=== PATIENT | male | born 1950 | race Caucasian/White ===

== ENCOUNTER 2020-03-21 08:02 | Outpatient (REF) | payer MEDICARE, SELFPAY ==
--- NOTE | 2020-03-21 08:22 | US_ITS ---
EXAMINATION: NONINVASIVE ASSESSMENT OF THE ARTERIES OF BOTH LOWER EXTREMITIES WITH PVR EXAM AND BILATERAL LOWER EXTREMITY DUPLEX CLINICAL INFORMATION: Claudication TECHNIQUE: Ankle pulse volume recordings, ankle pressure measurements and ankle brachial indices were obtained of the lower extremity arterial system bilaterally in addition to duplex Doppler techniques with wave form analysis and measurement of velocities in the common femoral, profunda femoral, superficial femoral, popliteal and tibial arteries. The study was performed only at rest. COMPARISON: Previous exam June 2018 FINDINGS: a) AT REST: RIGHT LE. The right ankle-brachial index is: 0.7 2. Right ankle pressure: Decreased 3. Right ankle PVR waveform: Dampened 4. Right direct duplex Doppler findings: There is diffuse atherosclerotic disease with vessel wall calcification. There are multiple areas of narrowing in the right common femoral and superficial femoral arteries. There is a stent in the mid SFA that is patent but demonstrates diffuse luminal narrowing. The popliteal artery is severely stenosed or/nearly occluded. Common femoral artery: 186 cm/s, Diastolic flow reversal: No * Superficial femoral artery (proximal, mid, distal): 112, 81, 69 cm/s, Diastolic flow reversal: No * Popliteal artery: 177 cm/s, Diastolic flow reversal: No * Posterior tibial artery: 20 cm/s, Diastolic flow reversal: No SFA stent: Proximal mid and distal systolic velocities are 73, 43 and 39 cm/s with monophasic flow. LEFT LE. The left ankle-brachial index is: 1 2. Left ankle pressure: normal. 3. Left ankle PVR waveform: normal. 4. Left direct duplex Doppler findings: There is evidence of diffuse atherosclerotic disease. There is diffuse narrowing of the SFA and popliteal artery. There is a severe stenosis of the proximal SFA. There is a new mid to distal SFA stent that is patent but demonstrates mild diffuse luminal narrowing. * Common femoral artery: 271 cm/s, Diastolic flow reversal: No * Superficial femoral artery (proximal, mid, distal): 221, 139 and 51 cm/s, Diastolic flow reversal: No * Popliteal artery: 59 cm/s, Diastolic flow reversal: No * Posterior tibial artery: 56 cm/s, Diastolic flow reversal: No SFA stent: Proximal mid and distal peak systolic velocities are 117, 84 and 46 cm/s with monophasic phasic flow. MACARIO Reference: * >0.97-1.25 = normal - no significant arterial disease * 0.75-0.96 = mild peripheral arterial disease * 0.5-0.74 = moderate peripheral arterial disease * <0.50 = severe peripheral arterial disease IMPRESSION: Right: Severe atherosclerotic disease with multiple segmental stenoses of the right common and superficial femoral arteries. Patent mid SFA stent with diffuse luminal narrowing. Severe stenosis/near occlusion of the popliteal artery. The right MACARIO is 0.69. Left: Severe atherosclerotic disease. Severe stenosis/near occlusion of the proximal left superficial femoral artery. New patent left SFA stent with mild luminal narrowing. The left MACARIO is 1.
== END 2020-03-21 08:03 | disposition home or self-care (01) ==
LOC: HO.US 08:02
PROVIDERS: Visit Provider Surgery Vascular Surgery
DX: I73.9 Peripheral vascular disease, unspecified (principal)
CPT/HCPCS: 93923; 93925

== ENCOUNTER → 2020-03-28 10:00 | Outpatient (BNVA) | payer MEDICARE, OTHER, SELFPAY | PROVIDERS: Visit Provider Surgery Vascular Surgery | DX: I73.9 Peripheral vascular disease, unspecified (principal) | CPT/HCPCS: 99213 ==

== ENCOUNTER 2020-04-03 10:29 | Outpatient (REF) | payer MEDICARE, OTHER, SELFPAY ==
[2020-04-03 12:09] LABS: Blood Urea Nitrogen 7 mg/dL (9-16); Estimated Glomerular Filt Rate > 60
== END 2020-04-03 10:30 | disposition home or self-care (01) ==
LOC: HO.LAB 10:29
PROVIDERS: PCP Internal Medicine; Visit Provider Surgery Vascular Surgery
DX: I73.9 Peripheral vascular disease, unspecified (principal)
CPT/HCPCS: 82565; 84520

== ENCOUNTER 2020-04-08 09:03 | Outpatient (REF) | payer MEDICARE, SELFPAY ==
--- NOTE | 2020-04-08 09:06 | CT_ITS ---
EXAMINATION: CT ANGIOGRAPHY LEGS WITH RUNOFF CLINICAL INFORMATION: Peripheral vascular disease. COMPARISON: Bilateral lower extremity arterial ultrasound 01/20/2020. TECHNIQUE: Axial images through the abdomen, pelvis and bilateral lower extremities following 100 mL Omnipaque 350 intravenous contrast. Sagittal and coronal reconstructions on the technologist workstation were performed. This CT examination was performed using dose optimization techniques as appropriate, variously including the following: *Automated exposure control *Adjustment of mA and/or kV according to patient size (this includes techniques or standardized protocols for targeted exams where dose is matched to indication/reason for exam; i.e. extremities or head) *Use of iterative reconstruction technique DLP: 682 mGy-cm. FINDINGS: VASCULAR: The abdominal aorta is normal in caliber. There is evidence of mild atherosclerotic disease with calcified and noncalcified plaque. No aneurysm or stenosis is seen. There is a mild stenosis at the origin of the celiac axis. There is a eexlffle-fr-bcikvu stenosis at the origin of the SMA with mild luminal narrowing secondary to noncalcified plaque. The GEE is patent. There are 2 right renal arteries. There is an accessory right renal artery supplying the upper pole that is patent. There is an earlier or pre-hilar branching pattern of the more inferior main renal artery. This demonstrates ojgqcjwn-cb-iokzcx stenosis at the origin. There are 2 left renal arteries. The main left renal artery supplies the upper and midpole and demonstrates no stenosis. There is a small accessory left renal artery supplying the lower pole and demonstrates no stenosis. The bilateral iliac arteries are heavily calcified. There is a fnuk-ie-szjufpfm stenosis at the origin of the right common iliac artery. There is a severe stenosis at the origin of the right external iliac artery. Remainder of the right external iliac artery is severely diffusely narrowed. There is a severe stenosis/occlusion of the origin of the right internal iliac artery. There is a epftlutl-mm-dcrpxt stenosis at the origin of the left common iliac artery. There is mild diffuse luminal narrowing of the left common iliac artery. The left internal iliac artery is patent. There is a vifq-sr-tpsjjbgn stenosis at the origin of the left external iliac artery. The left external iliac artery is also diffusely small in caliber with segmental stenoses. Right: There is qmjdncbe-zo-nqlpix stenosis of the right common femoral artery. The right profunda is patent. There is a moderate stenosis at the origin of the right superficial femoral artery. There are mild segmental stenoses of the right proximal and mid superficial femoral artery. There is a jfcn-te-gzlcypwc stenosis of the mid superficial femoral artery at the proximal margin of the stent. There is a stent in the mid and distal right superficial femoral artery that is patent. There is occlusion of the distal SFA/above-knee popliteal artery at the inferior margin of the stent. The distal SFA and above-knee popliteal artery are diffusely narrowed with extensive calcified plaque and gdsxpqnc-hh-htwvsd segmental stenoses. There is a short segment of the below-knee popliteal artery that is free of calcified plaque and mildly narrowed without a significant focal stenosis. Evaluation of the lower leg vessels is suboptimal due to extensive venous contamination. The right posterior tibial artery is patent and crosses the ankle joint into the foot. Left: The left common femoral artery is patent. The left profunda is patent. There are mild segmental stenoses of the left proximal and mid superficial femoral artery. There is a moderate stenosis of the mid left superficial femoral artery at the superior margin of the stent. There is a stent in the mid and distal left superficial femoral artery. There is an oblique filling defect in the distal end of the stent, for example coronal reconstructed image 93 series 9, questionable for focal web-like stenosis. There is obuu-mh-rtbukjpn stenosis of the above-knee popliteal artery at the distal margin of the stent. The remainder of the left above and below-knee popliteal arteries are patent and essentially free of calcified atherosclerotic plaque. Again, evaluation of lower leg vessels is limited due to venous contamination. There appears to be three-vessel runoff to the left lower leg. NON-VASCULAR: There is a 5 mm calcified right lower lobe nodule probably representing a calcified granuloma, axial image 19 series 5. There is a 2 mm left lower lobe nodule, axial image 4 series 5. There is minimal subsegmental atelectasis at the lung bases. There is a left pleural calcification and areas of noncalcified pleural thickening. The liver may be low in attenuation. There is hypertrophy of the left lobe and caudate lobe, questionable for mild cirrhotic change. No focal liver lesion is seen. The gallbladder is unremarkable. There is no biliary duct dilatation. Spleen is unremarkable. The pancreas is unremarkable. The adrenal glands are unremarkable. The kidneys are unremarkable. The bladder is unremarkable. 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 Small and large bowel is unremarkable. The stomach is unremarkable. No ascites or adenopathy is seen. No hernia is seen. Review of bone windows demonstrates degenerative changes of the spine. IMPRESSION: Normal caliber aorta. Severe bilateral common and external iliac disease. Severe stenosis/occlusion of the right internal iliac artery. Patent left internal iliac artery. RIGHT: Severe atherosclerotic disease right common femoral artery. Mxyp-om-fckbxkvz stenoses of the right proximal and mid SFA. Patent right mid and distal SFA stent. Stenosis at the distal margin of the stent. Diseased above-knee popliteal artery. Patent but diffusely small caliber below-knee popliteal artery. Limited evaluation of trifurcation vessels due to venous contamination. Posterior tibial artery appears patent and crosses the ankle joint into the foot. LEFT: Patent left [employer]. Mild stenoses of the left proximal and mid superficial femoral artery proximal to the stent. Patent left mid and distal superficial femoral artery stent. Question weblike stenosis at the distal end of the stent. Iyfy-vl-rilrgamy stenosis of the proximal above-knee popliteal artery at the distal margin of the stent. The remainder of the above and below-knee popliteal artery is normal in caliber and relatively free of atherosclerotic plaque. Limited evaluation of trifurcation vessels due to venous contamination. There appears to be three-vessel runoff to the left lower leg. The posterior tibial artery crosses the ankle joint. Srfaapze-fh-menfpb stenosis at the SMA origin and more distal moderate stenosis of the SMA due to noncalcified plaque.
[2020-04-08] MEDS: iohexoL 350 MG/ML 100 ML INFUS..BTL IV (10:33)
== END 2020-04-08 09:04 | disposition home or self-care (01) ==
LOC: HO.CT 09:03
PROVIDERS: Visit Provider Surgery Vascular Surgery
DX: I73.9 Peripheral vascular disease, unspecified (principal)
CPT/HCPCS: 75635

== ENCOUNTER → 2020-04-25 11:15 | Outpatient (BNVA) | payer MEDICARE, OTHER, SELFPAY | PROVIDERS: PCP Internal Medicine; Visit Provider Surgery Vascular Surgery | DX: I73.9 Peripheral vascular disease, unspecified (principal) | CPT/HCPCS: 99212 ==

== ENCOUNTER 2020-05-15 10:22 | Outpatient (REF) | payer MEDICARE, OTHER, SELFPAY ==
[2020-05-15 11:04] LABS: Hematocrit 38.9 % (42-52); Hemoglobin 13.7 g/dl (14.0-18.0); Mean Corpuscular HGB Conc 35.2 g/dl (31.0-36.0); Mean Corpuscular Hemoglobin 36.9 pg (27.0-33.0); Mean Corpuscular Volume 104.9 fL (80-98); Mean Platelet Volume 8.8 fL (9.4-12.4); Platelet Count 225 X10*3/uL (160-400); Red Blood Count 3.71 X10*6/uL (4.60-5.80); Red Cell Distribution Width 12.5 % (11.0-16.0); White Blood Count 4.5 X10*3/uL (4.8-10.8)
[2020-05-15 11:11] LABS: Prothrombin Time 12.2 SEC (10.8-13.0)
[2020-05-15 11:26] LABS: Anion Gap 11 (12-20); Blood Urea Nitrogen 7 mg/dL (9-16); Calcium 9.1 mg/dL (8.4-10.2); Carbon Dioxide 30 mmol/L (22-29); Chloride 96 mmol/L (96-108); Estimated Glomerular Filt Rate > 60; Glucose Random 94 mg/dL (60-115); Potassium 4.6 mmol/l (3.3-5.1); Sodium 132 mmol/L (135-145)
== END 2020-05-15 10:23 | disposition home or self-care (01) ==
LOC: HO.LAB 10:22
PROVIDERS: PCP Internal Medicine; Visit Provider Surgery Vascular Surgery
DX: Z13.89 Encounter for screening for other disorder (principal)
CPT/HCPCS: 36415; 80048; 85027; 85610; 85730

== ENCOUNTER 2020-05-20 12:26 | Inpatient (IN) | payer MEDICARE, OTHER, SELFPAY ==
[2020-05-14 12:21] VITALS: BMI 24.7
--- NOTE | 2020-05-15 11:52 | HO.ANESPROP2 ---
Documented by User: Nila Masters 05/15/20 12:07 HPI - Anesthesia Eval Consult details Narrative: 70yo M for R Femoral Endarterectomy Cardiac cleared S/P L femoral endarterectomy 11/2019 with GA-LMA 5 Chronic low Na, ?r/t ETOH PMFSH Past Medical History Medical History (Updated 05/15/20 @ 11:57 by Nila Masters) Arthritis COPD (chronic obstructive pulmonary disease) Elevated cholesterol History of prostate cancer Hx of low back pain Prostate cancer PVD (peripheral vascular disease) Smoker Spinal disease Surgical History Surgical History (Updated 05/14/20 @ 11:53 by Hue Bell) History of endarterectomy (11/20/19) History of femoral angiogram History of spinal surgery Hx of colonoscopy Social History Social History (Updated 05/14/20 @ 12:29 by Hue Bell) Alcohol intake: current Alcohol intake frequency: 3 or more drinks per day Alcohol type: beer Smoking Status: Current every day smoker Cigarettes Per Day: 10 Years Smoked: 60 Narrative Narrative: +smoker, +ETOH Meds Allergies Allergy/AdvReac Type Severity Reaction Status Date / Time No Known Allergies Allergy Verified 05/14/20 12:16 [No Known Allergies*] Home Medications Medication Instructions Recorded Confirmed Type aspirin 81 mg tablet,delayed 81 mg PO DAILY 03/28/20 05/14/20 History release clopidogrel 75 mg tablet 75 mg PO DAILY 03/28/20 05/14/20 History ipratropium 20 mcg-albuterol 100 2 puff INHALATION BEDTIME 03/28/20 05/14/20 History mcg/actuation mist for inhalation metoprolol succinate 50 mg 50 mg PO DAILY 03/28/20 05/14/20 History tablet,extended release 24 hr umeclidinium 62.5 mcg-vilanterol 1 inh INHALATION DIRECTED PRN 03/28/20 05/14/20 History 25 mcg/actuation powdr for inhalation tamsulosin 1 cap PO BEDTIME 05/14/20 05/14/20 History Exam Exam Date and Time: May 15, 2020 1152 Height,Weight and Vital Signs: Height 5 ft 10 in Weight 78.018 kg Pertinent Lab Results Pertinent Lab Results: Laboratory Tests 05/15/20 05/15/20 10:45 10:45 WBC 4.5 L Hgb 13.7 L Hct 38.9 L Plt Count 225 Sodium 132 L Potassium 4.6 Chloride 96 Carbon Dioxide 30 H BUN 7 L Creatinine 0.75 Laboratory Tests 05/15/20 10:45 PT 12.2 INR 1.0 APTT 34.0 Narrative Narrative: EKG 09/2019: NSR with nonspec ST abn ECHO 09/2019: Technically limited, LVEF 55-60%, impaired relax, valves wihtin nml limit Nuc stress 09/2019: No definitive ischemia, basal to mid septum with fixed defect, ? artifact vs old nontransurmal infared, gated EF 70%, no transient ischemic dilation Carotid US 07/2019: R ICA 0-49%, L ICA 50-79% Assessment and Plan Assessment Anesthesia Assessment: Chart Reviewed Documented by User: Anup Zarco 05/20/20 08:36 [facility] Past Medical History Medical History (Updated 05/15/20 @ 11:57 by Nila Masters) Arthritis COPD (chronic obstructive pulmonary disease) Elevated cholesterol History of prostate cancer Hx of low back pain Prostate cancer PVD (peripheral vascular disease) Smoker Spinal disease Surgical History Surgical History (Updated 05/14/20 @ 11:53 by Hue Bell) History of endarterectomy (11/20/19) History of femoral angiogram History of spinal surgery Hx of colonoscopy Social History Social History (Updated 05/14/20 @ 12:29 by Hue Bell) Alcohol intake: current Alcohol intake frequency: 3 or more drinks per day Alcohol type: beer Smoking Status: Current every day smoker Cigarettes Per Day: 10 Years Smoked: 60 Meds Allergies Allergy/AdvReac Type Severity Reaction Status Date / Time No Known Allergies Allergy Verified 05/14/20 12:16 [No Known Allergies*] Home Medications Medication Instructions Recorded Confirmed Type aspirin 81 mg tablet,delayed 81 mg PO DAILY 03/28/20 05/14/20 History release clopidogrel 75 mg tablet 75 mg PO DAILY 03/28/20 05/14/20 History ipratropium 20 mcg-albuterol 100 2 puff INHALATION BEDTIME 03/28/20 05/14/20 History mcg/actuation mist for inhalation metoprolol succinate 50 mg 50 mg PO DAILY 03/28/20 05/14/20 History tablet,extended release 24 hr umeclidinium 62.5 mcg-vilanterol 1 inh INHALATION DIRECTED PRN 03/28/20 05/14/20 History 25 mcg/actuation powdr for inhalation tamsulosin 1 cap PO BEDTIME 05/14/20 05/14/20 History Exam Airway Mallampati Class: II TM Dist: >3cm Neck ROM: Full Denture: Upper Loose/Missing/Broken Teeth: Yes (lower poor dentiiton AND missing teeth) Heart: [id number] Lungs: CTA b/l Assessment and Plan Assessment Anesthesia Assessment: Anesthesia Plan Discussed, Smoking Cess. Discussed, PAT Visit and Chart Reviewed Final Anesthetic Review NPO: Yes ASA Class: III Final Preanesthetic Review: No Changes in Pt Med Stat, Meds/Allgs Chart Reviewed, Consent Obtained/Reviewed and Anes Risks/Benef Reviewed Patient Risk: Intermediate Procedure Risk: Intermediate Assessment/Block/Sedation in SS: Assess/Block/Sedation-SS Anesthetic Plan Anesthetic Plan: GA Disposition: Standard PACU
[2020-05-20] VITALS (24 sets, daily range): BP systolic 112–159; BP diastolic 45–78; PULSE 64–97; RESP 11–18; TEMP 36.1–37.2; O2SAT 91–100; BMI 25.9
[2020-05-20 06:52] LABS: COVID-19 Test Negative (Negative)
[2020-05-20] MEDS: ceFAZolin Sodium/Dextrose,Iso 2 GM/50 ML PIGGYBACK IV ×2 (07:13→15:07)
[2020-05-20 07:49] LABS: Hematocrit 36.7 % (42-52); Hemoglobin 12.8 g/dl (14.0-18.0); Mean Corpuscular HGB Conc 34.9 g/dl (31.0-36.0); Mean Corpuscular Hemoglobin 36.9 pg (27.0-33.0); Mean Corpuscular Volume 105.8 fL (80-98); Mean Platelet Volume 8.8 fL (9.4-12.4); Platelet Count 215 X10*3/uL (160-400); Red Blood Count 3.47 X10*6/uL (4.60-5.80); Red Cell Distribution Width 12.7 % (11.0-16.0); White Blood Count 4.7 X10*3/uL (4.8-10.8)
[2020-05-20 07:57] LABS: INTERNATIONAL NORM RATIO 1.1 (0.9-1.1); Prothrombin Time 12.5 SEC (10.8-13.0)
[2020-05-20 08:12] LABS: Anion Gap 12 (12-20); Blood Urea Nitrogen 8 mg/dL (9-16); Calcium 8.5 mg/dL (8.4-10.2); Carbon Dioxide 27 mmol/L (22-29); Chloride 99 mmol/L (96-108); Creatinine Clr Calc Pharmacy 101.3; Estimated Glomerular Filt Rate > 60; Glucose Random 89 mg/dL (60-115); Potassium 4.3 mmol/l (3.3-5.1); Sodium 134 mmol/L (135-145)
[2020-05-20] MEDS: ondansetron HCL 4 MG/2 ML VIAL IVPUSH (12:33)
[2020-05-20] MEDS: oxyCODONE HCl Immed Release 5 MG TABLET PO (12:35)
[2020-05-20] MEDS: fentaNYL citrate/PF 100 MCG/2 ML VIAL 50 MCG IVPUSH (12:36)
--- NOTE | 2020-05-20 14:28 | PM.CCHP ---
History of Present Illness Date of Service: 05/20/20 Mr. Hou is admitted to the ICU this afternoon for postoperative monitoring following right femoral endarterectomy by Dr. Manzo in the operating room this morning. The patient is a 69-year-old man with very exercise limiting claudication. His past medical history is otherwise remarkable for a long history of smoking. He previously underwent left femoral endarterectomy and stenting of the SFA and balloon intervention of the left popliteal artery. In addition, he has bilateral carotid artery stenosis. Preoperative medications include Toprol 50 mg, aspirin 81 mg daily, Atorvastatin 40 mg daily, Sulindac, and Plavix. Preoperative BUN and creatinine were 8/0.7, Hb 12.8. Preoperative echo showed normal LV size and thickness and systolic function with impaired relaxation filling pattern. Valvular Dopplers were normal. RV systolic pressure was normal. IVC was normal in size and insp collapse. Intraop surgical course with Rt. FEA and Rt. iliac stent was unremarkable with the exception of difficult Matthew catheter placement requiring Urology assistance. Unremarkable GA and recovery. In the ICU, the patient is fully awake and and appropriate and breathing easy, with sat mid to high 90s on room air. See vital signs below. Heart rate is 80, sinus rhythm. Blood pressure is 159/72. Respiratory rate is 17. No JVD at 30?. Abdomen is benign. Right femoral wound is covered by a bandage and otherwise looks great, no swelling, ooze, or visible hematoma. His right lower leg and foot are very warm, much warmer than the left. Capill refill is normal, and faster than the left foot. No palp pulses, but all 4 are present by Doppler. IMPRESSION: 1. Severe PVD. 2. Severe claudication. 3. Long time smoker. 4. S/P successful RLE revascularization via Rt. FEA and Rt. iliac stent. 5. Difficult Matthew catheter ? keep in at least until tomorrow, per Dr. Manzo. Doing very well. F/u course per Dr. Manzo. As of 7pm the patient is doing very well. D/W Dr. Manzo, will need to triage to [facility]. Time: [id number]. [facility] Past Medical History Medical History (Updated 05/15/20 @ 11:57 by Nila Masters) Arthritis COPD (chronic obstructive pulmonary disease) Elevated cholesterol History of prostate cancer Hx of low back pain Prostate cancer PVD (peripheral vascular disease) Smoker Spinal disease Surgical History Surgical History (Updated 05/14/20 @ 11:53 by Hue Bell) History of endarterectomy (11/20/19) History of femoral angiogram History of spinal surgery Hx of colonoscopy Social History Social History (Updated 05/14/20 @ 12:29 by Hue Bell) Household Members: Spouse Housing: House Are you a primary healthcare advisory services manager to a significant other at home: No Do you presently have visiting nurse or other home services: No Alcohol intake: current Alcohol intake frequency: 3 or more drinks per day Alcohol type: beer Smoking Status: Current every day smoker Tobacco Type: Cigarette Packs Per Day: 0.5 Cigarettes Per Day: 10.0 Years Smoked: 60 Smoked in Last 30 Days: Yes Patient Interested in Nicotine Replacement: Yes Patient Given Instructions on How to Stop Smoking: Yes Date Education Initiated: 05/20/20 Use of substances other than those prescribed or required for medical reasons: No Currently Displaying Signs/Symptoms of Drug Intoxication Withdrawal: No Have you been hit, kicked, punched, or otherwise hurt by someone within the past year? If so, by whom?: No Do you feel safe in your current relationship?: Yes Is there a partner from a previous relationship who is making you feel unsafe now?: No Are you made to feel afraid or neglected: No Spiritual Healthcare Practices: none Taoist Healthcare Practices: none Cultural Healthcare Practices: none Advance Directives: No Advance Directives Information Provided: No Do you have thoughts of harming others: None Do you have a plan to hurt others: No Plan Recently lost weight without trying: No Meds Allergies Allergy/AdvReac Type Severity Reaction Status Date / Time No Known Allergies Allergy Verified 05/14/20 12:16 [No Known Allergies*] Home Medications Medication Instructions Recorded Confirmed Type aspirin 81 mg tablet,delayed 81 mg PO DAILY 03/28/20 05/14/20 History release clopidogrel 75 mg tablet 75 mg PO DAILY 03/28/20 05/14/20 History ipratropium 20 mcg-albuterol 100 2 puff INHALATION BEDTIME 03/28/20 05/14/20 History mcg/actuation mist for inhalation metoprolol succinate 50 mg 50 mg PO DAILY 03/28/20 05/14/20 History tablet,extended release 24 hr umeclidinium 62.5 mcg-vilanterol 1 inh INHALATION DIRECTED PRN 03/28/20 05/14/20 History 25 mcg/actuation powdr for inhalation tamsulosin 1 cap PO BEDTIME 05/14/20 05/14/20 History Physical Exam Vital Signs: Vital Signs: Last Vital Signs Temp 98.3 F 05/20/20 13:05 Pulse 71 05/20/20 14:00 Resp 17 05/20/20 14:00 BP 159/72 H 05/20/20 14:00 Pulse Ox 94 05/20/20 14:00 Body Mass Index 24.7 Results Labs CBC and Chem 7: 05/20/20 07:26 05/20/20 07:26 Labs: Laboratory Results - last 24 hr 05/20/20 05/20/20 05/20/20 06:24 07:26 07:26 MCV 105.8 H MCH 36.9 H MCHC 34.9 RDW 12.7 Plt Count 215 MPV 8.8 L Absolute Nucleated RBC 0.000 Nucleated RBC % (auto) 0.0 PT 12.5 INR 1.1 APTT 33.0 Anion Gap Estim Creat Clear Calc Estimated GFR Random Glucose Calcium COVID-19 (ANGE) Negative COVID-19 Clin Com See Note SARS-CoV-2 IgG Ab Blood Type Antibody Screen Antibody Identification Crossmatch Blood Bank Comment 05/20/20 05/20/20 05/20/20 07:26 07:26 07:41 MCV MCH MCHC RDW Plt Count MPV Absolute Nucleated RBC Nucleated RBC % (auto) PT INR APTT Anion Gap 12 Estim Creat Clear Calc 101.3 Estimated GFR > 60 Random Glucose 89 Calcium 8.5 D COVID-19 (ANGE) COVID-19 Clin Com SARS-CoV-2 IgG Ab Cancelled Blood Type O Positive Antibody Screen NEGATIVE Antibody Identification Inconclusive Crossmatch See Detail Blood Bank Comment Technical
[2020-05-20] MEDS: 0.9 % Sodium Chloride 1,000 ML 80 ML IVCONT ×2 (15:08→23:38)
[2020-05-20] MEDS: 0.9 % Sodium Chloride Flush 3 ML SYRINGE IVFLUSH ×4 (15:09→23:38)
--- NOTE | 2020-05-20 15:38 | PC.NURSE ---
[place] [id number]. Neuros intact yet pt slightly drowsy. Bilateral pedal and posterior tibial pulses present via Doppler assessment. Dressing to right fem area has a small amount of staining which was circled on arrival and has not gotten any larger. Continuing to assess neuros, dressing, and pulses.
--- NOTE | 2020-05-20 15:42 | OP_ITS ---
SURGEON: Cabrera Manzo MD INDICATIONS: Adonay is a 70-year-old gentleman with activity limiting claudication. He has had prior left-sided femoral endarterectomy. He has had significant problems with his right lower extremity. He now presents for operative intervention. Risks, benefits, and complications were discussed in detail with the patient. The patient understood and consented. PREOPERATIVE DIAGNOSIS: Atherosclerosis with activity limiting claudication, right lower extremity. POSTOPERATIVE DIAGNOSIS: PROCEDURE PERFORMED: ESTIMATED BLOOD LOSS: 200 mL. COMPLICATIONS: ANESTHESIA: General. ASSISTANTS: Dr. Barroso. SPECIMENS: One. POSTPROCEDURE DIAGNOSIS: Atherosclerosis with activity limiting claudication, right lower extremity. PROCEDURES PERFORMED: 1. Right femoral artery cutdown. 2. Direct access of right common femoral artery. 3. Aortogram. 4. Stenting of right common iliac and external iliac. 5. Endarterectomy of common femoral, superficial femoral, and remote endarterectomy of profunda femoris. DESCRIPTION OF PROCEDURE: The patient was brought to the angiography suite, prior to which timeout was called for patient identification and site verification. Abdomen and groins were prepped and draped in standard surgical fashion. A longitudinal incision was made over the right common femoral. We dissected all the way down to the right common femoral artery overlying inguinal ligament. We were able to isolate out the common femoral, profunda, and SFA. Once we were able to do that, this was all done with silastic loops. We were able to appreciate a soft area in the common femoral up high close to the external iliac. We did a direct puncture with a micropuncture needle and micro wire. Subsequently, a 4-Urdu sheath was then advanced. This was all done under fluoroscopic guidance. At this point, we brought a wire and catheter up into the aorta. Through the catheter, aortogram and iliacs were subsequently imaged. Multiple orthogonal views were then undertaken. We identified 3 separate lesions in the junction of the common iliac to external iliac and external iliac. These were identified and marked. Prior to all of this, 5000 units of systemic heparin was administered after 5 minutes of circulation time, then the imaging was undertaken. Once this was done, at the bifurcation, we first deployed a balloon expandable Visi-Pro stent, which was 8 x 17. Prior to all of this, we had plastied this entire area with a 6 x 30 balloon. We then deployed the 8 x 17 balloon expandable stent. At the junction of the common iliac and external iliac, we placed a 7 x 17 balloon expandable stent and then finally at the mid to distal portion of the external iliac, we placed a 6 x 17 balloon expandable stent as well. Once this was accomplished, excellent flow was achieved through the sheath. We then obtained control of the common femoral, profunda, and SFA. Sheath was then removed and this was all clamped down. We then made our arteriotomy on the common femoral and SFA. At this point, endarterectomy was performed from the SFA up on to the common femoral. Once entire area was endarterectomized, we did a remote endarterectomy of the profunda femoris. This was all then irrigated clear. We then patched on a XenoSure patch with a 6-0 Prolene in a circumferential manner. Once this was accomplished, prior to closure, it was flushed clear. We then had to place several reinforcement sutures for bleeding spots. There was about 3 total that we had to place, which were interrupted 6-0 Prolene sutures as well and then once this was done, SNoW was then placed. Adequate hemostasis was achieved. Prior to closure, Tisseel was placed in this entire area. Once this was all accomplished, we then reapproximated the deep layer using 2-0 Surgipro, superficial layer with 3-0 Surgipro, and finally skin was closed with skin clips. Sterile dressing was applied. At the end of the case, sponge, needle, and instrument counts were correct. The patient tolerated the procedure well, awoke, foot was neurologically intact and had a good triphasic DP and PT signal. INTERPRETATION OF FILMS: Initial aortogram demonstrated normal-caliber aorta, good flow down through the left iliacs. Right side had a high-grade stenosis at the origin of the common iliac to external iliac transition had a high-grade stenosis and there was a high-grade stenosis at the external iliac. After the 3 balloon expandable stents were deployed, excellent result was achieved, good flow through the entire common iliac and external iliac system of the right side. CONCLUSION: Successful iliac stenting, successful endarterectomy. Once the patient is stable and bleeding, hemostasis is achieved. The patient will require 6 months of aspirin and Plavix. DRAINS: None. MD NANCY Mendez/KORI / [phone]
--- NOTE | 2020-05-20 17:42 | PC.NURSE ---
Addendum entered by Kaitlin Peraza RN 05/20/20 18:48: 1800-Neurological exam WNL, denies headache, pedal and posterior tibial pulses present via dopplar bilaterally. The bloody drainage on dressing has not enlarged since previous exam. aware of the small increase in drainage and in room for assessment of site. Both femoral areas are soft. Right fem is tender to touch but equal in size when compared to the left. Original Note: 1500- No changes in neuro status (WNL but pt slightly drowsy), denies headache, pedal and posterior tibial pulses present via dopplar bilaterally, no change in size to the blood stain on dressing. 1600- Neurological exam WNL, denies headache, pedal and posterior tibial pulses present via dopplar bilaterally, no change in size to the blood stain on dressing . 1700- Neurological exam WNL, denies headache, pedal and posterior tibial pulses present via dopplar bilaterally. A very small increase in the size of the drainage to the surgical dressing (original spot size of dime with spot now the size of a quarter). Will continue to monitor.
[2020-05-20] MEDS: Tamsulosin HCL 0.4 MG CAPSULE PO (21:44)
[2020-05-21] VITALS (27 sets, daily range): BP systolic 102–148; BP diastolic 37–65; PULSE 66–90; RESP 12–26; TEMP 36.7–37.6; O2SAT 85–98; BMI 24.9
[2020-05-21] MEDS: Morphine Sulfate 2 MG/ML CARTRIDGE IVPUSH (01:57)
--- NOTE | 2020-05-21 07:43 | HO.POSTANES ---
Post Anesthesia Evaluation Post Anesthesia Evaluation Vital Signs: Vital Signs Temp Pulse Resp BP Pulse Ox 05/21/20 06:56 70 15 122/54 L 95 05/21/20 06:00 83 22 H 123/37 L 92 05/21/20 05:00 72 12 127/56 L 95 05/21/20 04:00 71 14 119/53 L 91 L 05/21/20 03:00 71 15 121/55 L 93 05/21/20 02:00 72 19 123/48 L 93 05/21/20 01:57 15 05/21/20 01:00 71 16 135/63 94 05/21/20 00:00 70 15 136/64 95 05/20/20 23:40 98.6 F 75 16 95 05/20/20 23:00 69 17 132/61 91 L 05/20/20 22:00 69 15 112/45 L 91 L 05/20/20 21:00 70 12 140/61 H 94 05/20/20 20:00 71 14 135/64 92 Anesthesia: General Endotracheal-GETA Mental Status: Awake Pain Control: Satisfactory Nausea/Vomiting: None Hydration: Adequate Anesthesia-Related Issues: No Anes. Related Issues
[2020-05-21] MEDS: Acetaminophen 325 MG TABLET 650 MG PO (08:02)
[2020-05-21] MEDS: 0.9 % Sodium Chloride Flush 3 ML SYRINGE IVFLUSH ×4 (08:03→15:47)
--- NOTE | 2020-05-21 08:28 | PC.NURSE ---
Shift eval 7p-7a: Patient c/o lower back pain and tenderness at surgical site (right fem). No increase in staining noted through night on right fem dressing. CMS checked frequently to bilat feet with doppler. vitals stable, afebrile. Medicated w/ morphine w/ good effect. Repos q2h, educated to keep patient as flat as possible - tolerated through night.
--- NOTE | 2020-05-21 08:30 | PC.NURSE ---
Dr. Manzo at bedside for eval, per MD potential plan for pt to transfer to [facility], move pt OOB to chair, per md stop IV fluids, keep samuels cath in as it was place by Dr. Spencer, pt sittin up in bed eating breakfast, reported headache 01/28, requested tylenol, pt desats to 80's when sleeping, on 2l NC while sleeping, will cont to monitor and awaiting [facility] transfer
--- NOTE | 2020-05-21 09:26 | HO.VASCPN ---
Subjective Subjective Date of Service: 05/21/20 Patient reports: no new complaints and feels better Interval history: Patient is postop day 1 status post right femoral endarterectomy with iliac stenting. No events overnight. Pain well controlled. Was in bed eating breakfast this morning. Feel significantly better. Physical Exam Vital Signs: Vital Signs: Last Vital Signs Temp 98.1 F 05/21/20 08:00 Pulse 79 05/21/20 09:00 Resp 13 05/21/20 09:00 BP 112/40 L 05/21/20 09:00 Pulse Ox 88 L 05/21/20 09:00 Body Mass Index 24.9 Const: General: cooperative, healthy appearing and no acute distress Orientation/consciousness: oriented to person, oriented to place and oriented to time HENMT: Head: Yes normal to inspection Neck: Carotids: no bruits Chest: Chest palpation & inspection: normal inspection of the chest Resp: Effort & Inspection: normal respiratory effort and able to speak in complete sentences Auscultation: clear to auscultation bilaterally Cardio: Other: Right side dorsalis pedis and posterior tibial signals triphasic. Rate: regular rate Heart sounds: S1 normal heart sound present and S2 normal heart sound present GI: Inspection: Yes normal to inspection Skin: Other: Incision site minimal hematoma General skin exam: no rashes or lesions noted Neuro: General: oriented to person, oriented to place, oriented to time and CN's II-XI intact bilaterally Extrem: General: Yes normal to inspection, Yes full ROM and Yes no clubbing, cyanosis or edema Psych: Appearance: grossly normal and well kempt Speech and movement: Normal speech and movement present Affect: normal affect Progress Note: A&P Assessment and plan (1) PAD (peripheral artery disease): Status: Acute Assessment and Plan: Patient doing excellent postop day 1. Out of bed to chair. Will start back on aspirin and Plavix. Stable to transfer to the floor. Discussed with Urology who placed a Matthew intraop would be stable to remove Matthew tomorrow as it was a complex Matthew placement and had bloody output. Thank you for the firearms assembly supervisor in the assistance of this patient's care. Fall Risk Details Current Medications: Current Medications Generic Name Dose Route Start Last Admin Trade Name Freq PRN Reason Stop Dose Admin Acetaminophen 650 mg 05/20/20 11:41 05/21/20 08:02 Acetaminophen 325 Mg Tablet PO 650 mg Q6H PRN Administration Pain, Mild (Pain Scale 1-3) Sodium Chloride 1,000 mls @ 80 mls/hr 05/20/20 11:45 05/20/20 23:38 Ns IVCONT 80 mls/hr .[id number] STEWART Administration Morphine Sulfate 2 mg 05/20/20 11:41 05/21/20 01:57 Morphine Sulfate 2 Mg/Ml Cartridge IVPUSH 2 mg Q4H PRN Administration Pain, Severe (Pain Scale 7-10) Oxycodone HCl 5 mg 05/20/20 11:41 05/20/20 12:35 Oxycodone Hcl Immed Release 5 Mg Tablet PO 5 mg Q4H PRN Administration Pain, Moderate (Pain Scale 4-6 Sodium Chloride 3 ml 05/20/20 16:00 05/21/20 08:03 0.9 % Sodium Chloride Flush 3 Ml Syringe IVFLUSH 3 ml QSHIFT STEWART Administration Sodium Chloride 3 ml 05/20/20 16:00 05/21/20 08:03 0.9 % Sodium Chloride Flush 3 Ml Syringe IVFLUSH 3 ml QSHIFT STEWART Administration Tamsulosin HCl 0.4 mg 05/20/20 21:00 05/20/20 21:44 Tamsulosin Hcl 0.4 Mg Capsule PO 0.4 mg BEDTIME STEWART Administration Time Spent With Patient Time: Total time spent is greater than 50% in coordination of care (as documented) at patient's floor/unit and/or counseling patient: Time with patient: 15 - 24 minutes
[2020-05-21 09:41] LABS: MANUAL DIFF FLAG NO
[2020-05-21 09:42] LABS: Basophils Absolute Auto 0.1 X10*3/uL (0.0-0.2); Basophils Percent Auto 0.9 % (0-2); Eosinophils Absolute Auto 0.2 X10*3/uL (0.0-0.4); Eosinophils Percent Auto 2.8 % (0-4); Hematocrit 32.6 % (42-52); Hemoglobin 11.4 g/dl (14.0-18.0); Imm Gran Abs Auto 0.03 X10*3/uL (0.00-0.03); Imm Gran Pct Auto 0.6 % (0.0-0.4); Lymphocytes Absolute Auto 0.9 X10*3/uL (1.2-4.9); Mean Corpuscular Hemoglobin 37.6 pg (27.0-33.0); Mean Corpuscular Volume 107.6 fL (80-98); Mean Platelet Volume 9.1 fL (9.4-12.4); Monocytes Absolute Auto 0.1 X10*3/uL (0.1-1.2); Monocytes Percent Auto 1.5 % (2-11); Neutrophils Absolute Auto 4.2 X10*3/uL (2.0-8.3); Neutrophils Percent Auto 78.2 % (45-73); Platelet Count 137 X10*3/uL (160-400); Red Blood Count 3.03 X10*6/uL (4.60-5.80); Red Cell Distribution Width 12.8 % (11.0-16.0); White Blood Count 5.4 X10*3/uL (4.8-10.8)
[2020-05-21 10:01] LABS: INTERNATIONAL NORM RATIO 1.2 (0.9-1.1); Prothrombin Time 13.8 SEC (10.8-13.0)
[2020-05-21 10:02] LABS: Anion Gap 11 (12-20); Carbon Dioxide 26 mmol/L (22-29); Chloride 98 mmol/L (96-108); Potassium 3.9 mmol/l (3.3-5.1); Sodium 131 mmol/L (135-145)
[2020-05-21] MEDS: Clopidogrel Bisulfate 75 MG TABLET PO (10:52)
[2020-05-21] MEDS: Aspirin Enteric Coated 81 MG TABLET.DR PO (10:52)
--- NOTE | 2020-05-21 11:21 | MHC.CM.PN ---
Met with patient in regards to d/c planning. Patient lives with his and son, ambulates independently and had no services prior to coming into the hospital. Patient had similar surgery in the past and went home with [facility]. Patient is requesting referral to [facility]. Referral made via allscripts. PCP verified. Patient denies having HCP. Information provided. Patient not interested in completing one at this time. IMM explained and signed. Patient's or son will transport him home when medically stable. Continue to monitor for d/c needs.
--- NOTE | 2020-05-21 14:33 | PC.NURSE ---
Pt remains in recliner, [place] [facility] [place] resting comfortably, on 2L NC at this time, will cont to monitor
[2020-05-21] MEDS: Tamsulosin HCL 0.4 MG CAPSULE PO (19:47)
[2020-05-21] MEDS: oxyCODONE HCl Immed Release 5 MG TABLET PO (19:47)
[2020-05-22] VITALS: BP 137/64; PULSE 74; PULSE 76; RESP 18; O2SAT 93
[2020-05-22 01:00] VITALS: BP 146/63; PULSE 78; RESP 18; O2SAT 91
--- NOTE | 2020-05-22 02:02 | PC.NURSE ---
Pt a&o x3. in bed with hob up. No resp difficulty. Presently asleep. Asumed care of pt at 1900. PT C/O pain in back and neck and was given warm compress and oxycodone 5mg with complete relief of discomfort. Surgical dsg is intact right groin with small amt of staining. Cms to right leg is good. Pulses are audible with a doppler. No numbness or tingling. Pt able to move right lower extremity well. Discussed with pt about plan to remove samuels cath in am. Pt states he will probably go home today, 05/22. Vital signs are stable. Afebrile. Coughing and deep breathing exercises done.
[2020-05-22 04:00] VITALS: PULSE 70
[2020-05-22 04:07] VITALS: BP 94/63; PULSE 81; RESP 18; TEMP 37; O2SAT 91
[2020-05-22] MEDS: oxyCODONE HCl Immed Release 5 MG TABLET PO ×3 (05:37→12:15)
[2020-05-22] MEDS: 0.9 % Sodium Chloride Flush 3 ML SYRINGE IVFLUSH (05:37)
[2020-05-22 05:58] VITALS: PULSE 72
[2020-05-22 08:01] VITALS: BP 155/71; PULSE 79; RESP 18; TEMP 36.8; O2SAT 94
--- NOTE | 2020-05-22 08:33 | MHC.CM.PN ---
Male 70 s/p fem endarterectomy. DP home new [facility] family will provide transportation. Patient anticipates DC today. DC plan confirmed by Pt.
[2020-05-22] MEDS: Aspirin Enteric Coated 81 MG TABLET.DR PO (09:23)
[2020-05-22] MEDS: Clopidogrel Bisulfate 75 MG TABLET PO (09:23)
--- NOTE | 2020-05-22 10:05 | P.F2F_ITS ---
Service Date Service Date: 05/22/20 Reasons for Services Homebound: Leaving the home is medically contraindicated at this time without the asist of a device and/or another person due th the listed conditions above and below. Certification: Based on the above findings, I certify that this patient is confined to the home and needs intermittent correction care, physical therapy and/or speech therapy, or continues to need occupational therapy. The patient is under my care, and I have initiated the establishment of the plan of care. The patient will be followed by a physician who will periodically review the plan of care.
--- NOTE | 2020-05-23 14:25 | DS_ITS ---
ADMITTING DIAGNOSIS: Atherosclerosis with activity limiting claudication, right lower extremity. DISCHARGE DIAGNOSIS: Atherosclerosis with activity limiting claudication, right lower extremity. HOSPITAL COURSE: The patient was admitted electively on 05/20/2020, underwent elective right femoral endarterectomy with right iliac stenting as a hybrid procedure. He had done extremely well with the procedure and postoperatively was observed in our ICU for a day. Overnight, he had no issues. Postop day 1, he was transferred up to intermediate care unit. The Matthew was removed. He was up and ambulating by postop day 2. Incision site appeared to be doing well. Minimal hematoma. He was subsequently discharged. CONDITION UPON DISCHARGE: Stable. DISCHARGE DIET: Regular. DISCHARGE MEDICATIONS: Included resuming all home medications. He did have a prior prescription of aspirin and Plavix, which he is to resume. In addition, he was given a prescription for oxycodone as needed for pain and he was only given 10 pills of that. DISCHARGE INSTRUCTIONS: Included resume ambulation as tolerated. He will have visiting nurses to do an incision check and he will follow up with me in approximately 2 weeks' time for removal of oneal and postoperative check. In addition, we have engaged visiting nurse services. Thank you for the supervisor belt and link assembly's help and his care. MD NANCY Mendez/KORI / [phone]
--- NOTE | 2020-07-19 08:04 | PM.DS ---
DS: Providers Provider Date of Service: 07/19/20 Date of admission: 05/20/20 12:26 Primary care physician: Susan Borden MD Consults: 05/21/20 08:32 Consult to Vascular Surgery Routine Consulting Provider: Cabrera Manzo Reason for consultation: s/p right femoral endarectomy DS: Diagnosis Discharge Diagnosis (1) PAD (peripheral artery disease): Status: Acute Problem details: 05/20/2020- right femoral endarterectomy with iliac stent 11/20/2019 - left femoral endarterectomy DS: Medications Discharge Medications Home Medications: Home Medications Medication Instructions Recorded Confirmed aspirin 81 mg tablet,delayed 81 mg PO DAILY 03/28/20 05/14/20 release clopidogrel 75 mg tablet 75 mg PO DAILY 03/28/20 05/14/20 ipratropium 20 mcg-albuterol 100 2 puff INHALATION BEDTIME 03/28/20 05/14/20 mcg/actuation mist for inhalation metoprolol succinate 50 mg 50 mg PO DAILY 03/28/20 05/14/20 tablet,extended release 24 hr umeclidinium 62.5 mcg-vilanterol 1 inh INHALATION DIRECTED PRN 03/28/20 05/14/20 25 mcg/actuation powdr for inhalation tamsulosin 1 cap PO BEDTIME 05/14/20 05/14/20 losartan 25 mg tablet 25 mg PO DAILY 07/18/20 Previous Rx's Medication Instructions Recorded oxycodone 5 mg PO Q6H PRN #10 tab 05/22/20 cephalexin 500 mg capsule 500 mg PO Q12H #20 cap 05/30/20 ciprofloxacin HCl 500 mg tablet 500 mg PO BID #20 tab 06/27/20 oxycodone-acetaminophen 5 mg-325 1 tab PO Q8H PRN #14 tab 06/27/20 mg tablet DS: Summary Hospital Course Hospital Course: please see d/c summary that was dictated on telephone system NANCY/KORI / [id number] Time Spent with Patient Time attestation: Total time spent providing and/or coordinating discharge services: Discharge coordination time: Less than 30 minutes Physical Exam Vital Signs: Vital Signs: Last Vital Signs Temp 98.2 F 05/22/20 08:01 Pulse 79 05/22/20 08:01 Resp 18 05/22/20 08:01 BP 155/71 H 05/22/20 08:01 Pulse Ox 94 05/22/20 08:01 Body Mass Index 24.9 DS: Data Data Completed and Pending Completed studies during hospitalization [Text1]: Pending at discharge 05/20/20 09:50 Surgical [PTH] Routine Procedures Extirpation of Matter from Right Femoral Artery, Open Approach (05/20/20) Supplement Right Femoral Artery with Synthetic Substitute, Open Approach (05/20/20) Labs on day of discharge: Laboratory Tests 05/20/20 05/20/20 05/20/20 06:24 07:26 07:26 WBC 4.7 L RBC 3.47 L Hgb 12.8 L Hct 36.7 L MCV 105.8 H MCH 36.9 H MCHC 34.9 RDW 12.7 Plt Count 215 MPV 8.8 L Immature Gran % (Auto) Neut % (Auto) Lymph % (Auto) [place] % (Auto) Eos % (Auto) Baso % (Auto) Lymph # (Auto) [place] # (Auto) Eos # (Auto) Baso # (Auto) Abs Immat Gran (auto) Absolute Neuts (auto) Absolute Nucleated RBC 0.000 Nucleated RBC % (auto) 0.0 PT 12.5 INR 1.1 APTT 33.0 Sodium Potassium Chloride Carbon Dioxide Anion Gap BUN Creatinine Estim Creat Clear Calc Estimated GFR Random Glucose Calcium COVID-19 (ANGE) Negative COVID-19 Clin Com See Note SARS-CoV-2 IgG Ab Blood Type Antibody Screen Antibody Identification Crossmatch Blood Bank Comment 05/20/20 05/20/20 05/20/20 07:26 07:26 07:41 WBC RBC Hgb Hct MCV MCH MCHC RDW Plt Count MPV Immature Gran % (Auto) Neut % (Auto) Lymph % (Auto) [place] % (Auto) Eos % (Auto) Baso % (Auto) Lymph # (Auto) [place] # (Auto) Eos # (Auto) Baso # (Auto) Abs Immat Gran (auto) Absolute Neuts (auto) Absolute Nucleated RBC Nucleated RBC % (auto) PT INR APTT Sodium 134 L Potassium 4.3 Chloride 99 Carbon Dioxide 27 Anion Gap 12 BUN 8 L Creatinine 0.71 Estim Creat Clear Calc 101.3 Estimated GFR > 60 Random Glucose 89 Calcium 8.5 D COVID-19 (ANGE) COVID-19 Clin Com SARS-CoV-2 IgG Ab Cancelled Blood Type O Positive Antibody Screen NEGATIVE Antibody Identification Inconclusive Crossmatch See Detail Blood Bank Comment Technical 05/21/20 05/21/20 05/21/20 09:29 09:29 09:29 WBC 5.4 RBC 3.03 L Hgb 11.4 L Hct 32.6 L MCV 107.6 H MCH 37.6 H MCHC 35.0 RDW 12.8 Plt Count 137 L D MPV 9.1 L Immature Gran % (Auto) 0.6 H Neut % (Auto) 78.2 H Lymph % (Auto) 16.0 L [place] % (Auto) 1.5 L Eos % (Auto) 2.8 Baso % (Auto) 0.9 Lymph # (Auto) 0.9 L [place] # (Auto) 0.1 Eos # (Auto) 0.2 Baso # (Auto) 0.1 Abs Immat Gran (auto) 0.03 Absolute Neuts (auto) 4.2 Absolute Nucleated RBC 0.000 Nucleated RBC % (auto) 0.0 PT 13.8 H INR 1.2 H APTT Sodium 131 L Potassium 3.9 Chloride 98 Carbon Dioxide 26 Anion Gap 11 L BUN Creatinine Estim Creat Clear Calc Estimated GFR Random Glucose Calcium COVID-19 (ANGE) COVID-19 Clin Com SARS-CoV-2 IgG Ab Blood Type Antibody Screen Antibody Identification Crossmatch Blood Bank Comment Discharge Plan Discharge Anticipated Discharge Date/Time: 05/22/20 09:58 Patient Disposition: Home Health Service Referrals: [facility] [Outside] Susan Borden MD [Primary Care Provider] - Discharge Medications: New oxycodone 5 mg tablet 5 mg PO Q6H PRN (Reason: pain) Qty: 10 RF: 0 Continued tamsulosin 0.4 mg capsule 1 cap PO BEDTIME RF: 0 No Action ciprofloxacin HCl [Cipro] 500 mg tablet 500 mg PO BID Qty: 20 RF: 0 oxycodone-acetaminophen [Percocet] 5-325 mg tablet 1 tab PO Q8H PRN (Reason: pain) Qty: 14 RF: 0 cephalexin [Keflex] 500 mg capsule 500 mg PO Q12H Qty: 20 RF: 0 Discharge Orders: Discharge Order (Routine); Ordered 05/22/20 Ordered By: Cabrera Manzo Diet: advance to usual diet Activity on Discharge: As tolerated Visit Report Forms: Patient Portal Discharge page Care Plan Goals: ambulate better Health Concerns: pad, claudication Plan of Treatment: post-op, ambulate more Discharge Date/Time: 05/22/20 12:19
== END 2020-05-22 12:19 | disposition home health service (06) | DRG 254 ==
LOC: HO.ICU 05-21 07:49 → HO.IMC 05-22 02:59
PROVIDERS: Surgery Vascular Surgery; Admitting Provider Anesthesiology; PCP Internal Medicine; Visit Provider Anesthesiology
PROC: 04CK0ZZ Extirpation of Matter from Right Femoral Artery, Open Approach (ICD-10-PCS; principal; 2020-05-20 07:30)
DX: I70.211 Atherosclerosis of native arteries of extremities with intermittent claudication, right leg (principal); F17.210 Nicotine dependence, cigarettes, uncomplicated; Z71.6 Tobacco abuse counseling; Z20.828 Contact with and (suspected) exposure to other viral communicable diseases; Z79.82 Long term (current) use of aspirin; Z79.891 Long term (current) use of opiate analgesic; Z79.899 Other long term (current) drug therapy
CPT/HCPCS: 36415; 80048; 80051; 85025; 85027; 85610; 85730; 86769; 86850; 86870; 86885; 86900; 86901; 86920; 86921; 87635; 88304; C1725; C1768; C1769; C1876; C1887; C1894; J0690; J1100; J2250; J2270; J2370; J2405; J3010; Q9967

== ENCOUNTER → 2020-05-30 13:07 | Outpatient (BNVA) | payer MEDICARE, OTHER, SELFPAY | PROVIDERS: PCP Internal Medicine; Referring Provider Internal Medicine; Visit Provider Surgery Vascular Surgery | DX: I73.9 Peripheral vascular disease, unspecified (principal) | CPT/HCPCS: 99212 ==

== ENCOUNTER → 2020-06-13 10:14 | Outpatient (BNVA) | payer MEDICARE, OTHER, SELFPAY | PROVIDERS: PCP Internal Medicine; Visit Provider Surgery Vascular Surgery | DX: Z13.89 Encounter for screening for other disorder (principal) | CPT/HCPCS: 99212 ==

== ENCOUNTER → 2020-06-27 08:56 | Outpatient (BNVA) | payer MEDICARE, OTHER, SELFPAY | PROVIDERS: PCP Internal Medicine; Visit Provider Surgery Vascular Surgery | DX: I73.9 Peripheral vascular disease, unspecified (principal); T81.89XA Other complications of procedures, not elsewhere classified, initial encounter | CPT/HCPCS: 99212 ==

== ENCOUNTER → 2020-07-02 14:13 | Outpatient (BNVA) | payer MEDICARE, OTHER, SELFPAY | PROVIDERS: PCP Internal Medicine; Visit Provider Surgery Vascular Surgery | DX: I73.9 Peripheral vascular disease, unspecified (principal) | CPT/HCPCS: 99212 ==

== ENCOUNTER → 2020-07-18 09:43 | Outpatient (BNVA) | payer MEDICARE, OTHER, SELFPAY | PROVIDERS: PCP Internal Medicine; Visit Provider Surgery Vascular Surgery | DX: I73.9 Peripheral vascular disease, unspecified (principal) | CPT/HCPCS: 99212 ==

== ENCOUNTER 2020-08-21 09:25 | Outpatient (REF) | payer MEDICARE, OTHER, SELFPAY ==
--- NOTE | ~2020-08-21 | US_ITS ---
EXAMINATION: AORTA ULTRASOUND CLINICAL INFORMATION: Peripheral vascular disease COMPARISON: None TECHNIQUE: Grayscale color and Doppler evaluation of the abdominal aorta FINDINGS: There is evidence of atherosclerotic disease. The abdominal aorta is normal in caliber. The proximal abdominal aorta measures 2.4 x 2.8, mid 1.8 x 1.9 and distal 2 x 2.2 cm in AP and transverse dimension. Aortic peak systolic velocity is 99 cm/s. The right common iliac artery measures 1.2 cm in AP dimension. The left common iliac artery measures 1.2 cm in AP dimension. US/US abdominal aortic aneurysm IMPRESSION: Atherosclerotic disease. No aneurysm seen.
--- NOTE | ~2020-08-21 | US_ITS ---
EXAMINATION: NONINVASIVE ASSESSMENT OF THE ARTERIES OF BOTH LOWER EXTREMITIES WITH PVR EXAM AND BILATERAL LOWER EXTREMITY DUPLEX CLINICAL INFORMATION: Peripheral vascular disease TECHNIQUE: Ankle pulse volume recordings, ankle pressure measurements and ankle brachial indices were obtained of the lower extremity arterial system bilaterally in addition to duplex Doppler techniques with wave form analysis and measurement of velocities in the common femoral, profunda femoral, superficial femoral, popliteal and tibial arteries. The study was performed only at rest. COMPARISON: Previous exam March 2020 FINDINGS: a) AT REST: RIGHT LE. The right ankle-brachial index is: 0.48 2. Right ankle pressure: Decreased 3. Right ankle PVR waveform: Dampened 4. Right direct duplex Doppler findings: There is evidence of atherosclerotic disease. There is a stent in the right external iliac artery. There is a hypoechoic soft tissue in the wall adjacent to the distal end of the stent questionable for post surgical change. The iliac vessels are difficult to visualize by ultrasound but appear patent. There is a right SFA stent that is patent. * Common femoral artery: 90 cm/s, Diastolic flow reversal: Yes * Superficial femoral artery (proximal, mid, distal): 149, 72, 64 cm/s, Diastolic flow reversal: No. Biphasic. * Popliteal artery: 80 cm/s, Diastolic flow reversal: No. Biphasic. * Posterior tibial artery: 55 cm/s, Diastolic flow reversal: No. Biphasic. LEFT LE. The left ankle-brachial index is: 0.79 2. Left ankle pressure: Slightly decreased 3. Left ankle PVR waveform: Slightly dampened. 4. Left direct duplex Doppler findings: There is evidence of atherosclerotic disease. There is a left iliac stent. There is a left SFA stent that is patent. * Common femoral artery: 280 cm/s, Diastolic flow reversal: Biphasic * Superficial femoral artery (proximal, mid, distal): 69, 97 and 111 cm/s, Diastolic flow reversal: Yes proximally in the midportion and no distally with biphasic waveform. * Popliteal artery: 77 cm/s, Diastolic flow reversal: No. Biphasic. * Posterior tibial artery: 63 cm/s, Diastolic flow reversal: Yes There is increased peak systolic velocity in the profunda measuring 250 cm/s. MACARIO Reference: * >0.97-1.25 = normal - no significant arterial disease * 0.75-0.96 = mild peripheral arterial disease * 0.5-0.74 = moderate peripheral arterial disease * <0.50 = severe peripheral arterial disease There is an arrhythmia. US/US arterial duplex LE BI IMPRESSION: Right: The right MACARIO is 0.48 suggestive of moderate obstructive atherosclerotic disease. Iliac vessels difficult to visualize by ultrasound but appear patent. Biphasic waveform seen in the SFA, popliteal and posterior tibial arteries. Left: The left MACARIO is 0.79 suggestive of mild obstructive atherosclerotic disease. Iliac vessels difficult to visualize by ultrasound but appear patent. Increased peak systolic velocity in the left common femoral artery. Increased peak systolic velocity in the left profunda. Biphasic waveforms in the left common femoral, distal SFA and popliteal arteries.
== END 2020-08-21 09:26 | disposition home or self-care (01) ==
LOC: HO.US 09:25
PROVIDERS: Visit Provider Surgery Vascular Surgery
DX: I65.29 Occlusion and stenosis of unspecified carotid artery (principal); I73.9 Peripheral vascular disease, unspecified
CPT/HCPCS: 76706; 93923; 93925

== ENCOUNTER → 2020-08-29 10:01 | Outpatient (BNVA) | payer MEDICARE, OTHER, SELFPAY | PROVIDERS: PCP Internal Medicine; Visit Provider Surgery Vascular Surgery | DX: I73.9 Peripheral vascular disease, unspecified (principal) | CPT/HCPCS: 99212 ==

== ENCOUNTER → 2020-09-05 10:59 | Outpatient (BNVA) | payer MEDICARE, OTHER, SELFPAY | PROVIDERS: PCP Internal Medicine; Visit Provider Surgery Vascular Surgery | DX: I73.9 Peripheral vascular disease, unspecified (principal) | CPT/HCPCS: 99212 ==

== ENCOUNTER → 2020-09-20 10:01 | Outpatient (BNVA) | payer MEDICARE, OTHER, SELFPAY | PROVIDERS: PCP Internal Medicine; Visit Provider Internal Medicine Cardiovascular Disease | DX: R06.02 Shortness of breath (principal); I77.9 Disorder of arteries and arterioles, unspecified; I10 Essential (primary) hypertension; R60.0 Localized edema | CPT/HCPCS: 93005; 99212 ==

== ENCOUNTER → 2020-10-03 13:15 | Outpatient (REF) | payer MEDICARE, OTHER, SELFPAY ==
--- NOTE | 2020-10-03 13:18 | CA_ITS ---
Transthoracic Echocardiogram Patient (Last, First, Middle): Adonay Hou, Gender: Male Date of : 1950 Age: 70 Procedure Date: 10/03/2020 Procedure Type: Transthoracic Echocardiogram Location: OP Height: 175.26 cm Weight: 77.11 kg BSA: 1.93 m2 Heart Rate: bpm BP: 120 / 82 mmHg Senior It Specialist: GENOVEVA Referring MD: Jairo Santacruz MD Symptoms: R06.02 - Shortness of breath Study Quality: Fair ECG Rhythm: Sinus Conclusions: - The left ventricular systolic function is normal. The visually estimated ejection fraction is between 65-70%. - No obvious valvular pathology seen on this study. Findings Procedure Information The patient declines contrast. Left Ventricle Normal left ventricular cavity size. There is normal left ventricular wall thickness. The left ventricular systolic function is normal. The visually estimated ejection fraction is between 65-70%. There is no evidence of regional wall motion abnormalities. Diastolic function is normal for age. Right Ventricle Normal right ventricular cavity size and systolic function. Atria The left atrium is normal in size. The right atrium is normal in size. Aortic Valve There is a normal trileaflet aortic valve. There is mild calcification of the aortic valve. There is no aortic valve stenosis. Mitral Valve The mitral valve appears normal. There is no mitral valve regurgitation. There is no mitral valve stenosis. Pulmonic Valve The pulmonic valve was not well visualized. Tricuspid Valve There is trace tricuspid valve regurgitation. The pulmonary artery systolic pressure is normal. Great Vessels The aortic annulus, sinuses of valsalva, asc aorta, and aortic arch are normal in size. Venous The inferior vena cava is normal in size and collapses greater than 50% with inspiration. Pericardium/Pleural There is no evidence of pericardial effusion. Prior Study Comparison No significant change compared to prior study dated: 10/18/2019. Recommendations, Care & Conclusions No obvious valvular pathology seen on this study. Measurements 2D Linear Measurements IVSd: 0.98 0.6-0.9/0.6-1.0 cm LVIDd: 4.00 3.9-5.3/4.2-5.9 cm LVIDd Index: 2.07 2.4-3.2/2.2-3.1 cm/m2 LVIDs: 2.48 2.0-3.6 cm LVPWd: 0.99 0.7-1.1 cm Ao Root: 2.90 2.1-3.5 cm LA Diam: 3.30 2.7-3.8/3.0-4.0 cm LAIDs Index: 1.71 1.5-2.3 cm/m2 LV Mass: 154.84 67-162/88-224 g LV Mass Index: 80.23 43-95/49-115 g/m2 LVOT Diam: 2.00 3.0+(-)1.3 cm Mitral Valve MV Pk E: 0.68 MV PK A: 0.93 MV Decel Time: 246.00 E/A: 0.70 E'Lateral: 9.09 E'Medial: 5.61 E/E' Med: 12.10 E/E' Lat: 7.50 PHT: 72.00 MVA PHT: 3.06 Decel [place]: 2.76 Aortic Valve AoV Pk Carlo: 1.81 AoV Mn Carlo: 1.24 AoV VTI: 0.39 AoV Pk Grad: 13.00 Aov Mn Grad: 7.00 SHARONDA Cont.VTI: 2.06 LVOT LVOT Pk Carlo: 1.18 LVOT Mn Carlo: 0.77 LVOT VTI: 0.26 LVOT Pk Grad: 6.00 LVOT Mn Grad: 3.00 LVOT Diam: 2.00 LVOT Area: 3.14 Diastolic Function MV Pk E: 0.68 MV Pk A: 0.93 E/A: 0.70 E'Medial: 5.61 E/E' Med: 12.10 E' Laterial: 9.09 E/E' Lat: 7.50 Tricuspid Valve TR Pk Carlo: 1.81 TR Pk Grad: 13.00 RA Press: 3.00 RVSP: 16.00 Great Vessels Aorta Ao Root-2D: 2.90 2.0-3.7 cm Ao Asc: 3.10 2.1-3.4 cm Ao Arch: 3.00 Updated in Other Vendor System with Status of Final Josse Calixto MD electronically signed on 10/04/2020 4:38:57 PM with status of Final
== END ==
LOC: HO.CARD 13:15
PROVIDERS: Visit Provider Internal Medicine Cardiovascular Disease
DX: R06.02 Shortness of breath (principal)
CPT/HCPCS: 93306

== ENCOUNTER 2020-10-07 10:22 | Outpatient (REF) | payer MEDICARE, OTHER, SELFPAY ==
[2020-10-07 11:19] LABS: Anion Gap 13 (12-20); Blood Urea Nitrogen 11 mg/dL (9-16); Calcium 9.3 mg/dL (8.4-10.2); Carbon Dioxide 27 mmol/L (22-29); Chloride 100 mmol/L (96-108); Estimated Glomerular Filt Rate > 60; Glucose Random 97 mg/dL (60-115); Potassium 4.8 mmol/L (3.3-5.1); Sodium 135 mmol/L (135-145)
[2020-10-07 11:29] LABS: B Type Natriuretic Peptide 169 pg/mL (<100)
== END 2020-10-07 10:23 | disposition home or self-care (01) ==
LOC: HO.LAB 10:22
PROVIDERS: PCP Pediatrics; Visit Provider Internal Medicine Cardiovascular Disease
DX: R06.02 Shortness of breath (principal)
CPT/HCPCS: 36415; 80048; 83880

== ENCOUNTER 2020-10-09 08:48 | Outpatient (REF) | payer MEDICARE, OTHER, SELFPAY ==
--- NOTE | ~2020-10-09 | CT_ITS ---
STUDY PERFORMED: CTA ABDOMEN, PELVIS AND LOWER EXTREMITY RUNOFF WITH CONTRAST HISTORY: Pain in popliteal fossa and calf DESCRIPTION: Routine abdominal aorta and lower extremity runoff CTA protocol with contrast was performed. 100 mL of Omnipaque 350 was administered. 3D POSTPROCESSING: Multiple 3-D angiographic images were processed from the initial data set by the cytopathology technologist at the modality workstation under concurrent physician supervision. DOSE LOWERING TECHNIQUES: This CT examination was performed using dose optimization techniques as appropriate, variously including the following: - Automated exposure control - Adjustment of mA and/or kV according to patient size (this includes techniques or standardized protocols for targeted exams where dose is matched to indication/reason for exam; i.e. extremities or head) - Use of iterative reconstruction technique DLP: 661 mGycm. COMPARISON: 04/08/2020 FINDINGS: VASCULAR: ABDOMINAL AORTA: Normal caliber. Heavy infrarenal atherosclerotic disease without hemodynamically significant stenosis. RIGHT LOWER EXTREMITY: - Common Iliac Artery: Severe underlying atherosclerotic disease. The proximal artery is stented. The stent is patent. - Internal Iliac Artery: Occluded proximally with distal reconstitution. - External Iliac Artery: Severe underlying disease. The proximal and mid segments of the artery have been stented. The stents are patent. - Common Femoral Artery: Aneurysmal measuring 1.8 x 1.6 cm with irregular border; question whether there has been a patch angioplasty. - Profunda Femoral Artery: Progressive severe stenosis at the origin.. - Superficial Femoral Artery: Diffuse atherosclerotic disease. The distal segment is stented. There is some intimal hyperplasia within the stent which does not appear to be hemodynamically significant. - Popliteal Artery and Runoff: Stable severe above knee popliteal disease. Progressive severe below knee popliteal disease now with total occlusion. There is reconstitution at the anterior tibial takeoff. Three-vessel runoff. LEFT LOWER EXTREMITY: - Common Iliac Artery: Heavily calcified with mild stenosis. - Internal Iliac Artery: Patent with mild to moderate disease. - External Iliac Artery: Heavily calcified with mild proximal disease. - Common Femoral Artery: Mildly aneurysmal measuring 0.9 x 0.8 cm with irregular border; question whether there has been a patch angioplasty. - Profunda Femoral Artery: Patent with mild disease. - Superficial Femoral Artery: Moderate proximal stenosis. Diffuse disease. Stented distal segment. The stent is patent. - Popliteal Artery and Runoff: Moderate focal stenosis in the above-knee popliteal artery. Moderate disease in the below-knee segment. Mild disease in the tibioperoneal trunk. Three-vessel runoff. CELIOMESENTERIC ARTERIES: Mildly stenosed atherosclerotic celiac. Moderate stenosed atherosclerotic superior mesenteric artery disease. The inferior mesenteric artery is patent. RENAL ARTERIES: The right renal artery is patent. There is a moderate stenosis at the inferior right renal artery origin. The superior left upper renal artery has mild disease. The inferior left renal artery is patent. NONVASCULAR: Lung Bases: Rounded atelectasis at the right lung base. Liver, Gallbladder and Biliary Tree: The left lobe and caudate are hypertrophied relative to the right lobe. There is a subtle nodular contour. Question cirrhosis. No focal mass. No ductal dilatation. Gallbladder unremarkable. Pancreas: Unremarkable. Spleen: Unremarkable. Adrenal Glands: Unremarkable. Kidneys and Ureters: The kidneys are normal in size, shape, and attenuation. No hydronephrosis, hydroureter, or calculi seen. No perinephric stranding. Bladder: Unremarkable. Gastrointestinal Tract: Unremarkable. Abdominal Wall: No significant hernia is appreciated. Lymph Nodes: Normal. Pelvic Viscera: Brachy therapy seeds. Osseous Structures: Degenerative changes in the spine. CT/CT angio abd aorta runoff IMPRESSION: Right lower extremity: The stented segments of the common and external iliac arteries are patent. Likely surgical changes of the common femoral artery. Severe profunda stenosis. Disease but patent SFA and SFA stents. Severe popliteal disease with now occlusion in the below-knee segment. Three-vessel runoff. Left lower extremity: Calcified but patent common and external iliac arteries. Likely surgical changes of the common femoral artery. Patent profunda. Moderate stenosis proximal SFA. Distal stents are patent. Moderate popliteal disease in the above-knee and below-knee segments. Three-vessel runoff.
[2020-10-09] MEDS: iohexoL 350 MG/ML 100 ML INFUS..BTL IV (09:56)
== END 2020-10-09 08:49 | disposition home or self-care (01) ==
LOC: HO.CT 08:48
PROVIDERS: Visit Provider Surgery Vascular Surgery
DX: I70.213 Atherosclerosis of native arteries of extremities with intermittent claudication, bilateral legs (principal)
CPT/HCPCS: 75635; Q9967

== ENCOUNTER → 2020-10-15 10:24 | Outpatient (BNVA) | payer MEDICARE, OTHER, SELFPAY | PROVIDERS: PCP Pediatrics; Visit Provider Surgery Vascular Surgery | DX: I73.9 Peripheral vascular disease, unspecified (principal) | CPT/HCPCS: 99212 ==

== ENCOUNTER 2020-10-16 06:06 | Day surgery (SDC) | payer MEDICARE, OTHER, SELFPAY ==
[2020-10-16] VITALS (9 sets, daily range): BP systolic 103–178; BP diastolic 32–72; PULSE 62–80; RESP 16–18; TEMP 36.4–36.9; O2SAT 98–100; BMI 23.4
[2020-10-16 06:30] LABS: MANUAL DIFF FLAG NO
[2020-10-16 06:45] LABS: Basophils Absolute Auto 0.1 X10*3/uL (0.0-0.2); Basophils Percent Auto 1.7 % (0-2); Eosinophils Absolute Auto 0.3 X10*3/uL (0.0-0.4); Eosinophils Percent Auto 6.1 % (0-4); Hematocrit 41.3 % (42-52); Hemoglobin 13.9 g/dl (14.0-18.0); Imm Gran Abs Auto 0.02 X10*3/uL (0.00-0.03); Imm Gran Pct Auto 0.4 % (0.0-0.4); Lymphocytes Absolute Auto 1.3 X10*3/uL (1.2-4.9); Lymphocytes Percent Auto 27.7 % (20-40); Mean Corpuscular HGB Conc 33.7 g/dl (31.0-36.0); Mean Corpuscular Hemoglobin 34.7 pg (27.0-33.0); Mean Platelet Volume 8.8 fL (9.4-12.4); Monocytes Absolute Auto 0.3 X10*3/uL (0.1-1.2); Monocytes Percent Auto 7.4 % (2-11); Neutrophils Absolute Auto 2.6 X10*3/uL (2.0-8.3); Neutrophils Percent Auto 56.7 % (45-73); Platelet Count 301 X10*3/uL (160-400); Red Blood Count 4.01 X10*6/uL (4.60-5.80); Red Cell Distribution Width 12.4 % (11.0-16.0); White Blood Count 4.6 X10*3/uL (4.8-10.8)
[2020-10-16 06:49] LABS: Partial Thromboplastin Time 34.3 SEC (24.1-38.0)
[2020-10-16 06:54] LABS: Anion Gap 13 (12-20); Blood Urea Nitrogen 7 mg/dL (9-16); Calcium 9.4 mg/dL (8.4-10.2); Carbon Dioxide 27 mmol/L (22-29); Chloride 96 mmol/L (96-108); Creatinine Clr Calc Pharmacy 104.5; Estimated Glomerular Filt Rate > 60; Glucose Random 92 mg/dL (60-115); Potassium 3.8 mmol/L (3.3-5.1); Sodium 132 mmol/L (135-145)
[2020-10-16] MEDS: 0.9 % Sodium Chloride 1,000 ML 100 ML IVCONT (06:56)
--- NOTE | 2020-10-16 09:49 | W.PM.OPN ---
Operative Note Operative Note Date of Service: 10/16/20 Narrative: Angiogram report from [facility] Preoperative diagnosis: Atherosclerosis of right lower extremity with activity limiting claudication Postoperative diagnosis: Same Procedure: 1. Ultrasound-guided left common femoral access 2. Aortogram with right lower extremity runoff 3. Plasty of right peroneal artery 4. Plasty and stent of right SFA and popliteal artery Surgeon:Cabrera Manzo M.D. Economics Lecturer:None Anesthesia: Local with moderate conscious sedation for a total of 87 minutes, performed by nc Specimens:none Drains:none Estimated blood loss: Less than 10 ml Indications: 70-year-old gentleman with history prior operative in endovascular intervention presents with severe activity limiting claudication of the right lower extremity. He has had CT a confirming iliac as well as popliteal disease on the right side. He now presents for endovascular intervention The patient has signed the informed consent after reviewing risks, complications, benefits, and alternatives previously discussed with the patient in my office. The patient was given the opportunity to ask any additional questions or voice any concerns. All questions were answered to the patient's satisfaction. Procedure in detail: Patient was brought to the angiography suite prior to which a time-out was called for patient identification and site verification. Bilateral groins were prepped and draped in the standard surgical fashion. Under ultrasound guidance left common femoral was punctured with micro puncture needle and wire. Subsequently a precision 4 Bangladeshi sheath was then placed. Bentson wire was advanced to the level of the aorta. 4 Bangladeshi Flush catheter was brought up and parked at the level of the renal arteries. Aortogram was then undertaken. Catheter was brought down to the level of the iliac bifurcation. Iliacs were subsequently imaged. Catheter was then brought in up and over to the right side SFA. Runoff study was then undertaken. At this point there was disease noted in the SFA and total occlusion of the popliteal. There was no significant disease noted in the iliacs. At this time 4000 units of systemic heparin was administered. After 5 minutes of circulation time and up and over 5 Bangladeshi sheath was then placed. Using a now be cross we were able to bring wire down into the popliteal area. After multiple wire exchanges we were able to use a stiff angled glide to traverse this total occlusion in the popliteal and enter in to the peroneal artery. Once this was accomplished in we were in true lumen. We then plasty this entire region with a 3 x 80 balloon. This was plasty of the pro Paulie artery and popliteal artery on the right side. We subsequently plasty the area with a 4 x 100 regular balloon. The behind knee popliteal was then treated with a 4 x 80 drug coated balloon. We then noted the area of the distal SFA proximal popliteal be on the prior stent had significant stenosis. A 6 x 80 stent was then brought into position and deployed in the distal SFA. This was then subsequently plasty into position to obtain good wall apposition. Then turned our attention to the above stent SFA which was the more proximal 3rd of the SFA. We then deployed a 6 x 100 stent in this area. We subsequently plasty this area with a 6 x 100 stent. Once this was accomplished catheter wire sheath were then removed and direct pressure was held for 10 minutes in duration. Patient tolerated the procedure well. Returned to recovery with stable vitals. Interpretation of films: 1. Ultrasound demonstrates appropriate femoral puncture. Image of which was saved. 2. Aortogram demonstrates appropriate caliber aorta. Minimal disease. Appropriate take-off of the renals. 3. Iliac images demonstrate some mild tortuosity. Right side demonstrated no flow-limiting stenosis. Stents were in appropriate position with no significant stenotic disease. 4. Right lower extremity study demonstrated aneurysmal prior common femoral patch. Good flow through the profundus femorals. SFA was patent but did have moderate to severe disease above the prior stent stent in the SFA was patent below stent had some moderate disease in the SFA there was a total occlusion at the popliteal reconstituted in the prone you will and anterior tibial. Postprocedure angiogram demonstrated excellent flow through the SFA and open popliteal into peroneal and anterior tibial. Conclusion: 1. Successful angiogram 2. Successful plasty of right peroneal artery 3. Successful plasty and stent of right SFA and popliteal artery 4. Due to the use of a drug coated balloon there will be a minimum of 6 months of aspirin and Plavix required. This note is constructed using voice recognition software. While every effort has been made to ensure accuracy, inlayer errors may have been included. Thank you for allowing me to participate in the care of your patient. Yours sincerely, Cabrera Manzo MD, FACS, R.P.V.I.
[2020-10-16] MEDS: Acetaminophen 325 MG TABLET 650 MG PO (10:03)
[2020-10-16] MEDS: oxyCODONE HCl Immed Release 5 MG TABLET PO (10:03)
== END 2020-10-16 13:45 | disposition home or self-care (01) ==
PROVIDERS: PCP Pediatrics; Visit Provider Surgery Vascular Surgery
DX: I70.211 Atherosclerosis of native arteries of extremities with intermittent claudication, right leg (principal); I25.10 Atherosclerotic heart disease of native coronary artery without angina pectoris; I10 Essential (primary) hypertension; J44.9 Chronic obstructive pulmonary disease, unspecified; F17.210 Nicotine dependence, cigarettes, uncomplicated
CPT/HCPCS: 36415; 37226; 37228; 76937; 80048; 85025; 85610; 85730; 99152; 99153; C1725; C1769; C1876; C1887; C1894; C2623; J2250; J3010; Q9967

== ENCOUNTER → 2020-10-29 13:24 | Outpatient (BNVA) | payer MEDICARE, OTHER, SELFPAY | PROVIDERS: PCP Pediatrics; Visit Provider Surgery Vascular Surgery | DX: I73.9 Peripheral vascular disease, unspecified (principal) | CPT/HCPCS: 99212 ==

== ENCOUNTER → 2020-11-01 10:31 | Outpatient (BNVA) | payer MEDICARE, OTHER, SELFPAY | PROVIDERS: PCP Pediatrics; Visit Provider Internal Medicine Cardiovascular Disease | DX: I73.9 Peripheral vascular disease, unspecified (principal); I10 Essential (primary) hypertension; R79.89 Other specified abnormal findings of blood chemistry | CPT/HCPCS: 99212 ==

== ENCOUNTER → 2020-11-05 11:47 | Outpatient (BNVA) | payer MEDICARE, OTHER, SELFPAY | PROVIDERS: PCP Pediatrics; Visit Provider Surgery Vascular Surgery | DX: I73.9 Peripheral vascular disease, unspecified (principal) | CPT/HCPCS: 99212 ==

== ENCOUNTER 2020-11-12 03:03 | Inpatient (IN) | payer MEDICARE, OTHER, SELFPAY ==
[2020-11-12] VITALS (17 sets, daily range): BP systolic 97–150; BP diastolic 43–70; PULSE 76–98; RESP 12–20; TEMP 36.3–36.9; O2SAT 93–100; BMI 23.6
--- NOTE | 2020-11-12 | ECG_ITS ---
Test Reason : vasculopathy Blood Pressure : / mmHG Vent. Rate : 100 BPM Atrial Rate : 100 BPM P-R Int : 126 ms QRS Dur : 068 ms QT Int : 348 ms P-R-T Axes : 057 060 027 degrees QTc Int : 448 ms Normal sinus rhythm Normal ECG No previous ECGs available Referred By: Mateo Wong Electronically Signed By:ELISE WILLSON
--- NOTE | ~2020-11-12 | XR_ITS ---
EXAMINATION: XR FOOT, RIGHT CLINICAL INFORMATION: Right foot pain, fall twisted ankle COMPARISON: None TECHNIQUE: AP, lateral, and oblique views of the right foot. FINDINGS: No visible acute fracture, dislocation or subluxation. The intertarsal tarsometatarsal and PIP and DIP joint spaces are maintained normal. No bony erosive changes or soft tissue abnormality seen. There is mild osteopenia. The ankle mortise and subtalar joints are normal. There is a small retrocalcaneal enthesophyte. The soft tissues are normal XR/XR foot RT min 3V IMPRESSION: There is small retrocalcaneal enthesophyte. No visible acute fracture, dislocation or subluxation seen
--- NOTE | ~2020-11-12 | XR_ITS ---
EXAMINATION: XR CHEST CLINICAL INFORMATION: Altered mental status COMPARISON: None TECHNIQUE: Frontal view of the chest was obtained. FINDINGS: Cardiac silhouette is normal in size. Low lung volumes. No lobar consolidation. No pleural effusion or pneumothorax. Degenerative changes of the thoracic spine. XR/XR chest 1V IMPRESSION: No acute pulmonary pathology.
[2020-11-12 04:13] LABS: MANUAL DIFF FLAG NO
[2020-11-12 04:16] LABS: Basophils Percent Auto 0.6 % (0-2); Eosinophils Absolute Auto 0.3 X10*3/uL (0.0-0.4); Eosinophils Percent Auto 5.5 % (0-4); Hematocrit 35.9 % (42-52); Hemoglobin 12.4 g/dl (14.0-18.0); Imm Gran Abs Auto 0.04 X10*3/uL (0.00-0.03); Imm Gran Pct Auto 0.8 % (0.0-0.4); Lymphocytes Percent Auto 20.4 % (20-40); Mean Corpuscular HGB Conc 34.5 g/dl (31.0-36.0); Mean Corpuscular Hemoglobin 34.7 pg (27.0-33.0); Mean Corpuscular Volume 100.6 fL (80-98); Mean Platelet Volume 8.5 fL (9.4-12.4); Monocytes Absolute Auto 0.3 X10*3/uL (0.1-1.2); Monocytes Percent Auto 7.1 % (2-11); Neutrophils Absolute Auto 3.1 X10*3/uL (2.0-8.3); Neutrophils Percent Auto 65.6 % (45-73); Platelet Count 242 X10*3/uL (160-400); Red Blood Count 3.57 X10*6/uL (4.60-5.80); Red Cell Distribution Width 12.6 % (11.0-16.0); White Blood Count 4.8 X10*3/uL (4.8-10.8)
[2020-11-12 04:21] LABS: INTERNATIONAL NORM RATIO 1.2 (0.9-1.1); Prothrombin Time 14.1 SEC (10.8-13.0)
[2020-11-12 04:36] LABS: Anion Gap 15 (12-20); Blood Urea Nitrogen 12 mg/dL (9-16); Calcium 8.8 mg/dL (8.4-10.2); Carbon Dioxide 23 mmol/L (22-29); Chloride 97 mmol/L (96-108); Creatinine Clr Calc Pharmacy 107.4; Estimated Glomerular Filt Rate > 60; Glucose Random 107 mg/dL (60-115); Sodium 131 mmol/L (135-145)
--- NOTE | 2020-11-12 08:31 | HE.PHANOTE ---
Pharmacy Consult ? Medication Reconciliation Pharmacy has completed the medication reconciliation and there were no significant medication issues requiring provider attention. Mary Jo Vicente, PharmD [phone]
[2020-11-12] MEDS: 0.9 % Sodium Chloride Flush 3 ML SYRINGE IVFLUSH ×3 (08:38→17:29)
[2020-11-12] MEDS: Morphine Sulfate 4 MG/ML CARTRIDGE IVPUSH ×2 (08:43→20:58)
[2020-11-12 09:09] LABS: IDNOW Serial# 9DD0AD1C
[2020-11-12 09:11] LABS: COVID-19 Test Negative (Negative)
--- NOTE | 2020-11-12 09:15 | HO.VASCH&P ---
History of Present Illness History of Present Illness Date of Service: 11/12/20 Chief complaint: PVD, infection Narrative: Adonay Hou is a 70 year old male well known to me. He has a history of peripheral vascular disease and has had multiple interventions. Of note in 05/20/2020 he underwent right femoral endarterectomy with iliac stenting. More recently he underwent angioplasty and stent of lower extremity on the right side. Unfortunately he had a difficult day yesterday. Right groin became swollen. He subsequently went to [facility] and was transferred to [facility]. Upon workup at [facility] at 02:00 he was transferred to our institution. He was seen and examined. There was some blood staining and concern of patch status. Review of Systems Review of Systems: Yes all other systems are reviewed and are negative Constitutional: Constitutional: Reports no additional constitutional complaints ENT: Reports Normal hearing present Cardiovascular: Cardiovascular: Denies chest pain, Denies chest pain at rest, Denies chest pain with activity and Denies pedal edema Respiratory: Respiratory: Denies cough Gastrointestinal: Gastrointestinal: Denies abdominal pain Musculoskeletal: Musculoskeletal: Denies abnormal gait, Denies muscle cramps and Denies radiating pain into limb Integumentary/Breasts: Skin/Breast: Denies skin ulcer and Denies wounds Neurologic: Reports Normal hearing present and Denies abnormal gait Psychiatric: Psychiatric: Reports no additional psychiatric complaints PMFSH Past Medical History Medical History Arthritis Bilateral carotid artery disease COPD (chronic obstructive pulmonary disease) Elevated cholesterol History of prostate cancer HTN (hypertension) Hx of low back pain Prostate cancer PVD (peripheral vascular disease) Smoker Spinal disease Surgical History Surgical History History of endarterectomy (11/20/19) History of femoral angiogram History of spinal surgery Hx of colonoscopy Social History Social History Household Members: Spouse and Children Housing: House Do you presently have visiting nurse or other home services: No Alcohol intake: current Alcohol intake frequency: 3 or more drinks per day Alcohol type: beer Smoking Status: Current every day smoker Tobacco Type: Cigarette Packs Per Day: 0.5 Cigarettes Per Day: 10.0 Years Smoked: 50 Smoked in Last 30 Days: Yes Patient Interested in Nicotine Replacement: Yes Use of substances other than those prescribed or required for medical reasons: No Have you been hit, kicked, punched, or otherwise hurt by someone within the past year? If so, by whom?: No Do you feel safe in your current relationship?: Yes Is there a partner from a previous relationship who is making you feel unsafe now?: No Are you made to feel afraid or neglected: No Spiritual Healthcare Practices: no issues Anabaptism Healthcare Practices: no issues Cultural Healthcare Practices: no issues Advance Directives: No Advance Directives Information Provided: No Do you have thoughts of harming others: None Do you have a plan to hurt others: No Plan Recently lost weight without trying: No Nutrition Risks: No Nutritional Risk Poor oral hygiene: No service: No Current occupational status: retired [email or web address] Allergies Allergy/AdvReac Type Severity Reaction Status Date / Time No Known Allergies Allergy Verified 11/05/20 11:42 [No Known Allergies*] Active Medications: Current Medications Generic Name Dose Route Start Last Admin Trade Name Oliver PRN Reason Stop Dose Admin Acetaminophen 650 mg 11/12/20 04:07 Acetaminophen 325 Mg Tablet PO Q6H PRN Fever Morphine Sulfate 4 mg 11/12/20 04:08 11/12/20 08:43 Morphine Sulfate 4 Mg/Ml Cartridge IVPUSH 4 mg Q4H PRN Administration Pain, Severe (Pain Scale 7-10) Oxycodone HCl 5 mg 11/12/20 03:40 Oxycodone Hcl Immed Release 5 Mg Tablet PO Q4H PRN Pain, Moderate (Pain Scale 4-6 Sodium Chloride 3 ml 11/12/20 08:00 11/12/20 08:38 0.9 % Sodium Chloride Flush 3 Ml Syringe IVFLUSH 3 ml QSKSFT [facility] Administration Home Medications Medication Instructions Recorded Confirmed Last Taken Type aspirin 81 mg tablet,delayed 81 mg PO DAILY 03/28/20 11/12/20 10/15/20 21:30 History release clopidogrel 75 mg tablet 75 mg PO DAILY 03/28/20 11/12/20 10/15/20 07:00 History umeclidinium 62.5 mcg-vilanterol 1 inh INHALATION DAILY 03/28/20 11/12/20 Unknown History 25 mcg/actuation powdr for inhalation tamsulosin 1 cap PO BEDTIME 05/14/20 11/12/20 Unknown History cyanocobalamin (vitamin B-12) 3,000 mcg PO DAILY 11/12/20 11/12/20 Unknown History [B-12 DOTS] diclofenac sodium 1 g TOPICAL QID 11/12/20 11/12/20 Unknown History gabapentin 1 cap PO BID 11/12/20 11/12/20 Unknown History ipratropium-albuterol [Combivent 1 puff INHALATION QID PRN 11/12/20 11/12/20 Unknown History Respimat] Physical Exam Vital Signs: Vital Signs: Last Vital Signs Temp 98.5 F 11/12/20 07:26 Pulse 76 11/12/20 07:26 Resp 20 11/12/20 07:26 BP 121/58 L 11/12/20 07:26 Pulse Ox 96 11/12/20 07:26 Body Mass Index 23.6 Const: General: cooperative, healthy appearing and comfortable Orientation/consciousness: oriented to person, oriented to place and oriented to time HENMT: Head: Yes normal to inspection Neck: Neck: Yes normal visual inspection Carotids: no bruits Chest: Chest palpation & inspection: normal inspection of the chest Resp: Effort & Inspection: normal respiratory effort and able to speak in complete sentences Auscultation: clear to auscultation bilaterally, no crackles, no rales, no rhonchi and no wheezes Cardio: Rate: regular rate Rhythm: regular rhythm Heart sounds: S1 normal heart sound present and S2 normal heart sound present Bruits: no carotid bruits Peripheral pulses: dorsalis pedis present (Bilateral DP signals) GI: Inspection: Yes normal to inspection Skin: Wounds: wounds noted (Right groin, extremely tender with punctate opening draining blood) Hair: normal Neuro: General: oriented to person, oriented to place and oriented to time Cranial nerves: Yes CN's II-XII intact bilaterally and Yes Normal hearing present Cognition (Neuro): normal cognition Motor exam (neuro): 5/5 motor strength present throughout Extrem: Other: venous exam: No significant superficial varicosities or spider telangiectasias, minimal edema General: No clubbing, No cyanosis and No edema Psych: Appearance: grossly normal Mental Status: mental status grossly normal Speech and movement: Normal speech and movement present Results Results Labs: Short CBC 11/12/20 Range/Units 04:00 WBC 4.8 (4.8-10.8) X10*3/uL Hgb 12.4 L (14.0-18.0) g/dl Hct 35.9 L (42-52) % Plt Count 242 (160-400) X10*3/uL BMP 11/12/20 04:00 Sodium 131 L Potassium 4.0 Chloride 97 Carbon Dioxide 23 BUN 12 D Creatinine 0.67 Calcium 8.8 D Assessment and Plan (1) PAD (peripheral artery disease): Status: Acute In short patient has concerns of right groin infection and potential problem with the patch. He was immediately made NPO. We will expedite his operation. We will plan for right groin exploration and possible redo femoral endarterectomy. Risks benefits complications including bleeding infection limb loss and were discussed in detail with the patient. He demonstrated a clear understanding and consented. OR was informed along with ICU. Procedures Date of Service Date of Service: 11/12/20
[2020-11-12] MEDS: vancomycin HCL 1,000 MG in 0.9 % Sodium Chloride 250 ML 270 MG IV (09:43)
--- NOTE | 2020-11-12 10:27 | P.CONAN_ITS ---
[facility] Active Problems Active Problems: All Active Problems (Updated 11/01/20 @ 10:58 by Jairo Santacruz MD) Elevated brain natriuretic peptide (BNP) level (Acute) Bilateral leg edema (Acute) SOB (shortness of breath) on exertion (Acute) HTN (hypertension) (Acute) Bilateral carotid artery disease (Acute) PAD (peripheral artery disease) (Acute) Past Medical History Medical History Arthritis Bilateral carotid artery disease COPD (chronic obstructive pulmonary disease) Elevated cholesterol History of prostate cancer HTN (hypertension) Hx of low back pain Prostate cancer PVD (peripheral vascular disease) Smoker Spinal disease Surgical History Surgical History History of endarterectomy (11/20/19) History of femoral angiogram History of spinal surgery Hx of colonoscopy Social History Social History Household Members: Spouse and Children Housing: House Do you presently have visiting nurse or other home services: No Alcohol intake: current Alcohol intake frequency: 3 or more drinks per day Alcohol type: beer Smoking Status: Current every day smoker Tobacco Type: Cigarette Packs Per Day: 0.5 Cigarettes Per Day: 10.0 Years Smoked: 50 Smoked in Last 30 Days: Yes Patient Interested in Nicotine Replacement: Yes Second Hand Smoke Exposure: No Use of substances other than those prescribed or required for medical reasons: No Have you been hit, kicked, punched, or otherwise hurt by someone within the past year? If so, by whom?: No Do you feel safe in your current relationship?: Yes Is there a partner from a previous relationship who is making you feel unsafe now?: No Are you made to feel afraid or neglected: No Spiritual Healthcare Practices: no issues [facility] Practices: no issues Cultural Healthcare Practices: no issues Are you DNR?: No Advance Directives: No Advance Directives Information Provided: No Advance Directives on File: No Do you have thoughts of harming others: None Do you have a plan to hurt others: No Plan Recently lost weight without trying: No Nutrition Risks: No Nutritional Risk Poor oral hygiene: No service: No Current occupational status: retired Meds Allergies Allergy/AdvReac Type Severity Reaction Status Date / Time No Known Allergies Allergy Verified 11/05/20 11:42 [No Known Allergies*] Active Medications: Current Medications Generic Name Dose Route Start Last Admin Trade Name Freq PRN Reason Stop Dose Admin Acetaminophen 650 mg 11/12/20 04:07 Acetaminophen 325 Mg Tablet PO Q6H PRN Fever Morphine Sulfate 4 mg 11/12/20 04:08 11/12/20 08:43 Morphine Sulfate 4 Mg/Ml Cartridge IVPUSH 4 mg Q4H PRN Administration Pain, Severe (Pain Scale 7-10) Oxycodone HCl 5 mg 11/12/20 03:40 Oxycodone Hcl Immed Release 5 Mg Tablet PO Q4H PRN Pain, Moderate (Pain Scale 4-6 Sodium Chloride 3 ml 11/12/20 08:00 11/12/20 08:38 0.9 % Sodium Chloride Flush 3 Ml Syringe IVFLUSH 3 ml QSHIFT STEWART Administration Home Medications Medication Instructions Recorded Confirmed Last Taken Type aspirin 81 mg tablet,delayed 81 mg PO DAILY 03/28/20 11/12/20 10/15/20 21:30 History release clopidogrel 75 mg tablet 75 mg PO DAILY 03/28/20 11/12/20 10/15/20 07:00 History umeclidinium 62.5 mcg-vilanterol 1 inh INHALATION DAILY 03/28/20 11/12/20 Unknown History 25 mcg/actuation powdr for inhalation tamsulosin 1 cap PO BEDTIME 05/14/20 11/12/20 Unknown History cyanocobalamin (vitamin B-12) 3,000 mcg PO DAILY 11/12/20 11/12/20 Unknown History [B-12 DOTS] diclofenac sodium 1 g TOPICAL QID 11/12/20 11/12/20 Unknown History gabapentin 1 cap PO BID 11/12/20 11/12/20 Unknown History ipratropium-albuterol [Combivent 1 puff INHALATION QID PRN 11/12/20 11/12/20 Unknown History Respimat] Exam Exam Date and Time: November 12, 2020 1027 Height,Weight and Vital Signs: Height 5 ft 10 in Weight 74.8 kg Last Vital Signs Temp 98.0 F 11/12/20 09:45 Pulse 78 11/12/20 09:45 Resp 18 11/12/20 09:45 BP 97/53 L 11/12/20 09:45 Pulse Ox 96 11/12/20 09:45 Pertinent Lab Results Pertinent Lab Results: Laboratory Tests 11/12/20 11/12/20 11/12/20 04:00 04:00 04:00 WBC 4.8 RBC 3.57 L Hgb 12.4 L Hct 35.9 L MCV 100.6 H MCH 34.7 H MCHC 34.5 RDW 12.6 Plt Count 242 MPV 8.5 L Immature Gran % (Auto) 0.8 H Neut % (Auto) 65.6 Lymph % (Auto) 20.4 [place] % (Auto) 7.1 Eos % (Auto) 5.5 H Baso % (Auto) 0.6 Lymph # (Auto) 1.0 L [place] # (Auto) 0.3 Eos # (Auto) 0.3 Baso # (Auto) 0.0 Abs Immat Gran (auto) 0.04 H Absolute Neuts (auto) 3.1 Absolute Nucleated RBC 0.000 Nucleated RBC % (auto) 0.0 PT 14.1 H INR 1.2 H Sodium 131 L Potassium 4.0 Chloride 97 Carbon Dioxide 23 Anion Gap 15 BUN 12 D Creatinine 0.67 Estim Creat Clear Calc 107.4 Estimated GFR > 60 Random Glucose 107 Calcium 8.8 D COVID-19 (ANGE) COVID-TabbedOut Com 11/12/20 08:52 WBC RBC Hgb Hct MCV MCH MCHC RDW Plt Count MPV Immature Gran % (Auto) Neut % (Auto) Lymph % (Auto) [place] % (Auto) Eos % (Auto) Baso % (Auto) Lymph # (Auto) [place] # (Auto) Eos # (Auto) Baso # (Auto) Abs Immat Gran (auto) Absolute Neuts (auto) Absolute Nucleated RBC Nucleated RBC % (auto) PT INR Sodium Potassium Chloride Carbon Dioxide Anion Gap BUN Creatinine Estim Creat Clear Calc Estimated GFR Random Glucose Calcium COVID-19 (ANGE) Negative COVID-19 [facility] Com See Note Airway Mallampati Class: II TM Dist: >3cm Neck ROM: Full Partial: Upper
--- NOTE | 2020-11-12 11:23 | PM.IMCN ---
History of Present Illness Data of Consult Service Date: 11/12/20 Requesting physician: Cabrera Manzo Primary Care Provider: Karlene Randle MD HPI Reason for consult: Medical Management 70 year old man admitted by vascular surgery. He has a history of peripheral vascular disease and multiple procedures. Had iliac patch in 04/2020. Over the last week he noticed some pain to his right groin. He went to [facility] and was transferred to [facility]. His vascular surgeon was notified and the patient was subsequently transferred to [facility]. He was noted to have bleeding to his right groin. Labs stable, vital signs stable. Medical consultation was placed. Review of Systems Review of Systems: Denies any recent fever chills or decrease in appetite respiratory denies any shortness of breath coverage production cardiovascular denied chest pain gastrointestinal denies any dysphagia abdominal pain nausea vomiting or diarrhea genitourinary denies any dysuria frequency or hematuria musculoskeletal denies any joint pain or swelling neuropsych denies any weakness or seizures all other systems reviewed are negative [facility] Medical History (Updated 11/12/20 @ 16:29 by Libia Aguirre NP) Arthritis Bilateral carotid artery disease COPD (chronic obstructive pulmonary disease) Elevated cholesterol History of prostate cancer HTN (hypertension) Hx of low back pain PVD (peripheral vascular disease) Spinal disease Surgical History History of endarterectomy (11/20/19) History of femoral angiogram History of spinal surgery Hx of colonoscopy Social History Household Members: Spouse and Children Housing: House Are you a primary intensive care medicine specialist to a significant other at home: No Do you presently have visiting nurse or other home services: No Alcohol intake: current Alcohol intake frequency: 3 or more drinks per day Alcohol type: beer Smoking Status: Current every day smoker Tobacco Type: Cigarette Packs Per Day: 0.5 Cigarettes Per Day: 10.0 Years Smoked: 50 Smoked in Last 30 Days: Yes Patient Interested in Nicotine Replacement: Yes Second Hand Smoke Exposure: No Use of substances other than those prescribed or required for medical reasons: No Have you been hit, kicked, punched, or otherwise hurt by someone within the past year? If so, by whom?: No Do you feel safe in your current relationship?: Yes Is there a partner from a previous relationship who is making you feel unsafe now?: No Are you made to feel afraid or neglected: No Spiritual Healthcare Practices: no issues [facility] Practices: no issues Cultural Healthcare Practices: no issues Are you DNR?: No Advance Directives: No Advance Directives Information Provided: No Advance Directives on File: No Do you have thoughts of harming others: None Do you have a plan to hurt others: No Plan Recently lost weight without trying: No Nutrition Risks: No Nutritional Risk Poor oral hygiene: No service: No Current occupational status: retired [employer] Allergies Allergy/AdvReac Type Severity Reaction Status Date / Time No Known Allergies Allergy Verified 11/05/20 11:42 [No Known Allergies*] Active Medications: Current Medications Generic Name Dose Route Start Last Admin Trade Name Freq PRN Reason Stop Dose Admin Acetaminophen 650 mg 11/12/20 04:07 Acetaminophen 325 Mg Tablet PO Q6H PRN Fever Fentanyl 50 mcg 11/12/20 10:28 Fentanyl Citrate/Pf 100 Mcg/2 Ml Vial IVPUSH Q5M PRN Pain, Severe (Pain Scale 7-10) Morphine Sulfate 4 mg 11/12/20 04:08 11/12/20 08:43 Morphine Sulfate 4 Mg/Ml Cartridge IVPUSH 4 mg Q4H PRN Administration Pain, Severe (Pain Scale 7-10) Ondansetron HCl 4 mg 11/12/20 10:28 Ondansetron Hcl 4 Mg/2 Ml Vial IVPUSH ONCE PRN Nausea and Vomiting Oxycodone HCl 5 mg 11/12/20 03:40 Oxycodone Hcl Immed Release 5 Mg Tablet PO Q4H PRN Pain, Moderate (Pain Scale 4-6 Oxycodone HCl 5 mg 11/12/20 10:28 Oxycodone Hcl Immed Release 5 Mg Tablet PO ONCE PRN Pain, Severe (Pain Scale 7-10) Sodium Chloride 3 ml 11/12/20 08:00 11/12/20 08:38 0.9 % Sodium Chloride Flush 3 Ml Syringe IVFLUSH 3 ml QSHIFT STEWART Administration Home Medications Medication Instructions Recorded Confirmed Last Taken Type aspirin 81 mg tablet,delayed 81 mg PO DAILY 03/28/20 11/12/20 10/15/20 21:30 History release clopidogrel 75 mg tablet 75 mg PO DAILY 03/28/20 11/12/20 10/15/20 07:00 History umeclidinium 62.5 mcg-vilanterol 1 inh INHALATION DAILY 03/28/20 11/12/20 Unknown History 25 mcg/actuation powdr for inhalation tamsulosin 1 cap PO BEDTIME 05/14/20 11/12/20 Unknown History cyanocobalamin (vitamin B-12) 3,000 mcg PO DAILY 11/12/20 11/12/20 Unknown History [B-12 DOTS] diclofenac sodium 1 g TOPICAL QID 11/12/20 11/12/20 Unknown History gabapentin 1 cap PO BID 11/12/20 11/12/20 Unknown History ipratropium-albuterol [Combivent 1 puff INHALATION QID PRN 11/12/20 11/12/20 Unknown History Respimat] Physical Exam Vital Signs and Narrative: Vital Signs: Last Vital Signs Temp 98.0 F 11/12/20 09:45 Pulse 78 11/12/20 09:45 Resp 18 11/12/20 09:45 BP 97/53 L 11/12/20 09:45 Pulse Ox 96 11/12/20 09:45 Body Mass Index 23.6 Appearing in no acute distress head is normocephalic atraumatic eyes pupils are PERRLA sclera is anicteric mouth throat mucous membranes are intact and moist neck is supple no lymphadenopathy, no JVD noted lung sounds are clear to auscultation heart regular rate rhythm, clear S1, S2 positive bowel sounds, abdomen is soft, nontender neuro patient is alert x3, no focal deficits Compression patch to right groin Results Labs CBC and Chem 7: 11/12/20 04:00 11/12/20 04:00 Labs: Laboratory Results - last 24 hr 11/12/20 11/12/20 11/12/20 04:00 04:00 04:00 MCV 100.6 H MCH 34.7 H MCHC 34.5 RDW 12.6 Plt Count 242 MPV 8.5 L Immature Gran % (Auto) 0.8 H Neut % (Auto) 65.6 Lymph % (Auto) 20.4 [place] % (Auto) 7.1 Eos % (Auto) 5.5 H Baso % (Auto) 0.6 Lymph # (Auto) 1.0 L [place] # (Auto) 0.3 Eos # (Auto) 0.3 Baso # (Auto) 0.0 Abs Immat Gran (auto) 0.04 H Absolute Neuts (auto) 3.1 Absolute Nucleated RBC 0.000 Nucleated RBC % (auto) 0.0 PT 14.1 H INR 1.2 H Anion Gap 15 Estim Creat Clear Calc 107.4 Estimated GFR > 60 Random Glucose 107 Calcium 8.8 D COVID-19 (ANGE) COVID-19 Clin Com Enhanced Crossmatch 11/12/20 11/12/20 08:52 09:00 MCV MCH MCHC RDW Plt Count MPV Immature Gran % (Auto) Neut % (Auto) Lymph % (Auto) [place] % (Auto) Eos % (Auto) Baso % (Auto) Lymph # (Auto) [place] # (Auto) Eos # (Auto) Baso # (Auto) Abs Immat Gran (auto) Absolute Neuts (auto) Absolute Nucleated RBC Nucleated RBC % (auto) PT INR Anion Gap Estim Creat Clear Calc Estimated GFR Random Glucose Calcium COVID-19 (ANGE) Negative COVID-19 Clin Com See Note Enhanced Crossmatch See Detail Assessment and Plan (1) PAD (peripheral artery disease): Status: Acute 70-year-old man admitted by vascular surgery for right groin hematoma. Status post iliac patch in April 2020. noted some discomfort and swelling to the right groin area over the last week or so. Peripheral vascular disease. Right groin swelling Noted hematoma - management as per vascular surgery team - pain management - monitor for bleeding - hold medications for now preoperatively Hypertension. Stable blood pressure. -hold medication preoperatively Smoker. -discussed importance of smoking cessation -NRT DVT prophylaxis as per vascular surgery team Attending-Dr. Sawant Full code
[2020-11-12 15:20] LABS: Base Excess Bedside Calculated -2 mmol/L (-3-3); Glucose, i-STAT 153 mg/dL (60-115); HCO3 Bedside Calculated 24 mmol/L (22-26); Hematocrit Bedside 30 %PCV (42-52); Hemoglobin Bedside 10.2 g/dL (14.0-18.0); SO2 Bedside Calculated 96 %; Sodium Bedside 131 mmol/L (135-145); TCO2 Bedside 26 mmol/L (24-29); pCO2 Bedside 52 mmhg (35-48); pH Bedside 7.28 (7.35-7.45); pO2 Bedside 91 mmhg (83-108)
[2020-11-12 15:21] LABS: Base Excess Bedside Calculated -5 mmol/L (-3-3); Glucose, i-STAT 146 mg/dL (60-115); HCO3 Bedside Calculated 23 mmol/L (22-26); Hematocrit Bedside 37 %PCV (42-52); Hemoglobin Bedside 12.6 g/dL (14.0-18.0); Potassium Bedside 4.1 mmol/L (3.3-5.1); SO2 Bedside Calculated 93 %; Sodium Bedside 135 mmol/L (135-145); TCO2 Bedside 24 mmol/L (24-29); pCO2 Bedside 56 mmhg (35-48); pH Bedside 7.22 (7.35-7.45); pO2 Bedside 82 mmhg (83-108)
--- NOTE | 2020-11-12 15:27 | P.OP_ITS ---
Operative Note Operative Note Date of Service: 11/12/20 Narrative: Operative note by [facility] Preoperative diagnosis:1. PVD 2. Right femoral bleed Postoperative diagnosis: Same Procedure:1. Right femoral cutdown 2. Proximal control of external iliac distal control of SFA and profundus 3. Thrombectomy of iliac 4. Thrombectomy of profundus 5. Thrombectomy of SFA 6. Great saphenous vein harvest 7. Excision of bovine pericardium patch . 8. Femoral anastomosis of common femoral and SFA Surgeon:Cabrera Manzo M.D. City Secretary: Dr. Barroso Anesthesia: General Specimens: 1 Drains: None Estimated blood loss: 2000 mL Indications: 70-year-old gentleman who had originally had a femoral endarterectomy with it iliac patch which was done in April of 2020. Over the past week or 2 he had noticed some pain and discomfort. It had progressively gotten worse over the past weekend. He then went to [facility] [place] yesterday was subsequently transferred to [facility] and then transferred to our institu tion. Upon arrival was noticed that he was bleeding from the groin. He was subsequently worked up and then immediately taken to the operating room for operative intervention. The patient has signed the informed consent after reviewing risks, complications, benefits, and alternatives previously discussed with the patient. The patient was given the opportunity to ask any additional questions or voice any concerns. All questions were answered to the patient's satisfaction. Procedure in detail: Patient was urgently brought to the operating room prior to which timeout was called for patient identification and site verification. Abdomen and right leg was prepped and draped in standard surgical fashion. The prior to incision time-out was called. In addition systemic antibiotics of vancomycin was given as well. Once the patient was ready we then carried out a longitudinal incision over the prior incision line. Immediately upon entry copious amount of bleeding was encountered. Immediately this area was dissected out. Proximal and distal control was then attempted to be achieved. This was quite difficult due to the bleeding field. We were able to get a clamp proximally. Once this was accomplished we started our distal dissection and then was able to identify the SFA. Overnight our of time was spent doing dissection. We were able to isolate the SFA with a silastic loop we then turned our attention proximally we were able to get a temporary clamp on to the external iliac. This allowed time for anesthesia to catch up. We then continued with our dissection we were able to place a silastic loop around the external iliac as well. Once this was accomplished we then continued with our dissection which was nearly an additional 45 minutes of dissection. We were able to identify the common femoral and the blown out patch. Patch had to be resected in its entirety. The arterial vessel wall had multiple rents in it. At this point the patient had stabilized. 5000 units of systemic heparin was administered. We then proceeded to repair vessel wall with interrupted 5 0 Prolene sutures. Once this was accomplished we then did Albert thrombectomy of the profunda femora switch a 3. Albert we had in a similar fashion put it down the SFA. And the iliac which had poor flow was then addressed with a 5 Albert. Once this was accomplished we status good flow these areas were clamped. On we then resected the prior patch in its entirety. We then turned our attention to the great saphenous vein which was then harvested approximately an 8-9 cm segment was then removed. Once this was accomplished we opened up the patch and lysed all the valves. Once we finished this we then turned our attention to the arteriotomy. We sewed on the patch in a circumferential manner using a 5 0 Prolene suture from the common femoral down to the SFA. Once this was accomplished we then closed of prior to closure it was flushed clean. Once this was accomplished we then did a Doppler evaluation of the per fundi and SFA. Arm we were unable to achieve a great popliteal signal. At this point we E then made a no other transverse arteriotomy on the patch. Ran the Albert down the SFA and profundus femoral S once again we were express some thrombus. We were able to clear this simply. We then oversewed the arteriotomy with a 6 0 Prolene on the patch. Once this was accomplished adequate hemostasis was achieved. Were able to achieve an excellent popliteal signal and we did note signal distal to the patch on the SFA and profundus fem wrist. These were good triphasic signals. Once this was accomplished we then irrigated the wound. We were able to close the incision deep layer with a 2 0 Polysorb superficial layer with 3-0 poly Sorb finally skin with an interrupted 2 0 nylon in a mattress fashion and skin clips. Sterile dressing was applied. At the end of the case sponge us may counts were correct. Patient tolerated the procedure well. Returned to recovery extubated with stable vitals. This concludes the dictation on Adonay Hou. This note is constructed using voice recognition software. While every effort has been made to ensure accuracy, bolt threader errors may have been included. Thank you for allowing me to participate in the care of your patient. Yours sincerely, Cabrera Manzo MD, FACS, R.P.V.I.
--- NOTE | 2020-11-12 16:16 | W.PM.CCCN ---
History of Present Illness Data of Consult Service Date: 11/12/20 Requesting physician: Cabrera Manzo Primary Care Provider: Karlene Randle MD [facility] Reason for consult: Acute arterial hemorrhage 70-year-old hypertensive and continued smoker with COPD and peripheral vasculopathy who is 6 months status post femoral endarterectomy with bovine graft and apparently developed a acute groin pain with possible surrounding cellulitis with rupture of a possible pseudoaneurysm and severe hemorrhage with brief hypotension requiring 3 unit red cell transfusion but a total blood loss of nearly 2 L No other signs of coagulopathy such as tissue oozing and right lower extremity distally minimally call but good motor function good sensation patient is extubated with oxygen saturation 100% but somewhat confused Arterial line in the left radial with blood pressure very variable due to positioning ranging between 101 40 systolic in sinus rhythm at a rate of 100 No other blood products were administered and the 3 units that he received were O positive and not cross matched Review of Systems Review of Systems: Yes Unobtainable due to mental status [facility] Past Medical History Medical History (Updated 11/12/20 @ 16:24 by Mateo Wong MD) Arthritis Bilateral carotid artery disease COPD (chronic obstructive pulmonary disease) COPD (chronic obstructive pulmonary disease) Elevated cholesterol History of prostate cancer HTN (hypertension) Hx of low back pain PVD (peripheral vascular disease) Spinal disease Surgical History Surgical History History of endarterectomy (11/20/19) History of femoral angiogram History of spinal surgery Hx of colonoscopy Social History Social History Household Members: Spouse and Children Housing: House Are you a primary resident care coordinator to a significant other at home: No Do you presently have visiting nurse or other home services: No Alcohol intake: current Alcohol intake frequency: 3 or more drinks per day Alcohol type: beer Smoking Status: Current every day smoker Tobacco Type: Cigarette Packs Per Day: 0.5 Cigarettes Per Day: 10.0 Years Smoked: 50 Smoked in Last 30 Days: Yes Patient Interested in Nicotine Replacement: Yes Second Hand Smoke Exposure: No Use of substances other than those prescribed or required for medical reasons: No Have you been hit, kicked, punched, or otherwise hurt by someone within the past year? If so, by whom?: No Do you feel safe in your current relationship?: Yes Is there a partner from a previous relationship who is making you feel unsafe now?: No Are you made to feel afraid or neglected: No Spiritual Healthcare Practices: no issues Yazidism Healthcare Practices: no issues Cultural Healthcare Practices: no issues Are you DNR?: No Advance Directives: No Advance Directives Information Provided: No Advance Directives on File: No Do you have thoughts of harming others: None Do you have a plan to hurt others: No Plan Recently lost weight without trying: No Nutrition Risks: No Nutritional Risk Poor oral hygiene: No service: No Current occupational status: retired [employer] Allergies Allergy/AdvReac Type Severity Reaction Status Date / Time No Known Allergies Allergy Verified 11/05/20 11:42 [No Known Allergies*] Active Medications: Current Medications Generic Name Dose Route Start Last Admin Trade Name Freq PRN Reason Stop Dose Admin Acetaminophen 650 mg 11/12/20 04:07 Acetaminophen 325 Mg Tablet PO Q6H PRN Fever Fentanyl 50 mcg 11/12/20 10:28 Fentanyl Citrate/Pf 100 Mcg/2 Ml Vial IVPUSH Q5M PRN Pain, Severe (Pain Scale 7-10) Sodium Chloride 1,000 mls @ 80 mls/hr 11/12/20 15:30 Ns IVCONT .[id number] STEWART Morphine Sulfate 4 mg 11/12/20 04:08 11/12/20 08:43 Morphine Sulfate 4 Mg/Ml Cartridge IVPUSH 4 mg Q4H PRN Administration Pain, Severe (Pain Scale 7-10) Ondansetron HCl 4 mg 11/12/20 10:28 Ondansetron Hcl 4 Mg/2 Ml Vial IVPUSH ONCE PRN Nausea and Vomiting Oxycodone HCl 5 mg 11/12/20 03:40 Oxycodone Hcl Immed Release 5 Mg Tablet PO Q4H PRN Pain, Moderate (Pain Scale 4-6 Oxycodone HCl 5 mg 11/12/20 10:28 Oxycodone Hcl Immed Release 5 Mg Tablet PO ONCE PRN Pain, Severe (Pain Scale 7-10) Sodium Chloride 3 ml 11/12/20 08:00 11/12/20 08:38 0.9 % Sodium Chloride Flush 3 Ml Syringe IVFLUSH 3 ml QSHIFT STEWART Administration Sodium Chloride 3 ml 11/12/20 16:00 0.9 % Sodium Chloride Flush 3 Ml Syringe IVFSH QSHIFT [facility] Home Medications Medication Instructions Recorded Confirmed Last Taken Type aspirin 81 mg tablet,delayed 81 mg PO DAILY 03/28/20 11/12/20 10/15/20 21:30 History release clopidogrel 75 mg tablet 75 mg PO DAILY 03/28/20 11/12/20 10/15/20 07:00 History umeclidinium 62.5 mcg-vilanterol 1 inh INHALATION DAILY 03/28/20 11/12/20 Unknown History 25 mcg/actuation powdr for inhalation tamsulosin 1 cap PO BEDTIME 05/14/20 11/12/20 Unknown History cyanocobalamin (vitamin B-12) 3,000 mcg PO DAILY 11/12/20 11/12/20 Unknown History [B-12 DOTS] diclofenac sodium 1 g TOPICAL QID 11/12/20 11/12/20 Unknown History gabapentin 1 cap PO BID 11/12/20 11/12/20 Unknown History ipratropium-albuterol [Combivent 1 puff INHALATION QID PRN 11/12/20 11/12/20 Unknown History Respimat] Physical Exam Vital Signs: Vital Signs: Last Vital Signs Temp 98.3 F 11/12/20 16:00 Pulse 96 11/12/20 16:00 Resp 13 11/12/20 16:00 BP 144/52 H 11/12/20 16:00 Pulse Ox 100 11/12/20 16:00 Body Mass Index 23.6 He is awake but altered and agitated Moving all 4 extremities including the ischemic limb on the right lower extremity which is now status post saphenous vein grafting Chest with diminished breath sounds bilaterally but no adventitious sounds and no asymmetry Bedside echo shows borderline concentric left ventricular hypertrophy with globally preserved systolic wall motion and aortic valvular calcification but well opening with no stenosis Abdomen is soft with good bowel sounds no organomegaly Results Labs CBC & Chem 7: 11/12/20 04:00 11/12/20 04:00 Labs: Short CBC 11/12/20 Range/Units 04:00 WBC 4.8 (4.8-10.8) X10*3/uL Hgb 12.4 L (14.0-18.0) g/dl Hct 35.9 L (42-52) % Plt Count 242 (160-400) X10*3/uL BMP 11/12/20 04:00 Sodium 131 L Potassium 4.0 Chloride 97 Carbon Dioxide 23 BUN 12 D Creatinine 0.67 Calcium 8.8 D Assessment and Plan (1) Elevated brain natriuretic peptide (BNP) level: Status: Acute (2) Bilateral leg edema: Status: Acute (3) SOB (shortness of breath) on exertion: Status: Acute (4) HTN (hypertension): Status: Acute (5) Bilateral carotid artery disease: Status: Acute (6) PAD (peripheral artery disease): Status: Acute (7) Acute blood loss as cause of postoperative anemia: Status: Acute (8) Altered mental status, unspecified: Status: Acute (9) COPD (chronic obstructive pulmonary disease): Status: Acute Will obtain blood gas and all repeat bloods due to encephalopathy but also to rule out co associated coagulopathy start him on maintenance IV fluids because between imaging of his IVC and of his internal jugular veins he appears to be hypovolemic and will completely culture and empirically start antibiotics to cover what but might have been an infected graft
[2020-11-12 16:30] LABS: VBG Base Excess -2.1 mmol/L; VBG HCO3 23 mmol/L (22-26); VBG pCO2 44 mmHg; VBG pH 7.33 (7.32-7.43); VBG pO2 34 mmHg
[2020-11-12 16:44] LABS: Venous Blood Gas Refer to POC result
[2020-11-12 16:47] LABS: Basophils Percent Auto 0.3 % (0-2); Eosinophils Percent Auto 0.3 % (0-4); Hematocrit 28.5 % (42-52); Hemoglobin 9.7 g/dl (14.0-18.0); Imm Gran Abs Auto 0.05 X10*3/uL (0.00-0.03); Imm Gran Pct Auto 0.7 % (0.0-0.4); Lymphocytes Absolute Auto 0.3 X10*3/uL (1.2-4.9); Lymphocytes Percent Auto 3.7 % (20-40); MANUAL DIFF FLAG SCAN; Mean Corpuscular Hemoglobin 33.8 pg (27.0-33.0); Mean Corpuscular Volume 99.3 fL (80-98); Mean Platelet Volume 9.1 fL (9.4-12.4); Monocytes Absolute Auto 0.2 X10*3/uL (0.1-1.2); Monocytes Percent Auto 2.8 % (2-11); Neutrophils Percent Auto 92.2 % (45-73); Platelet Count 176 X10*3/uL (160-400); Red Blood Count 2.87 X10*6/uL (4.60-5.80); Red Cell Distribution Width 13.6 % (11.0-16.0); SCAN SMEAR FLAG 1; White Blood Count 7.5 X10*3/uL (4.8-10.8)
[2020-11-12 16:52] LABS: Fibrinogen 472 MG/DL (259-690); INTERNATIONAL NORM RATIO 1.2 (0.9-1.1); Prothrombin Time 14.8 SEC (10.8-13.0)
[2020-11-12] MEDS: fentaNYL citrate/PF 100 MCG/2 ML VIAL 50 MCG IVPUSH ×3 (16:52→19:10)
[2020-11-12 16:54] LABS: Partial Thromboplastin Time 30.9 SEC (24.1-38.0)
[2020-11-12] MEDS: Piperacillin Sodium/Tazobactam 3.375 GM in 0.9 % Sodium Chloride 50 ML IV (17:07)
[2020-11-12 17:14] LABS: Anion Gap 12 (12-20); Blood Urea Nitrogen 9 mg/dL (9-16); Carbon Dioxide 22 mmol/L (22-29); Chloride 100 mmol/L (96-108); Creatinine Clr Calc Pharmacy 119.9; Estimated Glomerular Filt Rate > 60; Glucose Fasting 150 mg/dL (60-99); Magnesium 1.7 mg/dL (1.6-2.6); Potassium 4.5 mmol/L (3.3-5.1); Sodium 129 mmol/L (135-145)
[2020-11-12] MEDS: KCl 20 mEq in 0.45% Sod 20 MEQ/1,000 ML IV.SOLN 125 MEQ IVCONT (17:17)
[2020-11-12 17:25] LABS: Calcium 7.5 mg/dL (8.4-10.2)
[2020-11-12 17:51] LABS: SLIDE REVIEW VERIFIED
[2020-11-12 19:20] LABS: Glucose Urine UA NEG (NEG); Leukocyte Esterase Urine NEG (NEG); Nitrite Urine NEG (NEG); Specific Gravity - Urine 1.025 (1.005-1.025); Urine Blood 2+ (NEG); Urine Ketones NEG (NEG); Urine Protein NEG (NEG-TRACE)
[2020-11-12 19:21] LABS: Appearance Urine CLEAR; Color Urine DARK YELLOW
[2020-11-12 19:32] LABS: Bacteria Urine TRACE /LPF; Mucus Urine 1+ /LPF; Squamous Epithelial Cell Urine TRACE /LPF; WBC Urine 0-2 /HPF (0-4)
[2020-11-12 20:13] LABS: Basophils Percent Auto 0.1 % (0-2); Eosinophils Percent Auto 0.1 % (0-4); Hematocrit 29.1 % (42-52); Hemoglobin 10.1 g/dl (14.0-18.0); Imm Gran Abs Auto 0.06 X10*3/uL (0.00-0.03); Imm Gran Pct Auto 0.7 % (0.0-0.4); Lymphocytes Absolute Auto 0.4 X10*3/uL (1.2-4.9); Lymphocytes Percent Auto 4.5 % (20-40); MANUAL DIFF FLAG SCAN; Mean Corpuscular HGB Conc 34.7 g/dl (31.0-36.0); Mean Corpuscular Hemoglobin 33.4 pg (27.0-33.0); Mean Corpuscular Volume 96.4 fL (80-98); Mean Platelet Volume 8.8 fL (9.4-12.4); Monocytes Absolute Auto 0.3 X10*3/uL (0.1-1.2); Monocytes Percent Auto 3.6 % (2-11); Neutrophils Absolute Auto 8.3 X10*3/uL (2.0-8.3); Platelet Count 201 X10*3/uL (160-400); Red Blood Count 3.02 X10*6/uL (4.60-5.80); Red Cell Distribution Width 13.5 % (11.0-16.0); SCAN SMEAR FLAG 1; White Blood Count 9.1 X10*3/uL (4.8-10.8)
[2020-11-12] MEDS: oxyCODONE HCl Immed Release 5 MG TABLET PO (20:40)
[2020-11-12] MEDS: vancomycin HCL 750 MG in 0.9 % Sodium Chloride 250 ML 265 MG IV (20:41)
[2020-11-12] MEDS: Albuterol/Iprat 2.5/0.5MG 3 ML AMPUL.NEB INHALE (20:58)
[2020-11-12] MEDS: Heparin Sodium,Porcine/1/2NS 25,000 UNIT/250 ML IV.SOLN 5 UNIT IVCONT (22:13)
[2020-11-12] MEDS: LORazepam 0.5 MG TABLET PO (22:14)
[2020-11-13] VITALS (34 sets, daily range): BP systolic 106–135; BP diastolic 49–108; PULSE 79–125; RESP 10–18; TEMP 36.7–37.4; O2SAT 91–99
--- NOTE | 2020-11-13 | ECG_ITS ---
Test Reason : ? RHYTHM CHANGES Blood Pressure : / mmHG Vent. Rate : 101 BPM Atrial Rate : 101 BPM P-R Int : 360 ms QRS Dur : 068 ms QT Int : 362 ms P-R-T Axes : 032 064 113 degrees QTc Int : 469 ms Sinus tachycardia with 1st degree A-V block Low voltage QRS ST & T wave abnormality, consider inferior ischemia ST & T wave abnormality, consider anterolateral ischemia Abnormal ECG When compared with ECG of 12-NOV-2020 17:01, ST now depressed in Anterior leads T wave inversion now evident in Inferior leads T wave inversion now evident in Anterolateral leads Referred By: Cabrera Manzo Electronically Signed By:ELISE WILLSON
[2020-11-13 00:16] LABS: Basophils Percent Auto 0.1 % (0-2); Hematocrit 25.1 % (42-52); Hemoglobin 8.9 g/dl (14.0-18.0); Imm Gran Abs Auto 0.03 X10*3/uL (0.00-0.03); Imm Gran Pct Auto 0.4 % (0.0-0.4); Lymphocytes Absolute Auto 0.5 X10*3/uL (1.2-4.9); Lymphocytes Percent Auto 7.2 % (20-40); MANUAL DIFF FLAG SCAN; Mean Corpuscular HGB Conc 35.5 g/dl (31.0-36.0); Mean Corpuscular Hemoglobin 34.6 pg (27.0-33.0); Mean Corpuscular Volume 97.7 fL (80-98); Mean Platelet Volume 8.8 fL (9.4-12.4); Monocytes Absolute Auto 0.3 X10*3/uL (0.1-1.2); Monocytes Percent Auto 4.7 % (2-11); Neutrophils Absolute Auto 6.3 X10*3/uL (2.0-8.3); Neutrophils Percent Auto 87.6 % (45-73); Platelet Count 166 X10*3/uL (160-400); Red Blood Count 2.57 X10*6/uL (4.60-5.80); Red Cell Distribution Width 13.7 % (11.0-16.0); SCAN SMEAR FLAG 1; White Blood Count 7.2 X10*3/uL (4.8-10.8)
[2020-11-13] MEDS: Piperacillin Sodium/Tazobactam 3.375 GM in 0.9 % Sodium Chloride 50 ML IV ×5 (00:16→23:59)
[2020-11-13] MEDS: 0.9 % Sodium Chloride Flush 3 ML SYRINGE IVFLUSH ×4 (00:19→23:58)
[2020-11-13] MEDS: oxyCODONE HCl Immed Release 5 MG TABLET PO ×2 (00:21→04:48)
--- NOTE | 2020-11-13 01:33 | PC.NURSE ---
CBC Q4H. AT 2000 HGB/HCT 10.1/29.9; AT 0000, 8.9/25.1 NEW STAINING ON RIGHT GROIN DSG, SMALL TO MOD AMOUNT AND MARKED OFF. MAURI JARRETT AWARE AND AT BEDSIDE TO WITNESS SURGICAL DSG WITH NEW STAINING. BP STABLE VIA A-LINE. U/O GOOD, WAS ORANGE IN COLOR AND NOW IS YELLOW. RIGHT FOOT STILL WITH NO PULSE BUT WARMER TO TOUCH THAN PREVIOUSLY. PT ABLE TO WIGGLE TOES. OXYCODONE AND MORPHINE GIVEN FOR PAIN WITH GOOD EFFECT. GOOD EFFECT FROM ATIVAN ON ANXIETY. PT IS CALMER AND NOT DIAPHERETIC AND ABLE TO FOLLOW COMMANDS.
[2020-11-13] MEDS: Morphine Sulfate 4 MG/ML CARTRIDGE IVPUSH ×4 (03:09→21:54)
[2020-11-13] MEDS: LORazepam 2 MG/ML VIAL 0.5 MG IVPUSH ×3 (04:08→22:08)
[2020-11-13 04:16] LABS: Basophils Percent Auto 0.1 % (0-2); Eosinophils Percent Auto 0.1 % (0-4); Hematocrit 24.3 % (42-52); Hemoglobin 8.4 g/dl (14.0-18.0); Imm Gran Abs Auto 0.03 X10*3/uL (0.00-0.03); Imm Gran Pct Auto 0.4 % (0.0-0.4); Lymphocytes Absolute Auto 0.6 X10*3/uL (1.2-4.9); Lymphocytes Percent Auto 9.3 % (20-40); MANUAL DIFF FLAG SCAN; Mean Corpuscular HGB Conc 34.6 g/dl (31.0-36.0); Mean Corpuscular Hemoglobin 33.7 pg (27.0-33.0); Mean Corpuscular Volume 97.6 fL (80-98); Mean Platelet Volume 9.3 fL (9.4-12.4); Monocytes Absolute Auto 0.4 X10*3/uL (0.1-1.2); Monocytes Percent Auto 6.5 % (2-11); Neutrophils Absolute Auto 5.6 X10*3/uL (2.0-8.3); Neutrophils Percent Auto 83.6 % (45-73); Platelet Count 175 X10*3/uL (160-400); Red Blood Count 2.49 X10*6/uL (4.60-5.80); Red Cell Distribution Width 13.5 % (11.0-16.0); SCAN SMEAR FLAG 1; White Blood Count 6.7 X10*3/uL (4.8-10.8)
[2020-11-13 04:29] LABS: SLIDE REVIEW VERIFIED
[2020-11-13] MEDS: 0.9 % Sodium Chloride 1,000 ML 80 ML IVCONT (04:51)
[2020-11-13 05:29] LABS: VBG Base Excess 1.1 mmol/L; VBG HCO3 24 mmol/L (22-26); VBG pCO2 32 mmHg; VBG pH 7.48 (7.32-7.43); VBG pO2 71 mmHg
[2020-11-13 06:03] LABS: INTERNATIONAL NORM RATIO 1.2 (0.9-1.1); Prothrombin Time 13.7 SEC (10.8-13.0)
[2020-11-13 06:06] LABS: Partial Thromboplastin Time 30.8 SEC (24.1-38.0)
[2020-11-13 06:08] LABS: Anion Gap 11 (12-20); Blood Urea Nitrogen 10 mg/dL (9-16); Calcium 7.4 mg/dL (8.4-10.2); Carbon Dioxide 21 mmol/L (22-29); Chloride 103 mmol/L (96-108); Creatinine Clr Calc Pharmacy 124.1; Estimated Glomerular Filt Rate > 60; Glucose Random 114 mg/dL (60-115); Magnesium 1.8 mg/dL (1.6-2.6); Phosphorus 3.5 mg/dL (2.7-4.5); Potassium 4.6 mmol/L (3.3-5.1); Sodium 130 mmol/L (135-145)
[2020-11-13] MEDS: LORazepam 0.5 MG TABLET PO (06:36)
--- NOTE | 2020-11-13 07:20 | PC.NURSE ---
pt has experienced worsening agitation and restlessness as the night has progressed. he has been fidgety and frequently repositioning extremities. on several occasions he has grabbed at iv lines. he has been started on ciwa scoring and his ciwa score has risen to 18. nehemias feldman notified of increased ciwa score. ativan 0.5mg po q 8 hr po implemented. pt has had c/o of right leg pain. he has difficulty with comprehension of pain scoring. he has been medicated with morphine 4mg ivp/oxycodone 5 mg po with pt reporting pain to have lessened. complexion ashen. right groin dsg with old shawdow staining. both post tibial pulses located with dopplar. pedal pulses absent bilat. left radial ginger to displays. wave form crisp with flush. supplemental o2 2lpm. although pt removes o2 frequently. breath sounds cta/diminished lower lobes. ecg displays sr. abdomen benign. fix heparin 500 units/hr. samuels cathter patent and draining clear camila urine.
[2020-11-13] MEDS: Albuterol/Iprat 2.5/0.5MG 3 ML AMPUL.NEB INHALE ×4 (07:27→20:23)
--- NOTE | 2020-11-13 07:44 | HO.POSTANES ---
Post Anesthesia Evaluation Post Anesthesia Evaluation Vital Signs: Vital Signs Temp Pulse Resp BP Pulse Ox 11/13/20 07:29 94 11/13/20 06:55 98 15 122/74 93 11/13/20 05:49 97 13 114/69 96 11/13/20 04:53 95 14 108/86 97 11/13/20 03:57 98.1 F 88 12 106/83 98 11/13/20 03:00 84 12 121/64 95 11/13/20 02:43 79 10 L 126/49 L 98 11/13/20 01:49 82 10 L 131/52 L 97 11/13/20 00:49 85 16 113/63 93 11/12/20 23:42 97.3 F 80 13 116/68 96 11/12/20 22:52 82 12 113/45 L 100 11/12/20 21:53 84 18 131/52 L 99 11/12/20 21:01 88 11/12/20 20:55 88 17 136/54 L 100 11/12/20 19:53 98.4 F 91 16 114/48 L 95 Anesthesia: General Endotracheal-GETA Mental Status: Awake Pain Control: Satisfactory Nausea/Vomiting: None Hydration: Adequate Anesthesia-Related Issues: No Anes. Related Issues Comments: Awake and alert. Hand H stable. Looks great!
--- NOTE | 2020-11-13 08:17 | PC.NURSE ---
Received patient in walking rounds. Post op for repair of right illiac graft. Complications during surgery resulted in a 2 liter blood loss and rapid blood infusion. History of ETOH abuse and has been scoring on CIWA scale. Matthew to gravity with pale yellow urine returned. PIV times three to both AC's and left hand. All patent. Heparin gtt with out protocol, rate to remain at 500 units per hr. Dopplered lower D/P's with faint pulses heard, left greater than right. Sites marked. Vascular at bedside for exam. Post pt reports 8/10 pain to left lower extremity. Medicated with 4 mg IV morhine with effect. A-line to left radial with positive blood return. Assessment ongoing.
[2020-11-13 08:45] LABS: Venous Blood Gas Refer to POC result
[2020-11-13 09:04] LABS: MANUAL DIFF FLAG NO
[2020-11-13 09:09] LABS: Basophils Percent Auto 0.2 % (0-2); Eosinophils Percent Auto 0.5 % (0-4); Hematocrit 23.1 % (42-52); Hemoglobin 7.8 g/dl (14.0-18.0); Imm Gran Abs Auto 0.02 X10*3/uL (0.00-0.03); Imm Gran Pct Auto 0.3 % (0.0-0.4); Lymphocytes Absolute Auto 0.8 X10*3/uL (1.2-4.9); Lymphocytes Percent Auto 13.6 % (20-40); Mean Corpuscular HGB Conc 33.8 g/dl (31.0-36.0); Mean Corpuscular Hemoglobin 33.3 pg (27.0-33.0); Mean Corpuscular Volume 98.7 fL (80-98); Monocytes Absolute Auto 0.4 X10*3/uL (0.1-1.2); Monocytes Percent Auto 7.2 % (2-11); Neutrophils Absolute Auto 4.8 X10*3/uL (2.0-8.3); Neutrophils Percent Auto 78.2 % (45-73); Platelet Count 155 X10*3/uL (160-400); Red Blood Count 2.34 X10*6/uL (4.60-5.80); Red Cell Distribution Width 13.5 % (11.0-16.0); White Blood Count 6.1 X10*3/uL (4.8-10.8)
[2020-11-13] MEDS: vancomycin HCL 750 MG in 0.9 % Sodium Chloride 250 ML 250 MG IV (09:33)
--- NOTE | 2020-11-13 10:55 | P.PNVS_ITS ---
Subjective Subjective Date of Service: 11/13/20 Patient reports: no new complaints and still having pain Interval history: Patient is postop day 1 status post femoral revision. Appears to be doing relatively well postop. He still does note some pain on that right lower extremity but the pain from the groin has significantly improved. He has had no issues overnight. He has been started on a heparin drip of 500 units an hour off protocol. Appears to be tolerating that as well. Physical Exam Vital Signs: Vital Signs: Last Vital Signs Temp 99.0 F 11/13/20 09:48 Pulse 100 11/13/20 09:48 Resp 14 11/13/20 09:48 BP 114/56 L 11/13/20 09:48 Pulse Ox 95 11/13/20 09:48 Oxygen Flow Rate 2 11/13/20 09:48 Body Mass Index 23.6 Const: General: cooperative, healthy appearing and no acute distress Orientation/consciousness: oriented to person, oriented to place and oriented to time HENMT: Head: Yes normal to inspection Neck: Carotids: no bruits Chest: Chest palpation & inspection: normal inspection of the chest Resp: Effort & Inspection: normal respiratory effort and able to speak in complete sentences Auscultation: clear to auscultation bilaterally Cardio: Rate: regular rate Heart sounds: S1 normal heart sound present and S2 normal heart sound present Peripheral pulses: popliteal pulses present (Right popliteal), posterior tibial pulses present (Faint right posterior tibial signal) and dorsalis pedis present GI: Inspection: Yes normal to inspection Skin: General skin exam: no rashes or lesions noted Wounds: no wounds Neuro: General: oriented to person, oriented to place, oriented to time and CN's II-XI intact bilaterally Extrem: Other: Right side motor and sensation intact General: Yes normal to inspection, Yes full ROM and Yes no clubbing, cyanosis or edema Psych: Appearance: grossly normal and well kempt Speech and movement: Normal speech and movement present Affect: normal affect Progress Note: A&P Assessment and plan (1) PAD (peripheral artery disease): Status: Acute Assessment and Plan: Patient is postop day 1 status post redo femoral endarterectomy with vein patch. He appears to be stable considering amount of blood loss yesterday. Pain is reasonably controlled. He does have motor and sensation of that right foot in addition he does have reasonable capillary refill. He does have a good strong biphasic to triphasic popliteal signal. He is being maintained on a heparin drip. He has been started on Vanco and Zosyn. We are waiting operative cultures. Continue conservative management in ICU. Bed rest for now. Will consider getting him out of bed to chair tomorrow. Thank you to the special service officer team for their assistance in his care. Fall Risk Details Current Medications: Current Medications Generic Name Dose Route Start Last Admin Trade Name Luis Fernandoq PRN Reason Stop Dose Admin Acetaminophen 650 mg 11/12/20 04:07 Acetaminophen 325 Mg Tablet PO Q6H PRN Fever Albuterol/Ipratropium 3 ml 11/12/20 20:00 11/13/20 07:27 Albuterol/Iprat 2.5/0.5mg 3 Ml Ampul.Neb INHALE 3 ml RQ4H WHILE AWAKE STEWART Administration Piperacillin Sod/Tazobactam 50 mls @ 100 mls/hr 11/12/20 17:00 11/13/20 05:49 Sod 3.375 gm/ Sodium Chloride IV Infused Q6H STEWART Infusion Vancomycin HCl 750 mg/ Sodium 265 mls @ 265 mls/hr 11/12/20 21:00 11/13/20 09:33 Chloride IV 250 mls/hr Q12H STEWART Administration Potassium Chloride/Sodium Chloride 20 meq in 1,000 mls @ 125 mls/hr 11/12/20 17:45 11/13/20 04:09 IVCONT 125 mls/hr .Q8H STEWART Administration Heparin Sodium/Sodium Chloride 25,000 unit in 250 mls @ 5 mls/hr 11/12/20 21:15 11/12/20 22:13 IVCONT 500 units/hr .Q24H STEWART 5 mls/hr Administration 500 UNITS/HR Lorazepam 0.5 mg 11/13/20 07:54 11/13/20 10:52 Lorazepam 2 Mg/Ml Vial IVPUSH 0.5 mg Q6H PRN Administration Alcohol Withdrawal Morphine Sulfate 4 mg 11/12/20 04:08 11/13/20 07:52 Morphine Sulfate 4 Mg/Ml Cartridge IVPUSH 4 mg Q4H PRN Administration Pain, Severe (Pain Scale 7-10) Ondansetron HCl 4 mg 11/12/20 10:28 Ondansetron Hcl 4 Mg/2 Ml Vial IVPUSH ONCE PRN Nausea and Vomiting Pharmacy Consult 1 each 11/12/20 16:28 Consult Rx Vancomycin Dosing MISCELLANE DAILY PRN Consult order Sodium Chloride 3 ml 11/12/20 08:00 11/13/20 00:19 0.9 % Sodium Chloride Flush 3 Ml Syringe IVFLUSH 3 ml QSHIFT STEWART Administration Time Spent With Patient Time: Total time spent is greater than 50% in coordination of care (as documented) at patient's floor/unit and/or counseling patient: Time with patient: 25 - 35 minutes Procedures Date of Service Date of Service: 11/13/20
[2020-11-13 11:40] LABS: MANUAL DIFF FLAG NO
[2020-11-13 11:46] LABS: Basophils Percent Auto 0.4 % (0-2); Eosinophils Absolute Auto 0.1 X10*3/uL (0.0-0.4); Eosinophils Percent Auto 1.4 % (0-4); Hemoglobin 7.5 g/dl (14.0-18.0); Imm Gran Abs Auto 0.02 X10*3/uL (0.00-0.03); Imm Gran Pct Auto 0.4 % (0.0-0.4); Lymphocytes Absolute Auto 0.9 X10*3/uL (1.2-4.9); Lymphocytes Percent Auto 17.1 % (20-40); Mean Corpuscular HGB Conc 34.1 g/dl (31.0-36.0); Mean Corpuscular Hemoglobin 33.8 pg (27.0-33.0); Mean Corpuscular Volume 99.1 fL (80-98); Mean Platelet Volume 8.7 fL (9.4-12.4); Monocytes Absolute Auto 0.3 X10*3/uL (0.1-1.2); Monocytes Percent Auto 6.2 % (2-11); Neutrophils Absolute Auto 3.9 X10*3/uL (2.0-8.3); Neutrophils Percent Auto 74.5 % (45-73); Platelet Count 149 X10*3/uL (160-400); Red Blood Count 2.22 X10*6/uL (4.60-5.80); Red Cell Distribution Width 13.5 % (11.0-16.0); White Blood Count 5.2 X10*3/uL (4.8-10.8)
[2020-11-13 11:50] LABS: Fibrinogen 518 MG/DL (259-690); INTERNATIONAL NORM RATIO 1.1 (0.9-1.1); Prothrombin Time 13.6 SEC (10.8-13.0)
--- NOTE | 2020-11-13 13:25 | PC.NURSE ---
PRBC up for decreasing trending H and H. during pulse check post marked is now absent. Dr Rogers at bedside to confirm. Surgery called. at bedside.
--- NOTE | 2020-11-13 13:31 | MHC.CM.PN ---
Attempted to meet with pt to review d/c planning; pt in ICU following OR repair of failed venous graft: required MTP. Pt lethargic, not answering questions appropriately: Per discussion with RN, pt is now on [facility] protocol for s/sx of ETOH withdrawal. Pt's spouse in to visit: states pt was independent prior to admission: discussed pt's d/c needs: spouse is optimistic that pt could return to home. Refered to NA for wound and extremity assessment. Spouse to transport home: HCP to be completed once pt has returned to baseline level of mentation.
[2020-11-13] MEDS: Lactated Ringers 1,000 ML 100 ML IVCONT ×2 (13:48→22:53)
--- NOTE | 2020-11-13 16:54 | PM.CCPN ---
Subjective Subjective Date of Service: 11/13/20 Critical Care Time (minutes): 40 Comment: No clinical signs of alcohol withdrawal he is oriented x3 stable vital signs but he did develop some nonspecific ST-T changes on EKG and therefore given his known peripheral vasculopathy this might represent waxing waning ischemia because it deferred from his earlier EKG but asymptomatic He 1st had a drop in hemoglobin without any apparent change in the appearance of the operative site and we stop the the heparin which was low-dose at 500 units/hour but 1 hour later he developed a colder foot with no Doppler pulse noted clearly consistent with ischemia and we were advised by vascular surgery to restart the heparin as are only possible alternative today and we will continue to monitor his CBC Physical Exam Vital Signs: Vital Signs: Last Vital Signs Temp 99.1 F 11/13/20 16:00 Pulse 108 H 11/13/20 16:00 Resp 13 11/13/20 16:00 BP 123/65 11/13/20 16:00 Pulse Ox 97 11/13/20 16:00 Oxygen Flow Rate 2 11/13/20 09:48 Body Mass Index 23.6 Const: Other: No evidence of significant the a the oozing or swelling of the right groin wound but clearly the right foot is cold and becoming painful with clear-cut demarcation at the level of the ankle with slow capillary refill in the foot Waxing waning mild diffuse ST-T changes but no chest discomfort or shortness of breath Abdomen soft good bowel sounds no organomegaly Good bilateral carotid upstrokes and no bruits and no neck vein distension Chest clear bilaterally Objective Data Labs CBC & Chem 7: 11/14/20 07:30 11/14/20 05:14 Labs: Laboratory Results - last 24 hr 11/12/20 11/12/20 11/12/20 09:00 16:10 16:10 WBC 7.5 RBC 2.87 L Hgb 9.7 L D Hct 28.5 L D MCV 99.3 H MCH 33.8 H MCHC 34.0 RDW 13.6 Plt Count 176 D MPV 9.1 L Immature Gran % (Auto) 0.7 H Neut % (Auto) 92.2 H Lymph % (Auto) 3.7 L [place] % (Auto) 2.8 Eos % (Auto) 0.3 Baso % (Auto) 0.3 Lymph # (Auto) 0.3 L [place] # (Auto) 0.2 Eos # (Auto) 0.0 Baso # (Auto) 0.0 Abs Immat Gran (auto) 0.05 H Absolute Neuts (auto) 7.0 Absolute Nucleated RBC 0.000 Nucleated RBC % (auto) 0.0 Smear Tech's Comments VERIFIED PT 14.8 H INR 1.2 H APTT 30.9 Fibrinogen 472 VBG pH VBG pCO2 VBG pO2 VBG HCO3 VBG O2 Saturation VBG Base Excess Sodium Potassium Chloride Carbon Dioxide Anion Gap BUN Creatinine Estim Creat Clear Calc Estimated GFR Random Glucose Fasting Glucose Calcium Phosphorus Magnesium Urine Color Urine Appearance Urine pH Ur Specific [place] Urine Protein Urine Glucose (UA) Urine Ketones Urine Blood Urine Nitrite Ur Leukocyte Esterase Urine RBC Urine WBC Ur Squamous Epith Cells Urine Bacteria Urine Mucus Blood Type O Positive Antibody Screen NEGATIVE Enhanced Crossmatch See Detail 11/12/20 11/12/20 11/12/20 16:10 18:58 20:03 WBC 9.1 RBC 3.02 L Hgb 10.1 L Hct 29.1 L MCV 96.4 MCH 33.4 H MCHC 34.7 RDW 13.5 Plt Count 201 MPV 8.8 L Immature Gran % (Auto) 0.7 H Neut % (Auto) 91.0 H Lymph % (Auto) 4.5 L [place] % (Auto) 3.6 Eos % (Auto) 0.1 Baso % (Auto) 0.1 Lymph # (Auto) 0.4 L [place] # (Auto) 0.3 Eos # (Auto) 0.0 Baso # (Auto) 0.0 Abs Immat Gran (auto) 0.06 H Absolute Neuts (auto) 8.3 Absolute Nucleated RBC 0.000 Nucleated RBC % (auto) 0.0 Smear Tech's Comments PT INR APTT Fibrinogen VBG pH VBG pCO2 VBG pO2 VBG HCO3 VBG O2 Saturation VBG Base Excess Sodium 129 L Potassium 4.5 Chloride 100 Carbon Dioxide 22 Anion Gap 12 BUN 9 Creatinine 0.60 Estim Creat Clear Calc 119.9 Estimated GFR > 60 Random Glucose Fasting Glucose 150 H Calcium 7.5 L D Phosphorus Magnesium 1.7 Urine Color DARK YELLOW Urine Appearance CLEAR Urine pH 6.0 Ur Specific [place] 1.025 Urine Protein NEG Urine Glucose (UA) NEG Urine Ketones NEG Urine Blood 2+ H Urine Nitrite NEG Ur Leukocyte Esterase NEG Urine RBC 10-14 H Urine WBC 0-2 Ur Squamous Epith Cells TRACE Urine Bacteria TRACE Urine Mucus 1+ Blood Type Antibody Screen Enhanced Crossmatch 11/13/20 11/13/20 11/13/20 00:10 04:05 05:20 WBC 7.2 6.7 RBC 2.57 L 2.49 L Hgb 8.9 L 8.4 L Hct 25.1 L 24.3 L MCV 97.7 97.6 MCH 34.6 H 33.7 H MCHC 35.5 34.6 RDW 13.7 13.5 Plt Count 166 175 MPV 8.8 L 9.3 L Immature Gran % (Auto) 0.4 0.4 Neut % (Auto) 87.6 H 83.6 H Lymph % (Auto) 7.2 L 9.3 L [place] % (Auto) 4.7 6.5 Eos % (Auto) 0.0 0.1 Baso % (Auto) 0.1 0.1 Lymph # (Auto) 0.5 L 0.6 L [place] # (Auto) 0.3 0.4 Eos # (Auto) 0.0 0.0 Baso # (Auto) 0.0 0.0 Abs Immat Gran (auto) 0.03 0.03 Absolute Neuts (auto) 6.3 5.6 Absolute Nucleated RBC 0.000 0.000 Nucleated RBC % (auto) 0.0 0.0 Smear Tech's Comments VERIFIED PT 13.7 H INR 1.2 H APTT 30.8 Fibrinogen VBG pH VBG pCO2 VBG pO2 VBG HCO3 VBG O2 Saturation VBG Base Excess Sodium Potassium Chloride Carbon Dioxide Anion Gap BUN Creatinine Estim Creat Clear Calc Estimated GFR Random Glucose Fasting Glucose Calcium Phosphorus Magnesium Urine Color Urine Appearance Urine pH Ur Specific [place] Urine Protein Urine Glucose (UA) Urine Ketones Urine Blood Urine Nitrite Ur Leukocyte Esterase Urine RBC Urine WBC Ur Squamous Epith Cells Urine Bacteria Urine Mucus Blood Type Antibody Screen Enhanced Crossmatch 11/13/20 11/13/20 11/13/20 05:20 05:21 08:59 WBC 6.1 RBC 2.34 L Hgb 7.8 L Hct 23.1 L MCV 98.7 H MCH 33.3 H MCHC 33.8 RDW 13.5 Plt Count 155 L MPV 9.0 L Immature Gran % (Auto) 0.3 Neut % (Auto) 78.2 H Lymph % (Auto) 13.6 L [place] % (Auto) 7.2 Eos % (Auto) 0.5 Baso % (Auto) 0.2 Lymph # (Auto) 0.8 L [place] # (Auto) 0.4 Eos # (Auto) 0.0 Baso # (Auto) 0.0 Abs Immat Gran (auto) 0.02 Absolute Neuts (auto) 4.8 Absolute Nucleated RBC 0.000 Nucleated RBC % (auto) 0.0 Smear Tech's Comments PT INR APTT Fibrinogen VBG pH 7.48 H VBG pCO2 32 VBG pO2 71 VBG HCO3 24 VBG O2 Saturation 93.0 VBG Base Excess 1.1 Sodium 130 L Potassium 4.6 Chloride 103 Carbon Dioxide 21 L Anion Gap 11 L BUN 10 Creatinine 0.58 Estim Creat Clear Calc 124.1 Estimated GFR > 60 Random Glucose 114 Fasting Glucose Calcium 7.4 L Phosphorus 3.5 Magnesium 1.8 Urine Color Urine Appearance Urine pH Ur Specific [place] Urine Protein Urine Glucose (UA) Urine Ketones Urine Blood Urine Nitrite Ur Leukocyte Esterase Urine RBC Urine WBC Ur Squamous Epith Cells Urine Bacteria Urine Mucus Blood Type Antibody Screen Enhanced Crossmatch 11/13/20 11/13/20 11:32 11:32 WBC 5.2 RBC 2.22 L Hgb 7.5 L Hct 22.0 L MCV 99.1 H MCH 33.8 H MCHC 34.1 RDW 13.5 Plt Count 149 L MPV 8.7 L Immature Gran % (Auto) 0.4 Neut % (Auto) 74.5 H Lymph % (Auto) 17.1 L [place] % (Auto) 6.2 Eos % (Auto) 1.4 Baso % (Auto) 0.4 Lymph # (Auto) 0.9 L [place] # (Auto) 0.3 Eos # (Auto) 0.1 Baso # (Auto) 0.0 Abs Immat Gran (auto) 0.02 Absolute Neuts (auto) 3.9 Absolute Nucleated RBC 0.000 Nucleated RBC % (auto) 0.0 Smear Tech's Comments PT 13.6 H INR 1.1 APTT 29.0 Fibrinogen 518 VBG pH VBG pCO2 VBG pO2 VBG HCO3 VBG O2 Saturation VBG Base Excess Sodium Potassium Chloride Carbon Dioxide Anion Gap BUN Creatinine Estim Creat Clear Calc Estimated GFR Random Glucose Fasting Glucose Calcium Phosphorus Magnesium Urine Color Urine Appearance Urine pH Ur Specific [place] Urine Protein Urine Glucose (UA) Urine Ketones Urine Blood Urine Nitrite Ur Leukocyte Esterase Urine RBC Urine WBC Ur Squamous Epith Cells Urine Bacteria Urine Mucus Blood Type Antibody Screen Enhanced Crossmatch Microbiology Microbiology Results: Microbiology 11/12/20 00:00 Groin, Right Gram Stain - Final 11/12/20 00:00 Groin, Right Routine Culture - Preliminary No growth to date. Progress Note: A&P Assessment and plan (1) COPD (chronic obstructive pulmonary disease): Status: Acute (2) Altered mental status, unspecified: Status: Acute (3) Acute blood loss as cause of postoperative anemia: Status: Acute (4) Elevated brain natriuretic peptide (BNP) level: Status: Acute (5) Bilateral leg edema: Status: Acute (6) SOB (shortness of breath) on exertion: Status: Acute (7) HTN (hypertension): Status: Acute (8) Bilateral carotid artery disease: Status: Acute (9) PAD (peripheral artery disease): Status: Acute (10) Critical lower limb ischemia: Status: Acute Assessment and Plan: We restarted the heparin per vascular surgery recommendation but he was concerned about any mechanical intervention because of the fresh graft We will continue to observe for any recurring signs of cardiac ischemia and of course continue to watch him for any disease signs of did delirium which could imply alcohol withdrawal as well as following hemoglobin level
[2020-11-13 20:09] LABS: MANUAL DIFF FLAG NO
[2020-11-13 20:14] LABS: Basophils Percent Auto 0.6 % (0-2); Eosinophils Absolute Auto 0.1 X10*3/uL (0.0-0.4); Hematocrit 27.2 % (42-52); Hemoglobin 9.2 g/dl (14.0-18.0); Imm Gran Abs Auto 0.02 X10*3/uL (0.00-0.03); Imm Gran Pct Auto 0.3 % (0.0-0.4); Lymphocytes Absolute Auto 0.9 X10*3/uL (1.2-4.9); Lymphocytes Percent Auto 14.5 % (20-40); Mean Corpuscular HGB Conc 33.8 g/dl (31.0-36.0); Mean Corpuscular Hemoglobin 33.3 pg (27.0-33.0); Mean Corpuscular Volume 98.6 fL (80-98); Mean Platelet Volume 8.6 fL (9.4-12.4); Monocytes Absolute Auto 0.4 X10*3/uL (0.1-1.2); Monocytes Percent Auto 5.8 % (2-11); Neutrophils Absolute Auto 4.9 X10*3/uL (2.0-8.3); Neutrophils Percent Auto 76.8 % (45-73); Platelet Count 165 X10*3/uL (160-400); Red Blood Count 2.76 X10*6/uL (4.60-5.80); Red Cell Distribution Width 13.5 % (11.0-16.0); White Blood Count 6.4 X10*3/uL (4.8-10.8)
[2020-11-13 20:41] LABS: Vancomycin Trough 7.2 mcg/mL (10.0-20.0)
[2020-11-13] MEDS: Heparin Sodium,Porcine/1/2NS 25,000 UNIT/250 ML IV.SOLN 5 UNIT IVCONT (21:02)
[2020-11-13] MEDS: vancomycin HCL 1,000 MG in 0.9 % Sodium Chloride 250 ML 270 MG IV (21:15)
[2020-11-13 23:20] LABS: Basophils Percent Auto 0.4 % (0-2); Eosinophils Absolute Auto 0.1 X10*3/uL (0.0-0.4); Eosinophils Percent Auto 2.3 % (0-4); Hematocrit 24.9 % (42-52); Hemoglobin 8.6 g/dl (14.0-18.0); Imm Gran Abs Auto 0.02 X10*3/uL (0.00-0.03); Imm Gran Pct Auto 0.4 % (0.0-0.4); Lymphocytes Absolute Auto 0.6 X10*3/uL (1.2-4.9); Lymphocytes Percent Auto 11.3 % (20-40); MANUAL DIFF FLAG SCAN; Mean Corpuscular HGB Conc 34.5 g/dl (31.0-36.0); Mean Corpuscular Hemoglobin 33.6 pg (27.0-33.0); Mean Corpuscular Volume 97.3 fL (80-98); Mean Platelet Volume 8.5 fL (9.4-12.4); Monocytes Absolute Auto 0.3 X10*3/uL (0.1-1.2); Monocytes Percent Auto 5.8 % (2-11); Neutrophils Absolute Auto 4.5 X10*3/uL (2.0-8.3); Neutrophils Percent Auto 79.8 % (45-73); Platelet Count 148 X10*3/uL (160-400); Red Cell Distribution Width 13.2 % (11.0-16.0); SCAN SMEAR FLAG 1; White Blood Count 5.7 X10*3/uL (4.8-10.8)
[2020-11-13 23:31] LABS: SLIDE REVIEW VERIFIED
[2020-11-14] VITALS (27 sets, daily range): BP systolic 86–166; BP diastolic 45–76; PULSE 95–118; RESP 12–23; TEMP 36.6–37.5; O2SAT 93–100
[2020-11-14] MEDS: HYDROmorphone HCl 0.5 MG/0.5 ML SYRINGE IVPUSH (01:36)
[2020-11-14 03:19] LABS: MANUAL DIFF FLAG NO
--- NOTE | 2020-11-14 03:22 | PC.NURSE ---
Addendum entered by Michael Boone RN 11/14/20 04:09: left radial a-line non-functional at shift change--no blood return/unable to flush--icu pa present--arterial line d/c'd with intact angiocath..pressure dressing to site w/o bleeding--good cms to left hand Original Note: CARE ASSUMED 23:15...AWAKE...VAGUE RESPONSES TO QUESTIONS...DAVE..RESPIRATIONS EASY...HEPARIN 500 UNITS/HR & LR 100 CC/HR...KING YELLOW URINE..DENIED PAIN AT HS... PER SHIFT REPORT RIGHT LOWER LEG/FOOT COOL...SHIFT REPORT RELATED NO AUDIBLE RIGHT PEDAL PULSES SINCE NOON-TIME...REMAIN UNABLE TO AUSCULTATE RIGHT DORSALIS PULSES BUT (+) RIGHT POSTERIOR TIBIAL PULSE VIA DOPPLER OVERNIGHT...APPROX 01:30 C/O SEVERE RIGHT FOOT/LEG PAIN...MORPHINE NOT DUE ..ICU PA PRESENT...DILAUDID 0.5MG IV X1 ORDERED/GIVEN...DOZING AFTERWARDS...DENIES PAIN 3AM WHEN AWAKENED FOR PULSE CHECK/ASSESSMENT..NSR HR 90'S-100'S...RIGHT FEMORAL DRESSING REMAINS WITH OLD MARKED STAINING UNCHANGED OVERNIGHT
[2020-11-14 03:26] LABS: Basophils Percent Auto 0.5 % (0-2); Eosinophils Absolute Auto 0.1 X10*3/uL (0.0-0.4); Eosinophils Percent Auto 2.5 % (0-4); Hematocrit 25.3 % (42-52); Hemoglobin 8.7 g/dl (14.0-18.0); Imm Gran Abs Auto 0.02 X10*3/uL (0.00-0.03); Imm Gran Pct Auto 0.4 % (0.0-0.4); Lymphocytes Absolute Auto 0.9 X10*3/uL (1.2-4.9); Lymphocytes Percent Auto 15.2 % (20-40); Mean Corpuscular HGB Conc 34.4 g/dl (31.0-36.0); Mean Corpuscular Hemoglobin 33.5 pg (27.0-33.0); Mean Corpuscular Volume 97.3 fL (80-98); Mean Platelet Volume 8.7 fL (9.4-12.4); Monocytes Absolute Auto 0.3 X10*3/uL (0.1-1.2); Monocytes Percent Auto 5.8 % (2-11); Neutrophils Absolute Auto 4.3 X10*3/uL (2.0-8.3); Neutrophils Percent Auto 75.6 % (45-73); Platelet Count 165 X10*3/uL (160-400); Red Cell Distribution Width 13.3 % (11.0-16.0); White Blood Count 5.7 X10*3/uL (4.8-10.8)
[2020-11-14] MEDS: Piperacillin Sodium/Tazobactam 3.375 GM in 0.9 % Sodium Chloride 50 ML IV ×4 (04:13→22:52)
[2020-11-14 05:20] LABS: VBG Base Excess 4.1 mmol/L; VBG HCO3 27 mmol/L (22-26); VBG pCO2 37 mmHg; VBG pH 7.47 (7.32-7.43); VBG pO2 34 mmHg
[2020-11-14 06:05] LABS: INTERNATIONAL NORM RATIO 1.1 (0.9-1.1)
[2020-11-14 06:28] LABS: Anion Gap 10 (12-20); Blood Urea Nitrogen 9 mg/dL (9-16); Calcium 7.8 mg/dL (8.4-10.2); Carbon Dioxide 26 mmol/L (22-29); Chloride 99 mmol/L (96-108); Creatinine Clr Calc Pharmacy 116.1; Estimated Glomerular Filt Rate > 60; Glucose Random 85 mg/dL (60-115); Potassium 4.3 mmol/L (3.3-5.1); Sodium 131 mmol/L (135-145)
[2020-11-14] MEDS: Morphine Sulfate 4 MG/ML CARTRIDGE IVPUSH ×4 (06:43→22:49)
[2020-11-14 07:37] LABS: MANUAL DIFF FLAG NO
[2020-11-14 07:42] LABS: Basophils Percent Auto 0.6 % (0-2); Eosinophils Absolute Auto 0.2 X10*3/uL (0.0-0.4); Eosinophils Percent Auto 3.1 % (0-4); Hematocrit 27.5 % (42-52); Hemoglobin 9.3 g/dl (14.0-18.0); Imm Gran Abs Auto 0.03 X10*3/uL (0.00-0.03); Imm Gran Pct Auto 0.5 % (0.0-0.4); Lymphocytes Absolute Auto 0.8 X10*3/uL (1.2-4.9); Lymphocytes Percent Auto 11.8 % (20-40); Mean Corpuscular HGB Conc 33.8 g/dl (31.0-36.0); Mean Corpuscular Hemoglobin 32.9 pg (27.0-33.0); Mean Corpuscular Volume 97.2 fL (80-98); Mean Platelet Volume 8.9 fL (9.4-12.4); Monocytes Absolute Auto 0.4 X10*3/uL (0.1-1.2); Monocytes Percent Auto 6.1 % (2-11); Neutrophils Absolute Auto 4.9 X10*3/uL (2.0-8.3); Neutrophils Percent Auto 77.9 % (45-73); Platelet Count 178 X10*3/uL (160-400); Red Blood Count 2.83 X10*6/uL (4.60-5.80); Red Cell Distribution Width 13.2 % (11.0-16.0); White Blood Count 6.4 X10*3/uL (4.8-10.8)
--- NOTE | 2020-11-14 07:46 | ECG_ITS ---
Test Reason : PER CARDIO - EKG 11/14/20 AT 1503 Blood Pressure : / mmHG Vent. Rate : 099 BPM Atrial Rate : 099 BPM P-R Int : 110 ms QRS Dur : 066 ms QT Int : 356 ms P-R-T Axes : 050 080 077 degrees QTc Int : 456 ms Sinus rhythm with short DE with Premature atrial complexes Cannot exclude septal infarct, but could be from body habitus and lead placement. Borderline ECG When compared with ECG of 13-NOV-2020 11:22, T wave inversion no longer evident in Inferior leads T wave inversion no longer evident in Anterolateral leads Referred By: Mateo Wong Electronically Signed By:ELISE WILLSON
[2020-11-14 08:04] LABS: Venous Blood Gas Refer to POC result
[2020-11-14] MEDS: LORazepam 2 MG/ML VIAL 0.5 MG IVPUSH (08:24)
[2020-11-14] MEDS: vancomycin HCL 1,000 MG in 0.9 % Sodium Chloride 250 ML 270 MG IV ×2 (08:25→19:39)
[2020-11-14] MEDS: 0.9 % Sodium Chloride Flush 3 ML SYRINGE IVFLUSH ×2 (08:26→14:38)
[2020-11-14] MEDS: Lactated Ringers 1,000 ML 100 ML IVCONT ×2 (09:39→19:36)
--- NOTE | 2020-11-14 10:33 | HO.VASCPN ---
Subjective Subjective Date of Service: 11/14/20 Patient reports: no new complaints and pain is less Interval history: Patient seen and examined. Postop day 2 status post redo femoral endarterectomy with thrombectomy. There was some concern about his lower extremity yesterday. He was restarted on a heparin drip. His leg is doing significantly better this morning. Still has a fair amount of confusion. He now is for follow-up in the ICU. Physical Exam Vital Signs: Vital Signs: Last Vital Signs Temp 99.1 F 11/14/20 07:07 Pulse 109 H 11/14/20 09:00 Resp 14 11/14/20 09:00 BP 111/60 11/14/20 09:00 Pulse Ox 93 11/14/20 09:00 Oxygen Flow Rate 2 11/13/20 09:48 Body Mass Index 23.6 Const: General: cooperative, healthy appearing and no acute distress Orientation/consciousness: oriented to person, oriented to place and oriented to time HENMT: Head: Yes normal to inspection Neck: Carotids: no bruits Chest: Chest palpation & inspection: normal inspection of the chest Resp: Effort & Inspection: normal respiratory effort and able to speak in complete sentences Auscultation: clear to auscultation bilaterally Cardio: Rate: regular rate Heart sounds: S1 normal heart sound present and S2 normal heart sound present Peripheral pulses: posterior tibial pulses present (Right posterior tibial present) GI: Inspection: Yes normal to inspection Skin: Other: Incision clean dry intact. Some serous drainage. General skin exam: no rashes or lesions noted Wounds: no wounds Neuro: General: oriented to person, oriented to place, oriented to time and CN's II-XI intact bilaterally Extrem: General: Yes normal to inspection, Yes full ROM and Yes no clubbing, cyanosis or edema Psych: Appearance: grossly normal and well kempt Speech and movement: Normal speech and movement present Affect: normal affect Progress Note: A&P Assessment and plan (1) PAD (peripheral artery disease): Status: Acute Assessment and Plan: Patient is redo femoral endarterectomy with vein patch. He he did have critical limb ischemia. The question is how much down time and neuro damage has the patient incurred. At the current time his groin appears to be stable. There is some serous drainage. The concern is regarding underlying infection. Although the patch was removed in its entirety and a saphenous vein patch was used he is currently on antibiotics. Will involve Infectious Disease. He is currently being managed by the ICU team for his confusion. Hemoglobin appears to be stable. Leg is warm and perfused and there is a strong posterior tibial signal. Will advance him to therapeutic anticoagulation. Patient continues to require ICU level of care. Fall Risk Details Current Medications: Current Medications Generic Name Dose Route Start Last Admin Trade Name Freq PRN Reason Stop Dose Admin Acetaminophen 650 mg 11/12/20 04:07 Acetaminophen 325 Mg Tablet PO Q6H PRN Fever Albuterol/Ipratropium 3 ml 11/12/20 20:00 11/14/20 07:50 Albuterol/Iprat 2.5/0.5mg 3 Ml Ampul.Neb INHALE Not Given RQ4H WHILE AWAKE STEWART Heparin Sodium (Porcine) 3,000 unit 11/14/20 10:27 Heparin Sodium,Porcine 5,000 Unit/Ml Vial 40 unit/kg (3000 unit) IVPUSH BOLUS PRN 40 unit/kg - Heparin Protocol Heparin Sodium (Porcine) 6,000 unit 11/14/20 10:27 Heparin Sodium,Porcine 5,000 Unit/Ml Vial 80 unit/kg (6000 unit) IVPUSH BOLUS PRN 80 unit/kg - Heparin Protocol Piperacillin Sod/Tazobactam 50 mls @ 100 mls/hr 11/12/20 17:00 11/14/20 05:10 Sod 3.375 gm/ Sodium Chloride IV Infused Q6H STEWART Infusion Heparin Sodium/Sodium Chloride 25,000 unit in 250 mls @ 5 mls/hr 11/12/20 21:15 11/13/20 21:02 IVCONT 500 units/hr .Q24H STEWART 5 mls/hr Administration 500 UNITS/HR Lactated Ringer's 1,000 mls @ 100 mls/hr 11/13/20 12:00 11/14/20 09:39 Lr IVCONT 100 mls/hr .Q10H STEWART Administration Vancomycin HCl 1,000 mg/ 270 mls @ 270 mls/hr 11/13/20 21:00 11/14/20 10:06 Sodium Chloride IV Infused Q12H STEWART Infusion Heparin Sodium/Sodium Chloride 25,000 unit in 250 mls @ 0 mls/hr 11/14/20 10:30 IVCONT .Q0M ST[facility]ART Protocol Per Protocol Lorazepam 0.5 mg 11/13/20 07:54 11/14/20 08:24 Lorazepam 2 Mg/Ml Vial IVPUSH 0.5 mg Q6H PRN Administration Alcohol Withdrawal Morphine Sulfate 4 mg 11/12/20 04:08 11/14/20 06:43 Morphine Sulfate 4 Mg/Ml Cartridge IVPUSH 4 mg Q4H PRN Administration Pain, Severe (Pain Scale 7-10) Ondansetron HCl 4 mg 11/12/20 10:28 Ondansetron Hcl 4 Mg/2 Ml Vial IVPUSH ONCE PRN Nausea and Vomiting Pharmacy Consult 1 each 11/12/20 16:28 Consult Rx Vancomycin Dosing MISCELLANE DAILY PRN Consult order Sodium Chloride 3 ml 11/12/20 08:00 11/14/20 08:26 0.9 % Sodium Chloride Flush 3 Ml Syringe IVFLUSH 3 ml QSHIFT STEWART Administration Time Spent With Patient Time: Total time spent is greater than 50% in coordination of care (as documented) at patient's floor/unit and/or counseling patient: Time with patient: 25 - 35 minutes Procedures Date of Service Date of Service: 11/14/20
[2020-11-14 10:44] LABS: MANUAL DIFF FLAG NO
[2020-11-14 10:48] LABS: Basophils Percent Auto 0.7 % (0-2); Eosinophils Absolute Auto 0.2 X10*3/uL (0.0-0.4); Eosinophils Percent Auto 2.6 % (0-4); Hematocrit 27.4 % (42-52); Hemoglobin 9.4 g/dl (14.0-18.0); Imm Gran Abs Auto 0.03 X10*3/uL (0.00-0.03); Imm Gran Pct Auto 0.5 % (0.0-0.4); Lymphocytes Percent Auto 16.4 % (20-40); Mean Corpuscular HGB Conc 34.3 g/dl (31.0-36.0); Mean Corpuscular Hemoglobin 33.2 pg (27.0-33.0); Mean Corpuscular Volume 96.8 fL (80-98); Mean Platelet Volume 8.8 fL (9.4-12.4); Monocytes Absolute Auto 0.4 X10*3/uL (0.1-1.2); Monocytes Percent Auto 6.3 % (2-11); Neutrophils Absolute Auto 4.5 X10*3/uL (2.0-8.3); Neutrophils Percent Auto 73.5 % (45-73); Platelet Count 186 X10*3/uL (160-400); Red Blood Count 2.83 X10*6/uL (4.60-5.80); Red Cell Distribution Width 12.8 % (11.0-16.0); White Blood Count 6.1 X10*3/uL (4.8-10.8)
[2020-11-14 10:50] LABS: INTERNATIONAL NORM RATIO 1.1 (0.9-1.1); Prothrombin Time 13.3 SEC (10.8-13.0)
[2020-11-14 10:52] LABS: PTT Heparin Drip 33.2 SEC (53-77.9)
[2020-11-14] MEDS: Albuterol/Iprat 2.5/0.5MG 3 ML AMPUL.NEB INHALE ×2 (11:03→21:04)
[2020-11-14] MEDS: Heparin Sodium,Porcine/1/2NS 25,000 UNIT/250 ML IV.SOLN 8.98 UNIT IVCONT (11:10)
[2020-11-14] MEDS: PHENobarbitaL sodium 130 MG/ML VIAL 234 MG IM (11:30)
--- NOTE | 2020-11-14 13:10 | PM.CCPN ---
Subjective Subjective Date of Service: 11/14/20 Critical Care Time (minutes): 40 Comment: 70-year-old male hypertensive an ongoing smoker with COPD severe peripheral vascular disease 6 months status post right femoral endarterectomy with bovine patch graft and on this admission came in because of painful swelling right groin with her parent pseudoaneurysm which then ruptured with 2 L exsanguination rapidly treated with 3 units of unmatched O-positive blood and 1 matched unit with hemoglobin being stable and hemodynamics stable in sinus rhythm with very minimal waxing waning ST-T vector on his EKG but no complaint and negative troponin but also known to be an alcoholic apparently today developing some degree of confusion and with some sinus tachycardia and were concerned for alcohol withdrawal delirium tremens so he was started on a CIWA protocol add along with phenobarbital and yesterday right foot became cold and painful with absent posterior tibial pulse which today seems to have returned but the leg is still cold and we are asked to increase him to a full dose of IV heparin Physical Exam Vital Signs: Vital Signs: Last Vital Signs Temp 98.7 F 11/14/20 11:00 Pulse 109 H 11/14/20 11:00 Resp 20 11/14/20 11:00 BP 139/74 11/14/20 11:00 Pulse Ox 94 11/14/20 11:00 Oxygen Flow Rate 0 11/14/20 10:00 Body Mass Index 23.6 Const: Other: He is awake but today some what confused and alert and somewhat agitated tachycardic to 112 in sinus but preserved oxygen saturation preserved vitals Nonfocal neurologic Cardiac exam with good bilateral carotid upstrokes no neck vein distension or gallops Chest with diminished breath sounds but no adventitious sounds Abdomen soft and benign no organomegaly Objective Data Labs CBC & Chem 7: 11/14/20 10:35 11/14/20 05:14 Labs: Laboratory Results - last 24 hr 11/12/20 11/13/20 11/13/20 09:00 20:03 20:03 WBC 6.4 RBC 2.76 L D Hgb 9.2 L D Hct 27.2 L D MCV 98.6 H MCH 33.3 H MCHC 33.8 RDW 13.5 Plt Count 165 MPV 8.6 L Immature Gran % (Auto) 0.3 Neut % (Auto) 76.8 H Lymph % (Auto) 14.5 L [place] % (Auto) 5.8 Eos % (Auto) 2.0 Baso % (Auto) 0.6 Lymph # (Auto) 0.9 L [place] # (Auto) 0.4 Eos # (Auto) 0.1 Baso # (Auto) 0.0 Abs Immat Gran (auto) 0.02 Absolute Neuts (auto) 4.9 Absolute Nucleated RBC 0.000 Nucleated RBC % (auto) 0.0 Smear Tech's Comments PT INR APTT PTT (Heparin Protocol) VBG pH VBG pCO2 VBG pO2 VBG HCO3 VBG O2 Saturation VBG Base Excess Sodium Potassium Chloride Carbon Dioxide Anion Gap BUN Creatinine Estim Creat Clear Calc Estimated GFR Random Glucose Calcium Phosphorus Magnesium Vancomycin Trough 7.2 L Enhanced Crossmatch See Detail 11/13/20 11/14/20 11/14/20 23:12 03:14 05:14 WBC 5.7 5.7 RBC 2.50 L 2.60 L Hgb 8.6 L 8.7 L Hct 24.9 L 25.3 L MCV 97.3 97.3 MCH 33.6 H 33.5 H MCHC 34.5 34.4 RDW 13.2 13.3 Plt Count 148 L 165 MPV 8.5 L 8.7 L Immature Gran % (Auto) 0.4 0.4 Neut % (Auto) 79.8 H 75.6 H Lymph % (Auto) 11.3 L 15.2 L [place] % (Auto) 5.8 5.8 Eos % (Auto) 2.3 2.5 Baso % (Auto) 0.4 0.5 Lymph # (Auto) 0.6 L 0.9 L [place] # (Auto) 0.3 0.3 Eos # (Auto) 0.1 0.1 Baso # (Auto) 0.0 0.0 Abs Immat Gran (auto) 0.02 0.02 Absolute Neuts (auto) 4.5 4.3 Absolute Nucleated RBC 0.000 0.000 Nucleated RBC % (auto) 0.0 0.0 Smear Tech's Comments VERIFIED PT 13.0 INR 1.1 APTT 28.0 PTT (Heparin Protocol) VBG pH VBG pCO2 VBG pO2 VBG HCO3 VBG O2 Saturation VBG Base Excess Sodium Potassium Chloride Carbon Dioxide Anion Gap BUN Creatinine Estim Creat Clear Calc Estimated GFR Random Glucose Calcium Phosphorus Magnesium Vancomycin Trough Enhanced Crossmatch 11/14/20 11/14/20 11/14/20 05:14 05:14 07:30 WBC 6.4 RBC 2.83 L Hgb 9.3 L Hct 27.5 L MCV 97.2 MCH 32.9 MCHC 33.8 RDW 13.2 Plt Count 178 MPV 8.9 L Immature Gran % (Auto) 0.5 H Neut % (Auto) 77.9 H Lymph % (Auto) 11.8 L [place] % (Auto) 6.1 Eos % (Auto) 3.1 Baso % (Auto) 0.6 Lymph # (Auto) 0.8 L [place] # (Auto) 0.4 Eos # (Auto) 0.2 Baso # (Auto) 0.0 Abs Immat Gran (auto) 0.03 Absolute Neuts (auto) 4.9 Absolute Nucleated RBC 0.000 Nucleated RBC % (auto) 0.0 Smear Tech's Comments PT INR APTT PTT (Heparin Protocol) VBG pH 7.47 H VBG pCO2 37 VBG pO2 34 VBG HCO3 27 H VBG O2 Saturation 58.0 VBG Base Excess 4.1 Sodium 131 L Potassium 4.3 Chloride 99 Carbon Dioxide 26 Anion Gap 10 L BUN 9 Creatinine 0.62 Estim Creat Clear Calc 116.1 Estimated GFR > 60 Random Glucose 85 Calcium 7.8 L Phosphorus 3.0 Magnesium 2.0 Vancomycin Trough Enhanced Crossmatch 11/14/20 11/14/20 11/14/20 10:35 10:35 10:35 WBC Cancelled 6.1 RBC Cancelled 2.83 L Hgb Cancelled 9.4 L Hct Cancelled 27.4 L MCV Cancelled 96.8 MCH Cancelled 33.2 H MCHC Cancelled 34.3 RDW Cancelled 12.8 Plt Count Cancelled 186 MPV Cancelled 8.8 L Immature Gran % (Auto) Cancelled 0.5 H Neut % (Auto) Cancelled 73.5 H Lymph % (Auto) Cancelled 16.4 L [place] % (Auto) Cancelled 6.3 Eos % (Auto) Cancelled 2.6 Baso % (Auto) Cancelled 0.7 Lymph # (Auto) Cancelled 1.0 L [place] # (Auto) Cancelled 0.4 Eos # (Auto) Cancelled 0.2 Baso # (Auto) Cancelled 0.0 Abs Immat Gran (auto) Cancelled 0.03 Absolute Neuts (auto) Cancelled 4.5 Absolute Nucleated RBC Cancelled 0.000 Nucleated RBC % (auto) Cancelled 0.0 Smear Tech's Comments PT 13.3 H INR 1.1 APTT PTT (Heparin Protocol) 33.2 L VBG pH VBG pCO2 VBG pO2 VBG HCO3 VBG O2 Saturation VBG Base Excess Sodium Potassium Chloride Carbon Dioxide Anion Gap BUN Creatinine Estim Creat Clear Calc Estimated GFR Random Glucose Calcium Phosphorus Magnesium Vancomycin Trough Enhanced Crossmatch Microbiology Microbiology Results: Microbiology 11/12/20 16:19 Blood - Venous Blood Culture - Preliminary 11/12/20 00:00 Groin, Right Gram Stain - Final 11/12/20 00:00 Groin, Right Routine Culture - Final No growth after 2 days 11/12/20 16:19 Blood - Venous Blood Culture - Preliminary No growth after 24 hours. Progress Note: A&P Assessment and plan (1) Critical lower limb ischemia: Status: Acute (2) COPD (chronic obstructive pulmonary disease): Status: Acute (3) Altered mental status, unspecified: Status: Acute (4) Acute blood loss as cause of postoperative anemia: Status: Acute (5) Elevated brain natriuretic peptide (BNP) level: Status: Acute (6) Bilateral leg edema: Status: Acute (7) SOB (shortness of breath) on exertion: Status: Acute (8) HTN (hypertension): Status: Acute (9) Bilateral carotid artery disease: Status: Acute (10) PAD (peripheral artery disease): Status: Acute (11) Alcohol withdrawal delirium: Status: Acute Assessment and Plan: Will continue prophylactic antibiotics for presumptive infectious etiology for ruptured pseudoaneurysm and IV hydration but will follow CIWA protocol and titrate his phenobarbital and continue therapeutic IV heparin
--- NOTE | 2020-11-14 13:35 | MHC.CM.PN ---
Pt remains in ICU following a failed graft requiring repair. Call placed to pt's spouse to review d/c plan: Spouse is receptive to [facility] : pt only has one small landing step to enter single floor home. CM to follow for changes in d/c plan
[2020-11-14] MEDS: PHENobarbitaL sodium 130 MG/ML VIAL 175 MG IM ×3 (14:37→21:33)
[2020-11-14 15:18] LABS: MANUAL DIFF FLAG NO
[2020-11-14 15:20] LABS: Basophils Percent Auto 0.5 % (0-2); Eosinophils Absolute Auto 0.1 X10*3/uL (0.0-0.4); Eosinophils Percent Auto 2.5 % (0-4); Hematocrit 27.3 % (42-52); Hemoglobin 9.5 g/dl (14.0-18.0); Imm Gran Abs Auto 0.02 X10*3/uL (0.00-0.03); Imm Gran Pct Auto 0.4 % (0.0-0.4); Lymphocytes Absolute Auto 0.8 X10*3/uL (1.2-4.9); Lymphocytes Percent Auto 14.4 % (20-40); Mean Corpuscular HGB Conc 34.8 g/dl (31.0-36.0); Mean Corpuscular Hemoglobin 33.6 pg (27.0-33.0); Mean Corpuscular Volume 96.5 fL (80-98); Mean Platelet Volume 8.9 fL (9.4-12.4); Monocytes Absolute Auto 0.4 X10*3/uL (0.1-1.2); Monocytes Percent Auto 6.2 % (2-11); Neutrophils Absolute Auto 4.3 X10*3/uL (2.0-8.3); Platelet Count 177 X10*3/uL (160-400); Red Blood Count 2.83 X10*6/uL (4.60-5.80); Red Cell Distribution Width 12.7 % (11.0-16.0); White Blood Count 5.7 X10*3/uL (4.8-10.8)
--- NOTE | 2020-11-14 16:53 | PC.NURSE ---
Addendum entered by Peter Krishnamurthy RN 11/14/20 18:42: stated okay to change drip to 12u when transitioning to protocol. PTT was 36, 6000 units bolus given, increased drip to 16u next due PTT 0030/ Original Note: Pt is in DT today. 0.5mg IVP ativan with no effect, started on phenobarb IM protocol. Seem by MD Anais. Heparin drip changed from fixed rate to protocol for therapeutic PTT. Ptt due at 1700. Dorsalis pedis pulse absent by doppler, posterior tibial present by doppler. foot cool, warmer than yesterday per .
[2020-11-14] MEDS: Heparin Sodium,Porcine 5,000 UNIT/ML VIAL 6000 UNIT IVPUSH (18:16)
[2020-11-14 20:37] LABS: MANUAL DIFF FLAG NO; Venous Blood Gas Refer to POC result
[2020-11-14 20:38] LABS: VBG Base Excess 0.7 mmol/L; VBG HCO3 24 mmol/L (22-26); VBG pCO2 33 mmHg; VBG pH 7.45 (7.32-7.43); VBG pO2 85 mmHg
[2020-11-14 20:41] LABS: Basophils Percent Auto 0.4 % (0-2); Eosinophils Absolute Auto 0.2 X10*3/uL (0.0-0.4); Eosinophils Percent Auto 3.1 % (0-4); Hematocrit 28.4 % (42-52); Hemoglobin 9.8 g/dl (14.0-18.0); Imm Gran Abs Auto 0.03 X10*3/uL (0.00-0.03); Imm Gran Pct Auto 0.4 % (0.0-0.4); Lymphocytes Percent Auto 15.4 % (20-40); Mean Corpuscular HGB Conc 34.5 g/dl (31.0-36.0); Mean Corpuscular Hemoglobin 33.3 pg (27.0-33.0); Mean Corpuscular Volume 96.6 fL (80-98); Monocytes Absolute Auto 0.4 X10*3/uL (0.1-1.2); Monocytes Percent Auto 6.5 % (2-11); Neutrophils Percent Auto 74.2 % (45-73); Platelet Count 209 X10*3/uL (160-400); Red Blood Count 2.94 X10*6/uL (4.60-5.80); Red Cell Distribution Width 12.7 % (11.0-16.0); White Blood Count 6.8 X10*3/uL (4.8-10.8)
[2020-11-14 21:28] LABS: Alanine Aminotransferase 32 U/L (0-40); Albumin Level 2.7 g/dL (3.5-5.0); Alkaline Phosphatase 78 U/L (39-117); Anion Gap 15 (12-20); Aspartate Amino Transferase 91 U/L (5-37); Bilirubin Total 1.4 mg/dL (0.0-1.0); Blood Urea Nitrogen 8 mg/dL (9-16); Calcium 7.6 mg/dL (8.4-10.2); Carbon Dioxide 20 mmol/L (22-29); Chloride 96 mmol/L (96-108); Estimated Glomerular Filt Rate > 60; Glucose Random 93 mg/dL (60-115); Potassium 3.9 mmol/L (3.3-5.1); Sodium 127 mmol/L (135-145)
[2020-11-15] VITALS (24 sets, daily range): BP systolic 116–161; BP diastolic 48–81; PULSE 85–113; RESP 12–29; TEMP 36.1–36.9; O2SAT 92–99
[2020-11-15] MEDS: Lactated Ringers 1,000 ML 100 ML IVCONT (00:01)
[2020-11-15 00:39] LABS: MANUAL DIFF FLAG NO
[2020-11-15 00:42] LABS: Basophils Percent Auto 0.6 % (0-2); Eosinophils Absolute Auto 0.1 X10*3/uL (0.0-0.4); Eosinophils Percent Auto 1.8 % (0-4); Hematocrit 27.4 % (42-52); Hemoglobin 9.7 g/dl (14.0-18.0); Imm Gran Abs Auto 0.03 X10*3/uL (0.00-0.03); Imm Gran Pct Auto 0.4 % (0.0-0.4); Lymphocytes Absolute Auto 0.8 X10*3/uL (1.2-4.9); Lymphocytes Percent Auto 10.4 % (20-40); Mean Corpuscular HGB Conc 35.4 g/dl (31.0-36.0); Mean Corpuscular Hemoglobin 33.8 pg (27.0-33.0); Mean Corpuscular Volume 95.5 fL (80-98); Monocytes Absolute Auto 0.4 X10*3/uL (0.1-1.2); Monocytes Percent Auto 5.7 % (2-11); Neutrophils Absolute Auto 5.8 X10*3/uL (2.0-8.3); Neutrophils Percent Auto 81.1 % (45-73); Platelet Count 210 X10*3/uL (160-400); Red Blood Count 2.87 X10*6/uL (4.60-5.80); Red Cell Distribution Width 12.6 % (11.0-16.0); White Blood Count 7.2 X10*3/uL (4.8-10.8)
[2020-11-15 00:50] LABS: PTT Heparin Drip 56.1 SEC (53-77.9)
[2020-11-15] MEDS: PHENobarbitaL sodium 65 MG/ML VIAL IM (03:12)
[2020-11-15] MEDS: Heparin Sodium,Porcine/1/2NS 25,000 UNIT/250 ML IV.SOLN 11.97 UNIT IVCONT (05:26)
[2020-11-15] MEDS: Piperacillin Sodium/Tazobactam 3.375 GM in 0.9 % Sodium Chloride 50 ML IV ×3 (05:31→17:23)
[2020-11-15 06:00] LABS: VBG HCO3 24 mmol/L (22-26); VBG pCO2 33 mmHg; VBG pH 7.46 (7.32-7.43); VBG pO2 33 mmHg
[2020-11-15 06:15] LABS: Hematocrit 26.5 % (42-52); Hemoglobin 9.4 g/dl (14.0-18.0); Mean Corpuscular HGB Conc 35.5 g/dl (31.0-36.0); Mean Corpuscular Hemoglobin 33.6 pg (27.0-33.0); Mean Corpuscular Volume 94.6 fL (80-98); Platelet Count 212 X10*3/uL (160-400); Red Cell Distribution Width 12.5 % (11.0-16.0)
[2020-11-15] MEDS: 0.9 % Sodium Chloride 1,000 ML 80 ML IVCONT ×2 (06:22→17:23)
[2020-11-15 06:26] LABS: INTERNATIONAL NORM RATIO 1.2 (0.9-1.1); Prothrombin Time 14.8 SEC (10.8-13.0)
[2020-11-15 06:33] LABS: Partial Thromboplastin Time 43.8 SEC (24.1-38.0)
[2020-11-15 06:42] LABS: Venous Blood Gas Refer to POC result
--- NOTE | 2020-11-15 06:43 | PC.NURSE ---
CARE ASSUMED 23;15...AWAKE...DISORIENTED TO PLACE/TIME /EVENTS...RESTLESS OVERNIGHT...ATTEMPTS TO PULL ON KING/LINES/GROIN DRESSING DESPITE FREQUENT RE-ORIENTATION...PA PRESENT...PHENOBARBITOL 65MG IM X1 GIVEN PER PA...1:1 SITTER AT BEDSIDE FOR PATIENT/LINE SAFETY...RIGHT GROIN DRESSING WITH SMALL OLD STAINING...(+) RIGHT POSTERIOR PEDAL PULSE..REMAINS W/O RIGHT DORSALIS PULSE...RIGHT FOOT COOL
[2020-11-15 06:52] LABS: Anion Gap 15 (12-20); Blood Urea Nitrogen 8 mg/dL (9-16); Calcium 7.6 mg/dL (8.4-10.2); Carbon Dioxide 21 mmol/L (22-29); Chloride 94 mmol/L (96-108); Creatinine Clr Calc Pharmacy 126.2; Estimated Glomerular Filt Rate > 60; Glucose Random 92 mg/dL (60-115); Magnesium 1.9 mg/dL (1.6-2.6); Phosphorus 3.2 mg/dL (2.7-4.5); Sodium 126 mmol/L (135-145)
[2020-11-15 07:35] LABS: PTT Heparin Drip 46.4 SEC (53-77.9)
[2020-11-15] MEDS: Heparin Sodium,Porcine 5,000 UNIT/ML VIAL 3000 UNIT IVPUSH ×2 (08:00→21:54)
[2020-11-15] MEDS: PHENobarbitaL 15 MG TABLET 45 MG PO ×2 (08:01→20:27)
[2020-11-15 08:14] LABS: TSH reflex Free T4 0.78 uIU/mL (0.32-4.0)
--- NOTE | 2020-11-15 09:03 | HO.VASCPN ---
Subjective Subjective Date of Service: 11/15/20 Patient reports: no new complaints Interval history: Patient is postop day 3 status post redo right femoral endarterectomy. Has had no interval issues overnight. In general resting fairly comfortably in bed. There is a fair amount of confusion, but has been overall fairly compliant. Of note he is being maintained on a heparin drip. Physical Exam Vital Signs: Vital Signs: Last Vital Signs Temp 97.5 F 11/15/20 08:00 Pulse 96 11/15/20 08:00 Resp 18 11/15/20 08:00 BP 160/73 H 11/15/20 08:00 Pulse Ox 92 11/15/20 08:00 Oxygen Flow Rate 0 11/14/20 10:00 Body Mass Index 23.6 Const: General: cooperative, healthy appearing and no acute distress Orientation/consciousness: oriented to person, oriented to place and oriented to time HENMT: Head: Yes normal to inspection Neck: Carotids: no bruits Chest: Chest palpation & inspection: normal inspection of the chest Resp: Effort & Inspection: normal respiratory effort and able to speak in complete sentences Auscultation: clear to auscultation bilaterally Cardio: Rate: regular rate Heart sounds: S1 normal heart sound present and S2 normal heart sound present GI: Inspection: Yes normal to inspection Skin: Other: Right femoral incision no hematoma some mild serous drainage. Appears to be stable. General skin exam: no rashes or lesions noted Neuro: General: oriented to person, oriented to place, oriented to time and CN's II-XI intact bilaterally Extrem: General: Yes normal to inspection, Yes full ROM and Yes no clubbing, cyanosis or edema Psych: Appearance: grossly normal and well kempt Speech and movement: Normal speech and movement present Affect: normal affect Progress Note: A&P Assessment and plan (1) Critical lower limb ischemia: Status: Acute Assessment and Plan: Patient is status post redo femoral endarterectomy. Appears to be doing relatively well. Still some confusion and withdrawal being maintained with phenobarbital. Left leg motor sensation with DP and PT signals right leg he has gross motor only I am having a difficult time eliciting fine motor including toe movement. Foot is warm well perfused with a biphasic posterior tibial signal. Continue formal anticoagulation. Although cultures have come back negative to date there is still concern of an indolent infection. We will await input from ID. Continue with antibiotics. Continue ICU level care. Fall Risk Details Current Medications: Current Medications Generic Name Dose Route Start Last Admin Trade Name Freq PRN Reason Stop Dose Admin Acetaminophen 650 mg 11/12/20 04:07 Acetaminophen 325 Mg Tablet PO Q6H PRN Fever Albuterol/Ipratropium 3 ml 11/12/20 20:00 11/15/20 08:28 Albuterol/Iprat 2.5/0.5mg 3 Ml Ampul.Neb INHALE Not Given RQ4H WHILE AWAKE [facility] Heparin Sodium (Porcine) 3,000 unit 11/14/20 10:27 11/15/20 08:00 Heparin Sodium,Porcine 5,000 Unit/Ml Vial 40 unit/kg (3000 unit) 3,000 unit IVPUSH Administration BOLUS PRN 40 unit/kg - Heparin Protocol Heparin Sodium (Porcine) 6,000 unit 11/14/20 10:27 11/14/20 18:16 Heparin Sodium,Porcine 5,000 Unit/Ml Vial 80 unit/kg (6000 unit) 6,000 unit IVPUSH Administration BOLUS PRN 80 unit/kg - Heparin Protocol Piperacillin Sod/Tazobactam 50 mls @ 100 mls/hr 11/12/20 17:00 11/15/20 06:22 Sod 3.375 gm/ Sodium Chloride IV Infused Q6H [facility] Infusion Vancomycin HCl 1,000 mg/ 270 mls @ 270 mls/hr 11/13/20 21:00 11/14/20 21:34 Sodium Chloride IV Infused Q12H [facility] In[facility] Heparin Sodium/Sodium Chloride 25,000 unit in 250 mls @ 0 mls/hr 11/14/20 10:30 11/15/20 08:02 IVCONT 18 units/kg/hr .Q0M [facility] 13.46 mls/hr Titration Protocol Per Protocol Sodium Chloride 1,000 mls @ 80 mls/hr 11/15/20 06:15 11/15/20 06:22 Ns IVCONT 80 mls/hr .[id number] [facility] Administration Medication 1 each 11/14/20 12:00 No Benzodiazepines MISCELLANE DAILY [facility] Morphine Sulfate 4 mg 11/12/20 04:08 11/14/20 22:49 Morphine Sulfate 4 Mg/Ml Cartridge IVPUSH 4 mg Q4H PRN Administration Pain, Severe (Pain Scale 7-10) Ondansetron HCl 4 mg 11/12/20 10:28 Ondansetron Hcl 4 Mg/2 Ml Vial IVPUSH ONCE PRN Nausea and Vomiting Pharmacy Consult 1 each 11/12/20 16:28 Consult Rx Vancomycin Dosing MISCELLANE DAILY PRN Consult order Pharmacy Consult 1 each 11/14/20 11:07 Consult Rx Etoh Phenob Dosing MISCELLANE ONCE PRN Consult order Protocol Phenobarbital 45 mg 11/15/20 09:00 11/15/20 08:01 Phenobarbital 15 Mg Tablet PO 11/16/20 21:01 45 mg BID [facility] Administration Protocol Phenobarbital 30 mg 11/17/20 09:00 Phenobarbital 30 Mg Tablet PO 11/18/20 21:01 BID [facility] Protocol Phenobarbital 30 mg 11/19/20 09:00 Phenobarbital 30 Mg Tablet PO 11/20/20 09:01 DAILY [facility] Protocol Sodium Chloride 3 ml 11/12/20 08:00 11/15/20 08:40 0.9 % Sodium Chloride Flush 3 Ml Syringe IVFLUSH Not Given QSHIFT [facility] Sodium Chloride 3 ml 11/15/20 08:00 11/15/20 08:40 0.9 % Sodium Chloride Flush 3 Ml Syringe IVFLUSH Not Given QSHIFT [facility] Time Spent With Patient Time: Total time spent is greater than 50% in coordination of care (as documented) at patient's floor/unit and/or counseling patient: Time with patient: 25 - 35 minutes Procedures Date of Service Date of Service: 11/15/20
[2020-11-15] MEDS: vancomycin HCL 1,250 MG in 0.9 % Sodium Chloride 250 ML 166.67 MG IV ×2 (09:49→21:20)
--- NOTE | 2020-11-15 09:51 | PC.NURSE ---
Sabrinae removed [id number], dtv [id number]
[2020-11-15 10:44] LABS: Osmolality Urine 406 mosm/kg (373-1093)
[2020-11-15 14:15] LABS: PTT Heparin Drip 98.5 SEC (53-77.9)
[2020-11-15 15:13] LABS: PTT Heparin Drip 65.5 SEC (53-77.9)
--- NOTE | 2020-11-15 15:46 | P.PNCC_ITS ---
Subjective Subjective Date of Service: 11/15/20 Interval History: 70-year-old with severe vasculopathy based on smoking and hypertensive history S6 months status post right femoral endarterectomy with a but bovine patch and apparently developed of probable pseudoaneurysm and probably an infection into proven otherwise with right groin pain and on the table of ruptured and it very large volume 2000 cc blood loss replaced with 4 units of blood 3 of which were non cross matched and he definitely has signs of agitation confusion consistent with encephalopathy probably alcohol withdrawal and is on a CIWA and phenobarbital He had at initially from the OR developed a cold right foot with some mottling and the foot is now warm better perfusion better sensation Critical Care Time (minutes): 25 Physical Exam Vital Signs: Vital Signs: Last Vital Signs Temp 98.4 F 11/15/20 12:00 Pulse 101 H 11/15/20 14:00 Resp 18 11/15/20 14:00 BP 134/59 L 11/15/20 14:00 Pulse Ox 98 11/15/20 13:00 Oxygen Flow Rate 0 11/14/20 10:00 Body Mass Index 23.6 Objective Data Labs CBC & Chem 7: 11/15/20 05:47 11/15/20 05:48 Labs: Laboratory Results - last 24 hr 11/14/20 11/14/20 11/14/20 17:06 20:26 20:26 WBC 6.8 RBC 2.94 L Hgb 9.8 L Hct 28.4 L MCV 96.6 MCH 33.3 H MCHC 34.5 RDW 12.7 Plt Count 209 MPV 9.0 L Immature Gran % (Auto) 0.4 Neut % (Auto) 74.2 H Lymph % (Auto) 15.4 L Kendall % (Auto) 6.5 Eos % (Auto) 3.1 Baso % (Auto) 0.4 Lymph # (Auto) 1.0 L Kendall # (Auto) 0.4 Eos # (Auto) 0.2 Baso # (Auto) 0.0 Abs Immat Gran (auto) 0.03 Absolute Neuts (auto) 5.0 Absolute Nucleated RBC 0.000 Nucleated RBC % (auto) 0.0 PT INR APTT PTT (Heparin Protocol) 36.0 L VBG pH VBG pCO2 VBG pO2 VBG HCO3 VBG O2 Saturation VBG Base Excess Sodium 127 L Potassium 3.9 Chloride 96 Carbon Dioxide 20 L Anion Gap 15 BUN 8 L Creatinine 0.59 Estim Creat Clear Calc 122.0 Estimated GFR > 60 Random Glucose 93 Calcium 7.6 L Phosphorus Magnesium Total Bilirubin 1.4 H AST 91 H ALT 32 Alkaline Phosphatase 78 Total Protein 5.0 L Albumin 2.7 L TSH Urine Osmolality Ur Random Sodium Vancomycin Trough Blood Type Antibody Screen Enhanced Crossmatch 11/14/20 11/15/20 11/15/20 20:31 00:26 00:26 WBC 7.2 RBC 2.87 L Hgb 9.7 L Hct 27.4 L MCV 95.5 MCH 33.8 H MCHC 35.4 RDW 12.6 Plt Count 210 MPV 9.0 L Immature Gran % (Auto) 0.4 Neut % (Auto) 81.1 H Lymph % (Auto) 10.4 L Kendall % (Auto) 5.7 Eos % (Auto) 1.8 Baso % (Auto) 0.6 Lymph # (Auto) 0.8 L Kendall # (Auto) 0.4 Eos # (Auto) 0.1 Baso # (Auto) 0.0 Abs Immat Gran (auto) 0.03 Absolute Neuts (auto) 5.8 Absolute Nucleated RBC 0.000 Nucleated RBC % (auto) 0.0 PT INR APTT PTT (Heparin Protocol) 56.1 D VBG pH 7.45 H VBG pCO2 33 VBG pO2 85 VBG HCO3 24 VBG O2 Saturation 96.0 VBG Base Excess 0.7 Sodium Potassium Chloride Carbon Dioxide Anion Gap BUN Creatinine Estim Creat Clear Calc Estimated GFR Random Glucose Calcium Phosphorus Magnesium Total Bilirubin AST ALT Alkaline Phosphatase Total Protein Albumin TSH Urine Osmolality Ur Random Sodium Vancomycin Trough Blood Type Antibody Screen Enhanced Crossmatch 11/15/20 11/15/20 11/15/20 05:47 05:48 05:48 WBC 7.0 RBC 2.80 L Hgb 9.4 L Hct 26.5 L MCV 94.6 MCH 33.6 H MCHC 35.5 RDW 12.5 Plt Count 212 MPV 9.0 L Immature Gran % (Auto) Neut % (Auto) Lymph % (Auto) Kendall % (Auto) Eos % (Auto) Baso % (Auto) Lymph # (Auto) Kendall # (Auto) Eos # (Auto) Baso # (Auto) Abs Immat Gran (auto) Absolute Neuts (auto) Absolute Nucleated RBC 0.000 Nucleated RBC % (auto) 0.0 PT 14.8 H INR 1.2 H APTT 43.8 H D PTT (Heparin Protocol) VBG pH VBG pCO2 VBG pO2 VBG HCO3 VBG O2 Saturation VBG Base Excess Sodium 126 L Potassium 4.0 Chloride 94 L Carbon Dioxide 21 L Anion Gap 15 BUN 8 L Creatinine 0.57 Estim Creat Clear Calc 126.2 Estimated GFR > 60 Random Glucose 92 Calcium 7.6 L Phosphorus 3.2 Magnesium 1.9 Total Bilirubin AST ALT Alkaline Phosphatase Total Protein Albumin TSH Urine Osmolality Ur Random Sodium Vancomycin Trough Blood Type Antibody Screen Enhanced Crossmatch 11/15/20 11/15/20 11/15/20 05:53 07:12 07:12 WBC RBC Hgb Hct MCV MCH MCHC RDW Plt Count MPV Immature Gran % (Auto) Neut % (Auto) Lymph % (Auto) Kendall % (Auto) Eos % (Auto) Baso % (Auto) Lymph # (Auto) Kendall # (Auto) Eos # (Auto) Baso # (Auto) Abs Immat Gran (auto) Absolute Neuts (auto) Absolute Nucleated RBC Nucleated RBC % (auto) PT INR APTT PTT (Heparin Protocol) 46.4 L VBG pH 7.46 H VBG pCO2 33 VBG pO2 33 VBG HCO3 24 VBG O2 Saturation 50.0 VBG Base Excess 1.0 Sodium Potassium Chloride Carbon Dioxide Anion Gap BUN Creatinine Estim Creat Clear Calc Estimated GFR Random Glucose Calcium Phosphorus Magnesium Total Bilirubin AST ALT Alkaline Phosphatase Total Protein Albumin TSH 0.78 Urine Osmolality Ur Random Sodium Vancomycin Trough Blood Type Antibody Screen Enhanced Crossmatch 11/15/20 11/15/20 11/15/20 07:58 09:40 09:40 WBC RBC Hgb Hct MCV MCH MCHC RDW Plt Count MPV Immature Gran % (Auto) Neut % (Auto) Lymph % (Auto) Kendall % (Auto) Eos % (Auto) Baso % (Auto) Lymph # (Auto) Kendall # (Auto) Eos # (Auto) Baso # (Auto) Abs Immat Gran (auto) Absolute Neuts (auto) Absolute Nucleated RBC Nucleated RBC % (auto) PT INR APTT PTT (Heparin Protocol) VBG pH VBG pCO2 VBG pO2 VBG HCO3 VBG O2 Saturation VBG Base Excess Sodium Potassium Chloride Carbon Dioxide Anion Gap BUN Creatinine Estim Creat Clear Calc Estimated GFR Random Glucose Calcium Phosphorus Magnesium Total Bilirubin AST ALT Alkaline Phosphatase Total Protein Albumin TSH Urine Osmolality 406 Ur Random Sodium 161.0 Vancomycin Trough 10.0 Blood Type Antibody Screen Enhanced Crossmatch 11/15/20 11/15/20 11/15/20 11:21 13:56 14:44 WBC RBC Hgb Hct MCV MCH MCHC RDW Plt Count MPV Immature Gran % (Auto) Neut % (Auto) Lymph % (Auto) Kendall % (Auto) Eos % (Auto) Baso % (Auto) Lymph # (Auto) Kendall # (Auto) Eos # (Auto) Baso # (Auto) Abs Immat Gran (auto) Absolute Neuts (auto) Absolute Nucleated RBC Nucleated RBC % (auto) PT INR APTT PTT (Heparin Protocol) 98.5 H D 65.5 D VBG pH VBG pCO2 VBG pO2 VBG HCO3 VBG O2 Saturation VBG Base Excess Sodium Potassium Chloride Carbon Dioxide Anion Gap BUN Creatinine Estim Creat Clear Calc Estimated GFR Random Glucose Calcium Phosphorus Magnesium Total Bilirubin AST ALT Alkaline Phosphatase Total Protein Albumin TSH Urine Osmolality Ur Random Sodium Vancomycin Trough Blood Type O Positive Antibody Screen NEGATIVE Enhanced Crossmatch See Detail Microbiology Microbiology Results: Microbiology 11/12/20 16:19 Blood - Venous Blood Culture - Final Bacteroides fragilis 11/12/20 16:19 Blood - Venous Blood Culture - Preliminary No growth after 48 hours. 11/12/20 00:00 Groin, Right Gram Stain - Final 11/12/20 00:00 Groin, Right Routine Culture - Final No growth after 2 days
--- NOTE | 2020-11-15 18:48 | PC.NURSE ---
VSS, afebrile. Pt became alert to self and place by end of shift. able to make needs known. Slept on and off . Pt incontinent x2 this shift. SR/ST on tele, Anais in to see pt, doppler pulses good. Pt had some sips of water, repo q2hr, bath given. Incision to groin, dsg changed.
[2020-11-15 21:23] LABS: PTT Heparin Drip 48.8 SEC (53-77.9)
[2020-11-15] MEDS: Morphine Sulfate 4 MG/ML CARTRIDGE IVPUSH (22:08)
--- NOTE | 2020-11-15 22:21 | P.CNID_ITS ---
History of Present Illness Data of Consult Service Date: 11/15/20 Requesting physician: Cabrera Manzo Primary Care Provider: Karlene Randle MD [facility] Reason for consult: bacteremia He presents for evalation swelling in right groin and was seen by Vascular He had prior right femoral endarterectomy with stenting He had pseudoanuerysm concern He has bacteroides fragilis in blood He has no GI concern Review of Systems Review of Systems: Yes all other systems are reviewed and are negative PMFSH Past Medical History Medical History Arthritis Bacteremia Bilateral carotid artery disease COPD (chronic obstructive pulmonary disease) Elevated cholesterol History of prostate cancer HTN (hypertension) Hx of low back pain PVD (peripheral vascular disease) Spinal disease Family History Family history: reviewed and not pertinent Surgical History Surgical History History of endarterectomy (11/20/19) History of femoral angiogram History of spinal surgery Hx of colonoscopy Social History Social History Household Members: Spouse and Children Housing: House Are you a primary rn coronary care unit to a significant other at home: No Do you presently have visiting nurse or other home services: No Alcohol intake: current Alcohol intake frequency: 3 or more drinks per day Alcohol type: beer Cigarette Packs Per Day: 0.5 Cigarettes Per Day: 10.0 Years Smoked: 50 Second Hand Smoke Exposure: No service: No Current occupational status: retired Meds Allergies Allergy/AdvReac Type Severity Reaction Status Date / Time No Known Allergies Allergy Verified 11/05/20 11:42 [No Known Allergies*] Active Medications: Current Medications Generic Name Dose Route Start Last Admin Trade Name Freq PRN Reason Stop Dose Admin Acetaminophen 650 mg 11/12/20 04:07 Acetaminophen 325 Mg Tablet PO Q6H PRN Fever Albuterol/Ipratropium 3 ml 11/12/20 20:00 11/15/20 19:36 Albuterol/Iprat 2.5/0.5mg 3 Ml Ampul.Neb INHALE Not Given RQ4H WHILE AWAKE [facility] Heparin Sodium (Porcine) 3,000 unit 11/14/20 10:27 11/15/20 21:54 Heparin Sodium,Porcine 5,000 Unit/Ml Vial 40 unit/kg (3000 unit) 3,000 unit IVPUSH Administration BOLUS PRN 40 unit/kg - Heparin Protocol Heparin Sodium (Porcine) 6,000 unit 11/14/20 10:27 11/14/20 18:16 Heparin Sodium,Porcine 5,000 Unit/Ml Vial 80 unit/kg (6000 unit) 6,000 unit IVPUSH Administration BOLUS PRN 80 unit/kg - Heparin Protocol Piperacillin Sod/Tazobactam 50 mls @ 100 mls/hr 11/12/20 17:00 11/15/20 18:37 Sod 3.375 gm/ Sodium Chloride IV Infused Q6H [facility] Infusion Heparin Sodium/Sodium Chloride 25,000 unit in 250 mls @ 0 mls/hr 11/14/20 10:30 11/15/20 21:50 IVCONT 20 units/kg/hr .Q0M [facility] 14.96 mls/hr Titration Protocol Per Protocol Sodium Chloride 1,000 mls @ 80 mls/hr 11/15/20 06:15 11/15/20 17:23 Ns IVCONT 80 mls/hr .[id number] [facility] Administration Vancomycin HCl 1,250 mg/ 250 mls @ 166.667 mls/hr 11/15/20 10:00 11/15/20 21:20 Sodium Chloride IV 166.67 mls/hr Q12H [facility] Administration Medication 1 each 11/14/20 12:00 No Benzodiazepines MISCELLANE DAILY [facility] Morphine Sulfate 4 mg 11/12/20 04:08 11/15/20 22:08 Morphine Sulfate 4 Mg/Ml Cartridge IVPUSH 4 mg Q4H PRN Administration Pain, Severe (Pain Scale 7-10) Ondansetron HCl 4 mg 11/12/20 10:28 Ondansetron Hcl 4 Mg/2 Ml Vial IVPUSH ONCE PRN Nausea and Vomiting Pharmacy Consult 1 each 11/12/20 16:28 Consult Rx Vancomycin Dosing MISCELLANE DAILY PRN Consult order Pharmacy Consult 1 each 11/14/20 11:07 Consult Rx Etoh Phenob Dosing MISCELLANE ONCE PRN Consult order Protocol Phenobarbital 45 mg 11/15/20 09:00 11/15/20 20:27 Phenobarbital 15 Mg Tablet PO 11/16/20 21:01 45 mg BID [facility] Administration Protocol Phenobarbital 30 mg 11/17/20 09:00 Phenobarbital 30 Mg Tablet PO 11/18/20 21:01 BID [facility] Protocol Phenobarbital 30 mg 11/19/20 09:00 Phenobarbital 30 Mg Tablet PO 11/20/20 09:01 DAILY [facility] Protocol Sodium Chloride 3 ml 11/12/20 08:00 11/15/20 17:19 0.9 % Sodium Chloride Flush 3 Ml Syringe IVFLUSH Not Given QSMTFT [facility] Sodium Chloride 3 ml 11/15/20 08:00 11/15/20 17:19 0.9 % Sodium Chloride Flush 3 Ml [facility] Medication Instructions Recorded Confirmed Last Taken Type umeclidinium 62.5 mcg-vilanterol 1 inh INHALATION DAILY 03/28/20 11/12/20 Unknown History 25 mcg/actuation powdr for inhalation tamsulosin 1 cap PO BEDTIME 05/14/20 11/12/20 Unknown History Combivent Respimat 1 puff INHALATION QID PRN 11/12/20 11/12/20 Unknown History cyanocobalamin (vitamin B-12) 3,000 mcg PO DAILY 11/12/20 11/12/20 Unknown History [B-12 DOTS] diclofenac sodium 1 g TOPICAL QID 11/12/20 11/12/20 Unknown History gabapentin 1 cap PO BID 11/12/20 11/12/20 Unknown History Physical Exam Vital Signs: Vital Signs: Last Vital Signs Temp 98.0 F 11/15/20 22:00 Pulse 100 11/15/20 22:00 Resp 20 11/15/20 22:08 BP 116/53 L 11/15/20 22:00 Pulse Ox 97 11/15/20 22:00 Oxygen Flow Rate 0 11/14/20 10:00 Body Mass Index 23.6 Const: General: cooperative Orientation/consciousness: patient oriented x3 HENMT: Head: Yes normal to inspection Eyes: General: appearance normal, both eyes and all related structures Resp: Effort & Inspection: normal respiratory effort Cardio: Rate: regular rate Rhythm: regular rhythm GI: Palpation (GI): Soft to palpation, Tenderness to palpation present (GI) and no guarding Skin: General skin exam: no rashes or lesions noted Neuro: General: patient oriented x3 Extrem: Other: wrapped groin Results Labs CBC & Chem 7: 11/19/20 08:33 11/19/20 08:33 Labs: Short CBC 11/15/20 11/15/20 Range/Units 00:26 05:47 WBC 7.2 7.0 (4.8-10.8) X10*3/uL Hgb 9.7 L 9.4 L (14.0-18.0) g/dl Hct 27.4 L 26.5 L (42-52) % Plt Count 210 212 (160-400) X10*3/uL BMP 11/15/20 05:48 Sodium 126 L Potassium 4.0 Chloride 94 L Carbon Dioxide 21 L BUN 8 L Creatinine 0.57 Calcium 7.6 L Microbiology Microbiology Results: Microbiology 11/12/20 16:19 Blood - Venous Blood Culture - Final Bacteroides fragilis 11/12/20 16:19 Blood - Venous Blood Culture - Preliminary No growth after 48 hours. 11/12/20 00:00 Groin, Right Gram Stain - Final 11/12/20 00:00 Groin, Right Routine Culture - Final No growth after 2 days Assessment and Plan (1) Critical lower limb ischemia: Status: Acute (2) PAD (peripheral artery disease): Status: Acute (3) Bacteremia: Status: Acute B Fragilis,anerobe,possible vascular Would continu Zosyn for now and add Flagyl for anerobic bacteria for now
[2020-11-16] VITALS (12 sets, daily range): BP systolic 110–160; BP diastolic 50–71; PULSE 68–103; RESP 18–20; TEMP 36.2–36.9; O2SAT 96–98
[2020-11-16] MEDS: Heparin Sodium,Porcine/1/2NS 25,000 UNIT/250 ML IV.SOLN 14.96 UNIT IVCONT (00:03)
[2020-11-16] MEDS: Piperacillin Sodium/Tazobactam 3.375 GM in 0.9 % Sodium Chloride 50 ML IV ×5 (00:05→23:31)
[2020-11-16] MEDS: 0.9 % Sodium Chloride Flush 3 ML SYRINGE IVFLUSH ×2 (00:06→20:18)
[2020-11-16] MEDS: metroNIDAZOLE/NS 500 MG/100 ML PIGGYBACK 100 MG IV ×4 (00:43→22:23)
[2020-11-16] MEDS: Morphine Sulfate 4 MG/ML CARTRIDGE IVPUSH ×4 (02:43→20:11)
[2020-11-16 04:11] LABS: PTT Heparin Drip 66.8 SEC (53-77.9)
[2020-11-16] MEDS: 0.9 % Sodium Chloride 1,000 ML 80 ML IVCONT ×2 (06:01→16:45)
[2020-11-16 06:46] LABS: Venous Blood Gas Refer to POC result
[2020-11-16 06:47] LABS: MANUAL DIFF FLAG NO
[2020-11-16 06:47] LABS: VBG Base Excess -3.2 mmol/L; VBG HCO3 20 mmol/L (22-26); VBG pCO2 33 mmHg; VBG pO2 37 mmHg
[2020-11-16 07:07] LABS: Basophils Percent Auto 0.5 % (0-2); Eosinophils Absolute Auto 0.2 X10*3/uL (0.0-0.4); Eosinophils Percent Auto 2.6 % (0-4); Hematocrit 26.5 % (42-52); Hemoglobin 9.2 g/dl (14.0-18.0); INTERNATIONAL NORM RATIO 1.3 (0.9-1.1); Imm Gran Abs Auto 0.04 X10*3/uL (0.00-0.03); Imm Gran Pct Auto 0.6 % (0.0-0.4); Lymphocytes Absolute Auto 0.8 X10*3/uL (1.2-4.9); Lymphocytes Percent Auto 11.7 % (20-40); Mean Corpuscular HGB Conc 34.7 g/dl (31.0-36.0); Mean Corpuscular Hemoglobin 33.1 pg (27.0-33.0); Mean Corpuscular Volume 95.3 fL (80-98); Mean Platelet Volume 9.3 fL (9.4-12.4); Monocytes Absolute Auto 0.4 X10*3/uL (0.1-1.2); Monocytes Percent Auto 6.3 % (2-11); Neutrophils Absolute Auto 5.1 X10*3/uL (2.0-8.3); Neutrophils Percent Auto 78.3 % (45-73); Platelet Count 263 X10*3/uL (160-400); Prothrombin Time 15.3 SEC (10.8-13.0); Red Blood Count 2.78 X10*6/uL (4.60-5.80); Red Cell Distribution Width 12.6 % (11.0-16.0); White Blood Count 6.6 X10*3/uL (4.8-10.8)
[2020-11-16 07:10] LABS: Partial Thromboplastin Time 57.5 SEC (24.1-38.0)
[2020-11-16 07:28] LABS: Anion Gap 14 (12-20); Blood Urea Nitrogen 9 mg/dL (9-16); Calcium 7.5 mg/dL (8.4-10.2); Carbon Dioxide 19 mmol/L (22-29); Chloride 98 mmol/L (96-108); Creatinine Clr Calc Pharmacy 138.4; Estimated Glomerular Filt Rate > 60; Glucose Random 85 mg/dL (60-115); Phosphorus 2.5 mg/dL (2.7-4.5); Potassium 3.8 mmol/L (3.3-5.1); Sodium 127 mmol/L (135-145)
[2020-11-16] MEDS: Albuterol/Iprat 2.5/0.5MG 3 ML AMPUL.NEB INHALE ×4 (07:53→19:28)
[2020-11-16] MEDS: PHENobarbitaL 15 MG TABLET 45 MG PO ×2 (08:01→20:13)
[2020-11-16 10:13] LABS: PTT Heparin Drip 40.8 SEC (53-77.9)
[2020-11-16] MEDS: Heparin Sodium,Porcine 5,000 UNIT/ML VIAL 3000 UNIT IVPUSH (11:25)
--- NOTE | 2020-11-16 11:47 | PC.NURSE ---
Pt son, Sidney Hou, contact number is [phone] .
--- NOTE | 2020-11-16 12:12 | HO.PM.IMPN ---
Subjective Subjective Date of Service: 11/16/20 <Libia Aguirre NP - Last Filed: 11/16/20 12:31> 11/16/20 <Tomas Mckeon MD - Last Filed: 11/16/20 17:43> Interval History: Follow up endarterectomy right leg pain consistent good appetite <Libia Aguirre NP - Last Filed: 11/16/20 12:31> Physical Exam Vital Signs: Vital Signs: Last Vital Signs Temp 97.1 F 11/16/20 11:58 Pulse 90 11/16/20 11:58 Resp 18 11/16/20 11:58 BP 110/50 L 11/16/20 11:58 Pulse Ox 96 11/16/20 11:58 Oxygen Flow Rate 0 11/14/20 10:00 Body Mass Index 23.6 <Libia Aguirre NP - Last Filed: 11/16/20 12:31> Appearing in no acute distress lung sounds are clear to auscultation heart regular rate rhythm, clear S1, S2 positive bowel sounds, abdomen is soft, nontender neuro patient is alert , no focal deficits <Libia Aguirre NP - Last Filed: 11/16/20 12:31> Objective Data Current Medications Generic Name Dose Route Start Last Admin Trade Name Freq PRN Reason Stop Dose Admin Acetaminophen 650 mg 11/12/20 04:07 Acetaminophen 325 Mg Tablet PO Q6H PRN Fever Albuterol/Ipratropium 3 ml 11/12/20 20:00 11/16/20 11:43 Albuterol/Iprat 2.5/0.5mg 3 Ml Ampul.Neb INHALE 3 ml RQ4H WHILE AWAKE [facility] Administration Heparin Sodium (Porcine) 3,000 unit 11/16/20 10:55 11/16/20 11:25 Heparin Sodium,Porcine 5,000 Unit/Ml Vial 40 unit/kg (3000 unit) 3,000 unit IVPUSH Administration BOLUS PRN 40 unit/kg - Heparin Protocol Heparin Sodium (Porcine) 6,000 unit 11/16/20 10:56 Heparin Sodium,Porcine 5,000 Unit/Ml Vial 80 unit/kg (6000 unit) IVPUSH BOLUS PRN 80 unit/kg - Heparin Protocol Piperacillin Sod/Tazobactam 50 mls @ 100 mls/hr 11/12/20 17:00 11/16/20 11:34 Sod 3.375 gm/ Sodium Chloride IV 100 mls/hr Q6H [facility] Administration Heparin Sodium/Sodium Chloride 25,000 unit in 250 mls @ 0 mls/hr 11/14/20 10:30 11/16/20 11:26 IVCONT 22 units/kg/hr .Q0M [facility] 16.46 mls/hr Titration Protocol Per Protocol Sodium Chloride 1,000 mls @ 80 mls/hr 11/15/20 06:15 11/16/20 06:01 Ns IVCONT 80 mls/hr .[id number] [facility] Administration Metronidazole 500 mg in 100 mls @ 100 mls/hr 11/15/20 22:30 11/16/20 11:34 Flagyl IV Infused Q8H [facility] Infusion Medication 1 each 11/14/20 12:00 No Benzodiazepines MISCELLANE DAILY [facility] Morphine Sulfate 4 mg 11/12/20 04:08 11/16/20 08:15 Morphine Sulfate 4 Mg/Ml Cartridge IVPUSH 4 mg Q4H PRN Administration Pain, Severe (Pain Scale 7-10) Pharmacy Consult 1 each 11/12/20 16:28 Consult Rx Vancomycin Dosing MISCELLANE DAILY PRN Consult order Pharmacy Consult 1 each 11/14/20 11:07 Consult Rx Etoh Phenob Dosing MISCELLANE ONCE PRN Consult order Protocol Phenobarbital 45 mg 11/15/20 09:00 11/16/20 08:01 Phenobarbital 15 Mg Tablet PO 11/16/20 21:01 45 mg BID [facility] Administration Protocol Phenobarbital 30 mg 11/17/20 09:00 Phenobarbital 30 Mg Tablet PO 11/18/20 21:01 BID [facility] Protocol Phenobarbital 30 mg 11/19/20 09:00 Phenobarbital 30 Mg Tablet PO 11/20/20 09:01 DAILY [facility] Protocol Sodium Chloride 3 ml 11/12/20 08:00 11/16/20 08:02 0.9 % Sodium Chloride Flush 3 Ml Syringe IVFLUSH Not Given QSHIFT [facility] <Libia Aguirre NP - Last Filed: 11/16/20 12:31> Labs CBC & Chem 7: : 11/16/20 06:33 11/16/20 06:33 <Libia Aguirre NP - Last Filed: 11/16/20 12:31> Microbiology Microbiology Results: Microbiology 11/12/20 16:19 Blood - Venous Blood Culture - Final Bacteroides fragilis 11/12/20 16:19 Blood - Venous Blood Culture - Preliminary No growth after 48 hours. 11/12/20 00:00 Groin, Right Gram Stain - Final 11/12/20 00:00 Groin, Right Routine Culture - Final No growth after 2 days <Libia Aguirre NP - Last Filed: 11/16/20 12:31> Assessment and Plan (1) Critical lower limb ischemia: Status: Acute <Libia Aguirre NP - Last Filed: 11/16/20 12:31> (2) PAD (peripheral artery disease): Status: Acute <Libia Aguirre NP - Last Filed: 11/16/20 12:31> (3) Bacteremia: Status: Acute <Libia Aguirre NP - Last Filed: 11/16/20 12:31> Assessment and Plan: 70 year old man admitted by vascular surgery. He has a history of peripheral vascular disease and multiple procedures. 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 Over the last week he noticed some pain to his right groin. He went to [facility] and was transferred to [facility]. His vascular surgeon was notified and the patient was subsequently transferred to [facility]. He was noted to have bleeding to his right groin. He also had cold and mottled right foot with better perfusion after femoral endarterectomy. Femoral endarterectomy. POD #4 Ruptured groin hematoma with loss of 2000 mL during procedure, repleted Right pedal pulse with doppler -continue heparin -morphine for pain management -wound care -PT consult -OOB to chair Encephalopathy. Likely secondary to alcohol abuse/withdrawal. - phenobarbital protocol - continue to monitor mental status Bacteremia. B Fragilis, anerobe 1/2 -Seen and examined by ID -steve and yl Hypertension. Soft blood pressure -continue to hold medication Smoker. -discussed importance of smoking cessation -NRT DVT prophylaxis with IV heparin Attending: Dr. Mckeon Full code <Libia Aguirre NP - Last Filed: 11/16/20 12:31>
[2020-11-16] MEDS: Heparin Sodium,Porcine/1/2NS 25,000 UNIT/250 ML IV.SOLN 16.46 UNIT IVCONT (16:37)
[2020-11-16 17:17] LABS: PTT Heparin Drip 34.8 SEC (53-77.9)
[2020-11-16] MEDS: Heparin Sodium,Porcine 5,000 UNIT/ML VIAL 6000 UNIT IVPUSH (17:50)
[2020-11-16] MEDS: Acetaminophen 325 MG TABLET 650 MG PO (21:17)
[2020-11-17] VITALS (11 sets, daily range): BP systolic 108–133; BP diastolic 52–68; PULSE 82–96; RESP 16–19; TEMP 36.6–37; O2SAT 93–100
[2020-11-17 00:48] LABS: PTT Heparin Drip 172.1 SEC (53-77.9)
--- NOTE | 2020-11-17 00:54 | PC.NURSE ---
Addendum entered by Rosalee Roberson RN 11/17/20 04:19: 0151 PTT HD came back at 70.5. Heparin drip decreased by 4, restarted at 21.98 u/kg/hr, 16.44 ml/hr. Next PTT HD due 0815. Original Note: PTT HD came back with a critical of 172.1. Heparin drip stopped, next PTT HD draw put in for 0151 11/17/20. Dr. Jackson aware, no new orders. Will continue to monitor.
[2020-11-17 02:08] LABS: PTT Heparin Drip 70.5 SEC (53-77.9)
[2020-11-17] MEDS: 0.9 % Sodium Chloride 1,000 ML 80 ML IVCONT ×2 (04:15→17:16)
[2020-11-17] MEDS: Piperacillin Sodium/Tazobactam 3.375 GM in 0.9 % Sodium Chloride 50 ML IV ×4 (04:44→22:45)
[2020-11-17] MEDS: Acetaminophen 325 MG TABLET 650 MG PO ×2 (04:52→21:35)
--- NOTE | 2020-11-17 05:01 | PC.NURSE ---
Right groin incision still draining small amount. Changed ABD pad twice. [place] intact. Dressing now dry and intact.
[2020-11-17] MEDS: metroNIDAZOLE/NS 500 MG/100 ML PIGGYBACK 100 MG IV ×3 (06:03→21:31)
[2020-11-17] MEDS: PHENobarbitaL 30 MG TABLET PO ×2 (08:22→20:17)
[2020-11-17] MEDS: Morphine Sulfate 4 MG/ML CARTRIDGE IVPUSH ×3 (08:22→20:21)
[2020-11-17] MEDS: Heparin Sodium,Porcine/1/2NS 25,000 UNIT/250 ML IV.SOLN 16.44 UNIT IVCONT (08:24)
[2020-11-17] MEDS: 0.9 % Sodium Chloride Flush 3 ML SYRINGE IVFLUSH ×2 (08:28→20:22)
[2020-11-17 08:33] LABS: Basophils Percent Auto 0.5 % (0-2); Eosinophils Absolute Auto 0.2 X10*3/uL (0.0-0.4); Hematocrit 22.5 % (42-52); Imm Gran Abs Auto 0.04 X10*3/uL (0.00-0.03); Imm Gran Pct Auto 0.7 % (0.0-0.4); Lymphocytes Absolute Auto 0.6 X10*3/uL (1.2-4.9); Lymphocytes Percent Auto 10.6 % (20-40); MANUAL DIFF FLAG SCAN; Mean Corpuscular HGB Conc 34.7 g/dl (31.0-36.0); Mean Corpuscular Hemoglobin 33.2 pg (27.0-33.0); Mean Corpuscular Volume 95.7 fL (80-98); Mean Platelet Volume 9.2 fL (9.4-12.4); Monocytes Absolute Auto 0.4 X10*3/uL (0.1-1.2); Monocytes Percent Auto 6.3 % (2-11); Neutrophils Absolute Auto 4.4 X10*3/uL (2.0-8.3); Neutrophils Percent Auto 78.9 % (45-73); Platelet Count 230 X10*3/uL (160-400); Red Blood Count 2.35 X10*6/uL (4.60-5.80); Red Cell Distribution Width 13.1 % (11.0-16.0); SCAN SMEAR FLAG 1; White Blood Count 5.6 X10*3/uL (4.8-10.8)
[2020-11-17 08:38] LABS: Hemoglobin 7.8 g/dl (14.0-18.0)
[2020-11-17 08:45] LABS: PTT Heparin Drip 76.4 SEC (53-77.9)
[2020-11-17 08:53] LABS: SLIDE REVIEW VERIFIED
[2020-11-17] MEDS: Albuterol/Iprat 2.5/0.5MG 3 ML AMPUL.NEB INHALE ×4 (09:03→19:53)
[2020-11-17 09:26] LABS: Anion Gap 11 (12-20); Blood Urea Nitrogen 8 mg/dL (9-16); Calcium 7.3 mg/dL (8.4-10.2); Carbon Dioxide 21 mmol/L (22-29); Chloride 103 mmol/L (96-108); Creatinine Clr Calc Pharmacy 128.5; Estimated Glomerular Filt Rate > 60; Glucose Random 95 mg/dL (60-115); Potassium 3.3 mmol/L (3.3-5.1); Sodium 132 mmol/L (135-145)
--- NOTE | 2020-11-17 09:31 | HO.PM.IMPN ---
Subjective Subjective Date of Service: 11/17/20 <Libia Aguirre NP - Last Filed: 11/17/20 10:05> 11/18/20 <Peter Wright MD - Last Filed: 11/18/20 13:39> Interval History: Follow up endarterectomy right leg pain improved good appetite feels mentally clearer <Libia Aguirre NP - Last Filed: 11/17/20 10:05> Physical Exam Vital Signs: Vital Signs: Last Vital Signs Temp 97.8 F 11/17/20 07:33 Pulse 82 11/17/20 09:03 Resp 16 11/17/20 07:33 BP 122/58 L 11/17/20 07:33 Pulse Ox 95 11/17/20 07:33 Oxygen Flow Rate 0 11/14/20 10:00 Body Mass Index 23.6 <Libia Aguirre NP - Last Filed: 11/17/20 10:05> Appearing in no acute distress, seems mentally more clear lung sounds are clear to auscultation heart regular rate rhythm, clear S1, S2 positive bowel sounds, abdomen is soft, nontender neuro patient is alert x3, no focal deficits Right groin surgical incision with oneal,serosang drainage <Libia Aguirre NP - Last Filed: 11/17/20 10:05> Objective Data Current Medications Generic Name Dose Route Start Last Admin Trade Name Freq PRN Reason Stop Dose Admin Acetaminophen 650 mg 11/12/20 04:07 11/17/20 04:52 Acetaminophen 325 Mg Tablet PO 650 mg Q6H PRN Administration Fever Albuterol/Ipratropium 3 ml 11/12/20 20:00 11/17/20 09:03 Albuterol/Iprat 2.5/0.5mg 3 Ml Ampul.Neb INHALE 3 ml RQ4H WHILE AWAKE ST[facility]ART Administration Heparin Sodium (Porcine) 3,000 unit 11/16/20 10:55 11/16/20 11:25 Heparin Sodium,Porcine 5,000 Unit/Ml Vial 40 unit/kg (3000 unit) 3,000 unit IVPUSH Administration BOLUS PRN 40 unit/kg - Heparin Protocol Heparin Sodium (Porcine) 6,000 unit 11/16/20 10:56 11/16/20 17:50 Heparin Sodium,Porcine 5,000 Unit/Ml Vial 80 unit/kg (6000 unit) 6,000 unit IVPUSH Administration BOLUS PRN 80 unit/kg - Heparin Protocol Piperacillin Sod/Tazobactam 50 mls @ 100 mls/hr 11/12/20 17:00 11/17/20 05:20 Sod 3.375 gm/ Sodium Chloride IV Infused Q6H [facility] Infusion Heparin Sodium/Sodium Chloride 25,000 unit in 250 mls @ 0 mls/hr 11/14/20 10:30 11/17/20 08:24 IVCONT 21.98 units/kg/hr .Q0M [facility] 16.44 mls/hr Administration Protocol Per Protocol Sodium Chloride 1,000 mls @ 80 mls/hr 11/15/20 06:15 11/17/20 04:15 Ns IVCONT 80 mls/hr .[id number] [facility] Administration Metronidazole 500 mg in 100 mls @ 100 mls/hr 11/15/20 22:30 11/17/20 08:44 Flagyl IV Infused Q8H [facility] Infusion Medication 1 each 11/14/20 12:00 No Benzodiazepines MISCELLANE DAILY [facility] Morphine Sulfate 4 mg 11/17/20 08:07 11/17/20 08:22 Morphine Sulfate 4 Mg/Ml Cartridge IVPUSH 4 mg Q4H PRN Administration pain Pharmacy Consult 1 each 11/14/20 11:07 Consult Rx Etoh Phenob Dosing MISCELLANE ONCE PRN Consult order Protocol Phenobarbital 30 mg 11/17/20 09:00 11/17/20 08:22 Phenobarbital 30 Mg Tablet PO 11/18/20 21:01 30 mg BID [facility] Administration Protocol Phenobarbital 30 mg 11/19/20 09:00 Phenobarbital 30 Mg Tablet PO 11/20/20 09:01 DAILY [facility] Protocol Sodium Chloride 3 ml 11/12/20 08:00 11/17/20 08:28 0.9 % Sodium Chloride Flush 3 Ml Syringe IVFLUSH 3 ml QSHIFT [facility] Administration <Libia Aguirre NP - Last Filed: 11/17/20 10:05> Labs CBC & Chem 7: : 11/18/20 05:38 11/17/20 08:15 <Libia Aguirre NP - Last Filed: 11/17/20 10:05> Microbiology Microbiology Results: Microbiology 11/12/20 16:19 Blood - Venous Blood Culture - Final Bacteroides fragilis 11/12/20 16:19 Blood - Venous Blood Culture - Preliminary No growth after 48 hours. 11/12/20 00:00 Groin, Right Gram Stain - Final 11/12/20 00:00 Groin, Right Routine Culture - Final No growth after 2 days <Libia Aguirre NP - Last Filed: 11/17/20 10:05> Assessment and Plan (1) Critical lower limb ischemia: Status: Acute <Libia Aguirre NP - Last Filed: 11/17/20 10:05> (2) PAD (peripheral artery disease): Status: Acute <Libia Aguirre NP - Last Filed: 11/17/20 10:05> (3) Bacteremia: Status: Acute <Libia Aguirre NP - Last Filed: 11/17/20 10:05> Assessment and Plan: 70 year old man admitted by vascular surgery. He has a history of peripheral vascular disease and multiple procedures. 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 Over the last week he noticed some pain to his right groin. He went to [facility] and was transferred to [facility]. His vascular surgeon was notified and the patient was subsequently transferred to [facility]. He was noted to have bleeding to his right groin. He also had cold and mottled right foot with better perfusion after femoral endarterectomy. Anemia. HH dropped. 7.8/22.5, previous hematoma No other signs of bleeding Discussed with Dr. Manzo -Heparin stopped -repeat HH this afternoon Femoral endarterectomy. POD #5 Ruptured groin hematoma with loss of 2000 mL during procedure Right pedal pulse with doppler -continue heparin -morphine for pain management -wound care -PT consult -OOB to chair Encephalopathy. Improving. Likely secondary to alcohol abuse/withdrawal. - phenobarbital protocol - continue to monitor mental status Bacteremia. B Fragilis, anerobe 1/2 -Seen and examined by JANETTE -steve and amrik Hypertension. Soft blood pressure -continue to hold medication Smoker. -discussed importance of smoking cessation -NRT DVT prophylaxis with IV heparin Attending: Dr. Wright Full code <Libia Aguirre NP - Last Filed: 11/17/20 10:05> (4) Acute blood loss as cause of postoperative anemia: Status: Acute <Libia Aguirre NP - Last Filed: 11/17/20 10:05> Assessment and Plan: Addendum to documentation by midlevel I saw and examined the patient and participated in the hernandez portion of the E/M service. I agree with finding, asssessment and plan as mentioned above. Patient has some pain in the foot that has been an ongoing thing, there is no ischmeia in the foot, has good pulse and no signs of cynosis, there is no active bleeding at the surgical groin other that seen on packing above, acute blood loss seems to have worseneng however, Dr. Manzo has ceased heparin and will recheck H/H late . Otherwise I agree with assessment and plan as above <Peter Wright MD - Last Filed: 11/18/20 13:39>
[2020-11-17 16:08] LABS: Hematocrit 23.5 % (42-52); Hemoglobin 8.2 g/dl (14.0-18.0); Mean Corpuscular HGB Conc 34.9 g/dl (31.0-36.0); Mean Corpuscular Hemoglobin 33.5 pg (27.0-33.0); Mean Corpuscular Volume 95.9 fL (80-98); Platelet Count 230 X10*3/uL (160-400); Red Blood Count 2.45 X10*6/uL (4.60-5.80); Red Cell Distribution Width 13.1 % (11.0-16.0); White Blood Count 4.6 X10*3/uL (4.8-10.8)
[2020-11-18] VITALS (14 sets, daily range): BP systolic 78–154; BP diastolic 52–67; PULSE 84–97; RESP 16–22; TEMP 36.9–37.1; O2SAT 92–99
[2020-11-18] MEDS: Piperacillin Sodium/Tazobactam 3.375 GM in 0.9 % Sodium Chloride 50 ML IV ×4 (05:03→23:40)
[2020-11-18] MEDS: Morphine Sulfate 4 MG/ML CARTRIDGE IVPUSH ×3 (05:12→20:21)
[2020-11-18 06:00] LABS: Basophils Absolute Auto 0.1 X10*3/uL (0.0-0.2); Basophils Percent Auto 0.8 % (0-2); Eosinophils Absolute Auto 0.2 X10*3/uL (0.0-0.4); Eosinophils Percent Auto 3.6 % (0-4); Hemoglobin 8.3 g/dl (14.0-18.0); Imm Gran Abs Auto 0.06 X10*3/uL (0.00-0.03); Imm Gran Pct Auto 0.9 % (0.0-0.4); Lymphocytes Absolute Auto 0.6 X10*3/uL (1.2-4.9); MANUAL DIFF FLAG SCAN; Mean Corpuscular HGB Conc 33.2 g/dl (31.0-36.0); Mean Corpuscular Hemoglobin 32.7 pg (27.0-33.0); Mean Corpuscular Volume 98.4 fL (80-98); Mean Platelet Volume 9.2 fL (9.4-12.4); Monocytes Absolute Auto 0.4 X10*3/uL (0.1-1.2); Monocytes Percent Auto 6.1 % (2-11); Neutrophils Absolute Auto 5.1 X10*3/uL (2.0-8.3); Neutrophils Percent Auto 79.6 % (45-73); Platelet Count 285 X10*3/uL (160-400); Red Blood Count 2.54 X10*6/uL (4.60-5.80); Red Cell Distribution Width 13.5 % (11.0-16.0); SCAN SMEAR FLAG 1; White Blood Count 6.4 X10*3/uL (4.8-10.8)
[2020-11-18] MEDS: metroNIDAZOLE/NS 500 MG/100 ML PIGGYBACK 100 MG IV ×3 (06:00→23:41)
[2020-11-18] MEDS: 0.9 % Sodium Chloride 1,000 ML 80 ML IVCONT (06:00)
[2020-11-18 06:06] LABS: SLIDE REVIEW VERIFIED
[2020-11-18] MEDS: PHENobarbitaL 30 MG TABLET PO ×2 (07:11→20:05)
--- NOTE | 2020-11-18 07:56 | HO.VASCPN ---
Subjective Subjective Date of Service: 11/18/20 Patient reports: no new complaints and feels better Interval history: pt. seen and examined. No events over last 2 days. Heparin drip was stopped. H/H essie. Much more awake this am. No pain issues. Physical Exam Vital Signs: Vital Signs: Last Vital Signs Temp 98.6 F 11/18/20 04:00 Pulse 89 11/18/20 04:00 Resp 18 11/18/20 05:12 BP 134/66 11/18/20 04:00 Pulse Ox 97 11/18/20 04:00 Oxygen Flow Rate 0 11/14/20 10:00 Body Mass Index 23.6 Const: General: cooperative, healthy appearing and no acute distress Orientation/consciousness: oriented to person, oriented to place and oriented to time HENMT: Head: Yes normal to inspection Neck: Carotids: no bruits Chest: Chest palpation & inspection: normal inspection of the chest Resp: Effort & Inspection: normal respiratory effort and able to speak in complete sentences Auscultation: clear to auscultation bilaterally Cardio: Rate: regular rate Heart sounds: S1 normal heart sound present and S2 normal heart sound present Peripheral pulses: posterior tibial pulses present (biphasic) on the right GI: Inspection: Yes normal to inspection Skin: Other: groin incision stable. No hematma expansion General skin exam: no rashes or lesions noted Wounds: no wounds Neuro: General: oriented to person, oriented to place, oriented to time and CN's II-XI intact bilaterally Extrem: General: Yes normal to inspection, Yes full ROM and Yes no clubbing, cyanosis or edema Psych: Appearance: grossly normal and well kempt Speech and movement: Normal speech and movement present Affect: normal affect Progress Note: A&P Assessment and plan (1) PAD (peripheral artery disease): Status: Acute Assessment and Plan: Pt. doing significantly better. Will start to mobiize. h/h stable. Start Eliquis. If OK will anticipate d/c within a day or 2. Fall Risk Details Current Medications: Current Medications Generic Name Dose Route Start Last Admin Trade Name Freq PRN Reason Stop Dose Admin Acetaminophen 650 mg 11/12/20 04:07 11/17/20 21:35 Acetaminophen 325 Mg Tablet PO 650 mg Q6H PRN Administration Fever Albuterol/Ipratropium 3 ml 11/12/20 20:00 11/17/20 19:53 Albuterol/Iprat 2.5/0.5mg 3 Ml Ampul.Neb INHALE 3 ml RQ4H WHILE AWAKE [facility]ART Administration Heparin Sodium (Porcine) 3,000 unit 11/16/20 10:55 11/16/20 11:25 Heparin Sodium,Porcine 5,000 Unit/Ml Vial 40 unit/kg (3000 unit) 3,000 unit IVPUSH Administration BOLUS PRN 40 unit/kg - Heparin Protocol Heparin Sodium (Porcine) 6,000 unit 11/16/20 10:56 11/16/20 17:50 Heparin Sodium,Porcine 5,000 Unit/Ml Vial 80 unit/kg (6000 unit) 6,000 unit IVPUSH Administration BOLUS PRN 80 unit/kg - Heparin Protocol Piperacillin Sod/Tazobactam 50 mls @ 100 mls/hr 11/12/20 17:00 11/18/20 05:40 Sod 3.375 gm/ Sodium Chloride IV Infused Q6H [facility] Infusion Metronidazole 500 mg in 100 mls @ 100 mls/hr 11/15/20 22:30 11/18/20 07:17 Flagyl IV Infused Q8H [facility] Infusion Medication 1 each 11/14/20 12:00 No Benzodiazepines MISCELLANE DAILY [facility] Morphine Sulfate 4 mg 11/17/20 08:07 11/18/20 05:12 Morphine Sulfate 4 Mg/Ml Cartridge IVPUSH 4 mg Q4H PRN Administration pain Pharmacy Consult 1 each 11/14/20 11:07 Consult Rx Etoh Phenob Dosing MISCELLANE ONCE PRN Consult order Protocol Phenobarbital 30 mg 11/17/20 09:00 11/18/20 07:11 Phenobarbital 30 Mg Tablet PO 11/18/20 21:01 30 mg BID [facility] Administration Protocol Phenobarbital 30 mg 11/19/20 09:00 Phenobarbital 30 Mg Tablet PO 11/20/20 09:01 DAILY [facility] Protocol Sodium Chloride 3 ml 11/12/20 08:00 11/18/20 07:11 0.9 % Sodium Chloride Flush 3 Ml Syringe IVFLUSH Not Given QSHIFT [facility] Time Spent With Patient Time: Total time spent is greater than 50% in coordination of care (as documented) at patient's floor/unit and/or counseling patient: Time with patient: 25 - 35 minutes Procedures Date of Service Date of Service: 11/18/20
[2020-11-18] MEDS: Albuterol/Iprat 2.5/0.5MG 3 ML AMPUL.NEB INHALE ×4 (08:16→19:43)
[2020-11-18] MEDS: Apixaban 2.5 MG TABLET PO ×2 (09:59→20:06)
[2020-11-18] MEDS: Aspirin Enteric Coated 81 MG TABLET.DR PO (09:59)
--- NOTE | 2020-11-18 11:47 | P.PNIM_ITS ---
Subjective Subjective Date of Service: 11/18/20 <Libai Aguirre NP - Last Filed: 11/18/20 11:52> 11/18/20 <Peter Wright MD - Last Filed: 11/18/20 13:39> Interval History: Follow up endarterectomy right leg pain improved good appetite feels mentally clearer <Libia Aguirre NP - Last Filed: 11/18/20 11:52> Physical Exam Vital Signs: Vital Signs: Last Vital Signs Temp 98.8 F 11/18/20 08:00 Pulse 92 11/18/20 08:20 Resp 22 H 11/18/20 08:00 BP 145/65 H 11/18/20 08:00 Pulse Ox 99 11/18/20 08:00 Oxygen Flow Rate 0 11/14/20 10:00 Body Mass Index 23.6 <Libia Aguirre NP - Last Filed: 11/18/20 11:52> Appearing in no acute distress lung sounds are clear to auscultation heart regular rate rhythm, clear S1, S2 positive bowel sounds, abdomen is soft, nontender neuro patient is alert x3, no focal deficits Right groin, oneal intact no drainage <Libia Aguirre NP - Last Filed: 11/18/20 11:52> Objective Data Current Medications Generic Name Dose Route Start Last Admin Trade Name Oliver PRN Reason Stop Dose Admin Acetaminophen 650 mg 11/12/20 04:07 11/17/20 21:35 Acetaminophen 325 Mg Tablet PO 650 mg Q6H PRN Administration Fever Albuterol/Ipratropium 3 ml 11/12/20 20:00 11/18/20 08:16 Albuterol/Iprat 2.5/0.5mg 3 Ml Ampul.Neb INHALE 3 ml RQ4H WHILE AWAKE [facility] Administration Apixaban 2.5 mg 11/18/20 09:00 11/18/20 09:59 Apixaban 2.5 Mg Tablet PO 2.5 mg BID [facility] Administration Aspirin 81 mg 11/18/20 09:00 11/18/20 09:59 Aspirin Enteric Coated 81 Mg Tablet. PO 81 mg DAILY [facility] Administration Heparin Sodium (Porcine) 3,000 unit 11/16/20 10:55 11/16/20 11:25 Heparin Sodium,Porcine 5,000 Unit/Ml Vial 40 unit/kg (3000 unit) 3,000 unit IVPUSH Administration BOLUS PRN 40 unit/kg - Heparin Protocol Heparin Sodium (Porcine) 6,000 unit 11/16/20 10:56 11/16/20 17:50 Heparin Sodium,Porcine 5,000 Unit/Ml Vial 80 unit/kg (6000 unit) 6,000 unit IVPUSH Administration BOLUS PRN 80 unit/kg - Heparin Protocol Piperacillin Sod/Tazobactam 50 mls @ 100 mls/hr 11/12/20 17:00 11/18/20 10:39 Sod 3.375 gm/ Sodium Chloride IV Infused Q6H [facility] Infusion Metronidazole 500 mg in 100 mls @ 100 mls/hr 11/15/20 22:30 11/18/20 07:17 Flagyl IV Infused Q8H [facility] Infusion Medication 1 each 11/14/20 12:00 No Benzodiazepines MISCELLANE DAILY [facility] Morphine Sulfate 4 mg 11/17/20 08:07 11/18/20 09:59 Morphine Sulfate 4 Mg/Ml Cartridge IVPUSH 4 mg Q4H PRN Administration pain Pharmacy Consult 1 each 11/14/20 11:07 Consult Rx Etoh Phenob Dosing MISCELLANE ONCE PRN Consult order Protocol Phenobarbital 30 mg 11/17/20 09:00 11/18/20 07:11 Phenobarbital 30 Mg Tablet PO 11/18/20 21:01 30 mg BID [facility] Administration Protocol Phenobarbital 30 mg 11/19/20 09:00 Phenobarbital 30 Mg Tablet PO 11/20/20 09:01 DAILY [facility] Protocol Sodium Chloride 3 ml 11/12/20 08:00 11/18/20 07:11 0.9 % Sodium Chloride Flush 3 Ml Syringe IVFLUSH Not Given QSHIFT [facility] <Libia Aguirre NP - Last Filed: 11/18/20 11:52> Labs CBC & Chem 7: : 11/18/20 05:38 11/17/20 08:15 <Libia Aguirre NP - Last Filed: 11/18/20 11:52> Microbiology Microbiology Results: Microbiology 11/12/20 16:19 Blood - Venous Blood Culture - Final No growth after 5 days. 11/12/20 16:19 Blood - Venous Blood Culture - Final Bacteroides fragilis 11/12/20 00:00 Groin, Right Gram Stain - Final 11/12/20 00:00 Groin, Right Routine Culture - Final No growth after 2 days <Libia Aguirre NP - Last Filed: 11/18/20 11:52> Assessment and Plan (1) PAD (peripheral artery disease): Status: Acute <Libia Aguirre NP - Last Filed: 11/18/20 11:52> Assessment and Plan: 70 year old man admitted by vascular surgery. He has a history of peripheral vascular disease and multiple procedures. 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 Over the last week he noticed some pain to his right groin. He went to [facility] and was transferred to [facility]. His vascular surgeon was notified and the patient was subsequently transferred to [facility]. He was noted to have bleeding to his right groin. He also had cold and mottled right foot with better perfusion after femoral endarterectomy. Femoral endarterectomy. POD #6 Ruptured groin hematoma with loss of 2000 mL during procedure Right pedal pulse with doppler -Started on Eliquis as per vascualr surgery -morphine for pain management -wound care -PT consult -OOB to chair Bacteremia. B Fragilis, anerobe 1/2 -Seen and examined by ID Discuss with ID regarding outpatient abx tx -continue zosyn and flagyl for now Hypertension. Soft blood pressure -continue to hold medication Anemia. Better today No signs of bleeding or hematoma Discussed with Dr. Manzo -Heparin stopped Encephalopathy. Much better mentation. Likely secondary to alcohol abuse/withdrawal. - phenobarbital protocol - continue to monitor mental status Smoker. -discussed importance of smoking cessation -NRT DISPO: Likely dc 1-2 days as per vascular team DVT prophylaxis with IV heparin Attending: Dr. Wright Full code <Libia Aguirre NP - Last Filed: 11/18/20 11:52>
[2020-11-18] MEDS: 0.9 % Sodium Chloride 1,000 ML 999 ML IV (15:41)
--- NOTE | 2020-11-18 16:55 | MHC.PIE ---
P - Pt manual BP 78/52 , asymptomatic I - This RN notified Libia Aguirre. 1L NS bolus ordered and administered E - Pt manual BP 114/52 post bolus
[2020-11-18] MEDS: 0.9 % Sodium Chloride Flush 3 ML SYRINGE IVFLUSH (20:06)
[2020-11-19] VITALS (12 sets, daily range): BP systolic 115–173; BP diastolic 56–81; PULSE 63–97; RESP 14–20; TEMP 36.2–37; O2SAT 93–97
[2020-11-19] MEDS: Morphine Sulfate 4 MG/ML CARTRIDGE IVPUSH ×4 (02:12→22:46)
[2020-11-19] MEDS: metroNIDAZOLE/NS 500 MG/100 ML PIGGYBACK 100 MG IV ×3 (05:37→21:06)
[2020-11-19] MEDS: Piperacillin Sodium/Tazobactam 3.375 GM in 0.9 % Sodium Chloride 50 ML IV ×2 (05:38→11:50)
[2020-11-19] MEDS: Albuterol/Iprat 2.5/0.5MG 3 ML AMPUL.NEB INHALE ×2 (07:42→11:09)
[2020-11-19 08:58] LABS: Hematocrit 26.4 % (42-52); Mean Corpuscular HGB Conc 34.1 g/dl (31.0-36.0); Mean Corpuscular Hemoglobin 33.7 pg (27.0-33.0); Mean Corpuscular Volume 98.9 fL (80-98); Mean Platelet Volume 9.1 fL (9.4-12.4); Platelet Count 338 X10*3/uL (160-400); Red Blood Count 2.67 X10*6/uL (4.60-5.80); Red Cell Distribution Width 13.7 % (11.0-16.0); White Blood Count 7.1 X10*3/uL (4.8-10.8)
[2020-11-19] MEDS: PHENobarbitaL 30 MG TABLET PO (09:02)
[2020-11-19] MEDS: Apixaban 2.5 MG TABLET PO ×2 (09:03→21:06)
[2020-11-19] MEDS: 0.9 % Sodium Chloride Flush 3 ML SYRINGE IVFLUSH ×3 (09:03→23:55)
[2020-11-19] MEDS: Aspirin Enteric Coated 81 MG TABLET.DR PO (09:03)
[2020-11-19 09:33] LABS: Carbon Dioxide 23 mmol/L (22-29); Chloride 103 mmol/L (96-108); Potassium 3.9 mmol/L (3.3-5.1); Sodium 132 mmol/L (135-145)
[2020-11-19 09:34] LABS: Anion Gap 10 (12-20); Blood Urea Nitrogen 7 mg/dL (9-16); Calcium 7.9 mg/dL (8.4-10.2); Creatinine Clr Calc Pharmacy 133.3; Estimated Glomerular Filt Rate > 60; Glucose Random 100 mg/dL (60-115)
[2020-11-19 11:43] LABS: Glucose, Whole Blood 96 mg/dL (60-115)
--- NOTE | 2020-11-19 11:59 | HO.PM.IMPN ---
Subjective Subjective Date of Service: 11/19/20 <Libia Aguirre NP - Last Filed: 11/19/20 12:20> 11/19/20 <Peter Wright MD - Last Filed: 11/19/20 17:10> Interval History: Follow up endarterectomy right leg pain improved good appetite feels mentally clearer <Libia Aguirre NP - Last Filed: 11/19/20 12:20> Physical Exam Vital Signs: Vital Signs: Last Vital Signs Temp 97.6 F 11/19/20 07:54 Pulse 94 11/19/20 11:16 Resp 18 11/19/20 07:54 BP 137/56 L 11/19/20 07:54 Pulse Ox 96 11/19/20 07:54 Oxygen Flow Rate 0 11/14/20 10:00 Body Mass Index 23.6 <Libia Aguirre NP - Last Filed: 11/19/20 12:20> Appearing in no acute distress lung sounds are clear to auscultation heart regular rate rhythm, clear S1, S2 positive bowel sounds, abdomen is soft, nontender neuro patient is alert x3, no focal deficits Groin oneal intact <Libia Aguirre NP - Last Filed: 11/19/20 12:20> Objective Data Current Medications Generic Name Dose Route Start Last Admin Trade Name Oliver PRN Reason Stop Dose Admin Acetaminophen 650 mg 11/12/20 04:07 11/17/20 21:35 Acetaminophen 325 Mg Tablet PO 650 mg Q6H PRN Administration Fever Albuterol/Ipratropium 3 ml 11/12/20 20:00 11/19/20 11:09 Albuterol/Iprat 2.5/0.5mg 3 Ml Ampul.Neb INHALE 3 ml RQ4H WHILE AWAKE STEWART Administration Apixaban 2.5 mg 11/18/20 09:00 11/19/20 09:03 Apixaban 2.5 Mg Tablet PO 2.5 mg BID STEWART Administration Aspirin 81 mg 11/18/20 09:00 11/19/20 09:03 Aspirin Enteric Coated 81 Mg Tablet.Dr PO 81 mg DAILY STEWART Administration Heparin Sodium (Porcine) 3,000 unit 11/16/20 10:55 11/16/20 11:25 Heparin Sodium,Porcine 5,000 Unit/Ml Vial 40 unit/kg (3000 unit) 3,000 unit IVPUSH Administration BOLUS PRN 40 unit/kg - Heparin Protocol Heparin Sodium (Porcine) 6,000 unit 11/16/20 10:56 11/16/20 17:50 Heparin Sodium,Porcine 5,000 Unit/Ml Vial 80 unit/kg (6000 unit) 6,000 unit IVPUSH Administration BOLUS PRN 80 unit/kg - Heparin Protocol Piperacillin Sod/Tazobactam 50 mls @ 100 mls/hr 11/12/20 17:00 11/19/20 11:50 Sod 3.375 gm/ Sodium Chloride IV 100 mls/hr Q6H STEWART Administration Metronidazole 500 mg in 100 mls @ 100 mls/hr 11/15/20 22:30 11/19/20 06:40 Flagyl IV Infused Q8H STEWART Infusion Medication 1 each 11/14/20 12:00 No Benzodiazepines MISCELLANE DAILY STEWART Morphine Sulfate 4 mg 11/17/20 08:07 11/19/20 05:44 Morphine Sulfate 4 Mg/Ml Cartridge IVPUSH 4 mg Q4H PRN Administration pain Pharmacy Consult 1 each 11/14/20 11:07 Consult Rx Etoh Phenob Dosing MISCELLANE ONCE PRN Consult order Protocol Phenobarbital 30 mg 11/19/20 09:00 11/19/20 09:02 Phenobarbital 30 Mg Tablet PO 11/20/20 09:01 30 mg DAILY STEWART Administration Protocol Sodium Chloride 3 ml 11/12/20 08:00 11/19/20 09:03 0.9 % Sodium Chloride Flush 3 Ml Syringe IVFLUSH 3 ml QSHIFT STEWART Administration <Libia Aguirre NP - Last Filed: 11/19/20 12:20> Labs CBC & Chem 7: : 11/19/20 08:33 11/19/20 08:33 <Libia Aguirre NP - Last Filed: 11/19/20 12:20> Microbiology Microbiology Results: Microbiology 11/12/20 16:19 Blood - Venous Blood Culture - Final No growth after 5 days. 11/12/20 16:19 Blood - Venous Blood Culture - Final Bacteroides fragilis 11/12/20 00:00 Groin, Right Gram Stain - Final 11/12/20 00:00 Groin, Right Routine Culture - Final No growth after 2 days <Libia Aguirre NP - Last Filed: 11/19/20 12:20> Assessment and Plan (1) Critical lower limb ischemia: Status: Acute <Libia Aguirre NP - Last Filed: 11/19/20 12:20> Assessment and Plan: 70 year old man admitted by vascular surgery. He has a history of peripheral vascular disease and multiple procedures. 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 Over the last week he noticed some pain to his right groin. [facility] went to [facility] and was transferred to [facility]. His vascular surgeon was notified and the patient was subsequently transferred to [facility]. He was noted to have bleeding to his right groin. He also had cold and mottled right foot with better perfusion after femoral endarterectomy. Femoral endarterectomy. POD #6 Ruptured groin hematoma with loss of 2000 mL during procedure Right pedal pulse with doppler -Started on Eliquis as per vascular surgery -morphine for pain management -wound care -PT consult -OOB to chair Bacteremia. B Fragilis, anerobe 1/2 -Seen and examined by ID Discuss with ID regarding outpatient abx tx -continue zosyn and flagyl for now Hypertension. Soft blood pressure -continue to hold medication Anemia. Better today No signs of bleeding or hematoma Discussed with Dr. Manzo -Heparin stopped Encephalopathy. Much better mentation. Likely secondary to alcohol abuse/withdrawal. - phenobarbital protocol - continue to monitor mental status Smoker. -discussed importance of smoking cessation -NRT DISPO: Likely dc 1-2 days as per vascular team DVT prophylaxis with Eliquis Attending: Dr. Wright Full code <Libia Aguirre NP - Last Filed: 11/19/20 12:20> (2) Acute blood loss as cause of postoperative anemia: Status: Acute <Libia Aguirre NP - Last Filed: 11/19/20 12:20> Assessment and Plan: I have seen and evaluated this patient. I have discussed the case and its management with the GEAR TOOTH GRINDING MACHINE OPERATOR and I agree with the findings and plan as documented in the GEAR TOOTH GRINDING MACHINE OPERATOR?s note. <Peter Wright MD - Last Filed: 11/19/20 17:10>
--- NOTE | 2020-11-19 12:00 | PC.NURSE ---
Pt reported pain in the right posterior calf that radiates anteriorly. Pt has faint R dorsal pedal and R anterior tib pulses only heard with the doppler. R post tib, ant tib, and dorsal pedal pulses were marked with a skin marker. Dr. Wright and Libia Vernon notified via [facility] [employer].
--- NOTE | 2020-11-19 12:40 | MHC.CM.PN ---
Per Surgeon, likely ready for STR in 1-2 days if s/s confusion improve. CM met with Patient this morning to discuss PT's recommendation for STR and per Patient''s request, VICKI has left a message for Patient's / Keli at [phone], for her input on SNF choices/preferences. VICKI awaits a return call from Keli.
--- NOTE | 2020-11-19 13:28 | PM.EVENT ---
Event Note Date of Service: 11/19/20 Event Note: Po Flagyl 500 mg bid for 14 days
--- NOTE | 2020-11-19 13:40 | HO.VASCPN ---
Subjective Subjective Date of Service: 11/19/20 Patient reports: no new complaints and feels better Interval history: Patient seen and examined. Has done relatively well since yesterday. Has been up ambulating. He does note some right lower extremity pain. He continues to have a fair amount of serous drainage from the right groin as well. He does appear slightly more confused than yesterday. Yesterday he was completely coherent. Today he is not oriented to time. Of note he is tolerating a diet and he did have [employer] for lunch. Physical Exam Vital Signs: Vital Signs: Last Vital Signs Temp 98.4 F 11/19/20 12:00 Pulse 97 11/19/20 12:00 Resp 16 11/19/20 12:00 BP 152/67 H 11/19/20 12:00 Pulse Ox 97 11/19/20 12:00 Oxygen Flow Rate 0 11/14/20 10:00 Body Mass Index 23.6 Const: General: cooperative, healthy appearing and no acute distress Orientation/consciousness: oriented to person, oriented to place and oriented to time HENMT: Head: Yes normal to inspection Neck: Carotids: no bruits Chest: Chest palpation & inspection: normal inspection of the chest Resp: Effort & Inspection: normal respiratory effort and able to speak in complete sentences Auscultation: clear to auscultation bilaterally Cardio: Rate: regular rate Heart sounds: S1 normal heart sound present and S2 normal heart sound present Peripheral pulses: posterior tibial pulses present (Right posterior tibial signal biphasic) GI: Inspection: Yes normal to inspection Skin: Other: Right groin healing well General skin exam: no rashes or lesions noted Wounds: no wounds Neuro: General: oriented to person, oriented to place, oriented to time and CN's II-XI intact bilaterally Extrem: General: Yes normal to inspection, Yes full ROM and Yes no clubbing, cyanosis or edema Psych: Appearance: grossly normal and well kempt Speech and movement: Normal speech and movement present Affect: normal affect Progress Note: A&P Assessment and plan (1) PAD (peripheral artery disease): Status: Acute Assessment and Plan: In short patient is redo femoral endarterectomy. He appears to be progressing well. Would anticipate discharge within the next day or so. He will require rehab placement. In addition he will be on p.o. antibiotics for 14 days of Flagyl. Will continue on peripheral vascular dose of Eliquis of 2.5 b.i.d.. Await input regarding rehab placement. Fall Risk Details Current Medications: Current Medications Generic Name Dose Route Start Last Admin Trade Name Oliver PRN Reason Stop Dose Admin Acetaminophen 650 mg 11/12/20 04:07 11/17/20 21:35 Acetaminophen 325 Mg Tablet PO 650 mg Q6H PRN Administration Fever Albuterol/Ipratropium 3 ml 11/12/20 20:00 11/19/20 11:09 Albuterol/Iprat 2.5/0.5mg 3 Ml Ampul.Neb INHALE 3 ml RQ4H WHILE AWAKE STEWART Administration Apixaban 2.5 mg 11/18/20 09:00 11/19/20 09:03 Apixaban 2.5 Mg Tablet PO 2.5 mg BID STEWART Administration Aspirin 81 mg 11/18/20 09:00 11/19/20 09:03 Aspirin Enteric Coated 81 Mg Tablet. PO 81 mg DAILY STEWART Administration Heparin Sodium (Porcine) 3,000 unit 11/16/20 10:55 11/16/20 11:25 Heparin Sodium,Porcine 5,000 Unit/Ml Vial 40 unit/kg (3000 unit) 3,000 unit IVPUSH Administration BOLUS PRN 40 unit/kg - Heparin Protocol Heparin Sodium (Porcine) 6,000 unit 11/16/20 10:56 11/16/20 17:50 Heparin Sodium,Porcine 5,000 Unit/Ml Vial 80 unit/kg (6000 unit) 6,000 unit IVPUSH Administration BOLUS PRN 80 unit/kg - Heparin Protocol Piperacillin Sod/Tazobactam 50 mls @ 100 mls/hr 11/12/20 17:00 11/19/20 11:50 Sod 3.375 gm/ Sodium Chloride IV 100 mls/hr Q6H STEWART Administration Metronidazole 500 mg in 100 mls @ 100 mls/hr 11/15/20 22:30 11/19/20 06:40 Flagyl IV Infused Q8H STEWART Infusion Medication 1 each 11/14/20 12:00 No Benzodiazepines MISCELLANE DAILY STEWART Morphine Sulfate 4 mg 11/17/20 08:07 11/19/20 05:44 Morphine Sulfate 4 Mg/Ml Cartridge IVPUSH 4 mg Q4H PRN Administration pain Pharmacy Consult 1 each 11/14/20 11:07 Consult Rx Etoh Phenob Dosing MISCELLANE ONCE PRN Consult order Protocol Phenobarbital 30 mg 11/19/20 09:00 11/19/20 09:02 Phenobarbital 30 Mg Tablet PO 11/20/20 09:01 30 mg DAILY STEWART Administration Protocol Sodium Chloride 3 ml 11/12/20 08:00 11/19/20 09:03 0.9 % Sodium Chloride Flush 3 Ml Syringe IVFLUSH 3 ml QSHIFT STEWART Administration Time Spent With Patient Time: Total time spent is greater than 50% in coordination of care (as documented) at patient's floor/unit and/or counseling patient: Time with patient: 25 - 35 minutes Procedures Date of Service Date of Service: 11/19/20
--- NOTE | 2020-11-19 14:11 | P.CDIC_ITS ---
CDI Concurrent Query Service Date: 11/19/20 Documentation Clarification: Please clarify if you are treating a proba ble/suspected/likely or confirmed: Please specify type of Encephalopathy ( Toxic, Metabolic, Toxic/Metabolic, Other, please specify if known) PLEASE DO NOT DELETE/MODIFY EXISTING CONTENT Additional information is needed in order to code to the highest accuracy and appropriate Severity of Illness (SOI). Please clarify the information noted below in your progress notes and discharge summary. Risk Factors/Clinical Indicators/Treatments 70 year old male admitted to vascular surgery for right femoral bleed on 11/12/20 Underwent surgery on 11/12/20 Per MD notes, Encephalopathy likely secondary to Alcohol Abuse/withdrawal. Treated with phenobarbital. CDS: Chantal Almanzar RN Contact Number: [phone] Please Review the information above and exercise your independent professional judgment in responding to the query. If you concur, pleas document in the PROGRESS NOTES and DISCHARGE SUMMARY. If you do not agree with the query, please document in the query above. THIS QUERY IS PART OF THE PERMANENT MEDICAL RECORD
[2020-11-20] VITALS: BP 143/70; PULSE 97; RESP 18; TEMP 37; O2SAT 95
[2020-11-20 04:00] VITALS: BP 168/72; PULSE 89; RESP 18; TEMP 37.1; O2SAT 98
[2020-11-20] MEDS: metroNIDAZOLE/NS 500 MG/100 ML PIGGYBACK 100 MG IV (05:57)
[2020-11-20 07:37] VITALS: BP 135/65; PULSE 83; RESP 20; TEMP 36.8; O2SAT 96
[2020-11-20] MEDS: Apixaban 2.5 MG TABLET PO (08:26)
[2020-11-20] MEDS: Aspirin Enteric Coated 81 MG TABLET.DR PO (08:26)
[2020-11-20] MEDS: PHENobarbitaL 30 MG TABLET PO (08:26)
[2020-11-20] MEDS: 0.9 % Sodium Chloride Flush 3 ML SYRINGE IVFLUSH (08:27)
[2020-11-20] MEDS: Morphine Sulfate 4 MG/ML CARTRIDGE IVPUSH (08:31)
--- NOTE | 2020-11-20 09:03 | MHC.CM.PN ---
CM received a return call from Patient's family/Son/Sidney @ [phone]; First choice SNF is [facility] in [place] and a referral has been made there. CM will follow for dc planning.
[2020-11-20 11:09] VITALS: BP 105/55; PULSE 82; RESP 20; TEMP 37.1; O2SAT 96
--- NOTE | 2020-11-20 11:28 | P.DS_ITS ---
DS: Providers Provider Date of Service: 11/20/20 Date of admission: 11/12/20 03:03 Primary care physician: Karlene Randle MD Consults: 11/14/20 10:41 Consult to Infectious Diseases Routine Consulting Provider: Kamla Espinoza Reason for consultation: Concern of old infected femoral patch Has provider been notified: No 11/16/20 09:12 Consult to Hospitalist Routine Consulting Provider: Hospitalist Reason For Exam: med management DS: Diagnosis Discharge Diagnosis (1) Acute blood loss as cause of postoperative anemia: Status: Acute DS: Medications Discharge Medications Home Medications: Home Medications Medication Instructions Recorded Confirmed aspirin 81 mg tablet,delayed 81 mg PO DAILY 03/28/20 11/12/20 release clopidogrel 75 mg tablet 75 mg PO DAILY 03/28/20 11/12/20 umeclidinium 62.5 mcg-vilanterol 1 inh INHALATION DAILY 03/28/20 11/12/20 25 mcg/actuation powdr for inhalation tamsulosin 1 cap PO BEDTIME 05/14/20 11/12/20 cyanocobalamin (vitamin B-12) 3,000 mcg PO DAILY 11/12/20 11/12/20 [B-12 DOTS] diclofenac sodium 1 g TOPICAL QID 11/12/20 11/12/20 gabapentin 1 cap PO BID 11/12/20 11/12/20 ipratropium-albuterol [Combivent 1 puff INHALATION QID PRN 11/12/20 11/12/20 Respimat] Previous Rx's Medication Instructions Recorded atorvastatin 40 mg tablet 40 mg PO DAILY #90 tab 09/20/20 metoprolol succinate 50 mg 50 mg PO DAILY #90 tab 09/20/20 tablet,extended release 24 hr cephalexin 500 mg capsule 500 mg PO BID #20 cap 11/05/20 DS: Summary Hospital Course Hospital Course: Patient had initially some bleeding and swelling from the right groin last weekend. He catarina Woodard presented to [facility] and was subsequently transferred to [facility] and then transferred to us in the middle the night. It was recognized the following morning that there was concern from the bleeding in that patch may be disrupted. He was emergently taken to the OR. At that point it was recognized that the patch was completely did obliterated and there was bleeding from the prior bovine pericardium patch. We were able to get control of this in subsequently so on a vein graft patch in the right common femoral. During this entire procedure nearly 4 units of blood had to be t ransfused. Was subsequently transferred to the ICU and observed for 2-3 days. In that interim there was some mental confusion. It did in ventrally improve and he was subsequently transferred to the floor. He has slowly progressed over the last 2-3 days. He is able to ambulate with assist but does have fair amount of right lower extremity pain. He is progressing nicely. Will plan for dischar ge to rehab facility. Status at Discharge Overall status at discharge: patient is progressing back to baseline Time Spent with Patient Time attestation: Total time spent providing and/or coordinating discharge services: Discharge coordination time: Greater than 30 minutes Quality: Stroke Does the patient have a stroke diagnosis?: No Physical Exam Vital Signs: Vital Signs: Last Vital Signs Temp 98.8 F 11/20/20 11:09 Pulse 82 11/20/20 11:09 Resp 20 11/20/20 11:09 BP 105/55 L 11/20/20 11:09 Pulse Ox 96 11/20/20 11:09 Oxygen Flow Rate 0 11/14/20 10:00 Body Mass Index 23.6 Const: General: cooperative, healthy appearing and no acute distress Orientation/consciousness: oriented to person, oriented to place and oriented to time HENMT: Head: Yes normal to inspection Neck: Carotids: no bruits Chest: Chest palpation & inspection: normal inspection of the chest Resp: Effort & Inspection: normal respiratory effort and able to speak in complete sentences Auscultation: clear to auscultation bilaterally Cardio: Rate: regular rate Heart sounds: S1 normal heart sound present and S2 normal heart sound present GI: Inspection: Yes normal to inspection Skin: Other: Right groin incision closing significant serous drainage General skin exam: no rashes or lesions noted Wounds: no wounds Neuro: General: oriented to person, oriented to place, oriented to time and CN's II-XI intact bilaterally Extrem: General: Yes normal to inspection, Yes full ROM and Yes no clubbing, cyanosis or edema Psych: Appearance: grossly normal and well kempt Speech and movement: Normal speech and movement present Affect: normal affect DS: Data Data Completed and Pending Completed studies during hospitalization [Text1]: Pending at discharge 11/12/20 15:00 Surgical [PTH] Routine Procedures Extirpation of Matter from Right Femoral Artery, Open Approach (05/20/20) Supplement Right Femoral Artery with Synthetic Substitute, Open Approach (05/20/20) Labs on day of discharge: Laboratory Results - last 24 hr 11/19/20 11:40 POC Glucose 96 Discharge Plan Discharge Patient Disposition: [facility] Discharge Diagnosis: Peripheral artery disease Referrals: Karlene Randle MD [Primary Care Provider] - 1 Week Discharge Medications: New metronidazole 500 mg Tablet 500 mg PO Q12H Qty: 28 RF: 0 Eliquis 2.5 mg Tablet 2.5 mg PO BID Qty: 60 RF: 0 aspirin 81 mg Tablet,Delayed Release (Dr/Ec) 81 mg PO DAILY Qty: 30 RF: 0 oxycodone-acetaminophen [Percocet] 5-325 mg tablet 1 tab PO Q4H PRN (Reason: pain) Qty: 20 RF: 0 Continued tamsulosin 0.4 mg capsule 1 cap PO BEDTIME RF: 0 gabapentin 300 mg capsule 1 cap PO BID RF: 0 diclofenac sodium 1 % gel 1 g topical QID RF: 0 Combivent Respimat 20-100 mcg/actuation mist 1 puff inhalation QID PRN (Reason: Shortness Of Breath) RF: 0 cyanocobalamin (vitamin B-12) [B-12 DOTS] 500 mcg Tablet 3,000 mcg PO DAILY RF: 0 umeclidinium-vilanterol 62.5-25 mcg/actuation blister with device 1 inh inhalation DAILY RF: 0 metoprolol succinate 50 mg tablet extended release 24 hr 50 mg PO DAILY Qty: 90 RF: 0 atorvastatin 40 mg tablet 40 mg PO DAILY Qty: 90 RF: 1 Discontinued cephalexin 500 mg capsule 500 mg PO BID Qty: 20 RF: 0 clopidogrel 75 mg tablet 75 mg PO DAILY RF: 0 aspirin 81 mg tablet,delayed release (DR/EC) 81 mg PO DAILY RF: 0 Discharge Orders: Discharge Order (Routine); Ordered 11/20/20 Ordered By: Cabrera Manzo Diet: advance to usual diet Activity on Discharge: As tolerated Stand Alone Forms: Patient Portal Discharge page Activity Restrictions/Additional Instructions: Please change right groin dressing daily and as needed for serous drainage with a dry protective dressing including ABD and tape. Do not lift anything heavier than a gallon of milk See me in follow-up in approximately 2 weeks time. you should already have an appointment if not please call my office at [phone] Please see above for any change in medications If you notice excessive bleeding from the groin please immediately call my office or return to the emergency room. Care Plan Goals: Ambulate better Health Concerns: Peripheral vascular disease Plan of Treatment: Observe right groin, surveillance follow-up Assessment: Patient has done well with follow-up procedure. Observed signs of bacteremia. In addition will follow-up for progression of disease regarding his peripheral vascular system.
--- NOTE | 2020-11-20 12:14 | P.PNIM_ITS ---
Subjective Subjective Date of Service: 11/20/20 Interval History: seen and examined this morning Reporting right foot pain since fall prior to admission, requesting x-ray No other complaints, no overnight event Review of Systems Review of Systems: Yes all other systems are reviewed and are negative Constitutional Constitutional: Denies chills and Denies fever(s) Cardiovascular Cardiovascular: Denies chest pain Respiratory Respiratory: Denies cough Gastrointestinal Gastrointestinal: Denies abdominal pain Physical Exam Vital Signs: Vital Signs: Last Vital Signs Temp 98.8 F 11/20/20 11:09 Pulse 82 11/20/20 11:09 Resp 20 11/20/20 11:09 BP 105/55 L 11/20/20 11:09 Pulse Ox 96 11/20/20 11:09 Oxygen Flow Rate 0 11/14/20 10:00 Body Mass Index 23.6 Const: Nutritional Appearance: well nourished Orientation/consciousness: patient oriented x3 HENMT: Head: Yes normocephalic and Yes atraumatic Eyes: Sclerae: sclerae normal Chest: Chest palpation & inspection: normal inspection of the chest Resp: Effort & Inspection: normal respiratory effort and no respiratory distress Auscultation: clear to auscultation bilaterally Cardio: Rate: regular rate Rhythm: regular rhythm GI: Palpation (GI): Soft to palpation and nontender Skin: Other: dressing, c/d/i right groin Neuro: General: patient oriented x3 Cranial nerves: Yes CN's II-XII intact bilaterally and Yes Bilaterally intact EOM present Extrem: Other: Right foot generalized tenderness, no bruising, no open wound Objective Data Current Medications Generic Name Dose Route Start Last Admin Trade Name Oliver PRN Reason Stop Dose Admin Acetaminophen 650 mg 11/12/20 04:07 11/17/20 21:35 Acetaminophen 325 Mg Tablet PO 650 mg Q6H PRN Administration Fever Apixaban 2.5 mg 11/18/20 09:00 11/20/20 08:26 Apixaban 2.5 Mg Tablet PO 2.5 mg BID STEWART Administration Aspirin 81 mg 11/18/20 09:00 11/20/20 08:26 Aspirin Enteric Coated 81 Mg Tablet. PO 81 mg DAILY STEWART Administration Heparin Sodium (Porcine) 3,000 unit 11/16/20 10:55 11/16/20 11:25 Heparin Sodium,Porcine 5,000 Unit/Ml Vial 40 unit/kg (3000 unit) 3,000 unit IVPUSH Administration BOLUS PRN 40 unit/kg - Heparin Protocol Heparin Sodium (Porcine) 6,000 unit 11/16/20 10:56 11/16/20 17:50 Heparin Sodium,Porcine 5,000 Unit/Ml Vial 80 unit/kg (6000 unit) 6,000 unit IVPUSH Administration BOLUS PRN 80 unit/kg - Heparin Protocol Medication 1 each 11/14/20 12:00 No Benzodiazepines MISCELLANE DAILY [facility] Metronidazole 500 mg 11/20/20 18:00 Metronidazole 500 Mg Tablet PO Q12H [facility] Morphine Sulfate 4 mg 11/17/20 08:07 11/20/20 08:31 Morphine Sulfate 4 Mg/Ml Cartridge IVPUSH 4 mg Q4H PRN Administration pain Pharmacy Consult 1 each 11/14/20 11:07 Consult Rx Etoh Phenob Dosing MISCELLANE ONCE PRN Consult order Protocol Sodium Chloride 3 ml 11/12/20 08:00 11/20/20 08:27 0.9 % Sodium Chloride Flush 3 Ml Syringe IVFLUSH 3 ml QSHIFT STEWART Administration Labs CBC & Chem 7: 11/19/20 08:33 11/19/20 08:33 Microbiology Microbiology Results: Microbiology 11/12/20 16:19 Blood - Venous Blood Culture - Final No growth after 5 days. 11/12/20 16:19 Blood - Venous Blood Culture - Final Bacteroides fragilis 11/12/20 00:00 Groin, Right Gram Stain - Final 11/12/20 00:00 Groin, Right Routine Culture - Final No growth after 2 days Assessment and Plan (1) Bacteremia: Status: Acute Assessment and Plan: 70 year old man admitted by vascular surgery. He has a history of peripheral vascular disease and multiple procedures. 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 Over the last week he noticed some pain to his right groin. He went to [facility] and was transferred to [facility]. His vascular surgeon was notified and the patient was subsequently transferred to [facility]. He was noted to have bleeding to his right groin. He also had cold and mottled right foot with better perfusion after femoral endarterectomy. Femoral endarterectomy. Ruptured groin hematoma with loss of 2000 mL during procedure Right pedal pulse with doppler -management per primary team Bacteremia. B Fragilis, anerobe / -Seen and examined by ID, recommend Flagyl 500 b.i.d. for 14 days on discharge Right foot pain Started prior to admission, x-ray with no acute fracture Hypertension. Soft blood pressure -continue to hold medication Anemia. Better today No signs of bleeding or hematoma H/H stable Toxic Encephalopathy. Resolved. Likely secondary to alcohol abuse/withdrawal. - phenobarbital protocol Smoker. -discussed importance of smoking cessation -NRT DISPO: d/c today DVT prophylaxis with Pari Attending: Dr. Wright
--- NOTE | 2020-11-20 12:42 | MHC.CM.PN ---
Patient has been medically cleared for dc to SNF/STR today. Patient will dc to his first choice SNF- [facility] today at 2:00 PM, via [facility]. Patient and Son/HCP/Sidney @ [phone] are aware of and in agreement with the dc plan. CM assisted Patient in completing a HCP today and it has been uploaded into [email or web address].
--- NOTE | 2020-11-20 12:53 | MHC.INPTTRAN ---
dsd to right groin. Changed this AM. oneal intact. Has mod serous drainage., No bob bleeding. c/o right foot pain, xray this AM, no fx. OOB with max 2 assist. Pedal pulses pos with doppler. Gautam diet, Incont of urine at times.No BM for sev days, Denies feeling constipated.
== END 2020-11-20 14:39 | disposition skilled nursing facility (03) | DRG 271 ==
LOC: HO.IMC 08:16 → HO.ICU 11:26 → HO.S3 11-15 21:19 → HO.ICU 11-15 21:31 → HO.IMC 11-15 22:44
PROVIDERS: Hospitalist; Internal Medicine Cardiovascular Disease; Nurse Practitioner Acute Care; Physician Assistant; Admitting Provider Surgery Vascular Surgery; PCP Pediatrics; Visit Provider Internal Medicine
PROC: 04CH0ZZ Extirpation of Matter from Right External Iliac Artery, Open Approach (ICD-10-PCS; principal; 2020-11-12 11:00)
DX: T82.838A Hemorrhage due to vascular prosthetic devices, implants and grafts, initial encounter (principal); D62 Acute posthemorrhagic anemia; F10.139 Alcohol abuse with withdrawal, unspecified; I97.638 Postprocedural hematoma of a circulatory system organ or structure following other circulatory system procedure; G31.2 Degeneration of nervous system due to alcohol; F17.210 Nicotine dependence, cigarettes, uncomplicated; Z71.6 Tobacco abuse counseling; Z20.822 Contact with and (suspected) exposure to COVID-19; Z79.01 Long term (current) use of anticoagulants; Z79.82 Long term (current) use of aspirin; Z79.899 Other long term (current) drug therapy
CPT/HCPCS: 36415; 71045; 73630; 80048; 80053; 80202; 81001; 82947; 83735; 83935; 84100; 84300; 84443; 85025; 85027; 85384; 85610; 85730; 86850; 86900; 86901; 86920; 86921; 87040; 87071; 87076; 87185; 87205; 87635; 88304; 93005; 94640; 97110; 97163; 97530; C1757; J1100; J1170; J2060; J2270; J2370; J2405; J2543; J2560; J3010; J3370; P9016; P9017

== ENCOUNTER → 2020-11-28 11:37 | Outpatient (BNVA) | payer MEDICARE, OTHER, SELFPAY | PROVIDERS: PCP Pediatrics; Visit Provider Surgery Vascular Surgery | DX: I73.9 Peripheral vascular disease, unspecified (principal); Z98.890 Other specified postprocedural states | CPT/HCPCS: 99212 ==

== ENCOUNTER → 2020-12-10 12:45 | Outpatient (BNVA) | payer MEDICARE, OTHER, SELFPAY | PROVIDERS: PCP Pediatrics; Visit Provider Surgery Vascular Surgery | DX: I73.9 Peripheral vascular disease, unspecified (principal) | CPT/HCPCS: 99212 ==

== ENCOUNTER → 2020-12-17 14:49 | Outpatient (BNVA) | payer MEDICARE, OTHER, SELFPAY | PROVIDERS: PCP Pediatrics; Visit Provider Surgery Vascular Surgery | DX: I73.9 Peripheral vascular disease, unspecified (principal) | CPT/HCPCS: 99212 ==

== ENCOUNTER → 2020-12-24 14:40 | Outpatient (BNVA) | payer MEDICARE, OTHER, SELFPAY | PROVIDERS: PCP Pediatrics; Visit Provider Surgery Vascular Surgery | DX: I73.9 Peripheral vascular disease, unspecified (principal) | CPT/HCPCS: 99212 ==

== ENCOUNTER 2020-12-28 11:30 | Emergency (ER) | payer MEDICARE, OTHER, SELFPAY ==
--- NOTE | ~2020-12-28 | CT_ITS ---
EXAMINATION: CT HEAD WITHOUT CONTRAST CT CERVICAL SPINE WITHOUT CONTRAST INDICATION: Falls TECHNIQUE: A noncontrast CT scan was performed from the skull base to the vertex. A noncontrast CT scan of the cervical spine was performed from the base of the skull through T1 at 2.5 mm and 0.625 mm collimation. Coronal and sagittal reformats were obtained at the acquisition workstation. This CT examination was performed using dose optimization techniques as appropriate, variously including the following: * Automated exposure control * Adjustment of mA and/or kV according to patient size (this includes techniques or standardized protocols for targeted exams where dose is matched to indication/reason for exam; i.e. extremities or head) * Use of iterative reconstruction technique Dose length product is 1808 mGy-cm. COMPARISON: None FINDINGS: Head: Muse to white matter differentiation is maintained without evidence of an acute territorial infarct. There is no intracranial hemorrhage, subarachnoid bleeding or extra-axial collection. There are scattered hypodensities throughout the periventricular and deep white matter likely related with chronic small vessel ischemic disease. There is proportional prominence of the ventricles with the cerebral sulci spaces in keeping with generalized cerebral volume loss. There is no hydrocephalus, herniation, midline shift, or other herniation pattern. No acute calvarial fracture. The paranasal sinuses and mastoid air cells are clear. Cervical Spine: The atlantooccipital and atlantoaxial articulations remain well aligned. Mild retrolisthesis of C3 on C4. No evidence of acute fracture or subluxation. The vertebral bodies and posterior elements appear intact. Cervical spondylosis, with the more prominent changes at moderate disc degeneration at C3-C4, C6-C7. No prevertebral soft tissue swelling. The paraspinal soft tissues are unremarkable. There is no cervical lymphadenopathy. No suspicious thyroid findings. Bilateral pleural calcifications, and pleural parenchymal scarring in the visualized lung apices. CT/CT cervical spine wo con IMPRESSION: 1. No CT evidence of acute intracranial pathology. 2. Chronic findings in the brain, described above. 3. No CT evidence of acute cervical spine fracture. 4. Cervical spondylosis, more prominent at C3-C4, C6-C7. 5. Pleural calcifications and pleural parenchymal scarring in the visualized lung apices.
--- NOTE | ~2020-12-28 | CT_ITS ---
EXAMINATION: CT CHEST WITHOUT CONTRAST CT ABDOMEN AND PELVIS WITHOUT CONTRAST CLINICAL INFORMATION: Falls. Lower abdomen pain. On Eliquis. COMPARISON: CT abdomen 10/09/2020. TECHNIQUE: Multidetector volumetric imaging was performed through the chest, abdomen and without contrast. Sagittal and coronal reformatted images were obtained on the technologist's workstation. Axial MIP volume rendering provided. This CT examination was performed using dose optimization techniques as appropriate, variously including the following: *Automated exposure control *Adjustment of mA and/or kV according to patient size (this includes techniques or standardized protocols for targeted exams where dose is matched to indication/reason for exam; i.e. extremities or head) *Use of iterative reconstruction technique DLP: 242 mGy-cm. FINDINGS: CHEST: Lungs: Calcified pleural plaques. Mild emphysema. Pleural parenchymal scarring in bilateral upper lungs. 8 mm calcified nodule in the right lower lobe. Scattered areas of subpleural interstitial prominence and linear opacities in the right greater than left lobe, which could be related to inflammatory changes, atelectasis/scarring. Calcified nodule in the left lower lobe as well. Mediastinum: Visualized thyroid gland appears unremarkable. Multiple subcentimeter lymph nodes in the mediastinum. No enlarged lymph nodes identified in the mediastinum or celsa. Calcified mediastinal and right hilar lymph nodes. Normal heart size. No pericardial effusion. Coronary artery calcification. Esophagus is nondistended. Chest Wall/Axilla: No lymphadenopathy. No chest wall mass. Osseous Structures: Multilevel degenerative changes in the spine. No acute fracture seen. Sternum appears intact. Visualized clavicles are intact. ABDOMEN/PELVIS: Liver, Gallbladder, Biliary Tree: Multiple scattered small calcific foci in the liver. Slightly macronodular contour to the liver. No focal lesions demonstrated. No extrahepatic or intrahepatic biliary duct dilatation. The gallbladder is unremarkable with no evidence of radiopaque gallstones, gallbladder wall thickening, or pericholecystic inflammatory changes. Pancreas: Mildly atrophic. No acute inflammatory changes. Spleen: Multiple calcifications in the spleen. Adrenal Glands: Unremarkable. Kidneys and Ureters: Right renal 3 mm upper pole calcification. Possible punctate calcification midpole. Small calcification midpole right kidney. No suspicious renal lesions. No hydronephrosis. Bladder: Unremarkable. Gastrointestinal Tract: Stomach and small bowel are nondilated. Large colon is nondilated. No colonic wall thickening or pericolonic inflammatory changes. Normal appendix. No free fluid or evidence of hemorrhage. No free air. No retroperitoneal hemorrhage is seen. Abdominal Wall: There is skin irregularity/ulceration in the anterior aspect of the right inguinal region. There is underlying isodense soft tissue thickening measuring approximately 2.9 x 3.5 cm. Reference image 33:71. This could reflect infectious or inflammatory process. No anterior abdominal wall hernia seen. Lymphovascular Structures: Lymph nodes: Prominent right groin lymph nodes including a 1 cm right groin lymph node image 33:81. Subcentimeter left groin lymph nodes. No enlarged lymph nodes are seen in the abdomen or pelvis otherwise. Vascular: [id number] extensive atherosclerotic vascular disease. Pelvic Viscera: Radiodense presumed radiation seeds in the prostate region. OSSEOUS STRUCTURES: Multilevel degenerative changes in the spine. No acute fractures seen. Bilateral hip joint arthritis. CT/CT abdomen pelvis wo con IMPRESSION: CT CHEST: 1. No acute findings identified. 2. Multiple calcified pleural plaques, with pleural parenchymal findings, which could reflect inflammatory changes, atelectasis/scarring. 3. Calcified mediastinal hilar lymph nodes. CT ABDOMEN: 1. No evidence of acute intra-abdominal hemorrhage or retroperitoneal hemorrhage. 2. Multiple calcifications in the liver and the spleen suggesting prior granulomatous disease. 3. Nonobstructing renal calculi. 4. There is skin irregularity/ulceration in the anteroinferior aspect of the right inguinal region, with area of underlying soft tissue isodense focus measuring 2.9 x 3.5 cm. These findings could reflect infectious or inflammatory process. Please clinically correlate. 5. Prominent right groin lymph nodes. 6. Multilevel degenerative changes in the spine.
[2020-12-28 11:46] VITALS: BP 118/55; PULSE 71; RESP 18; TEMP 37.2; O2SAT 98; BMI 22.2
--- NOTE | 2020-12-28 11:51 | ED_ITS ---
HPI - Fall General Chief Complaint: Fall Stated Complaint: FALL Time Seen by Provider: 12/28/20 11:45 Source: patient and family Mode of arrival: ambulatory Limitations: no limitations History of Present Illness HPI Narrative: 70 yo male with hx of severe PAD on eliquis, COPD, HTN on gabapentin for neuropathy - was in the shower and then found him on the floor no LOC, he states he can't walk due to the neuropathy which isn't new per , he has refused PT in the past, he denies injury at this time. His son thinks he took extra gabapentin today, plan for OR Wednesday with Dr. Manzo ?seroma in R groin with washout, he denies any complaints to me and denies taking too much of his medications, GCS 15 but appears sleepy complaint: fall Onset (ago): hour(s) (6am today) Fall from: standing Fall witnessed: no Place fall occurred: home Loss of consciousness: none Length of LOC: minutes(s) Prolonged down time: no Symptoms prior to fall: none Context: history of frequent falls (has terrible balance and his neuropathy makes it hard for him to walk) Severity: moderate Quality: dull Associated symptoms (after fall): denies Related Data Home Medications Medication Instructions Recorded Confirmed umeclidinium 62.5 mcg-vilanterol 1 inh INHALATION DAILY 03/28/20 11/12/20 25 mcg/actuation powdr for inhalation tamsulosin 1 cap PO BEDTIME 05/14/20 11/12/20 Combivent Respimat 1 puff INHALATION QID PRN 11/12/20 11/12/20 cyanocobalamin (vitamin B-12) 3,000 mcg PO DAILY 11/12/20 11/12/20 [B-12 DOTS] diclofenac sodium 1 g TOPICAL QID 11/12/20 11/12/20 gabapentin 1 cap PO BID 11/12/20 11/12/20 cephalexin 500 mg capsule 500 mg PO BID 11/28/20 pregabalin 100 mg capsule 100 mg PO BID 12/17/20 Previous Rx's Medication Instructions Recorded atorvastatin 40 mg tablet 40 mg PO DAILY #90 tab 09/20/20 metoprolol succinate 50 mg 50 mg PO DAILY #90 tab 09/20/20 tablet,extended release 24 hr apixaban [Eliquis] 2.5 mg PO BID #60 tab 11/20/20 aspirin 81 mg PO DAILY #30 tab 11/20/20 metronidazole 500 mg PO Q12H #28 tab 11/20/20 oxycodone-acetaminophen [Percocet] 1 tab PO Q4H PRN #20 tab 11/20/20 Allergies Allergy/AdvReac Type Severity Reaction Status Date / Time No Known Allergies Allergy Verified 12/24/20 14:46 [No Known Allergies*] Review of Systems Review of Systems: Constitutional : No Fever, No Chills ENT/Mouth : No Ear Pain, No Hoarseness, No sore throat Eyes: No Eye Pain, No Swelling, No Redness, No Foreign Body Cardiovascular : No Chest Pain, No SOB Respiratory : No Cough, No Dyspnea Gastrointestinal : No Nausea, No Vomiting, No Diarrhea, No abdominal Pain Genitourinary : No Dysuria, No Hematuria Musculoskeletal : no joint pain, No Myalgias, No Joint Swelling Skin : No Skin lacerations, No rash Neuro : No Weakness, No Numbness, No Loss of Consciousness, No Dizziness, No Headache, frequent falls Psych : No Anxiety/Panic, No Depression Heme/Lymph: no easy bruising, no Lymphadenopathy Endocrine : No Polyuria, No Polydipsia All other systems reviewed and are negative [facility] Past Medical History Attestation statement: The following information was validated with the patient. Medical History Arthritis Bacteremia Bilateral carotid artery disease COPD (chronic obstructive pulmonary disease) Elevated cholesterol History of prostate cancer HTN (hypertension) Hx of low back pain PVD (peripheral vascular disease) Spinal disease Surgical History History of endarterectomy (11/20/19) History of femoral angiogram History of spinal surgery Hx of colonoscopy Social History Social History Household Members: Spouse and Children Housing: House Are you a primary emergency care tech to a significant other at home: No Do you presently have visiting nurse or other home services: No Alcohol intake: current Alcohol intake frequency: 3 or more drinks per day Alcohol type: beer Patient Tobacco Use Status: Former Tobacco user Cigarette Packs Per Day: 0.5 Cigarettes Per Day: 10.0 Years Smoked: 50 Second Hand Smoke Exposure: No Advance Directives: No Advance Directives Information Provided: No service: No Current occupational status: retired Physical Exam Vital Signs: Vital Signs: Last Vital Signs Temp 99.2 F 12/28/20 14:30 Pulse 82 12/28/20 14:57 Resp 18 12/28/20 16:00 BP 100/42 L 12/28/20 14:57 Pulse Ox 95 12/28/20 14:57 Body Mass Index 22.2 Appearance: Somnolent Oriented X3. No acute distress. Eyes: Pupils equal, round and reactive to light. ENT: Pharynx normal. Neck: Normal inspection. Neck supple. CVS: Normal heart rate and rhythm. Pulses normal. Respiratory: No respiratory distress. Breath sounds normal. Abdomen: Soft and non-tender. G groin no erythema, ss drainage noted from open groin no abscess/fluctuance Skin: Skin warm and dry. pale skin color. Normal skin turgor. Extremities: pitting 1 to 2+ bilateral lower extremity edema. No calf ttp Neuro: Oriented X 3. No motor deficit. No sensory deficit. Course Course Course Narrative: known collection in R groin no fevers does not appear cellulitic on my exam concern is he is on AC therapy and has been such a high fall risk and I suspect he is overmedicating as does his family will obtain PT/CM consult Patient placed in physician observation at 234pm. The indication for observation is that the patient needs more time to see if his sedation from gabapentin improves and his concern for fall risk with eliquis use needs to be assessed by PT/CM. At this time the patient is well developed well nourished, lungs clear, CV RRR, abd nontender, neuro is intact. plan is for [facility] [place] at 530pm Physician observation ended at 508pm Patient seen and cleared by PT/CM Plan is to follow up outpatient NAD, lungs clear, CV RRR, Abd nontender, Neuro intact. Disposition is for SNF MDM - Fall MDM Narrative Medical decision making narrative: 70 yo male with hx of severe PAD on eliquis, COPD, HTN on gabapentin for neuropathy - was in the shower and then found him on the floor no LOC, he states he can't walk due to the neuropathy which isn't new per , he has refused PT in the past, he denies injury at this time. His son thinks he took extra gabapentin today, plan for OR Wednesday with Dr. Manzo ?seroma in R groin with washout, he denies any complaints to me and denies taking too much of his medications, GCS 15 but appears sleepy - at times will need trauma CT scans of head/neck/chest/abdomen, labs, EKG, if he cannot ambulate will discuss keeping him here for observation and PT/CM for STR Lab Data Result diagrams: 12/28/20 12:37 12/28/20 13:26 Labs: Lab Results 12/28/20 12/28/20 12/28/20 Range/Units 12:37 12:37 12:37 WBC 7.4 (4.8-10.8) X10*3/uL RBC 3.29 L D (4.60-5.80) X10*6/uL Hgb 10.6 L (14.0-18.0) g/dl Hct 32.6 L D (42-52) % MCV 99.1 H (80-98) fL MCH 32.2 (27.0-33.0) pg MCHC 32.5 (31.0-36.0) g/dl RDW 14.6 (11.0-16.0) % Plt Count 315 (160-400) X10*3/uL MPV 8.9 L (9.4-12.4) fL Immature Gran % (Auto) 0.5 H (0.0-0.4) % Neut % (Auto) 73.9 H (45-73) % Lymph % (Auto) 15.7 L (20-40) % Beckham % (Auto) 7.2 (2-11) % Eos % (Auto) 2.2 (0-4) % Baso % (Auto) 0.5 (0-2) % Lymph # (Auto) 1.2 (1.2-4.9) X10*3/uL Beckham # (Auto) 0.5 (0.1-1.2) X10*3/uL Eos # (Auto) 0.2 (0.0-0.4) X10*3/uL Baso # (Auto) 0.0 (0.0-0.2) X10*3/uL Abs Immat Gran (auto) 0.04 H (0.00-0.03) X10*3/uL Absolute Neuts (auto) 5.5 (2.0-8.3) X10*3/uL Absolute Nucleated RBC 0.000 (0.0-0.012) X10*3/uL Nucleated RBC % (auto) 0.0 (0.0-0.2) /100WBC PT 12.6 (9.9-13.0) SEC INR 1.1 (0.9-1.1) APTT 33.7 (24.1-38.0) SEC VBG pH (7.32-7.43) VBG pCO2 mmHg VBG pO2 mmHg VBG HCO3 (22-26) mmol/L VBG O2 Saturation % VBG Base Excess mmol/L Sodium (135-145) mmol/L Potassium (3.3-5.1) mmol/L Chloride (96-108) mmol/L Carbon Dioxide (22-29) mmol/L Anion Gap (12-20) BUN (9-16) mg/dL Creatinine (0.5-1.4) mg/dL Estim Creat Clear Calc Estimated GFR Random Glucose (60-115) mg/dL Lactic Acid 2.0 (0.5-2.0) mmol/L Calcium (8.4-10.2) mg/dL Magnesium (1.6-2.6) mg/dL Total Bilirubin (0.0-1.0) mg/dL Direct Bilirubin (0.0-0.5) mg/dL AST (5-37) U/L ALT (0-40) U/L Alkaline Phosphatase (39-117) U/L Total Creatine Kinase (38-174) U/L Troponin I High Sens (<3.5-35.0) ng/L Total Protein (6.5-8.0) g/dL Albumin (3.5-5.0) g/dL Urine Color Urine Appearance Urine pH (5.0-8.0) Ur Specific [place] (1.005-1.025) Urine Protein (NEG-TRACE) MG/DL Urine Glucose (UA) (NEG) MG/DL Urine Ketones (NEG) MG/DL Urine Blood (NEG) Urine Nitrite (NEG) Ur Leukocyte Esterase (NEG) COVID-19 (ANGE) (Negative) COVID-19 Clin Com 12/28/20 12/28/20 12/28/20 Range/Units 12:37 12:37 12:37 WBC (4.8-10.8) X10*3/uL RBC (4.60-5.80) X10*6/uL Hgb (14.0-18.0) g/dl Hct (42-52) % MCV (80-98) fL MCH (27.0-33.0) pg MCHC (31.0-36.0) g/dl RDW (11.0-16.0) % Plt Count (160-400) X10*3/uL MPV (9.4-12.4) fL Immature Gran % (Auto) (0.0-0.4) % Neut % (Auto) (45-73) % Lymph % (Auto) (20-40) % Beckham % (Auto) (2-11) % Eos % (Auto) (0-4) % Baso % (Auto) (0-2) % Lymph # (Auto) (1.2-4.9) X10*3/uL Beckham # (Auto) (0.1-1.2) X10*3/uL Eos # (Auto) (0.0-0.4) X10*3/uL Baso # (Auto) (0.0-0.2) X10*3/uL Abs Immat Gran (auto) (0.00-0.03) X10*3/uL Absolute Neuts (auto) (2.0-8.3) X10*3/uL Absolute Nucleated RBC (0.0-0.012) X10*3/uL Nucleated RBC % (auto) (0.0-0.2) /100WBC PT (9.9-13.0) SEC INR (0.9-1.1) APTT (24.1-38.0) SEC VBG pH (7.32-7.43) VBG pCO2 mmHg VBG pO2 mmHg VBG HCO3 (22-26) mmol/L VBG O2 Saturation % VBG Base Excess mmol/L Sodium (135-145) mmol/L Potassium (3.3-5.1) mmol/L Chloride (96-108) mmol/L Carbon Dioxide (22-29) mmol/L Anion Gap (12-20) BUN (9-16) mg/dL Creatinine (0.5-1.4) mg/dL Estim Creat Clear Calc Estimated GFR Random Glucose (60-115) mg/dL Lactic Acid (0.5-2.0) mmol/L Calcium (8.4-10.2) mg/dL Magnesium (1.6-2.6) mg/dL Total Bilirubin (0.0-1.0) mg/dL Direct Bilirubin (0.0-0.5) mg/dL AST (5-37) U/L ALT (0-40) U/L Alkaline Phosphatase (39-117) U/L Total Creatine Kinase (38-174) U/L Troponin I High Sens < 3.5 (<3.5-35.0) ng/L Total Protein (6.5-8.0) g/dL Albumin (3.5-5.0) g/dL Urine Color YELLOW Urine Appearance CLEAR Urine pH 6.0 (5.0-8.0) Ur Specific [place] 1.015 (1.005-1.025) Urine Protein NEG (NEG-TRACE) MG/DL Urine Glucose (UA) NEG (NEG) MG/DL Urine Ketones NEG (NEG) MG/DL Urine Blood NEG (NEG) Urine Nitrite NEG (NEG) Ur Leukocyte Esterase NEG (NEG) COVID-19 (ANGE) Negative (Negative) COVID-19 Clin Com See Note 12/28/20 12/28/20 12/28/20 Range/Units 13:26 13:26 14:59 WBC (4.8-10.8) X10*3/uL RBC (4.60-5.80) X10*6/uL Hgb (14.0-18.0) g/dl Hct (42-52) % MCV (80-98) fL MCH (27.0-33.0) pg MCHC (31.0-36.0) g/dl RDW (11.0-16.0) % Plt Count (160-400) X10*3/uL MPV (9.4-12.4) fL Immature Gran % (Auto) (0.0-0.4) % Neut % (Auto) (45-73) % Lymph % (Auto) (20-40) % Beckham % (Auto) (2-11) % Eos % (Auto) (0-4) % Baso % (Auto) (0-2) % Lymph # (Auto) (1.2-4.9) X10*3/uL Beckham # (Auto) (0.1-1.2) X10*3/uL Eos # (Auto) (0.0-0.4) X10*3/uL Baso # (Auto) (0.0-0.2) X10*3/uL Abs Immat Gran (auto) (0.00-0.03) X10*3/uL Absolute Neuts (auto) (2.0-8.3) X10*3/uL Absolute Nucleated RBC (0.0-0.012) X10*3/uL Nucleated RBC % (auto) (0.0-0.2) /100WBC PT (9.9-13.0) SEC INR (0.9-1.1) APTT (24.1-38.0) SEC VBG pH 7.38 (7.32-7.43) VBG pCO2 37 mmHg VBG pO2 43 mmHg VBG HCO3 22 (22-26) mmol/L VBG O2 Saturation 64.0 % VBG Base Excess -2.2 mmol/L Sodium 132 L (135-145) mmol/L Potassium 4.7 D (3.3-5.1) mmol/L Chloride 101 (96-108) mmol/L Carbon Dioxide 19 L (22-29) mmol/L Anion Gap 17 (12-20) BUN 9 (9-16) mg/dL Creatinine 0.68 (0.5-1.4) mg/dL Estim Creat Clear Calc 96.1 Estimated GFR > 60 Random Glucose 102 (60-115) mg/dL Lactic Acid (0.5-2.0) mmol/L Calcium 8.9 D (8.4-10.2) mg/dL Magnesium 2.2 (1.6-2.6) mg/dL Total Bilirubin 0.9 (0.0-1.0) mg/dL Direct Bilirubin 0.3 (0.0-0.5) mg/dL AST 15 D (5-37) U/L ALT 8 (0-40) U/L Alkaline Phosphatase 102 D (39-117) U/L Total Creatine Kinase 70 (38-174) U/L Troponin I High Sens (<3.5-35.0) ng/L Total Protein 6.3 L D (6.5-8.0) g/dL Albumin 3.3 L D (3.5-5.0) g/dL Urine Color Urine Appearance Urine pH (5.0-8.0) Ur Specific [place] (1.005-1.025) Urine Protein (NEG-TRACE) MG/DL Urine Glucose (UA) (NEG) MG/DL Urine Ketones (NEG) MG/DL Urine Blood (NEG) Urine Nitrite (NEG) Ur Leukocyte Esterase (NEG) COVID-19 (ANGE) (Negative) COVID-19 Clin Com ECG Data Attestation: I personally reviewed and interpreted this ECG as follows: ECG interpretation date: 12/28/20 ECG interpretation time: 12:30 Interpretation: Rate: 76 Rhythm: NSR Nixon: normal Normal P waves. Normal JH. decreased QRS complex ST T wave : normal qTC: normal prior studies: no acute ischemia The study has been interpreted contemporaneously by me. . Discharge Plan Discharge Clinical Impression: Somnolence Falls Qualifiers: Encounter type: initial encounter Qualified Code(s): W19.XXXA - Unspecified fall, initial encounter Patient Disposition: Xfer SNF Transfer Details: [facility] [place] Instructions: Fall Prevention (ED) Additional Instructions: return to ED for any worsening symptoms or concerns Prescriptions: No Action tamsulosin 0.4 mg capsule 1 cap PO BEDTIME RF: 0 gabapentin 300 mg capsule 1 cap PO BID RF: 0 diclofenac sodium 1 % gel 1 g topical QID RF: 0 Combivent Respimat 20-100 mcg/actuation mist 1 puff inhalation QID PRN (Reason: Shortness Of Breath) RF: 0 cyanocobalamin (vitamin B-12) [B-12 DOTS] 500 mcg Tablet 3,000 mcg PO DAILY RF: 0 metronidazole 500 mg Tablet 500 mg PO Q12H Qty: 28 RF: 0 Eliquis 2.5 mg Tablet 2.5 mg PO BID Qty: 60 RF: 0 aspirin 81 mg Tablet,Delayed Release (Dr/Ec) 81 mg PO DAILY Qty: 30 RF: 0 oxycodone-acetaminophen [Percocet] 5-325 mg tablet 1 tab PO Q4H PRN (Reason: pain) Qty: 20 RF: 0 umeclidinium-vilanterol 62.5-25 mcg/actuation blister with device 1 inh inhalation DAILY RF: 0 metoprolol succinate 50 mg tablet extended release 24 hr 50 mg PO DAILY Qty: 90 RF: 0 atorvastatin 40 mg tablet 40 mg PO DAILY Qty: 90 RF: 1
--- NOTE | 2020-12-28 11:54 | ECG_ITS ---
Test Reason : FALL Blood Pressure : / mmHG Vent. Rate : 076 BPM Atrial Rate : 076 BPM P-R Int : 116 ms QRS Dur : 066 ms QT Int : 400 ms P-R-T Axes : 044 067 065 degrees QTc Int : 450 ms Normal sinus rhythm Low voltage QRS Nonspecific ST abnormality Abnormal ECG When compared with ECG of 14-NOV-2020 15:03, Premature atrial complexes are no longer Present Referred By: Malena Munguia Electronically Signed By:ELISE WILLSON
[2020-12-28 12:43] LABS: MANUAL DIFF FLAG NO
[2020-12-28 12:45] LABS: Basophils Percent Auto 0.5 % (0-2); Eosinophils Absolute Auto 0.2 X10*3/uL (0.0-0.4); Eosinophils Percent Auto 2.2 % (0-4); Hematocrit 32.6 % (42-52); Hemoglobin 10.6 g/dl (14.0-18.0); Imm Gran Abs Auto 0.04 X10*3/uL (0.00-0.03); Imm Gran Pct Auto 0.5 % (0.0-0.4); Lymphocytes Absolute Auto 1.2 X10*3/uL (1.2-4.9); Lymphocytes Percent Auto 15.7 % (20-40); Mean Corpuscular HGB Conc 32.5 g/dl (31.0-36.0); Mean Corpuscular Hemoglobin 32.2 pg (27.0-33.0); Mean Corpuscular Volume 99.1 fL (80-98); Mean Platelet Volume 8.9 fL (9.4-12.4); Monocytes Absolute Auto 0.5 X10*3/uL (0.1-1.2); Monocytes Percent Auto 7.2 % (2-11); Neutrophils Absolute Auto 5.5 X10*3/uL (2.0-8.3); Neutrophils Percent Auto 73.9 % (45-73); Platelet Count 315 X10*3/uL (160-400); Red Blood Count 3.29 X10*6/uL (4.60-5.80); Red Cell Distribution Width 14.6 % (11.0-16.0); White Blood Count 7.4 X10*3/uL (4.8-10.8)
[2020-12-28 12:46] LABS: Glucose Urine UA NEG (NEG); Leukocyte Esterase Urine NEG (NEG); Nitrite Urine NEG (NEG); Specific Gravity - Urine 1.015 (1.005-1.025); Urine Blood NEG (NEG); Urine Ketones NEG (NEG); Urine Protein NEG (NEG-TRACE)
[2020-12-28 12:51] LABS: INTERNATIONAL NORM RATIO 1.1 (0.9-1.1); Prothrombin Time 12.6 SEC (9.9-13.0)
[2020-12-28 12:54] LABS: Partial Thromboplastin Time 33.7 SEC (24.1-38.0)
[2020-12-28 12:58] LABS: Appearance Urine CLEAR; Color Urine YELLOW
[2020-12-28 13:01] LABS: COVID-19 Test Negative (Negative); IDNOW Serial# 9DD0AD1C
[2020-12-28 13:31] LABS: Troponin-I High Sensitivity < 3.5 ng/L (<3.5-35.0)
[2020-12-28 13:57] LABS: Anion Gap 17 (12-20); Blood Urea Nitrogen 9 mg/dL (9-16); Calcium 8.9 mg/dL (8.4-10.2); Carbon Dioxide 19 mmol/L (22-29); Chloride 101 mmol/L (96-108); Creatinine Clr Calc Pharmacy 96.1; Estimated Glomerular Filt Rate > 60; Glucose Random 102 mg/dL (60-115); Potassium 4.7 mmol/L (3.3-5.1); Sodium 132 mmol/L (135-145)
[2020-12-28 13:58] LABS: Alanine Aminotransferase 8 U/L (0-40); Albumin Level 3.3 g/dL (3.5-5.0); Alkaline Phosphatase 102 U/L (39-117); Aspartate Amino Transferase 15 U/L (5-37); Bilirubin Direct 0.3 mg/dL (0.0-0.5); Bilirubin Total 0.9 mg/dL (0.0-1.0); Magnesium 2.2 mg/dL (1.6-2.6); Total Protein 6.3 g/dL (6.5-8.0)
[2020-12-28 14:30] VITALS: BP 100/42; PULSE 82; RESP 15; TEMP 37.3; O2SAT 95
[2020-12-28 14:57] VITALS: BP 100/42; PULSE 82; O2SAT 95
[2020-12-28 15:09] LABS: VBG Base Excess -2.2 mmol/L; VBG HCO3 22 mmol/L (22-26); VBG pCO2 37 mmHg; VBG pH 7.38 (7.32-7.43); VBG pO2 43 mmHg
[2020-12-28 15:22] LABS: Venous Blood Gas Refer to POC result
[2020-12-28 16:00] VITALS: RESP 18
--- NOTE | 2020-12-28 16:04 | MHC.CM.ED ---
pt has agreed to go to [facility] and has been accepted at [facility] [place]. however, the snf is not willing to pay for [place] [facility] [place], additionally they are saying it may be difficult to schedule transportation being it is now wednesday afternoon. i have attempted to call patient's who is no longer at bedside to see if she will transport pt from [facility] [place] [facility] [place], could not reach her. i have also tried to contact pt's son, toni, with the same questioning, could not reach him. alba esquivel and rn are aware of this , cm to cont. to follow.
--- NOTE | 2020-12-28 17:09 | MHC.CM.ED ---
pt has agreed to go to [facility] and has been [facility] [place]. he is leaving [facility] [place] at 5:30 pm via [facility] - [facility]. pt's was called, message left regarding placement at [facility]. also eplained that she would be responsible to transport her to dr. moreno's same day surgery appt. wednesday , 12/30/20 at 9:15 am. and then back to [facility] p procedure. e.niko. and rn are aware of this , cm to cont. to follow.
== END 2020-12-28 17:55 | disposition skilled nursing facility (03) ==
PROVIDERS: Emergency Provider Emergency Medicine; PCP Pediatrics
DX: R40.0 Somnolence (principal); R29.6 Repeated falls; R60.0 Localized edema; G62.9 Polyneuropathy, unspecified; I73.9 Peripheral vascular disease, unspecified; I10 Essential (primary) hypertension; J44.9 Chronic obstructive pulmonary disease, unspecified; Z79.01 Long term (current) use of anticoagulants; Z79.82 Long term (current) use of aspirin; Z79.899 Other long term (current) drug therapy; Z20.822 Contact with and (suspected) exposure to COVID-19
CPT/HCPCS: 36415; 70450; 71250; 72125; 74176; 80048; 80076; 81003; 82550; 83605; 83735; 84484; 85025; 85610; 85730; 87635; 93005; 97162; 99284; 99285

== ENCOUNTER → 2020-12-30 09:06 | Day surgery (SDC) | payer MEDICARE, OTHER, SELFPAY ==
--- NOTE | 2020-12-27 11:50 | HO.ANESPROP2 ---
Documented by User: Nila Masters 12/27/20 14:07 HPI - Anesthesia Eval Consult details Narrative: 70yo M for Right I&D of groin,poss debridement s/p Femoral endarterectomy 04/2020 requiring revision 10/2020 d/t bleeding Eliquis for PVD +ETOH: >3 beers daily PMFSH Active Problems Active Problems: All Active Problems (Updated 11/28/20 @ 00:02 by Malaika Valerio) Bacteremia (Acute) Critical lower limb ischemia (Acute) COPD (chronic obstructive pulmonary disease) (Acute) SOB (shortness of breath) on exertion (Acute) HTN (hypertension) (Acute) Bilateral carotid artery disease (Acute) PAD (peripheral artery disease) (Acute) Past Medical History Medical History Arthritis Bacteremia Bilateral carotid artery disease COPD (chronic obstructive pulmonary disease) Elevated cholesterol History of prostate cancer HTN (hypertension) Hx of low back pain PVD (peripheral vascular disease) Spinal disease Surgical History Surgical History History of endarterectomy (11/20/19) History of femoral angiogram History of spinal surgery Hx of colonoscopy Social History Social History Household Members: Spouse and Children Housing: House Are you a primary after school caregiver to a significant other at home: No Do you presently have visiting nurse or other home services: No Alcohol intake: current Alcohol intake frequency: 3 or more drinks per day Alcohol type: beer Patient Tobacco Use Status: Current everyday Tobacco user Cigarette Packs Per Day: 0.5 Cigarettes Per Day: 10.0 Years Smoked: 50 Second Hand Smoke Exposure: No Use of substances other than those prescribed or required for medical reasons: No Are you DNR?: No Advance Directives: No Advance Directives Information Provided: Yes service: No Current occupational status: retired Meds Allergies Allergy/AdvReac Type Severity Reaction Status Date / Time No Known Allergies Allergy Verified 12/24/20 14:46 [No Known Allergies*] Home Medications Medication Instructions Recorded Confirmed Last Taken Type umeclidinium 62.5 mcg-vilanterol 1 inh INHALATION DAILY 03/28/20 11/12/20 Unknown History 25 mcg/actuation powdr for inhalation tamsulosin 1 cap PO BEDTIME 05/14/20 11/12/20 Unknown History Combivent Respimat 1 puff INHALATION QID PRN 11/12/20 11/12/20 Unknown History cyanocobalamin (vitamin B-12) 3,000 mcg PO DAILY 11/12/20 11/12/20 Unknown History [B-12 DOTS] diclofenac sodium 1 g TOPICAL QID 11/12/20 11/12/20 Unknown History gabapentin 1 cap PO BID 11/12/20 11/12/20 Unknown History cephalexin 500 mg capsule 500 mg PO BID 11/28/20 Unknown History pregabalin 100 mg capsule 100 mg PO BID 12/17/20 Unknown History Exam Exam Date and Time: December 27, 2020 1150 Narrative Narrative: EKG 10/2020 Vent. Rate : 099 BPM Atrial Rate : 099 BPM P-R Int : 110 ms QRS Dur : 066 ms QT Int : 356 ms P-R-T Axes : 050 080 077 degrees QTc Int : 456 ms Sinus rhythm with short NJ with Premature atrial complexes Cannot exclude septal infarct, but could be from body habitus and lead placement. Borderline ECG When compared with ECG of 13-NOV-2020 11:22, T wave inversion no longer evident in Inferior leads T wave inversion no longer evident in Anterolateral leads ECHO 09/2019: Technically limited, LVEF 55-60%, impaired relax, valves wihtin nml limit Nuc stress 09/2019: No definitive ischemia, basal to mid septum with fixed defect, ? artifact vs old nontransurmal infared, gated EF 70%, no transient ischemic dilation Carotid US 07/2019: R ICA 0-49%, L ICA 50-79% Documented by User: Anup Zarco 12/30/20 10:59 [facility] Past Medical History Medical History Arthritis Bacteremia Bilateral carotid artery disease COPD (chronic obstructive pulmonary disease) Elevated cholesterol History of prostate cancer HTN (hypertension) Hx of low back pain PVD (peripheral vascular disease) Spinal disease Surgical History Surgical History History of endarterectomy (11/20/19) History of femoral angiogram History of spinal surgery Hx of colonoscopy Social History Social History Household Members: Spouse and Children Housing: House Are you a primary after school caregiver to a significant other at home: No Do you presently have visiting nurse or other home services: No Alcohol intake: current Alcohol intake frequency: 3 or more drinks per day Alcohol type: beer Patient Tobacco Use Status: Current everyday Tobacco user Cigarette Packs Per Day: 0.5 Cigarettes Per Day: 10.0 Years Smoked: 50 Second Hand Smoke Exposure: No Use of substances other than those prescribed or required for medical reasons: No Are you DNR?: No Advance Directives: No Advance Directives Information Provided: Yes service: No Current occupational status: retired [employer] Allergies Allergy/AdvReac Type Severity Reaction Status Date / Time No Known Allergies Allergy Verified 12/24/20 14:46 [No Known Allergies*] Home Medications Medication Instructions Recorded Confirmed Last Taken Type umeclidinium 62.5 mcg-vilanterol 1 inh INHALATION DAILY 03/28/20 11/12/20 Unknown History 25 mcg/actuation powdr for inhalation tamsulosin 1 cap PO BEDTIME 05/14/20 11/12/20 Unknown History Combivent Respimat 1 puff INHALATION QID PRN 11/12/20 11/12/20 Unknown History cyanocobalamin (vitamin B-12) 3,000 mcg PO DAILY 11/12/20 11/12/20 Unknown History [B-12 DOTS] diclofenac sodium 1 g TOPICAL QID 11/12/20 11/12/20 Unknown History gabapentin 1 cap PO BID 11/12/20 11/12/20 Unknown History cephalexin 500 mg capsule 500 mg PO BID 11/28/20 Unknown History pregabalin 100 mg capsule 100 mg PO BID 12/17/20 Unknown History Exam Airway Mallampati Class: II TM Dist: >3cm Neck ROM: Full Denture: Upper Loose/Missing/Broken Teeth: Yes (upper denture, lower poor and many missing) Heart: irreg irreg s1s2 Lungs: +b/s bilaterally Assessment and Plan Assessment Anesthesia Assessment: Anesthesia Plan Discussed, PAT Visit and Chart Reviewed Final Anesthetic Review NPO: Yes ASA Class: III Final Preanesthetic Review: No Changes in Pt Med Stat, Meds/Allgs Chart Reviewed, Consent Obtained/Reviewed and Anes Risks/Benef Reviewed Patient Risk: Intermediate Procedure Risk: Low Assessment/Block/Sedation in SS: Assess/Block/Sedation-SS Anesthetic Plan Anesthetic Plan: MAC: and Agree w/ Assess. and Plan Disposition: Standard PACU
[2020-12-30] VITALS (7 sets, daily range): BP systolic 145–165; BP diastolic 65–77; PULSE 95–100; RESP 16–22; TEMP 36.2–36.7; O2SAT 93–100; BMI 21.2
--- NOTE | 2020-12-30 09:45 | PC.NURSE ---
Called [facility] to confirm medication administration for patient. Was transferred to RN Ashley who stated His medication list just got faxed over this morning so he hasn't received any of his regular medications since he has been here. Confirmed this meant he has been been dosed with his Eliquis since his arrival and Ashley confirmed. Called into OR and spoke with Isaiah who relayed message to Anais, darriusayed to proceed.
[2020-12-30 09:53] LABS: Hematocrit 29.4 % (42-52); Hemoglobin 9.7 g/dl (14.0-18.0); Mean Corpuscular Hemoglobin 32.1 pg (27.0-33.0); Mean Corpuscular Volume 97.4 fL (80-98); Mean Platelet Volume 8.4 fL (9.4-12.4); Platelet Count 256 X10*3/uL (160-400); Red Blood Count 3.02 X10*6/uL (4.60-5.80); Red Cell Distribution Width 14.4 % (11.0-16.0); White Blood Count 6.1 X10*3/uL (4.8-10.8)
[2020-12-30 10:26] LABS: Anion Gap 13 (12-20); Blood Urea Nitrogen 11 mg/dL (9-16); Calcium 8.6 mg/dL (8.4-10.2); Carbon Dioxide 24 mmol/L (22-29); Chloride 99 mmol/L (96-108); Estimated Glomerular Filt Rate > 60; Glucose Fasting 106 mg/dL (60-99); Potassium 4.2 mmol/L (3.3-5.1); Sodium 132 mmol/L (135-145)
[2020-12-30] MEDS: fentaNYL citrate/PF 100 MCG/2 ML VIAL 25 MCG IVPUSH ×2 (12:20→12:25)
[2020-12-30] MEDS: oxyCODONE HCl Immed Release 5 MG TABLET 10 MG PO (12:21)
--- NOTE | 2020-12-30 12:46 | P.OP_ITS ---
Operative Note Operative Note Date of Service: 12/30/20 Narrative: Operative note by [facility] Preoperative diagnosis: Healing right groin incision Postoperative diagnosis: Same Procedure:1. Right common femoral artery cutdown 2. Exploration right common femoral artery 3. Excisional debridement right groin into muscle 4. Drainage of seroma Surgeon:Cabrera Manzo M.D. Quality Assurance Lab Technician: Cory Anesthesia: Local with sedation Specimens: 1 Drains: None Estimated blood loss: Minimal Indications: 70-year-old gentleman status post right femoral endarterectomy redo. He has had a nonhealing right groin incision for sometime now. It has a fair amount of serous drainage where it saturating gauze twice a day. He now presents for exploration and debridement. The patient has signed the informed consent after reviewing risks, complications, benefits, and alternatives previously discussed with the patient in my office. The patient was given the opportunity to ask any additional questions or voice any concerns. All questions were answered to the patient's satisfaction. Procedure in detail: Patient was taken to the operating room where the right groin was prepped and draped in standard surgical fashion. Using a 15 blade the prior opening was opened further. Cutdown was taken down to the common femoral artery. This was explored and appeared to be completely intact. There is no evidence of bleeding or drainage. Once this was accomplished using curette we debrided the muscle and soft tissue of the area. Fibrinous material was removed off the nonhealing tissue. Preprocedure measurement was 4 cm x 2 cm x 0.3 cm postprocedure measurement was 5 cm x 2.5 cm x 0.6 cm. Once this was done Amniofil slurry was then placed into the wound. Next we turned our attention to a bump that had developed in the medial aspect of the proximal thigh. A 2 cm incision was carried out over this. Immediately a seroma was encountered. This was opened and drained in its entirety. Packed with half-inch iodophor packing. Both incisions were closed with 2 0 nylon in a mattress fashion. They were packed and dressings were subsequently placed. At the end the case but just been counts were correct. Patient tolerated the procedure well. Returned to recovery with stable vitals. This note is constructed using voice recognition software. While every effort has been made to ensure accuracy, dot compliance manager errors may have been included. Thank you for allowing me to participate in the care of your patient. Yours sincerely, Cabrera Manzo MD, FACS, R.P.V.I.
--- NOTE | 2020-12-30 12:54 | MHC.SHP ---
Pre-Procedural Eval Section A Date of Service: 12/30/20 Section B Chief Complaint: non-healing ulcer Allergies: Allergies Allergy/AdvReac Type Severity Reaction Status Date / Time No Known Allergies Allergy Verified 12/24/20 14:46 [No Known Allergies*] Plan I have reviewed the history and physical and performed a pertinent physical examination on my patient. No changes have occurred unless specified.
== END | disposition home or self-care (01) ==
PROVIDERS: Nurse Practitioner; PCP Pediatrics; Visit Provider Surgery Vascular Surgery
PROC: (CPT 11043; principal; 2020-12-30 10:50)
DX: T81.89XA Other complications of procedures, not elsewhere classified, initial encounter (principal); L97.115 Non-pressure chronic ulcer of right thigh with muscle involvement without evidence of necrosis; L76.34 Postprocedural seroma of skin and subcutaneous tissue following other procedure; I73.9 Peripheral vascular disease, unspecified; Y83.8 Other surgical procedures as the cause of abnormal reaction of the patient, or of later complication, without mention of misadventure at the time of the procedure; Y92.9 Unspecified place or not applicable; Y82.9 Unspecified medical devices associated with adverse incidents
CPT/HCPCS: 11043; 10140; 36415; 80048; 85027; 88304; 88305; J0690; J2250; J3010; J3590

== ENCOUNTER → 2021-01-07 12:55 | Outpatient (BNVA) | payer MEDICARE, OTHER, SELFPAY | PROVIDERS: PCP Pediatrics; Visit Provider Surgery Vascular Surgery | DX: T81.30XA Disruption of wound, unspecified, initial encounter (principal); I73.9 Peripheral vascular disease, unspecified; Z95.820 Peripheral vascular angioplasty status with implants and grafts | CPT/HCPCS: 99212 ==

== ENCOUNTER → 2021-02-04 13:39 | Outpatient (BNVA) | payer MEDICARE, OTHER, SELFPAY | PROVIDERS: PCP Pediatrics; Referring Provider Pediatrics; Visit Provider Surgery Vascular Surgery | DX: I73.9 Peripheral vascular disease, unspecified (principal) | CPT/HCPCS: 99212 ==

== ENCOUNTER 2021-02-06 10:11 | Outpatient (RCR) | payer MEDICARE, OTHER, SELFPAY | END 2021-02-18 12:39 | disposition home or self-care (01) | LOC: HO.WCC 10:11 | PROVIDERS: PCP Pediatrics; Visit Provider Surgery | DX: L89.614 Pressure ulcer of right heel, stage 4 (principal); L89.890 Pressure ulcer of other site, unstageable; I73.9 Peripheral vascular disease, unspecified; F17.210 Nicotine dependence, cigarettes, uncomplicated; J44.9 Chronic obstructive pulmonary disease, unspecified | CPT/HCPCS: 11043; 99215 ==

== ENCOUNTER 2021-02-13 14:12 | Outpatient (REF) | payer MEDICARE, OTHER, SELFPAY ==
[2021-02-13 15:13] LABS: Blood Urea Nitrogen 7 mg/dL (9-16); Estimated Glomerular Filt Rate > 60
== END 2021-02-13 14:13 | disposition home or self-care (01) ==
LOC: HO.LAB 14:12
PROVIDERS: Visit Provider Surgery Vascular Surgery
DX: I73.9 Peripheral vascular disease, unspecified (principal)
CPT/HCPCS: 36415; 82565; 84520

== ENCOUNTER 2021-02-14 11:37 | Inpatient (IN) | payer MEDICARE, OTHER, SELFPAY ==
--- NOTE | ~2021-02-14 | US_ITS ---
EXAMINATION: RIGHT LOWER EXTREMITY DEEP VENOUS ULTRASOUND CLINICAL INFORMATION: Right lower extremity pain and swelling. COMPARISON: CTA abdomen and pelvis October 09, 2020 TECHNIQUE: Duplex Doppler imaging with compression maneuvers were performed of the right lower extremity deep venous system. FINDINGS: The visualized common femoral, femoral and popliteal veins demonstrate normal compressibility and color flow without evidence of venous thrombosis. Visualized portions of the calf veins demonstrate normal color fill-in suggesting patency. There is no evidence of a Goodwin's cyst. US/US venous duplex LE RT IMPRESSION: No evidence of deep venous thrombosis involving the right lower extremity.
--- NOTE | ~2021-02-14 | CT_ITS ---
STUDY PERFORMED: CTA ABDOMEN, PELVIS AND LOWER EXTREMITY RUNOFF WITH CONTRAST HISTORY: Reason for Exam nonhealing ulcer, pvd DESCRIPTION: Routine abdominal aorta and lower extremity runoff CTA protocol with contrast was performed. 100 mL of Omnipaque 350 was administered. 3D POSTPROCESSING: Multiple 3-D angiographic images were processed from the initial data set by the [facility] under concurrent physician supervision. DOSE LOWERING TECHNIQUES: This CT examination was performed using dose optimization techniques as appropriate, variously including the following: - Automated exposure control - Adjustment of mA and/or kV according to patient size (this includes techniques or standardized protocols for targeted exams where dose is matched to indication/reason for exam; i.e. extremities or head) - Use of iterative reconstruction technique DLP: 638 mGycm. COMPARISON: CT abdomen pelvis 12/28/2020 FINDINGS: VASCULAR: ABDOMINAL AORTA: Atherosclerotic disease without evidence of aneurysm, dissection or stenosis. Areas of atherosclerotic plaque ulceration are seen without dissection. RIGHT LOWER EXTREMITY: - Common Iliac Artery: Extensive calcified atherosclerotic disease with moderate, approximately 50% stenosis proximally. Patency is maintained throughout. - Internal Iliac Artery: The internal iliac artery is occluded at its origin. Reconstitution of distal branches by collateral flow. - External Iliac Artery: Severely atherosclerotic. Patent stent within the proximal aspect with a short segment unstented followed by another stented segment, which are patent. - Common Femoral Artery: Patch repair of the common femoral artery, widely patent. - Profunda Femoral Artery: Severely stenotic at its origin and atherosclerotic throughout its extent. The main trunk maintains contrast opacification and small branches, although calcified to appear to be patent. - Superficial Femoral Artery: Severe atherosclerotic disease throughout the extent of the superficial femoral artery. The proximal portion is unstented and patent. The mid to distal superficial femoral artery contains stents that appear patent. - Popliteal Artery: The proximal portion contains continuation of stents from the superficial femoral artery. There is severe disease of the popliteal artery which comes occluded. - Posterior Tibial Artery: Calcifications limit assessment for patency. The artery is likely occluded proximally but reconstitutes at its mid to distal portion. - Peroneal Artery: Severely atherosclerotic and not well opacified. Portions may be reconstituted by collateral as flow. - Anterior Tibial Artery: Weak contrast opacification. Reconstituted via collateralized flow and patent to the dorsalis pedis artery. LEFT LOWER EXTREMITY: - Common Iliac Artery: Severely atherosclerotic with no evidence of aneurysm, dissection or flow-limiting stenosis. - Internal Iliac Artery: Severely atherosclerotic and densely calcified which limits assessment for patency. - External Iliac Artery: Severely atherosclerotic with multifocal moderate stenoses. Patency is maintained. - Common Femoral Artery: Patch repair is intact and widely patent. - Profunda Femoral Artery: Severely atherosclerotic but patent. - Superficial Femoral Artery: Calcified atherosclerotic disease throughout the extent of the superficial femoral artery with multifocal moderate stenoses. There is a patent vascular stent in the distal portion extending to the proximal most popliteal artery. - Popliteal Artery: Moderately severe atherosclerotic disease with maintains patency. - Posterior Tibial Artery: Severely calcified proximally which limits assessment for patency. Contrast opacification is seen throughout the remainder of the mid and distal popliteal artery with flow to the foot. - Peroneal Artery: Weak contrast opacification is maintained. - Anterior Tibial Artery: Calcified atherosclerotic disease proximally. Contrast enhancement is seen to the dorsalis pedis artery although is weak. CELIOMESENTERIC ARTERIES: Atherosclerotic disease of the celiac artery with moderate, but nonflow limiting stenosis. Atherosclerotic disease of the proximal superficial mesenteric artery and throughout its main trunk without flow-limiting stenosis. The inferior mesenteric artery is patent. RENAL ARTERIES: 2 right renal arteries are patent. 2 left renal arteries are patent. NONVASCULAR: Lung Bases: No acute findings. Liver, Gallbladder and Biliary Tree: Nodular surface contour of the liver suggestive of underlying liver cirrhosis. No focal liver lesions or intrahepatic biliary dilatation. Left lobe hypertrophy. Scattered calcifications consistent with old healed granulomatous disease. The gallbladder is unremarkable with no evidence of radiopaque gallstones, gallbladder wall thickening, or obvious pericholecystic inflammatory changes. Pancreas: Unremarkable. Spleen: Heterogeneous of the splenic parenchyma, the sequela of arterial phase imaging as seen on prior studies. Scattered splenic calcifications consistent with old healed granulomatous disease. Adrenal Glands: Unremarkable. Kidneys and Ureters: The kidneys are normal in size, shape, and attenuation. No hydronephrosis, hydroureter, or calculi seen. No perinephric stranding. Bladder: Unremarkable. Gastrointestinal Tract: The small and large bowel are unremarkable. The appendix is unremarkable. Abdominal Wall: No significant hernia is appreciated. Lymph Nodes: No lymphadenopathy within the abdomen or pelvis by CT criteria. Pelvic Viscera: Brachytherapy seeds within the prostate. Osseous Structures: Skin defect at the right heel with subcutaneous gas that extends to the bone surface. Loculations of air are also seen within the right calcaneus at the level of the ulcer. There is air seen within the Achilles tendon sheath. CT/CT angio abd aorta runoff IMPRESSION: 1. Severe peripheral arterial disease as detailed above. 2. Ulcer at the right heel with subcutaneous gas extending to the bone surface and into the Achilles tendon sheath. Osteomyelitis is considered highly likely along with infection of the Achilles tendon. Dedicated radiographs of the foot would be helpful for further assessment. 3. Liver cirrhosis. 4. Multiple other chronic and nonacute findings as above.
[2021-02-14 11:58] VITALS: BP 122/49; PULSE 69; RESP 18; TEMP 37.1; O2SAT 99; BMI 22.2
--- NOTE | 2021-02-14 13:56 | ED.EXTPRO ---
HPI - Extremity Problem General Chief complaint: Extremity Injury, Lower Stated complaint: rt leg pain Time Seen by Provider: 02/14/21 13:56 Source: patient and old records reviewed Mode of arrival: ambulatory Limitations: no limitations History of Present Illness MD Complaint: extremity pain and extremity swelling Onset (ago): day(s) (several) Pain Consistency: constant Location: right and lower extremity Quality: crushing and constant Radiation: none Relieving factors: nothing Exacerbating factors: weight bearing, walking and exertion Associated symptoms: other (chronic wound that is not getting better, gets bigger, smells more and has more drainage) Context: recent surgery/procedure (had R femoral endarterectomy in the past that became infected, he still has PAD, sent in by Dr. Manzo for IV abx admission and pain control) Related Data Home Medications Medication Instructions Recorded Confirmed umeclidinium 62.5 mcg-vilanterol 1 inh INHALATION DAILY 03/28/20 11/12/20 25 mcg/actuation powdr for inhalation tamsulosin 0.4 mg capsule 1 cap PO BEDTIME 05/14/20 11/12/20 cyanocobalamin (vitamin B-12) 500 3,000 mcg PO DAILY 11/12/20 11/12/20 mcg tablet (B-12 DOTS) diclofenac sodium 1 % topical gel 1 g TOPICAL QID 11/12/20 02/14/21 gabapentin 300 mg capsule 1 cap PO TID 11/12/20 02/14/21 ipratropium 20 mcg-albuterol 100 1 puff INHALATION QID PRN 11/12/20 02/14/21 mcg/actuation mist for inhalation (Combivent Respimat) pregabalin 100 mg capsule 100 mg PO BID 12/17/20 pregabalin 150 mg capsule 150 mg PO BID 01/07/21 02/14/21 umeclidinium 62.5 mcg/actuation 1 inh PO DAILY 01/07/21 02/14/21 blister powder for inhalation Previous Rx's Medication Instructions Recorded atorvastatin 40 mg tablet 40 mg PO DAILY #90 tab 09/20/20 metoprolol succinate 50 mg 50 mg PO DAILY #90 tab 09/20/20 tablet,extended release 24 hr apixaban 2.5 mg tablet (Eliquis) 2.5 mg PO BID #60 tab 11/20/20 aspirin 81 mg tablet,delayed 81 mg PO DAILY #30 tab 11/20/20 release oxycodone-acetaminophen 5 mg-325 1 tab PO Q4H PRN #20 tab 11/20/20 mg tablet (Percocet) tramadol 50 mg tablet 50 mg PO Q8H PRN #30 tab 02/04/21 Allergies Allergy/AdvReac Type Severity Reaction Status Date / Time No Known Allergies Allergy Verified 02/14/21 11:58 [No Known Allergies*] Review of Systems Review of Systems: Constitutional : No Fever, No Chills ENT/Mouth : No Ear Pain, No Hoarseness, No sore throat Eyes: No Eye Pain, No Swelling, No Redness, No Foreign Body Cardiovascular : No Chest Pain, No SOB, pos edema Respiratory : No Cough, No Dyspnea Gastrointestinal : No Nausea, No Vomiting, No Diarrhea, No abdominal Pain Genitourinary : No Dysuria, No Hematuria Musculoskeletal : positive joint pain, pos Myalgias, No Joint Swelling Skin : No Skin lacerations, pos skin lesions Neuro : No Weakness, No Numbness, No Loss of Consciousness, No Dizziness, No Headache Psych : No Anxiety/Panic, No Depression Heme/Lymph: no easy bruising, no Lymphadenopathy Endocrine : No Polyuria, No Polydipsia All other systems reviewed and are negative [facility] Past Medical History Attestation statement: The following information was validated with the patient. Medical History Arthritis Bacteremia Bilateral carotid artery disease COPD (chronic obstructive pulmonary disease) Elevated cholesterol History of prostate cancer HTN (hypertension) Hx of low back pain PVD (peripheral vascular disease) Spinal disease Surgical History History of endarterectomy (11/20/19) History of femoral angiogram History of spinal surgery Hx of colonoscopy Social History Social History Household Members: Spouse and Children Housing: House Are you a primary client care consultant to a significant other at home: No Do you presently have visiting nurse or other home services: No Alcohol intake: current Alcohol intake frequency: 3 or more drinks per day Alcohol type: beer Patient Tobacco Use Status: Current everyday Tobacco user Cigarette Packs Per Day: 0.5 Cigarettes Per Day: 10.0 Years Smoked: 50 Second Hand Smoke Exposure: No Advance Directives: No Advance Directives Information Provided: Yes service: No Current occupational status: retired Physical Exam Vital Signs: Vital Signs: Last Vital Signs Temp 98.7 F 02/14/21 11:58 Pulse 69 02/14/21 11:58 Resp 18 02/14/21 11:58 BP 122/49 L 02/14/21 11:58 Pulse Ox 99 02/14/21 11:58 Body Mass Index 22.2 Appearance: Alert. Oriented X3. No acute distress. Eyes: Pupils equal, round and reactive to light. ENT: Pharynx normal. Neck: Normal inspection. Neck supple. CVS: Normal heart rate and rhythm. Pulses normal. Respiratory: No respiratory distress. Breath sounds normal. Abdomen: Soft and nontender. R groin site healing at this time no signs of infection Skin: Skin warm and dry. pale skin color. Normal skin turgor. Extremities: RLE 1 to 2+ lower ext pitting edema, foot is warm but I cannot palpate pulses top of foot shallow ulcer, foot is red, heel of R foot large ulcer with brown/yellow foul smelling discharge Neuro: Oriented X 3. No motor deficit. No sensory deficit. MDM - Extremity (Nontraumatic) MDM Narrative Medical decision making narrative: 71 yo male with complicated hx of PAD s/p surgical complications from R femoral endarterectomy - at this time he still has sig PAD and a wound that is worsening on R heel he now has increased pain, drainage and odor - Dr. Manzo would like him admitted for IV antibiotics. Discharge Plan Discharge Clinical Impression: PAD (peripheral artery disease), Open wound, Acute leg pain, Infected pressure ulcer Patient Disposition: Admitted As Inpatient Prescriptions: No Action tamsulosin 0.4 mg capsule 1 cap PO BEDTIME RF: 0 gabapentin 300 mg capsule 1 cap PO TID RF: 0 diclofenac sodium 1 % gel 1 g topical QID RF: 0 Combivent Respimat 20-100 mcg/actuation mist 1 puff inhalation QID PRN (Reason: Shortness Of Breath) RF: 0 cyanocobalamin (vitamin B-12) [B-12 DOTS] 500 mcg Tablet 3,000 mcg PO DAILY RF: 0 Eliquis 2.5 mg Tablet 2.5 mg PO BID Qty: 60 RF: 0 aspirin 81 mg Tablet,Delayed Release (Dr/Ec) 81 mg PO DAILY Qty: 30 RF: 0 oxycodone-acetaminophen [Percocet] 5-325 mg tablet 1 tab PO Q4H PRN (Reason: pain) Qty: 20 RF: 0 tramadol 50 mg tablet 50 mg PO Q8H PRN (Reason: pain) Qty: 30 RF: 0 umeclidinium-vilanterol 62.5-25 mcg/actuation blister with device 1 inh inhalation DAILY RF: 0 metoprolol succinate 50 mg tablet extended release 24 hr 50 mg PO DAILY Qty: 90 RF: 0 atorvastatin 40 mg tablet 40 mg PO DAILY Qty: 90 RF: 1
[2021-02-14 14:31] LABS: MANUAL DIFF FLAG NO
[2021-02-14] MEDS: 0.9 % Sodium Chloride 500 ML IV (14:31)
[2021-02-14] MEDS: Morphine Sulfate Immed Release 15 MG TABLET PO (14:31)
[2021-02-14 14:44] LABS: Basophils Percent Auto 0.6 % (0-2); Eosinophils Absolute Auto 0.1 X10*3/uL (0.0-0.4); Eosinophils Percent Auto 1.9 % (0-4); Hematocrit 31.8 % (42-52); Hemoglobin 10.5 g/dl (14.0-18.0); Imm Gran Abs Auto 0.03 X10*3/uL (0.00-0.03); Imm Gran Pct Auto 0.4 % (0.0-0.4); Lymphocytes Absolute Auto 0.9 X10*3/uL (1.2-4.9); Mean Corpuscular Hemoglobin 30.3 pg (27.0-33.0); Mean Corpuscular Volume 91.6 fL (80-98); Mean Platelet Volume 8.5 fL (9.4-12.4); Monocytes Absolute Auto 0.6 X10*3/uL (0.1-1.2); Monocytes Percent Auto 8.3 % (2-11); Neutrophils Absolute Auto 5.6 X10*3/uL (2.0-8.3); Neutrophils Percent Auto 76.8 % (45-73); Platelet Count 466 X10*3/uL (160-400); Red Blood Count 3.47 X10*6/uL (4.60-5.80); Red Cell Distribution Width 14.6 % (11.0-16.0); White Blood Count 7.2 X10*3/uL (4.8-10.8)
[2021-02-14 14:51] LABS: COVID-19 Test Negative (Negative); IDNOW Serial# 08D9AD1C
[2021-02-14 14:59] LABS: Lactic Acid 1.6 mmol/L (0.5-2.0)
[2021-02-14 15:06] LABS: Alanine Aminotransferase 14 U/L (0-40); Albumin Level 3.6 g/dL (3.5-5.0); Alkaline Phosphatase 97 U/L (39-117); Anion Gap 14 (12-20); Aspartate Amino Transferase 15 U/L (5-37); Bilirubin Direct 0.4 mg/dL (0.0-0.5); Bilirubin Total 0.9 mg/dL (0.0-1.0); Blood Urea Nitrogen 7 mg/dL (9-16); Calcium 9.5 mg/dL (8.4-10.2); Carbon Dioxide 26 mmol/L (22-29); Chloride 94 mmol/L (96-108); Creatinine Clr Calc Pharmacy 100.5; Estimated Glomerular Filt Rate > 60; Glucose Random 104 mg/dL (60-115); Magnesium 2.2 mg/dL (1.6-2.6); Potassium 4.9 mmol/L (3.3-5.1); Sodium 129 mmol/L (135-145); Total Protein 6.9 g/dL (6.5-8.0)
[2021-02-14] MEDS: Piperacillin Sodium/Tazobactam 3.375 GM in 0.9 % Sodium Chloride 50 ML IV ×2 (15:13→21:46)
--- NOTE | 2021-02-14 15:20 | PHA.MEDREC ---
Pharmacy Consult ? Medication Reconciliation Pharmacy has completed the medication reconciliation. Patient report taking Eliquis, a big white pill (atorvastatin) and believes metoprolol. For pain he takes Gabapentin and no longer take Lyrica. He think he takes tramadol as well. He use two inhaler Combivent and Incruse. For most of his medication he does not have a recent fill history however he was located at [facility] therefore he most likely had medication leftover and did not need refills. Will have the next shift pharmacist follow-up with [facility] to see which medication he was discharged on. Viktoria Johnson, PharmD
[2021-02-14] MEDS: vancomycin HCL 750 MG in 0.9 % Sodium Chloride 250 ML 265 MG IV (16:19)
--- NOTE | 2021-02-14 16:27 | PM.EVENT ---
Event Note Date of Service: 02/16/21 Event Note: the patient was seen and evaluated with MAURI Parekh. I agree with her note, assessment and plan with the following. A 71 years old male with PMHx of PAD, COPD, HTN among others who presented to the hospital with worsening LE heel wound as referral from Vascular office. Admitted for IV Antibiotics and surgical evaluation Cellulitis DFI w likely OM Start Abx To get Vascular eval Rest of evaluations by PA note.
[2021-02-14 16:50] LABS: Lactic Acid 1.4 mmol/L (0.5-2.0)
--- NOTE | 2021-02-14 17:08 | P.HPHOSP_ITS ---
History of Present Illness Date of Service: 02/14/21 Chief Complaint: Heel wound This is a 71-year-old male with history of peripheral vascular disease followed by Dr. Manzo [facility] who presents the emergency department due to worsening chronic right heel wound. Ulcer has been present for several months. He has had increasing pain in his right leg as well as increasing swelling. He denies any associated fever or chills. Lab work shows no leukocytosis. Patient is afebrile. Patient was started on vancomycin Zosyn and the decision was made to admit him for further management of right heel wound, likely osteomyelitis. Review of Systems Review of Systems: Yes all other systems are reviewed and are negative Constitutional: Constitutional: Denies chills and Denies fever(s) Cardiovascular: Cardiovascular: Denies chest pain Respiratory: Respiratory: Denies cough Gastrointestinal: Gastrointestinal: Denies abdominal pain [facility] Medical History Arthritis Bacteremia Bilateral carotid artery disease COPD (chronic obstructive pulmonary disease) Elevated cholesterol History of prostate cancer HTN (hypertension) Hx of low back pain PVD (peripheral vascular disease) Spinal disease Family history: reviewed and not pertinent Surgical History History of endarterectomy (11/20/19) History of femoral angiogram History of spinal surgery Hx of colonoscopy Social History Household Members: Spouse and Children Housing: House Are you a primary housekeeper caregiver to a significant other at home: No Do you presently have visiting nurse or other home services: No Alcohol intake: current Alcohol intake frequency: 3 or more drinks per day Alcohol type: beer Patient Tobacco Use Status: Current everyday Tobacco user Cigarette Packs Per Day: 0.5 Cigarettes Per Day: 10.0 Years Smoked: 50 Second Hand Smoke Exposure: No Advance Directives: No Advance Directives Information Provided: Yes service: No Current occupational status: retired Meds Allergies Allergy/AdvReac Type Severity Reaction Status Date / Time No Known Allergies Allergy Verified 02/14/21 11:58 [No Known Allergies*] Active Medications: Current Medications Generic Name Dose Route Start Last Admin Trade Name Freq PRN Reason Stop Dose Admin Pharmacy Consult 1 each 02/14/21 13:57 Consult Rx Perform Med Rec MISCELLANE ONCE PRN Consult order Home Medications Medication Instructions Recorded Confirmed Last Taken Type cyanocobalamin (vitamin B-12) 500 500 mcg PO DAILY 11/12/20 02/14/21 Unknown History mcg tablet (B-12 DOTS) diclofenac sodium 1 % topical gel 1 g TOPICAL QID 11/12/20 02/14/21 Unknown History gabapentin 300 mg capsule 1 cap PO TID 11/12/20 02/14/21 Unknown History ipratropium 20 mcg-albuterol 100 1 puff INHALATION QID PRN 11/12/20 02/14/21 Unknown History mcg/actuation mist for inhalation (Combivent Respimat) umeclidinium 62.5 mcg/actuation 1 inh PO DAILY 01/07/21 02/14/21 Unknown History blister powder for inhalation acetaminophen 500 mg tablet 1,000 mg PO BID 02/14/21 02/14/21 02/13/21 History melatonin 3 mg tablet 3 mg PO BEDTIME PRN 02/14/21 02/14/21 Unknown History Physical Exam Vital Signs and Narrative: Vital Signs: Last Vital Signs Temp 98.7 F 02/14/21 11:58 Pulse 69 02/14/21 11:58 Resp 18 02/14/21 11:58 BP 122/49 L 02/14/21 11:58 Pulse Ox 99 02/14/21 11:58 Body Mass Index 22.2 Const: Nutritional Appearance: well nourished Orientation/consciousness: patient oriented x3 HENMT: Head: Yes normocephalic and Yes atraumatic Eyes: Sclerae: sclerae normal Resp: Effort & Inspection: normal respiratory effort and no respiratory distress Cardio: Rate: regular rate Rhythm: regular rhythm GI: Palpation (GI): Soft to palpation and nontender Skin: Other: Deep right heel ulcer, foul smelling Neuro: General: patient oriented x3 Cranial nerves: Yes CN's II-XII intact bilaterally and Yes Bilaterally intact EOM present Extrem: General: Yes normal to inspection Results Labs CBC and Chem 7: 02/14/21 14:26 02/14/21 14:26 Labs: Laboratory Results - last 24 hr 02/14/21 02/14/21 02/14/21 14:26 14:26 14:26 MCV 91.6 MCH 30.3 MCHC 33.0 RDW 14.6 Plt Count 466 H D MPV 8.5 L Immature Gran % (Auto) 0.4 Neut % (Auto) 76.8 H Lymph % (Auto) 12.0 L Whitfield % (Auto) 8.3 Eos % (Auto) 1.9 Baso % (Auto) 0.6 Lymph # (Auto) 0.9 L Whitfield # (Auto) 0.6 Eos # (Auto) 0.1 Baso # (Auto) 0.0 Abs Immat Gran (auto) 0.03 Absolute Neuts (auto) 5.6 Absolute Nucleated RBC 0.000 Nucleated RBC % (auto) 0.0 Anion Gap 14 Estim Creat Clear Calc 100.5 Estimated GFR > 60 Random Glucose 104 Lactic Acid Calcium 9.5 D Magnesium 2.2 Total Bilirubin 0.9 Direct Bilirubin 0.4 AST 15 ALT 14 Alkaline Phosphatase 97 Total Creatine Kinase 41 D Total Protein 6.9 Albumin 3.6 COVID-19 (ANGE) Negative COVID-19 Clin Com See Note 02/14/21 02/14/21 02/14/21 14:26 14:26 16:24 MCV MCH MCHC RDW Plt Count MPV Immature Gran % (Auto) Neut % (Auto) Lymph % (Auto) Whitfield % (Auto) Eos % (Auto) Baso % (Auto) Lymph # (Auto) Whitfield # (Auto) Eos # (Auto) Baso # (Auto) Abs Immat Gran (auto) Absolute Neuts (auto) Absolute Nucleated RBC Nucleated RBC % (auto) Anion Gap Estim Creat Clear Calc Estimated GFR Random Glucose Lactic Acid 1.6 1.4 Calcium Magnesium Cancelled Total Bilirubin Cancelled Direct Bilirubin Cancelled AST Cancelled ALT Cancelled Alkaline Phosphatase Cancelled Total Creatine Kinase Total Protein Cancelled Albumin Cancelled COVID-19 (ANGE) COVID-19 Clin Com Assessment and Plan (1) PAD (peripheral artery disease): Status: Acute This is a 71-year-old male with a history of hypertension, PVD with complicated surgical history here with worsening chronic right heel wound likely osteo Right heel ulcer In the setting of severe peripheral vascular disease Given depth presumed osteomyelitis Continue broad-spectrum antibiotics Vascular consult Will likely need surgical intervention Daily alcohol use Patient reports cutting down on his alcohol intake to 132 oz beer daily No evidence of alcohol withdrawal at this time Monitor on [facility] Tobacco dependence Nicotine replacement therapy Smoking cessation advised Peripheral vascular disease Continue aspirin, Eliquis DVT prophylaxis-Eliquis Code status-full code Attending Dr. Miranda Quality Stroke Does the patient have a stroke diagnosis?: No VTE Prior VTE?: No VTE Risk Level:: Medical - moderate - high VTE Device Contraindication: Treatment Not Indicated VTE Drug Contraindication: N/A - Med Ordered
--- NOTE | 2021-02-14 17:53 | PC.NURSE ---
call for report rn to call back
[2021-02-14 18:45] VITALS: BP 142/61; PULSE 80; RESP 16; TEMP 37; O2SAT 96
[2021-02-14] MEDS: Nicotine 21 MG PATCH.TD24 TRANSDERMA (19:52)
[2021-02-14 21:31] VITALS: BMI 20.5
[2021-02-14] MEDS: oxyCODONE HCl Immed Release 5 MG TABLET PO (21:46)
[2021-02-14] MEDS: Gabapentin 300 MG CAPSULE PO (21:46)
[2021-02-14] MEDS: Apixaban 2.5 MG TABLET PO (21:46)
[2021-02-14] MEDS: 0.9 % Sodium Chloride Flush 3 ML SYRINGE IVFLUSH (21:47)
[2021-02-14 21:56] VITALS: BP 95/60; PULSE 70; RESP 18; TEMP 36.1; O2SAT 97
[2021-02-14 23:38] VITALS: BP 111/51; PULSE 72; RESP 18; TEMP 36.2; O2SAT 98
[2021-02-15] VITALS (9 sets, daily range): BP systolic 103–140; BP diastolic 51–62; PULSE 69–80; RESP 18–19; TEMP 36.1–37; O2SAT 96–100
[2021-02-15] MEDS: Melatonin 3 MG TABLET PO ×2 (00:20→22:44)
[2021-02-15] MEDS: Morphine Sulfate 4 MG/ML CARTRIDGE 2 MG IVPUSH ×2 (00:20→08:59)
[2021-02-15] MEDS: Piperacillin Sodium/Tazobactam 3.375 GM in 0.9 % Sodium Chloride 50 ML IV ×4 (03:28→20:29)
[2021-02-15] MEDS: vancomycin HCL 750 MG in 0.9 % Sodium Chloride 250 ML 265 MG IV ×2 (05:59→17:43)
[2021-02-15 07:09] LABS: Hematocrit 29.8 % (42-52); Hemoglobin 9.7 g/dl (14.0-18.0); Mean Corpuscular HGB Conc 32.6 g/dl (31.0-36.0); Mean Corpuscular Hemoglobin 30.3 pg (27.0-33.0); Mean Corpuscular Volume 93.1 fL (80-98); Mean Platelet Volume 8.7 fL (9.4-12.4); Platelet Count 457 X10*3/uL (160-400); Red Cell Distribution Width 14.3 % (11.0-16.0); White Blood Count 4.6 X10*3/uL (4.8-10.8)
[2021-02-15 07:51] LABS: Anion Gap 11 (12-20); Blood Urea Nitrogen 7 mg/dL (9-16); Calcium 8.9 mg/dL (8.4-10.2); Carbon Dioxide 27 mmol/L (22-29); Chloride 97 mmol/L (96-108); Creatinine Clr Calc Pharmacy 92.6; Estimated Glomerular Filt Rate > 60; Glucose Random 92 mg/dL (60-115); Potassium 4.4 mmol/L (3.3-5.1); Sodium 131 mmol/L (135-145)
[2021-02-15] MEDS: 0.9 % Sodium Chloride Flush 3 ML SYRINGE IVFLUSH ×3 (08:59→20:29)
[2021-02-15] MEDS: Nicotine 21 MG PATCH.TD24 TRANSDERMA (09:00)
[2021-02-15] MEDS: Metoprolol Succinate ER 50 MG TAB.ER.24H PO (09:00)
[2021-02-15] MEDS: Cyanocobalamin (Vitamin B-12) 500 MCG TABLET PO (09:01)
[2021-02-15] MEDS: Gabapentin 300 MG CAPSULE PO ×3 (09:01→20:29)
[2021-02-15] MEDS: Atorvastatin Calcium 40 MG TABLET PO (09:01)
[2021-02-15] MEDS: Aspirin Enteric Coated 81 MG TABLET.DR PO (09:01)
[2021-02-15] MEDS: Apixaban 2.5 MG TABLET PO ×2 (09:01→20:29)
--- NOTE | 2021-02-15 10:59 | HO.PM.IMPN ---
Subjective Subjective Date of Service: 02/15/21 <MAURI Mauro - Last Filed: 02/15/21 16:40> 02/19/21 <Peter Wright MD - Last Filed: 02/19/21 14:21> Interval History: Seen and examined this morning Follow-up for right heel ulcer No overnight events Ongoing complaints of right lower extremity pain and swelling <MAURI Mauro - Last Filed: 02/15/21 16:40> Review of Systems Review of Systems: Yes all other systems are reviewed and are negative <MAURI Mauro - Last Filed: 02/15/21 16:40> Constitutional Constitutional: Denies chills and Denies fever(s) <MAURI Mauro - Last Filed: 02/15/21 16:40> Cardiovascular Cardiovascular: Denies chest pain <MAURI Mauro - Last Filed: 02/15/21 16:40> Respiratory Respiratory: Denies cough <MAURI Mauro - Last Filed: 02/15/21 16:40> Gastrointestinal Gastrointestinal: Denies abdominal pain <MAURI Mauro - Last Filed: 02/15/21 16:40> Physical Exam Vital Signs: Vital Signs: Last Vital Signs Temp 97.1 F 02/15/21 07:30 Pulse 70 02/15/21 09:00 Resp 18 02/15/21 08:59 BP 140/62 H 02/15/21 09:00 Pulse Ox 96 02/15/21 07:30 Body Mass Index 20.5 <MAURI Mauro - Last Filed: 02/15/21 16:40> Const: Nutritional Appearance: well nourished <MAURI Mauro - Last Filed: 02/15/21 16:40> Orientation/consciousness: patient oriented x3 <MAURI Mauro - Last Filed: 02/15/21 16:40> HENMT: Head: Yes normocephalic and Yes atraumatic <MAURI Mauro - Last Filed: 02/15/21 16:40> Eyes: Sclerae: sclerae normal <MAURI Mauro - Last Filed: 02/15/21 16:40> Resp: Effort & Inspection: normal respiratory effort and no respiratory distress <MAURI Mauro Last Filed: 02/15/21 16:40> Cardio: Rate: regular rate <MAURI Mauro Last Filed: 02/15/21 16:40> Rhythm: regular rhythm <MAURI Mauro Last Filed: 02/15/21 16:40> GI: Palpation (GI): Soft to palpation and nontender <MAURI Mauro Last Filed: 02/15/21 16:40> Skin: Other: Deep right heel ulcer, foul smelling <MAURI Mauro Last Filed: 02/15/21 16:40> Neuro: General: patient oriented x3 <MAURI Mauro Last Filed: 02/15/21 16:40> Cranial nerves: Yes CN's II-XII intact bilaterally and Yes Bilaterally intact EOM present <MAURI Mauro Last Filed: 02/15/21 16:40> Extrem: General: Yes normal to inspection <MAURI Mauro Last Filed: 02/15/21 16:40> Objective Data Current Medications Generic Name Dose Route Start Last Admin Trade Name Luis Fernandoq PRN Reason Stop Dose Admin Acetaminophen 650 mg 02/14/21 19:20 Acetaminophen 325 Mg Tablet PO Q6H PRN Pain, Mild (Pain Scale 1-3) Albuterol/Ipratropium 3 ml 02/14/21 19:28 Albuterol/Iprat 2.5/0.5mg 3 Ml Ampul.Neb INHALE QID PRN Shortness Of Breath Apixaban 2.5 mg 02/14/21 21:00 02/15/21 09:01 Apixaban 2.5 Mg Tablet PO 2.5 mg BID STEWART Administration Aspirin 81 mg 02/15/21 09:00 02/15/21 09:01 Aspirin Enteric Coated 81 Mg Tablet.Dr PO 81 mg DAILY STEWART Administration Atorvastatin Calcium 40 mg 02/15/21 09:00 02/15/21 09:01 Atorvastatin Calcium 40 Mg Tablet PO 40 mg DAILY STEWART Administration Cyanocobalamin 500 mcg 02/15/21 09:00 02/15/21 09:01 Cyanocobalamin (Vitamin B-12) 500 Mcg Tablet PO 500 mcg DAILY STEWART Administration Docusate Sodium 100 mg 02/16/21 09:00 Docusate Sodium 100 Mg Capsule PO DAILY STEWART Gabapentin 300 mg 02/14/21 21:00 02/15/21 09:01 Gabapentin 300 Mg Capsule PO 300 mg TID STEWART Administration Piperacillin Sod/Tazobactam 50 mls @ 100 mls/hr 02/14/21 21:00 02/15/21 09:48 Sod 3.375 gm/ Sodium Chloride IV Infused Q6H STEWART Infusion Vancomycin HCl 750 mg/ Sodium 265 mls @ 265 mls/hr 02/15/21 06:00 02/15/21 08:45 Chloride IV Infused Q12H STEWART Infusion Melatonin 3 mg 02/14/21 19:20 02/15/21 00:20 Melatonin 3 Mg Tablet PO 3 mg BEDTIME PRN Administration Insomnia Metoprolol Succinate 50 mg 02/15/21 09:00 02/15/21 09:00 Metoprolol Succinate Er 50 Mg Tab.Er.24h PO 50 mg DAILY STEWART Administration Protocol Morphine Sulfate 2 mg 02/14/21 19:20 02/15/21 08:59 Morphine Sulfate 4 Mg/Ml Cartridge IVPUSH 2 mg Q4H PRN Administration Pain, Severe (Pain Scale 7-10) Protocol Nicotine 21 mg 02/14/21 19:20 02/15/21 09:00 Nicotine 21 Mg Patch.Td24 TRANSDERMA 21 mg DAILY STEWART Administration Ondansetron HCl 4 mg 02/14/21 19:20 Ondansetron Hcl 4 Mg/2 Ml Vial IVPUSH Q8H PRN Nausea and Vomiting Oxycodone HCl 5 mg 02/14/21 19:20 02/14/21 21:46 Oxycodone Hcl Immed Release 5 Mg Tablet PO 5 mg Q6H PRN Administration Pain, Severe (Pain Scale 7-10) Pharmacy Consult 1 each 02/14/21 13:57 Consult Rx Perform Med Rec MISCELLANE ONCE PRN Consult order Pharmacy Consult 1 each 02/14/21 19:20 Consult Rx Vancomycin Dosing MISCELLANE DAILY PRN Consult order Senna/Docusate Sodium 1 tab 02/15/21 09:55 Sennosides/Docusate Sodium Tablet PO DAILY PRN Constipation Sodium Chloride 3 ml 02/15/21 00:00 02/15/21 08:59 0.9 % Sodium Chloride Flush 3 Ml Syringe IVFLUSH 3 ml QSHIFT STEWART Administration <MAURI Mauro - Last Filed: 02/15/21 16:40> Labs CBC & Chem 7: : 02/17/21 06:20 02/17/21 06:20 <MAURI Mauro - Last Filed: 02/15/21 16:40> Labs: Laboratory Results - last 24 hr 02/14/21 02/14/21 02/14/21 14:26 14:26 14:26 MCV 91.6 MCH 30.3 MCHC 33.0 RDW 14.6 Plt Count 466 H D MPV 8.5 L Immature Gran % (Auto) 0.4 Neut % (Auto) 76.8 H Lymph % (Auto) 12.0 L Randolph % (Auto) 8.3 Eos % (Auto) 1.9 Baso % (Auto) 0.6 Lymph # (Auto) 0.9 L Randolph # (Auto) 0.6 Eos # (Auto) 0.1 Baso # (Auto) 0.0 Abs Immat Gran (auto) 0.03 Absolute Neuts (auto) 5.6 Absolute Nucleated RBC 0.000 Nucleated RBC % (auto) 0.0 Anion Gap 14 Estim Creat Clear Calc 100.5 Estimated GFR > 60 Random Glucose 104 Lactic Acid Calcium 9.5 D Magnesium 2.2 Total Bilirubin 0.9 Direct Bilirubin 0.4 AST 15 ALT 14 Alkaline Phosphatase 97 Total Creatine Kinase 41 D Total Protein 6.9 Albumin 3.6 COVID-19 (ANGE) Negative COVID-19 Clin Com See Note 02/14/21 02/14/21 02/14/21 14:26 14:26 16:24 MCV MCH MCHC RDW Plt Count MPV Immature Gran % (Auto) Neut % (Auto) Lymph % (Auto) Randolph % (Auto) Eos % (Auto) Baso % (Auto) Lymph # (Auto) Randolph # (Auto) Eos # (Auto) Baso # (Auto) Abs Immat Gran (auto) Absolute Neuts (auto) Absolute Nucleated RBC Nucleated RBC % (auto) Anion Gap Estim Creat Clear Calc Estimated GFR Random Glucose Lactic Acid 1.6 1.4 Calcium Magnesium Cancelled Total Bilirubin Cancelled Direct Bilirubin Cancelled AST Cancelled ALT Cancelled Alkaline Phosphatase Cancelled Total Creatine Kinase Total Protein Cancelled Albumin Cancelled COVID-19 (ANGE) COVID-19 Clin Com 02/15/21 02/15/21 06:34 06:34 MCV 93.1 MCH 30.3 MCHC 32.6 RDW 14.3 Plt Count 457 H MPV 8.7 L Immature Gran % (Auto) Neut % (Auto) Lymph % (Auto) Randolph % (Auto) Eos % (Auto) Baso % (Auto) Lymph # (Auto) Randolph # (Auto) Eos # (Auto) Baso # (Auto) Abs Immat Gran (auto) Absolute Neuts (auto) Absolute Nucleated RBC 0.000 Nucleated RBC % (auto) 0.0 Anion Gap 11 L Estim Creat Clear Calc 92.6 Estimated GFR > 60 Random Glucose 92 Lactic Acid Calcium 8.9 D Magnesium Total Bilirubin Direct Bilirubin AST ALT Alkaline Phosphatase Total Creatine Kinase Total Protein Albumin COVID-19 (ANGE) COVID-19 Clin Com <MAURI Mauro - Last Filed: 02/15/21 16:40> Assessment and Plan (1) PAD (peripheral artery disease): Status: Acute <MAURI Mauro - Last Filed: 02/15/21 16:40> (2) Infected pressure ulcer: Status: Acute <MAURI Mauro - Last Filed: 02/15/21 16:40> Assessment and Plan: This is a 71-year-old male with a history of hypertension, PVD with complicated surgical history here with worsening chronic right heel wound likely osteo Right heel ulcer In the setting of severe peripheral vascular disease with complicated past surgical history Given depth presumed osteomyelitis Continue broad-spectrum antibiotics, vanomycin and zosyn -Vascular consult -Will likely need surgical intervention Daily alcohol use Patient reports cutting down on his alcohol intake to 1 32 oz beer daily No evidence of alcohol withdrawal at this time Monitor on CIWA prn ativan if necessary Tobacco dependence Nicotine replacement therapy Smoking cessation advised Peripheral vascular disease Continue aspirin, Eliquis HLD continue statin HTN continue metoprolol DVT prophylaxis-Eliquis Code status-full code Attending Dr. Wright <MAURI Mauro - Last Filed: 02/15/21 16:40> Quality Stroke Does the patient have a stroke diagnosis?: No <MAURI Mauro - Last Filed: 02/15/21 16:40> VTE Prior VTE?: No <MAURI Mauro - Last Filed: 02/15/21 16:40> VTE Risk Level:: Medical - moderate - high <MAURI Mauro - Last Filed: 02/15/21 16:40> VTE Device Contraindication: Treatment Not Indicated <MAURI Mauro - Last Filed: 02/15/21 16:40> VTE Drug Contraindication: N/A - Med Ordered <MAURI Mauro - Last Filed: 02/15/21 16:40>
--- NOTE | 2021-02-15 11:09 | PM.CNGS ---
History of Present Illness Consult details Consult date: 02/14/21 Reason for consult: other (PVD) Narrative: Very complex 71-year-old gentleman with significant history of peripheral vascular disease presents to ER with recurrent falling episodes and intractable pain. Of note he is being followed by the wound care center for right heel ulceration that has progressed over the last 2 weeks.? The patient initially presented with severe activity limiting claudication and eventually had ulcerations.? Brief review of his overall treatments include:? On 11/20/2019 he underwent left femoral endarterectomy which was after prior diagnostic angiogram.? His left leg had gone on to improve and he was concerned about his right lower extremity.? On 05/20/2020 he underwent a hybrid procedure with a right femoral endarterectomy and subsequent stenting of the right common and external iliac.? He had improved but the right leg continue to be a source of pain and discomfort he had difficulty carrying out daily activities and on 10/16/2020 he underwent right SFA stent and right popliteal plasty along with right peroneal plasty.? He appeared to be doing relatively well until November 12 where he few showed up to the hospital with an acute right femoral bleed.? It appears that he had a right femoral patch blowout which was a bovine pericardium patch.? We excised this patch and we used a right common femoral great saphenous vein patch.? The right groin had a significant wound which was very slow to heal.? He was subsequently discharged he was in a rehab for very short, and subsequently refused care there.? He was then at home and he has now been doing fairly well but has developed a new right heel ulceration.?In the interim he has had a a outside 2nd opinion by a an outpatient interventional radiologist.?He was seen and examined in ER and is now for admission. Review of Systems Review of Systems: Yes all other systems are reviewed and are negative Constitutional: Constitutional: Reports no additional constitutional complaints ENT: Reports Normal hearing present Cardiovascular: Cardiovascular: Denies chest pain, Denies chest pain at rest, Denies chest pain with activity and Denies pedal edema Respiratory: Respiratory: Denies cough Gastrointestinal: Gastrointestinal: Denies abdominal pain Musculoskeletal: Musculoskeletal: Reports abnormal gait, Reports muscle cramps, Reports numbness and Reports radiating pain into limb Integumentary/Breasts: Skin/Breast: Reports skin ulcer and Reports wounds Neurologic: Reports Normal hearing present, Reports abnormal gait and Reports numbness Psychiatric: Psychiatric: Reports no additional psychiatric complaints PMFSH Past Medical History Medical History Arthritis Bacteremia Bilateral carotid artery disease COPD (chronic obstructive pulmonary disease) Elevated cholesterol History of prostate cancer HTN (hypertension) Hx of low back pain PVD (peripheral vascular disease) Spinal disease Family History Family history: reviewed and not pertinent Surgical History Surgical History History of endarterectomy (11/20/19) History of femoral angiogram History of spinal surgery Hx of colonoscopy Social History Social History Household Members: Spouse and Family Housing: House Are you a primary health care marketing specialist to a significant other at home: No Do you presently have visiting nurse or other home services: Yes Alcohol intake: current Alcohol intake frequency: 3 or more drinks per day Alcohol type: beer Patient Tobacco Use Status: Current everyday Tobacco user Tobacco use type: Cigar Cigarette Packs Per Day: 0.5 Cigarettes Per Day: 10 Years Smoked: 50 Smoked in Last 30 Days: Yes Patient Interested in Nicotine Replacement: Yes Patient Given Instructions on How to Stop Smoking: No Second Hand Smoke Exposure: No Use of substances other than those prescribed or required for medical reasons: No Currently Displaying Signs/Symptoms of Drug Intoxication Withdrawal: No Have you been hit, kicked, punched, or otherwise hurt by someone within the past year? If so, by whom?: No Do you feel safe in your current relationship?: No Is there a partner from a previous relationship who is making you feel unsafe now?: No Are you made to feel afraid or neglected: No Advance Directives: No Advance Directives Information Provided: Yes Do you have thoughts of harming others: None Do you have a plan to hurt others: No Plan Recently lost weight without trying: Yes How much weight loss: 2-13 pounds Eating poorly because of decreased appetite: No Nutrition screen score: 3 Nutrition Risks: No Nutritional Risk Poor oral hygiene: No service: No Current occupational status: retired Meds Allergies Allergy/AdvReac Type Severity Reaction Status Date / Time No Known Allergies Allergy Verified 02/14/21 11:58 [No Known Allergies*] Active Medications: Current Medications Generic Name Dose Route Start Last Admin Trade Name Oliver PRN Reason Stop Dose Admin Acetaminophen 650 mg 02/14/21 19:20 Acetaminophen 325 Mg Tablet PO Q6H PRN Pain, Mild (Pain Scale 1-3) Albuterol/Ipratropium 3 ml 02/14/21 19:28 Albuterol/Iprat 2.5/0.5mg 3 Ml Ampul.Neb INHALE QID PRN Shortness Of Breath Apixaban 2.5 mg 02/14/21 21:00 02/15/21 09:01 Apixaban 2.5 Mg Tablet PO 2.5 mg BID STEWART Administration Aspirin 81 mg 02/15/21 09:00 02/15/21 09:01 Aspirin Enteric Coated 81 Mg Tablet. PO 81 mg DAILY STEWART Administration Atorvastatin Calcium 40 mg 02/15/21 09:00 02/15/21 09:01 Atorvastatin Calcium 40 Mg Tablet PO 40 mg DAILY STEWART Administration Cyanocobalamin 500 mcg 02/15/21 09:00 02/15/21 09:01 Cyanocobalamin (Vitamin B-12) 500 Mcg Tablet PO 500 mcg DAILY STEWART Administration Docusate Sodium 100 mg 02/16/21 09:00 Docusate Sodium 100 Mg Capsule PO DAILY STEWART Gabapentin 300 mg 02/14/21 21:00 02/15/21 09:01 Gabapentin 300 Mg Capsule PO 300 mg TID STEWART Administration Piperacillin Sod/Tazobactam 50 mls @ 100 mls/hr 02/14/21 21:00 02/15/21 09:48 Sod 3.375 gm/ Sodium Chloride IV Infused Q6H STEWART Infusion Vancomycin HCl 750 mg/ Sodium 265 mls @ 265 mls/hr 02/15/21 06:00 02/15/21 08:45 Chloride IV Infused Q12H STEWART Infusion Melatonin 3 mg 02/14/21 19:20 02/15/21 00:20 Melatonin 3 Mg Tablet PO 3 mg BEDTIME PRN Administration Insomnia Metoprolol Succinate 50 mg 02/15/21 09:00 02/15/21 09:00 Metoprolol Succinate Er 50 Mg Tab.Er.24h PO 50 mg DAILY STEWART Administration Protocol Morphine Sulfate 2 mg 02/14/21 19:20 02/15/21 08:59 Morphine Sulfate 4 Mg/Ml Cartridge IVPUSH 2 mg Q4H PRN Administration Pain, Severe (Pain Scale 7-10) Protocol Nicotine 21 mg 02/14/21 19:20 02/15/21 09:00 Nicotine 21 Mg Patch.Td24 TRANSDERMA 21 mg DAILY STEWART Administration Ondansetron HCl 4 mg 02/14/21 19:20 Ondansetron Hcl 4 Mg/2 Ml Vial IVPUSH Q8H PRN Nausea and Vomiting Oxycodone HCl 5 mg 02/15/21 10:59 Oxycodone Hcl Immed Release 5 Mg Tablet PO Q4H PRN Pain, Severe (Pain Scale 7-10) Pharmacy Consult 1 each 02/14/21 13:57 Consult Rx Perform Med Rec MISCELLANE ONCE PRN Consult order Pharmacy Consult 1 each 02/14/21 19:20 Consult Rx Vancomycin Dosing MISCELLANE DAILY PRN Consult order Senna/Docusate Sodium 1 tab 02/15/21 09:55 Sennosides/Docusate Sodium Tablet PO DAILY PRN Constipation Sodium Chloride 3 ml 02/15/21 00:00 02/15/21 08:59 0.9 % Sodium Chloride Flush 3 Ml Syringe IVFLUSH 3 ml QSHIFT STEWART Administration Home Medications Medication Instructions Recorded Confirmed Last Taken Type cyanocobalamin (vitamin B-12) 500 500 mcg PO DAILY 11/12/20 02/14/21 Unknown History mcg tablet (B-12 DOTS) diclofenac sodium 1 % topical gel 1 g TOPICAL QID 11/12/20 02/14/21 Unknown History gabapentin 300 mg capsule 1 cap PO TID 11/12/20 02/14/21 Unknown History ipratropium 20 mcg-albuterol 100 1 puff INHALATION QID PRN 11/12/20 02/14/21 Unknown History mcg/actuation mist for inhalation (Combivent Respimat) umeclidinium 62.5 mcg/actuation 1 inh PO DAILY 01/07/21 02/14/21 Unknown History blister powder for inhalation acetaminophen 500 mg tablet 1,000 mg PO BID 02/14/21 02/14/21 02/13/21 History melatonin 3 mg tablet 3 mg PO BEDTIME PRN 02/14/21 02/14/21 Unknown History Physical Exam Vital Signs: Vital Signs: Last Vital Signs Temp 97.1 F 02/15/21 07:30 Pulse 70 02/15/21 09:00 Resp 18 02/15/21 08:59 BP 140/62 H 02/15/21 09:00 Pulse Ox 96 02/15/21 07:30 Body Mass Index 20.5 Const: General: cooperative, healthy appearing and comfortable Orientation/consciousness: oriented to person, oriented to place and oriented to time HENMT: Head: Yes normal to inspection Neck: Neck: Yes normal visual inspection Carotids: no bruits Chest: Chest palpation & inspection: normal inspection of the chest Resp: Effort & Inspection: normal respiratory effort and able to speak in complete sentences Auscultation: clear to auscultation bilaterally, no crackles, no rales, no rhonchi and no wheezes Cardio: Rate: regular rate Rhythm: regular rhythm Heart sounds: S1 normal heart sound present and S2 normal heart sound present Bruits: no carotid bruits Peripheral pulses: dorsalis pedis present bilateral (DP signals only) GI: Inspection: Yes normal to inspection Skin: Wounds: no wounds Hair: normal Neuro: General: oriented to person, oriented to place and oriented to time Cranial nerves: Yes CN's II-XII intact bilaterally and Yes Normal hearing present Cognition (Neuro): normal cognition Motor exam (neuro): 5/5 motor strength present throughout Extrem: Other: venous exam: No significant superficial varicosities or spider telangiectasias, minimal edema General: No clubbing, No cyanosis and No edema Psych: Appearance: grossly normal Mental Status: mental status grossly normal Speech and movement: Normal speech and movement present Results Labs Result diagrams: 02/15/21 06:34 02/15/21 06:34 Labs: Abnormal lab results 02/14/21 02/14/21 02/15/21 Range/Units 14:26 14:26 06:34 WBC 4.6 L (4.8-10.8) X10*3/uL RBC 3.47 L 3.20 L (4.60-5.80) X10*6/uL Hgb 10.5 L 9.7 L (14.0-18.0) g/dl Hct 31.8 L 29.8 L (42-52) % Plt Count 466 H D 457 H (160-400) X10*3/uL MPV 8.5 L 8.7 L (9.4-12.4) fL Neut % (Auto) 76.8 H (45-73) % Lymph % (Auto) 12.0 L (20-40) % Lymph # (Auto) 0.9 L (1.2-4.9) X10*3/uL Sodium 129 L (135-145) mmol/L Chloride 94 L (96-108) mmol/L Anion Gap (12-20) BUN 7 L (9-16) mg/dL 02/15/21 Range/Units 06:34 WBC (4.8-10.8) X10*3/uL RBC (4.60-5.80) X10*6/uL Hgb (14.0-18.0) g/dl Hct (42-52) % Plt Count (160-400) X10*3/uL MPV (9.4-12.4) fL Neut % (Auto) (45-73) % Lymph % (Auto) (20-40) % Lymph # (Auto) (1.2-4.9) X10*3/uL Sodium 131 L (135-145) mmol/L Chloride (96-108) mmol/L Anion Gap 11 L (12-20) BUN 7 L (9-16) mg/dL Short CBC 02/14/21 02/15/21 Range/Units 14:26 06:34 WBC 7.2 4.6 L (4.8-10.8) X10*3/uL Hgb 10.5 L 9.7 L (14.0-18.0) g/dl Hct 31.8 L 29.8 L (42-52) % Plt Count 466 H D 457 H (160-400) X10*3/uL BMP 02/14/21 02/15/21 14:26 06:34 Sodium 129 L 131 L Potassium 4.9 4.4 Chloride 94 L 97 Carbon Dioxide 26 27 BUN 7 L 7 L Creatinine 0.68 0.68 Calcium 9.5 D 8.9 D Cardiac Enzymes 02/14/21 Range/Units 14:26 Total Creatine Kinase 41 D (38-174) U/L Liver Function 02/14/21 02/14/21 Range/Units 14:26 14:26 Total Bilirubin 0.9 Cancelled (0.0-1.0) mg/dL Direct Bilirubin 0.4 Cancelled (0.0-0.5) mg/dL AST 15 Cancelled (5-37) U/L ALT 14 Cancelled (0-40) U/L Alkaline Phosphatase 97 Cancelled (39-117) U/L Albumin 3.6 Cancelled (3.5-5.0) g/dL All other labs normal. Imaging Abdomen CT scan report/results: report reviewed and image reviewed Additional studies: CT scan head reviewed Assessment and Plan (1) PAD (peripheral artery disease): Status: Acute In short, patient has progression to critical limb ischemia. It is complicated by his significant alcohol history. Will get CTA with runoff to better elicidate the levels of disease. This is a very complex situation as he had a right groing infected patch blowout. Will continue on abx and pain management. Pending CT results will try to formulate a better plan for limb salvage. Procedures Date of Service Date of Service: 02/14/21
[2021-02-15] MEDS: iohexoL 350 MG/ML 100 ML INFUS..BTL IV (12:19)
--- NOTE | 2021-02-15 13:49 | MHC.CM.PN ---
CM MET WITH PT WHO REPORTS HE LIVES AT HOME WITH HIS AND MIDDLE SON. PT REPORTS HE IS ACTIVE WITH [facility] FOR SN AND A PLAN TO ADD PT ONCE HE IS ABLE TO WORK WITH THEM (CURRENTLY UNABLE TO MOVE LEG PER HIS REPORT). PT REPORTS HE HAS A WALKER, ROLLATOR AND CANE AT HOME. PT HAS A HCP ON FILE NAMING HIS ELDEST SON, DALTON, AND DAUGHTER IN LAW, SERJIO, HIS AGENTS. MEDICARE AND [place] RIGHTS DELIVERED CURRENT DC PLAN IS HOME WITH RESUMPTION OF [facility] FAMILY TO TRANSPORT
[2021-02-15] MEDS: Morphine Sulfate 2 MG/ML CARTRIDGE IVPUSH ×2 (14:38→22:44)
[2021-02-15] MEDS: oxyCODONE HCl Immed Release 5 MG TABLET PO (17:42)
[2021-02-16] VITALS (8 sets, daily range): BP systolic 78–165; BP diastolic 52–75; PULSE 67–82; RESP 16–20; TEMP 35.9–36.8; O2SAT 92–100
[2021-02-16] MEDS: Morphine Sulfate 2 MG/ML CARTRIDGE IVPUSH (03:49)
[2021-02-16] MEDS: Piperacillin Sodium/Tazobactam 3.375 GM in 0.9 % Sodium Chloride 50 ML IV ×4 (03:49→22:16)
--- NOTE | 2021-02-16 04:34 | PC.NURSE ---
Pt was recored to have a manual BP of 80/50. Md was notified. Bolus was ordred
[2021-02-16 05:16] LABS: MANUAL DIFF FLAG NO
[2021-02-16 05:29] LABS: Basophils Percent Auto 0.8 % (0-2); Eosinophils Absolute Auto 0.2 X10*3/uL (0.0-0.4); Eosinophils Percent Auto 4.1 % (0-4); Hematocrit 27.6 % (42-52); Imm Gran Abs Auto 0.03 X10*3/uL (0.00-0.03); Imm Gran Pct Auto 0.6 % (0.0-0.4); Lymphocytes Absolute Auto 0.7 X10*3/uL (1.2-4.9); Lymphocytes Percent Auto 14.6 % (20-40); Mean Corpuscular HGB Conc 32.6 g/dl (31.0-36.0); Mean Corpuscular Hemoglobin 30.3 pg (27.0-33.0); Mean Corpuscular Volume 92.9 fL (80-98); Mean Platelet Volume 8.6 fL (9.4-12.4); Monocytes Absolute Auto 0.5 X10*3/uL (0.1-1.2); Monocytes Percent Auto 9.9 % (2-11); Neutrophils Absolute Auto 3.4 X10*3/uL (2.0-8.3); Platelet Count 387 X10*3/uL (160-400); Red Blood Count 2.97 X10*6/uL (4.60-5.80); Red Cell Distribution Width 14.6 % (11.0-16.0); White Blood Count 4.9 X10*3/uL (4.8-10.8)
[2021-02-16 05:51] LABS: Anion Gap 11 (12-20); Blood Urea Nitrogen 7 mg/dL (9-16); Carbon Dioxide 26 mmol/L (22-29); Chloride 100 mmol/L (96-108); Creatinine Clr Calc Pharmacy 95.4; Estimated Glomerular Filt Rate > 60; Glucose Random 84 mg/dL (60-115); Lactic Acid 1.4 mmol/L (0.5-2.0); Potassium 4.4 mmol/L (3.3-5.1); Sodium 133 mmol/L (135-145)
[2021-02-16 05:56] LABS: Vancomycin Trough 8.4 mcg/mL (10.0-20.0)
[2021-02-16] MEDS: vancomycin HCL 750 MG in 0.9 % Sodium Chloride 250 ML 265 MG IV ×2 (06:03→17:46)
--- NOTE | 2021-02-16 06:21 | PM.EVENT ---
Event Note Date of Service: 02/16/21 Event Note: pt hypotensive. afebrile, no syptoms, will give him 30 cc/kg bolus fluid lactic acid
[2021-02-16] MEDS: 0.9 % Sodium Chloride 1,944 ML 1944 ML IV (07:09)
[2021-02-16 07:54] LABS: Lactic Acid 1.4 mmol/L (0.5-2.0)
[2021-02-16] MEDS: Atorvastatin Calcium 40 MG TABLET PO (09:49)
[2021-02-16] MEDS: Gabapentin 300 MG CAPSULE PO ×3 (09:49→22:16)
[2021-02-16] MEDS: Docusate Sodium 100 MG CAPSULE PO (09:49)
[2021-02-16] MEDS: Aspirin Enteric Coated 81 MG TABLET.DR PO (09:49)
[2021-02-16] MEDS: Nicotine 21 MG PATCH.TD24 TRANSDERMA (09:49)
[2021-02-16] MEDS: oxyCODONE HCl Immed Release 5 MG TABLET PO ×2 (09:49→22:24)
[2021-02-16] MEDS: Cyanocobalamin (Vitamin B-12) 500 MCG TABLET PO (09:49)
[2021-02-16] MEDS: Apixaban 2.5 MG TABLET PO ×2 (09:49→22:15)
--- NOTE | 2021-02-16 10:31 | HO.PM.IMPN ---
Subjective Subjective Date of Service: 02/16/21 <MAURI Mauro - Last Filed: 02/16/21 10:59> 02/19/21 <Peter Wright MD - Last Filed: 02/19/21 14:22> Interval History: seen and examined this morning blood pressure low overnight, received 30 cc/kg bolus reported feeling tired, but not dizzy/lightheaded. feeling better this morning still having pain in right leg, seems a little better <MAURI Mauro - Last Filed: 02/16/21 10:59> Review of Systems Review of Systems: Yes all other systems are reviewed and are negative <MAURI Mauro - Last Filed: 02/16/21 10:59> Constitutional Constitutional: Denies chills and Denies fever(s) <MAURI Mauro - Last Filed: 02/16/21 10:59> Cardiovascular Cardiovascular: Denies chest pain <MAURI Mauro - Last Filed: 02/16/21 10:59> Respiratory Respiratory: Denies cough <MAURI Mauro - Last Filed: 02/16/21 10:59> Gastrointestinal Gastrointestinal: Denies abdominal pain <MAURI Mauro - Last Filed: 02/16/21 10:59> Physical Exam Vital Signs: Vital Signs: Last Vital Signs Temp 97.6 F 02/16/21 07:27 Pulse 82 02/16/21 07:27 Resp 20 02/16/21 07:27 BP 102/68 02/16/21 07:27 Pulse Ox 99 02/16/21 07:27 Body Mass Index 20.5 <MAURI Mauro - Last Filed: 02/16/21 10:59> Const: General: alert and awake <MAURI Mauro Last Filed: 02/16/21 10:59> Nutritional Appearance: well nourished <MAURI Mauro - Last Filed: 02/16/21 10:59> Orientation/consciousness: patient oriented x3 <MAURI Mauro Last Filed: 02/16/21 10:59> HENMT: Head: Yes normocephalic and Yes atraumatic <MAURI Mauro - Last Filed: 02/16/21 10:59> Eyes: General: appearance normal, both eyes and all related structures <MAURI Mauro - Last Filed: 02/16/21 10:59> Sclerae: sclerae normal <MAURI Mauro - Last Filed: 02/16/21 10:59> Pupils: Equal, round and reactive pupils present <MAURI Mauro - Last Filed: 02/16/21 10:59> Resp: Effort & Inspection: normal respiratory effort and no respiratory distress <MAURI Mauro - Last Filed: 02/16/21 10:59> Cardio: Rate: regular rate <MAURI Mauro - Last Filed: 02/16/21 10:59> Rhythm: regular rhythm <MAURI Mauro - Last Filed: 02/16/21 10:59> GI: Palpation (GI): Soft to palpation and nontender <MAURI Mauro - Last Filed: 02/16/21 10:59> Skin: Other: heel wound wrapped in c/d/i dressing; right leg edema <MAURI Mauro - Last Filed: 02/16/21 10:59> Neuro: General: patient oriented x3 <MAURI Mauro - Last Filed: 02/16/21 10:59> Cranial nerves: Yes CN's II-XII intact bilaterally, Yes Equal, round and reactive pupils present and Yes Bilaterally intact EOM present <MAURI Mauro Last Filed: 02/16/21 10:59> Objective Data Current Medications Generic Name Dose Route Start Last Admin Trade Name Freq PRN Reason Stop Dose Admin Acetaminophen 650 mg 02/14/21 19:20 Acetaminophen 325 Mg Tablet PO Q6H PRN Pain, Mild (Pain Scale 1-3) Albuterol/Ipratropium 3 ml 02/14/21 19:28 Albuterol/Iprat 2.5/0.5mg 3 Ml Ampul.Neb INHALE QID PRN Shortness Of Breath Apixaban 2.5 mg 02/14/21 21:00 02/16/21 09:49 Apixaban 2.5 Mg Tablet PO 2.5 mg BID STEWART Administration Aspirin 81 mg 02/15/21 09:00 02/16/21 09:49 Aspirin Enteric Coated 81 Mg Tablet. PO 81 mg DAILY STEWART Administration Atorvastatin Calcium 40 mg 02/15/21 09:00 02/16/21 09:49 Atorvastatin Calcium 40 Mg Tablet PO 40 mg DAILY STEWART Administration Cyanocobalamin 500 mcg 02/15/21 09:00 02/16/21 09:49 Cyanocobalamin (Vitamin B-12) 500 Mcg Tablet PO 500 mcg DAILY STEWART Administration Docusate Sodium 100 mg 02/16/21 09:00 02/16/21 09:49 Docusate Sodium 100 Mg Capsule PO 100 mg DAILY STEWART Administration Gabapentin 300 mg 02/14/21 21:00 02/16/21 09:49 Gabapentin 300 Mg Capsule PO 300 mg TID STEWART Administration Piperacillin Sod/Tazobactam 50 mls @ 100 mls/hr 02/14/21 21:00 02/16/21 09:50 Sod 3.375 gm/ Sodium Chloride IV 100 mls/hr Q6H STEWART Administration Vancomycin HCl 750 mg/ Sodium 265 mls @ 265 mls/hr 02/15/21 06:00 02/16/21 07:08 Chloride IV Infused Q12H STEWART Infusion Melatonin 3 mg 02/14/21 19:20 02/15/21 22:44 Melatonin 3 Mg Tablet PO 3 mg BEDTIME PRN Administration Insomnia Metoprolol Succinate 50 mg 02/15/21 09:00 02/15/21 09:00 Metoprolol Succinate Er 50 Mg Tab.Er.24h PO 50 mg DAILY STEWART Administration Protocol Morphine Sulfate 2 mg 02/15/21 14:22 02/16/21 03:49 Morphine Sulfate 2 Mg/Ml Cartridge IVPUSH 2 mg Q4H PRN Administration Pain, Severe (Pain Scale 7-10) Protocol Nicotine 21 mg 02/14/21 19:20 02/16/21 09:49 Nicotine 21 Mg Patch.Td24 TRANSDERMA 21 mg DAILY STEWART Administration Ondansetron HCl 4 mg 02/14/21 19:20 Ondansetron Hcl 4 Mg/2 Ml Vial IVPUSH Q8H PRN Nausea and Vomiting Oxycodone HCl 5 mg 02/15/21 10:59 02/16/21 09:49 Oxycodone Hcl Immed Release 5 Mg Tablet PO 5 mg Q4H PRN Administration Pain, Severe (Pain Scale 7-10) Pharmacy Consult 1 each 02/14/21 13:57 Consult Rx Perform Med Rec MISCELLANE ONCE PRN Consult order Pharmacy Consult 1 each 02/14/21 19:20 Consult Rx Vancomycin Dosing MISCELLANE DAILY PRN Consult order Senna/Docusate Sodium 1 tab 02/15/21 09:55 Sennosides/Docusate Sodium Tablet PO DAILY PRN Constipation Sodium Chloride 3 ml 02/15/21 00:00 02/16/21 08:18 0.9 % Sodium Chloride Flush 3 Ml Syringe IVFLUSH Not Given QSHIFT STEWART <MAURI Mauro - Last Filed: 02/16/21 10:59> Labs CBC & Chem 7: : 02/17/21 06:20 02/17/21 06:20 <MAURI Mauro - Last Filed: 02/16/21 10:59> Labs: Laboratory Results - last 24 hr 02/16/21 02/16/21 02/16/21 05:08 05:08 05:08 MCV Cancelled MCH Cancelled MCHC Cancelled RDW Cancelled Plt Count Cancelled MPV Cancelled Immature Gran % (Auto) Neut % (Auto) Lymph % (Auto) [place] % (Auto) Eos % (Auto) Baso % (Auto) Lymph # (Auto) [place] # (Auto) Eos # (Auto) Baso # (Auto) Abs Immat Gran (auto) Absolute Neuts (auto) Absolute Nucleated RBC Cancelled Nucleated RBC % (auto) Cancelled Anion Gap 11 L Estim Creat Clear Calc 95.4 Estimated GFR > 60 Random Glucose 84 Lactic Acid Calcium 9.0 Vancomycin Trough 8.4 L 02/16/21 02/16/21 02/16/21 05:08 05:08 06:58 MCV 92.9 MCH 30.3 MCHC 32.6 RDW 14.6 Plt Count 387 MPV 8.6 L Immature Gran % (Auto) 0.6 H Neut % (Auto) 70.0 Lymph % (Auto) 14.6 L [place] % (Auto) 9.9 Eos % (Auto) 4.1 H Baso % (Auto) 0.8 Lymph # (Auto) 0.7 L [place] # (Auto) 0.5 Eos # (Auto) 0.2 Baso # (Auto) 0.0 Abs Immat Gran (auto) 0.03 Absolute Neuts (auto) 3.4 Absolute Nucleated RBC 0.000 Nucleated RBC % (auto) 0.0 Anion Gap Estim Creat Clear Calc Estimated GFR Random Glucose Lactic Acid 1.4 1.4 Calcium Vancomycin Trough <MAURI Mauro - Last Filed: 02/16/21 10:59> Microbiology Microbiology Results: Microbiology 02/14/21 16:25 Blood Culture - Preliminary Blood - Venous No growth after 24 hours. 02/14/21 14:26 Blood Culture - Preliminary Blood - Venous No growth after 24 hours. <MAURI Mauro - Last Filed: 02/16/21 10:59> Assessment and Plan (1) PAD (peripheral artery disease): Status: Acute <MAURI Mauro - Last Filed: 02/16/21 10:59> (2) Osteomyelitis: Status: Acute <MAURI Mauro - Last Filed: 02/16/21 10:59> Assessment and Plan: This is a 71-year-old male with a history of hypertension, PVD with complicated surgical history here with worsening chronic right heel wound likely osteo Right heel ulcer/osteomyelitis In the setting of severe peripheral vascular disease with complicated past surgical history No sepsis, lactic acid negative Continue broad-spectrum antibiotics, vanomycin and zosyn -Vascular following -Will likely need surgical intervention HTN BP soft - hold metoprolol Daily alcohol use Patient reports cutting down on his alcohol intake to 1 32 oz beer daily No evidence of alcohol withdrawal at this time Monitor on CIWA prn ativan if necessary Hyponatremia, mild improving, sodium 133 today Tobacco dependence Nicotine replacement therapy Smoking cessation advised Peripheral vascular disease Continue aspirin, Eliquis HLD continue statin DVT prophylaxis-Eliquis Code status-full code Attending Dr. Wright <MAURI Mauro - Last Filed: 02/16/21 10:59> Quality Stroke Does the patient have a stroke diagnosis?: No <MAURI Mauro - Last Filed: 02/16/21 10:59> VTE Prior VTE?: No <MAURI Mauro - Last Filed: 02/16/21 10:59> VTE Risk Level:: Medical - moderate - high <MAURI Mauro - Last Filed: 02/16/21 10:59> VTE Device Contraindication: Treatment Not Indicated <MAURI Mauro - Last Filed: 02/16/21 10:59> VTE Drug Contraindication: N/A - Med Ordered <MAURI Mauro - Last Filed: 02/16/21 10:59>
[2021-02-16] MEDS: 0.9 % Sodium Chloride Flush 3 ML SYRINGE IVFLUSH ×2 (16:07→22:24)
[2021-02-16] MEDS: Melatonin 3 MG TABLET PO (22:15)
[2021-02-17] VITALS (8 sets, daily range): BP systolic 118–152; BP diastolic 47–72; PULSE 70–88; RESP 14–18; TEMP 36–36.3; O2SAT 90–100; BMI 20.5
[2021-02-17] MEDS: Piperacillin Sodium/Tazobactam 3.375 GM in 0.9 % Sodium Chloride 50 ML IV ×4 (02:54→22:05)
[2021-02-17] MEDS: oxyCODONE HCl Immed Release 5 MG TABLET PO ×3 (02:56→20:00)
[2021-02-17] MEDS: vancomycin HCL 750 MG in 0.9 % Sodium Chloride 250 ML 265 MG IV ×2 (05:17→18:17)
[2021-02-17] MEDS: Morphine Sulfate 2 MG/ML CARTRIDGE IVPUSH ×2 (06:12→14:43)
[2021-02-17 07:38] LABS: Hematocrit 29.7 % (42-52); Hemoglobin 9.6 g/dl (14.0-18.0); Mean Corpuscular HGB Conc 32.3 g/dl (31.0-36.0); Mean Corpuscular Volume 92.8 fL (80-98); Mean Platelet Volume 8.9 fL (9.4-12.4); Platelet Count 432 X10*3/uL (160-400); Red Cell Distribution Width 14.3 % (11.0-16.0); White Blood Count 5.1 X10*3/uL (4.8-10.8)
[2021-02-17 07:55] LABS: Anion Gap 15 (12-20); Blood Urea Nitrogen 6 mg/dL (9-16); Carbon Dioxide 24 mmol/L (22-29); Chloride 100 mmol/L (96-108); Creatinine Clr Calc Pharmacy 96.9; Estimated Glomerular Filt Rate > 60; Glucose Random 84 mg/dL (60-115); Potassium 4.9 mmol/L (3.3-5.1); Sodium 134 mmol/L (135-145)
[2021-02-17] MEDS: Docusate Sodium 100 MG CAPSULE PO (09:56)
[2021-02-17] MEDS: Aspirin Enteric Coated 81 MG TABLET.DR PO (09:56)
[2021-02-17] MEDS: 0.9 % Sodium Chloride Flush 3 ML SYRINGE IVFLUSH ×3 (09:57→22:11)
[2021-02-17] MEDS: Gabapentin 300 MG CAPSULE PO ×3 (09:58→22:05)
[2021-02-17] MEDS: Cyanocobalamin (Vitamin B-12) 500 MCG TABLET PO (09:58)
[2021-02-17] MEDS: Atorvastatin Calcium 40 MG TABLET PO (09:58)
[2021-02-17] MEDS: Nicotine 21 MG PATCH.TD24 TRANSDERMA (09:58)
--- NOTE | 2021-02-17 10:51 | PM.IMPN ---
Progress Note: A&P (1) Osteomyelitis: Status: Acute Assessment and Plan: This is a 71-year-old male with a history of hypertension, PVD with complicated surgical history here with worsening chronic right heel wound likely osteo Right heel ulcer/osteomyelitis In the setting of severe peripheral vascular disease with complicated past surgical history No sepsis, lactic acid negative Continue broad-spectrum antibiotics, vanomycin and zosyn -Will likely need surgical intervention however, may need to be at tertiary facility considering multiple recent vascular procedures, will discuss with vascular HTN BP soft hold metoprolol Daily alcohol use Patient reports cutting down on his alcohol intake to 1 32 oz beer daily No evidence of alcohol withdrawal at this time Monitor on CIWA prn ativan if necessary Hyponatremia, mild improving Tobacco dependence Nicotine replacement therapy Smoking cessation advised Peripheral vascular disease Continue aspirin, Eliquis HLD continue statin DVT prophylaxis-Eliquis Code status-full code Subjective Subjective Date of Service: 02/17/21 Review of Systems Follow up osteomyelitis pain is better controlled. Physical Exam Vital Signs: Vital Signs: Last Vital Signs Temp 97.0 F 02/17/21 07:26 Pulse 70 02/17/21 07:26 Resp 17 02/17/21 07:26 BP 140/70 H 02/17/21 07:26 Pulse Ox 100 02/17/21 07:26 Body Mass Index 20.5 Appearing in no acute distress lung sounds are clear to auscultation heart regular rate rhythm, clear S1, S2 positive bowel sounds, abdomen is soft, nontender neuro patient is alert x3, no focal deficits venous ulcer to dorsal of right foot and deep heel ulcer.? Objective Data Current Medications Generic Name Dose Route Start Last Admin Trade Name Oliver PRN Reason Stop Dose Admin Acetaminophen 650 mg 02/14/21 19:20 Acetaminophen 325 Mg Tablet PO Q6H PRN Pain, Mild (Pain Scale 1-3) Albuterol/Ipratropium 3 ml 02/14/21 19:28 Albuterol/Iprat 2.5/0.5mg 3 Ml Ampul.Neb INHALE QID PRN Shortness Of Breath Apixaban 2.5 mg 02/14/21 21:00 02/16/21 22:15 Apixaban 2.5 Mg Tablet PO 2.5 mg BID STEWART Administration Aspirin 81 mg 02/15/21 09:00 02/17/21 09:56 Aspirin Enteric Coated 81 Mg Tablet.Dr PO 81 mg DAILY STEWART Administration Atorvastatin Calcium 40 mg 02/15/21 09:00 02/17/21 09:58 Atorvastatin Calcium 40 Mg Tablet PO 40 mg DAILY STEWART Administration Cyanocobalamin 500 mcg 02/15/21 09:00 02/17/21 09:58 Cyanocobalamin (Vitamin B-12) 500 Mcg Tablet PO 500 mcg DAILY STEWART Administration Docusate Sodium 100 mg 02/16/21 09:00 02/17/21 09:56 Docusate Sodium 100 Mg Capsule PO 100 mg DAILY STEWART Administration Gabapentin 300 mg 02/14/21 21:00 02/17/21 09:58 Gabapentin 300 Mg Capsule PO 300 mg TID STEWART Administration Piperacillin Sod/Tazobactam 50 mls @ 100 mls/hr 02/14/21 21:00 02/17/21 10:35 Sod 3.375 gm/ Sodium Chloride IV Infused Q6H STEWART Infusion Vancomycin HCl 750 mg/ Sodium 265 mls @ 265 mls/hr 02/15/21 06:00 02/17/21 06:29 Chloride IV Infused Q12H STEWART Infusion Melatonin 3 mg 02/14/21 19:20 02/16/21 22:15 Melatonin 3 Mg Tablet PO 3 mg BEDTIME PRN Administration Insomnia Metoprolol Succinate 50 mg 02/15/21 09:00 02/15/21 09:00 Metoprolol Succinate Er 50 Mg Tab.Er.24h PO 50 mg DAILY STEWART Administration Protocol Morphine Sulfate 2 mg 02/15/21 14:22 02/17/21 06:12 Morphine Sulfate 2 Mg/Ml Cartridge IVPUSH 2 mg Q4H PRN Administration Pain, Severe (Pain Scale 7-10) Protocol Nicotine 21 mg 02/14/21 19:20 02/17/21 09:58 Nicotine 21 Mg Patch.Td24 TRANSDERMA 21 mg DAILY STEWART Administration Ondansetron HCl 4 mg 02/14/21 19:20 Ondansetron Hcl 4 Mg/2 Ml Vial IVPUSH Q8H PRN Nausea and Vomiting Oxycodone HCl 5 mg 02/15/21 10:59 02/17/21 09:56 Oxycodone Hcl Immed Release 5 Mg Tablet PO 5 mg Q4H PRN Administration Pain, Severe (Pain Scale 7-10) Pharmacy Consult 1 each 02/14/21 13:57 Consult Rx Perform Med Rec MISCELLANE ONCE PRN Consult order Pharmacy Consult 1 each 02/14/21 19:20 Consult Rx Vancomycin Dosing MISCELLANE DAILY PRN Consult order Senna/Docusate Sodium 1 tab 02/15/21 09:55 Sennosides/Docusate Sodium Tablet PO DAILY PRN Constipation Sodium Chloride 3 ml 02/15/21 00:00 02/17/21 09:57 0.9 % Sodium Chloride Flush 3 Ml Syringe IVFLUSH 3 ml QSHIFT STEWART Administration Labs CBC & Chem 7: 02/17/21 06:20 02/17/21 06:20 Labs: Laboratory Results - last 24 hr 02/17/21 02/17/21 06:20 06:20 MCV 92.8 MCH 30.0 MCHC 32.3 RDW 14.3 Plt Count 432 H MPV 8.9 L Absolute Nucleated RBC 0.000 Nucleated RBC % (auto) 0.0 Anion Gap 15 Estim Creat Clear Calc 96.9 Estimated GFR > 60 Random Glucose 84 Calcium 9.0 Microbiology Microbiology Results: Microbiology 02/14/21 16:25 Blood - Venous Blood Culture - Preliminary No growth after 48 hours. 02/14/21 14:26 Blood - Venous Blood Culture - Preliminary No growth after 48 hours. Quality Stroke Does the patient have a stroke diagnosis?: No VTE Prior VTE?: No VTE Risk Level:: Medical - moderate - high VTE Device Contraindication: Treatment Not Indicated VTE Drug Contraindication: N/A - Med Ordered
--- NOTE | 2021-02-17 12:11 | PC.NURSE ---
Skin/Wound assessment completed today. Patient has venous ulcer to dorsal of right foot and deep heel ulcer. Silver alginate applied to both wounds covered with gauze and roll gauze. Blanchable redness to coccyx. No other skin issues noted at this time.
--- NOTE | 2021-02-17 12:42 | P.PNVS_ITS ---
Subjective Subjective Date of Service: 02/17/21 Patient reports: no new complaints and feels better Interval history: 71-year-old gentleman well known to me with Nonhealing ulcer and severe peripheral vascular disease was admitted on Wednesday. He reports that his pain and discomfort have improved throughout the weekend. He does have significant edema in that right lower extremity. He Is now for Hospital follow-up. Physical Exam Vital Signs: Vital Signs: Last Vital Signs Temp 97.4 F 02/17/21 12:00 Pulse 77 02/17/21 12:00 Resp 18 02/17/21 12:00 BP 152/72 H 02/17/21 12:00 Pulse Ox 100 02/17/21 12:00 Body Mass Index 20.5 Const: General: cooperative, healthy appearing and no acute distress Orientation/consciousness: oriented to person, oriented to place and oriented to time HENMT: Head: Yes normal to inspection Neck: Carotids: no bruits Chest: Chest palpation & inspection: normal inspection of the chest Resp: Effort & Inspection: normal respiratory effort and able to speak in complete sentences Auscultation: clear to auscultation bilaterally Cardio: Rate: regular rate Heart sounds: S1 normal heart sound present and S2 normal heart sound present Peripheral pulses: dorsalis pedis present (Bilateral DP signal) GI: Inspection: Yes normal to inspection Skin: General skin exam: no rashes or lesions noted Wounds: wounds noted (Right heel ulceration to calcaneus) Neuro: General: oriented to person, oriented to place, oriented to time and CN's II-XI intact bilaterally Extrem: General: Yes normal to inspection, Yes full ROM and Yes no clubbing, cyanosis or edema Psych: Appearance: grossly normal and well kempt Speech and movement: N ormal speech and movement present Affect: normal affect Progress Note: A&P Assessment and plan (1) PAD (peripheral artery disease): Status: Acute Assessment and Plan: In short patient has severe peripheral vascular disease. Appears to be doing somewhat better since admission. Pain is better controlled. Currently on IV antibiotics. I did have an opportunity to review written report and CT scan. Multiple levels of occlusion. He most likely would benefit from care at a higher level center. Preferably was somewhere with a hybrid OR. I have discussed the CT scan findings with the patient and the possibility of transfer. He is in agreement. In addition I did discuss the fact that he is at a very high risk for amputation. He did demonstrate an understanding of that as well. I will try to reach out to my colleagues to see who is accepting patients. Will try to transfer as soon as possible. Thank you for the hospitalist teams in his assistance in his care. Fall Risk Details Current Medications: Current Medications Generic Name Dose Route Start Last Admin Trade Name Oliver PRN Reason Stop Dose Admin Acetaminophen 650 mg 02/14/21 19:20 Acetaminophen 325 Mg Tablet PO Q6H PRN Pain, Mild (Pain Scale 1-3) Albuterol/Ipratropium 3 ml 02/14/21 19:28 Albuterol/Iprat 2.5/0.5mg 3 Ml Ampul.Neb INHALE QID PRN Shortness Of Breath Apixaban 2.5 mg 02/14/21 21:00 02/16/21 22:15 Apixaban 2.5 Mg Tablet PO 2.5 mg BID STEWART Administration Aspirin 81 mg 02/15/21 09:00 02/17/21 09:56 Aspirin Enteric Coated 81 Mg Tablet. PO 81 mg DAILY STEWART Administration Atorvastatin Calcium 40 mg 02/15/21 09:00 02/17/21 09:58 Atorvastatin Calcium 40 Mg Tablet PO 40 mg DAILY STEWART Administration Cyanocobalamin 500 mcg 02/15/21 09:00 02/17/21 09:58 Cyanocobalamin (Vitamin B-12) 500 Mcg Tablet PO 500 mcg DAILY STEWART Administration Docusate Sodium 100 mg 02/16/21 09:00 02/17/21 09:56 Docusate Sodium 100 Mg Capsule PO 100 mg DAILY STEWART Administration Gabapentin 300 mg 02/14/21 21:00 02/17/21 09:58 Gabapentin 300 Mg Capsule PO 300 mg TID STEWART Administration Piperacillin Sod/Tazobactam 50 mls @ 100 mls/hr 02/14/21 21:00 02/17/21 10:35 Sod 3.375 gm/ Sodium Chloride IV Infused Q6H STEWART Infusion Vancomycin HCl 750 mg/ Sodium 265 mls @ 265 mls/hr 02/15/21 06:00 02/17/21 06:29 Chloride IV Infused Q12H STEWART Infusion Melatonin 3 mg 02/14/21 19:20 02/16/21 22:15 Melatonin 3 Mg Tablet PO 3 mg BEDTIME PRN Administration Insomnia Metoprolol Succinate 50 mg 02/15/21 09:00 02/15/21 09:00 Metoprolol Succinate Er 50 Mg Tab.Er.24h PO 50 mg DAILY STEWART Administration Protocol Morphine Sulfate 2 mg 02/15/21 14:22 02/17/21 06:12 Morphine Sulfate 2 Mg/Ml Cartridge IVPUSH 2 mg Q4H PRN Administration Pain, Severe (Pain Scale 7-10) Protocol Nicotine 21 mg 02/14/21 19:20 02/17/21 09:58 Nicotine 21 Mg Patch.Td24 TRANSDERMA 21 mg DAILY STEWART Administration Ondansetron HCl 4 mg 02/14/21 19:20 Ondansetron Hcl 4 Mg/2 Ml Vial IVPUSH Q8H PRN Nausea and Vomiting Oxycodone HCl 5 mg 02/15/21 10:59 02/17/21 09:56 Oxycodone Hcl Immed Release 5 Mg Tablet PO 5 mg Q4H PRN Administration Pain, Severe (Pain Scale 7-10) Pharmacy Consult 1 each 02/14/21 13:57 Consult Rx Perform Med Rec MISCELLANE ONCE PRN Consult order Pharmacy Consult 1 each 02/14/21 19:20 Consult Rx Vancomycin Dosing MISCELLANE DAILY PRN Consult order Senna/Docusate Sodium 1 tab 02/15/21 09:55 Sennosides/Docusate Sodium Tablet PO DAILY PRN Constipation Sodium Chloride 3 ml 02/15/21 00:00 02/17/21 09:57 0.9 % Sodium Chloride Flush 3 Ml Syringe IVFLUSH 3 ml QSHIFT STEWART Administration Time Spent With Patient Time: Total time spent is greater than 50% in coordination of care (as documented) at patient's floor/unit and/or counseling patient: Time with patient: 15 - 24 minutes Procedures Date of Service Date of Service: 02/17/21 Quality Stroke Does the patient have a stroke diagnosis?: No VTE Prior VTE?: No VTE Risk Level:: Medical - moderate - high VTE Device Contraindication: Treatment Not Indicated VTE Drug Contraindication: N/A - Med Ordered
--- NOTE | 2021-02-17 13:36 | P.CDIC_ITS ---
CDI Concurrent Query Service Date: 02/18/21 Documentation Clarification: Please clarify if you are treating a proba ble/suspected/likely or confirmed: -Type (etiology) of ulcer/wound: -Diabetic ulcer -Venous stasis ulcer -Arterial (ischemic) ulcer -Pressure (decubitus) ulcer -Traumatic wound -Non-healing surgical wound -Other -Unable to determine -For a non-pressure ulcer, please indicate the depth/severity: -Limited to the breakdown of skin -With fat layer exposed -With necrosis of muscle -With necrosis of bone -Other -Unable to determine -If a pressure ulcer, please also include the stage* of the ulcer: -Stage 1 - Skin intact, non-blanchable redness -Stage 2 - Partial thickness loss of dermis, includes intact or open blister -Stage 3 - Full thickness tissue not including bone, tendon, or muscle -Stage 4 - Full thickness tissue loss, including exposed bones, tendon, or muscle -Unstageable - Full thickness tissue loss in which the base of the ulcer is covered by slough (yellow, briggs, arreaga, green or brown) and/or eschar (briggs, brown, or black) in the wound bed. -Suspected deep tissue injury - Purple or maroon localized area of discolored intact skin or blood-filled blister due to damage of underlying soft tissues from pressure and/or shear. The area may be preceded by tissue that is painful, firm, mushy, boggy, warmer, or cooler as compare to adjacent tissue. -Unable to determine *Source: National Pressure Ulcer Advisory Panel (NPUAP) Use of terms such as suspected, likely, concern for, or probable (associated with a specific diagnosis that is being evaluated, monitored, or treated as if it exists) are acceptable and can be coded in the inpatient setting, when do cumented at the time of discharge. Provider Response: Other Other Diagnosis: -Arterial (ischemic) ulcer PLEASE DO NOT DELETE/MODIFY EXISTING CONTENT Additional information is needed in order to code to the highest accuracy and appropriate Severity of Illness (SOI). Please clarify the information noted below in your progress notes and discharge summary. Risk Factors/Clinical Indicators/Treatments Right heel large ulcer with brown yellow foul discharge Per ED Impression: Infected pressure ulcer Per H&P: likely osteomyelitis, Right heel pressure ulcer in setting of PVD per nurses notes, venous stasis ulcer CDS: Chantal Almanzar RN Contact Number: [phone] Please Review the information above and exercise your independent professional judgment in responding to the query. If you concur, pleas document in the PROGRESS NOTES and DISCHARGE SUMMARY. If you do not agree with the query, please document in the query above. THIS QUERY IS PART OF THE PERMANENT MEDICAL RECORD
--- NOTE | 2021-02-17 15:38 | P.DS_ITS ---
DS: Providers Provider Date of Service: 02/20/21 <MAURI Mauro - Last Filed: 02/20/21 16:50> Date of admission: 02/14/21 17:06 <Libia Aguirre NP - Last Filed: 02/19/21 08:24> Primary care physician: Karlene Randle MD <Libia Aguirre NP - Last Filed: 02/19/21 08:24> Consults: 02/14/21 17:17 Consult to Vascular Surgery Routine Consulting Provider: Cabrera Manzo Reason for consultation: Heel ulcer Has provider been notified: No <Libia Aguirre NP - Last Filed: 02/19/21 08:24> Discharging clinician: Libia Aguirre <Libia Aguirre NP - Last Filed: 02/19/21 08:24> DS: Diagnosis Discharge Diagnosis (1) Osteomyelitis: Status: Acute <Libia Aguirre NP - Last Filed: 02/19/21 08:24> DS: Summary Hospital Course Hospital Course: Hp as per admitting provider This is a 71-year-old male with history of peripheral vascular disease followed by Dr. Manzo [facility] who presents the emergency department due to worsening chronic right heel wound.? Ulcer has been present for several months.? He has had increasing pain in his right leg as well as increasing swelling.? He denies any associated fever or chills.? Lab work shows no leukocytosis.? Patient is afebrile.? Patient was started on vancomycin Zosyn and the decision was made to admit him for further management of right heel wound, likely osteomyelitis . Right heel ulcer/osteomyelitis. Patient with history of severe PVD. Patient has been treated with vancomycin and Zosyn. Blood cultures have remained negative. Imaging shows multiple levels of occlusion. High risk for amputation as per vascular surgeon. The plans is to transfer to tertiary facility specifically [facility] where he would require specialty care for possible BKA. Patient has been hemodynamically stable. He had had regular wound dressings. History of alcohol abuse. Patient has been decreasing amount of alcohol used on a daily basis. He reports drinking 1 - 32 oz beer daily. He had no evidence of alcohol withdrawal during this hospitalization Tobacco dependence. Smoking cessation advised. Continue nicotine replacement therapy. <Libia Aguirre NP - Last Filed: 02/19/21 08:24> Time Spent with Patient Time attestation: Total time spent providing and/or coordinating discharge services: <Libia Aguirre NP - Last Filed: 02/19/21 08:24> Discharge coordination time: Greater than 30 minutes <MAURI Mauro - Last Filed: 02/20/21 16:50> Quality: Stroke Does the patient have a stroke diagnosis?: No <MAURI Mauro - Last Filed: 02/20/21 16:50> Physical Exam Vital Signs: Vital Signs: Last Vital Signs Temp 97.3 F 02/17/21 15:27 Pulse 72 02/17/21 15:27 Resp 14 02/17/21 15:27 BP 128/61 02/17/21 15:27 Pulse Ox 100 02/17/21 15:27 Body Mass Index 20.5 <Libia Aguirre NP - Last Filed: 02/19/21 08:24> Appearing in no acute distress head is normocephalic atraumatic eyes pupils are PERRLA sclera is anicteric mouth throat mucous membranes are intact and moist neck is supple no lymphadenopathy, no JVD noted lung sounds are clear to auscultation heart regular rate rhythm, clear S1, S2 positive bowel sounds, abdomen is soft, nontender neuro patient is alert x3, no focal deficits <Libia Aguirre NP - Last Filed: 02/19/21 08:24> DS: Data Data Completed and Pending Completed studies during hospitalization [Text1]: Procedures Bypass Right Femoral Artery to Right Femoral Artery with Synthetic Substitute, Open Approach (11/12/20) Detoxification Services for Substance Abuse Treatment (11/12/20) Excision of Right Saphenous Vein, Open Approach (11/12/20) Extirpation of Matter from Right External Iliac Artery, Open Approach (11/12/20) Extirpation of Matter from Right Femoral Artery, Open Approach (11/12/20) Removal of Synthetic Substitute from Lower Artery, Open Approach (11/12/20) Supplement Right Femoral Artery with Synthetic Substitute, Open Approach (05/20/20) Transfusion of Nonautologous Red Blood Cells into Peripheral Vein, Percutaneous Approach (11/12/20) <Libia Aguirre NP - Last Filed: 02/19/21 08:24> Labs on day of discharge: Laboratory Results - last 24 hr 02/17/21 02/17/21 06:20 06:20 WBC 5.1 RBC 3.20 L Hgb 9.6 L Hct 29.7 L MCV 92.8 MCH 30.0 MCHC 32.3 RDW 14.3 Plt Count 432 H MPV 8.9 L Absolute Nucleated RBC 0.000 Nucleated RBC % (auto) 0.0 Sodium 134 L Potassium 4.9 Chloride 100 Carbon Dioxide 24 Anion Gap 15 BUN 6 L Creatinine 0.65 Estim Creat Clear Calc 96.9 Estimated GFR > 60 Random Glucose 84 Calcium 9.0 Preliminary micro results at discharge 02/14/21 16:25 Blood Culture - Preliminary Blood - Venous No growth after 48 hours. 02/14/21 14:26 Blood Culture - Preliminary Blood - Venous No growth after 48 hours. <Libia Aguirre NP - Last Filed: 02/19/21 08:24> Discharge Plan Discharge Patient Disposition: [facility] <Libia Aguirre NP - Last Filed: 02/19/21 08:24> Discharge Diagnosis: Right heel ulcer, osteomyelitis Alcohol abuse <Libia Aguirre NP - Last Filed: 02/19/21 08:24> Right heel ulcer, osteomyelitis Alcohol abuse <MAURI Mauro - Last Filed: 02/20/21 16:50> Referrals: Karlene Randle MD [Primary Care Provider] - 1 Week <Libia Aguirre NP - Last Filed: 02/19/21 08:24> Discharge Medications: New piperacillin-tazobactam 3.375 gram Recon Soln 3.375 g IV Q6H Qty: 1 RF: 0 acetaminophen 325 mg Tablet 650 mg PO Q6H PRN (Reason: Pain, Mild (Pain Scale 1-3)) 1 Days RF: 0 nicotine 21 mg/24 hr Patch 24 Hour 21 mg transdermal DAILY 1 Days RF: 0 morphine 2 mg/mL Syringe 2 mg IVPUSH Q4H PRN (Reason: Pain, Severe (Pain Scale 7-10)) Qty: 1 RF: 0 oxycodone 5 mg Tablet 5 mg PO Q4H PRN (Reason: Pain, Severe (Pain Scale 7-10)) 1 Days RF: 0 vancomycin 750 mg recon soln 750 mg IV Q12H Qty: 1 RF: 0 Continued melatonin 3 mg Tablet 3 mg PO BEDTIME PRN (Reason: Insomnia) RF: 0 gabapentin 300 mg capsule 1 cap PO TID RF: 0 diclofenac sodium 1 % gel 1 g topical QID RF: 0 Combivent Respimat 20-100 mcg/actuation mist 1 puff inhalation QID PRN (Reason: Shortness Of Breath) RF: 0 cyanocobalamin (vitamin B-12) [B-12 DOTS] 500 mcg Tablet 500 mcg PO DAILY RF: 0 metoprolol succinate 50 mg tablet extended release 24 hr 50 mg PO DAILY Qty: 90 RF: 0 atorvastatin 40 mg tablet 40 mg PO DAILY Qty: 90 RF: 1 Discontinued acetaminophen 500 mg Tablet 1,000 mg PO BID RF: 0 Eliquis 2.5 mg Tablet 2.5 mg PO BID Qty: 60 RF: 0 aspirin 81 mg Tablet,Delayed Release (Dr/Ec) 81 mg PO DAILY Qty: 30 RF: 0 tramadol 50 mg tablet 50 mg PO Q8H PRN (Reason: pain) Qty: 30 RF: 0 <Libia Aguirre NP - Last Filed: 02/19/21 08:24> Discharge Orders: Discharge Order (Routine); Ordered 02/20/21 Ordered By: Rachelle Wayne <Libia Aguirre NP - Last Filed: 02/19/21 08:24> Diet: advance to usual diet <Libia Aguirre NP - Last Filed: 02/19/21 08:24> advance to usual diet <MAURI Mauro - Last Filed: 02/20/21 16:50> Activity on Discharge: As tolerated <Libia Aguirre NP - Last Filed: 02/19/21 08:24> As tolerated <MAURI Mauro - Last Filed: 02/20/21 16:50> Stand Alone Forms: Patient Portal Discharge page <Libia Aguirre NP - Last Filed: 02/19/21 08:24> Care Plan Goals: Vascular follow up from tertiary facility <Libia Aguirre NP - Last Filed: 02/19/21 08:24> Health Concerns: Severe PVD Right heel ulcer, osteomyelitis Alcohol abuse. no evidence of alcohol withdrawl during this hospitalization <Libia Aguirre NP - Last Filed: 02/19/21 08:24> Plan of Treatment: Plan is for transfer to [facility] for higher level of care due to extensive vascular issues and possible BKA <Libia Aguirre NP - Last Filed: 02/19/21 08:24> Assessment: See discharge summary <Libia Aguirre NP - Last Filed: 02/19/21 08:24> Discharge Date/Time: 02/20/21 10:01 <Libia Aguirre NP - Last Filed: 02/19/21 08:24>
[2021-02-17 17:56] LABS: Vancomycin Trough 11.1 mcg/mL (10.0-20.0)
[2021-02-17] MEDS: Apixaban 2.5 MG TABLET PO (22:05)
[2021-02-18 03:42] VITALS: BP 112/71; PULSE 79; RESP 16; TEMP 36.1; O2SAT 100
[2021-02-18] MEDS: Piperacillin Sodium/Tazobactam 3.375 GM in 0.9 % Sodium Chloride 50 ML IV ×4 (03:45→20:06)
[2021-02-18] MEDS: Morphine Sulfate 2 MG/ML CARTRIDGE IVPUSH ×4 (03:48→20:02)
[2021-02-18] MEDS: vancomycin HCL 750 MG in 0.9 % Sodium Chloride 250 ML 265 MG IV ×2 (05:51→17:32)
[2021-02-18 07:11] VITALS: BP 113/64; PULSE 72; RESP 17; TEMP 36.1; O2SAT 100
[2021-02-18] MEDS: 0.9 % Sodium Chloride Flush 3 ML SYRINGE IVFLUSH ×3 (07:15→20:06)
[2021-02-18] MEDS: Atorvastatin Calcium 40 MG TABLET PO (07:22)
[2021-02-18] MEDS: Aspirin Enteric Coated 81 MG TABLET.DR PO (07:22)
[2021-02-18] MEDS: oxyCODONE HCl Immed Release 5 MG TABLET PO ×3 (07:22→21:17)
[2021-02-18] MEDS: Gabapentin 300 MG CAPSULE PO ×3 (07:22→20:03)
[2021-02-18] MEDS: Apixaban 2.5 MG TABLET PO ×2 (07:22→20:03)
[2021-02-18] MEDS: Docusate Sodium 100 MG CAPSULE PO (07:23)
[2021-02-18] MEDS: Cyanocobalamin (Vitamin B-12) 500 MCG TABLET PO (07:23)
[2021-02-18] MEDS: Nicotine 21 MG PATCH.TD24 TRANSDERMA (07:23)
--- NOTE | 2021-02-18 09:53 | P.PNVS_ITS ---
Subjective Subjective Date of Service: 02/18/21 Patient reports: no new complaints, feels better and pain is less Interval history: Patient seen and examined. No significant events overnight. He notes that the pain and discomfort have improved somewhat. And he is still concerned about his right lower extremity nonhealing ulcer. He is now for routine follow-up. Physical Exam Vital Signs: Vital Signs: Last Vital Signs Temp 97.0 F 02/18/21 07:11 Pulse 72 02/18/21 07:11 Resp 17 02/18/21 07:11 BP 113/64 02/18/21 07:11 Pulse Ox 100 02/18/21 07:11 Body Mass Index 20.5 Const: General: cooperative, healthy appearing and no acute distress Orientation/consciousness: oriented to person, oriented to place and oriented to time HENMT: Head: Yes normal to inspection Neck: Carotids: no bruits Chest: Chest palpation & inspection: normal inspection of the chest Resp: Effort & Inspection: normal respiratory effort and able to speak in complete sentences Auscultation: clear to auscultation bilaterally Cardio: Rate: regular rate Heart sounds: S1 normal heart sound present and S2 normal heart sound present Peripheral pulses: dorsalis pedis present (Bilateral DP signals) GI: Inspection: Yes normal to inspection Skin: General skin exam: no rashes or lesions noted Wounds: no wounds Neuro: General: oriented to person, oriented to place, oriented to time and CN's II-XI intact bilaterally Extrem: General: Yes normal to inspection, Yes full ROM and Yes no clubbing, cyanosis or edema Psych: Appearance: grossly normal and well kempt Speech and movement: Normal speech and movement present Affect: normal affect Progress Note: A&P Assessment and plan (1) PAD (peripheral artery disease): Status: Acute Assessment and Plan: In short Adonay has critical limb ischemia of the right lower extremity. The concern is that he had an infected patch blowout of the right groin and it had to be repaired with a vein patch. There have been multiple interventions through that right groin. In addition he has complex multilevel disease. He may be better served at a tertiary care center. I did reach out to Dr. Teja Rouse at [facility]. He has agreed to accept the patient. We are awaiting bed availability. Patient is currently being maintained on aspirin and Eliquis. We will try to coordinate transfer as soon as possible. Thank you for allowing us to assist in his care. If there are any questions or concerns please do not hesitate to contact us. Fall Risk Details Current Medications: Current Medications Generic Name Dose Route Start Last Admin Trade Name Freq PRN Reason Stop Dose Admin Acetaminophen 650 mg 02/14/21 19:20 Acetaminophen 325 Mg Tablet PO Q6H PRN Pain, Mild (Pain Scale 1-3) Albuterol/Ipratropium 3 ml 02/14/21 19:28 Albuterol/Iprat 2.5/0.5mg 3 Ml Ampul.Neb INHALE QID PRN Shortness Of Breath Apixaban 2.5 mg 02/14/21 21:00 02/18/21 07:22 Apixaban 2.5 Mg Tablet PO 2.5 mg BID STEWART Administration Aspirin 81 mg 02/15/21 09:00 02/18/21 07:22 Aspirin Enteric Coated 81 Mg Tablet. PO 81 mg DAILY STEWART Administration Atorvastatin Calcium 40 mg 02/15/21 09:00 02/18/21 07:22 Atorvastatin Calcium 40 Mg Tablet PO 40 mg DAILY STEWART Administration Cyanocobalamin 500 mcg 02/15/21 09:00 02/18/21 07:23 Cyanocobalamin (Vitamin B-12) 500 Mcg Tablet PO 500 mcg DAILY STEWART Administration Docusate Sodium 100 mg 02/16/21 09:00 02/18/21 07:23 Docusate Sodium 100 Mg Capsule PO 100 mg DAILY STEWART Administration Gabapentin 300 mg 02/14/21 21:00 02/18/21 07:22 Gabapentin 300 Mg Capsule PO 300 mg TID STEWART Administration Piperacillin Sod/Tazobactam 50 mls @ 100 mls/hr 02/14/21 21:00 02/18/21 09:47 Sod 3.375 gm/ Sodium Chloride IV Infused Q6H STEWART Infusion Vancomycin HCl 750 mg/ Sodium 265 mls @ 265 mls/hr 02/15/21 06:00 02/18/21 07:15 Chloride IV Infused Q12H STEWART Infusion Melatonin 3 mg 02/14/21 19:20 02/16/21 22:15 Melatonin 3 Mg Tablet PO 3 mg BEDTIME PRN Administration Insomnia Metoprolol Succinate 50 mg 02/15/21 09:00 02/15/21 09:00 Metoprolol Succinate Er 50 Mg Tab.Er.24h PO 50 mg DAILY STEWART Administration Protocol Morphine Sulfate 2 mg 02/15/21 14:22 02/18/21 09:06 Morphine Sulfate 2 Mg/Ml Cartridge IVPUSH 2 mg Q4H PRN Administration Pain, Severe (Pain Scale 7-10) Protocol Nicotine 21 mg 02/14/21 19:20 02/18/21 07:23 Nicotine 21 Mg Patch.Td24 TRANSDERMA 21 mg DAILY STEWART Administration Ondansetron HCl 4 mg 02/14/21 19:20 Ondansetron Hcl 4 Mg/2 Ml Vial IVPUSH Q8H PRN Nausea and Vomiting Oxycodone HCl 5 mg 02/15/21 10:59 02/18/21 07:22 Oxycodone Hcl Immed Release 5 Mg Tablet PO 5 mg Q4H PRN Administration Pain, Severe (Pain Scale 7-10) Pharmacy Consult 1 each 02/14/21 13:57 Consult Rx Perform Med Rec MISCELLANE ONCE PRN Consult order Pharmacy Consult 1 each 02/14/21 19:20 Consult Rx Vancomycin Dosing MISCELLANE DAILY PRN Consult order Senna/Docusate Sodium 1 tab 02/15/21 09:55 Sennosides/Docusate Sodium Tablet PO DAILY PRN Constipation Sodium Chloride 3 ml 02/15/21 00:00 02/18/21 07:15 0.9 % Sodium Chloride Flush 3 Ml Syringe IVFLUSH 3 ml QSHIFT STEWART Administration Time Spent With Patient Time: Total time spent is greater than 50% in coordination of care (as do cumented) at patient's floor/unit and/or counseling patient: 50 minutes between chart review CT scan review, discussion with [facility], and transfer coordination. Time with patient: Greater than 35 minutes Procedures Date of Service Date of Service: 02/18/21 Quality Stroke Does the patient have a stroke diagnosis?: No VTE Prior VTE?: No VTE Risk Level:: Medical - moderate - high VTE Device Contraindication: Treatment Not Indicated VTE Drug Contraindication: N/A - Med Ordered
--- NOTE | 2021-02-18 11:15 | MHC.CM.PN ---
UE TO PT'S COMPLICATED CASE AND 3 PREVIOUS VASCULAR SURGERIES THIS YEAR PT WILL BE TXFRD TO [facility] ONCE BED AVAILABLE. CM WILL CONT TO FOLLOW.
[2021-02-18 12:00] VITALS: BP 108/55; PULSE 85; RESP 15; TEMP 36.5; O2SAT 100
--- NOTE | 2021-02-18 12:48 | MHC.CLN ---
F/U REPORTS THAT EATING WELL. SON BRINGS IN COFFEE/DOUGHNUTS IN AM. CONTINUE TO FOLLOW.
--- NOTE | 2021-02-18 13:20 | P.PNIM_ITS ---
Progress Note: A&P (1) Osteomyelitis: Status: Acute Assessment and Plan: This is a 71-year-old male with a history of hypertension, PVD with complicated surgical history here with worsening chronic right heel wound likely osteo Right heel ulcer/osteomyelitis In the setting of severe peripheral vascular disease with complicated past surgical history No sepsis, lactic acid negative Continue broad-spectrum antibiotics, vanomycin and zosyn -Will likely need surgical intervention however, may need to be at tertiary facility considering multiple recent vascular procedures, will discuss with vascular Awaiting on transfer to [facility] in next 1-2 days HTN BP soft hold metoprolol Daily alcohol use Patient reports cutting down on his alcohol intake to 1 32 oz beer daily No evidence of alcohol withdrawal at this time Monitor on CIWA prn ativan if necessary Hyponatremia, mild improving Tobacco dependence Nicotine replacement therapy Smoking cessation advised Peripheral vascular disease Continue aspirin, Eliquis on hold in light of possible procedure HLD continue statin DVT prophylaxis-Eliquis on hold Code status-full code Subjective Subjective Date of Service: 02/18/21 Review of Systems Follow up osteomyelitis pain is better controlled. Physical Exam Vital Signs: Vital Signs: Last Vital Signs Temp 97.7 F 02/18/21 12:00 Pulse 85 02/18/21 12:00 Resp 15 02/18/21 12:00 BP 108/55 L 02/18/21 12:00 Pulse Ox 100 02/18/21 12:00 Body Mass Index 20.5 Appearing in no acute distress heart regular rate rhythm, clear S1, S2 positive bowel sounds, abdomen is soft, nontender neuro patient is alert x3, no focal deficits Objective Data Current Medications Generic Name Dose Route Start Last Admin Trade Name Oliver PRN Reason Stop Dose Admin Acetaminophen 650 mg 02/14/21 19:20 Acetaminophen 325 Mg Tablet PO Q6H PRN Pain, Mild (Pain Scale 1-3) Albuterol/Ipratropium 3 ml 02/14/21 19:28 Albuterol/Iprat 2.5/0.5mg 3 Ml Ampul.Neb INHALE QID PRN Shortness Of Breath Apixaban 2.5 mg 02/14/21 21:00 02/18/21 07:22 Apixaban 2.5 Mg Tablet PO 2.5 mg BID STEWART Administration Aspirin 81 mg 02/15/21 09:00 02/18/21 07:22 Aspirin Enteric Coated 81 Mg Tablet.Dr PO 81 mg DAILY STEWART Administration Atorvastatin Calcium 40 mg 02/15/21 09:00 02/18/21 07:22 Atorvastatin Calcium 40 Mg Tablet PO 40 mg DAILY STEWART Administration Cyanocobalamin 500 mcg 02/15/21 09:00 02/18/21 07:23 Cyanocobalamin (Vitamin B-12) 500 Mcg Tablet PO 500 mcg DAILY STEWART Administration Docusate Sodium 100 mg 02/16/21 09:00 02/18/21 07:23 Docusate Sodium 100 Mg Capsule PO 100 mg DAILY STEWART Administration Gabapentin 300 mg 02/14/21 21:00 02/18/21 07:22 Gabapentin 300 Mg Capsule PO 300 mg TID STEWART Administration Piperacillin Sod/Tazobactam 50 mls @ 100 mls/hr 02/14/21 21:00 02/18/21 09:47 Sod 3.375 gm/ Sodium Chloride IV Infused Q6H STEWART Infusion Vancomycin HCl 750 mg/ Sodium 265 mls @ 265 mls/hr 02/15/21 06:00 02/18/21 07:15 Chloride IV Infused Q12H STEWART Infusion Melatonin 3 mg 02/14/21 19:20 02/16/21 22:15 Melatonin 3 Mg Tablet PO 3 mg BEDTIME PRN Administration Insomnia Metoprolol Succinate 50 mg 02/15/21 09:00 02/15/21 09:00 Metoprolol Succinate Er 50 Mg Tab.Er.24h PO 50 mg DAILY STEWART Administration Protocol Morphine Sulfate 2 mg 02/15/21 14:22 02/18/21 09:06 Morphine Sulfate 2 Mg/Ml Cartridge IVPUSH 2 mg Q4H PRN Administration Pain, Severe (Pain Scale 7-10) Protocol Nicotine 21 mg 02/14/21 19:20 02/18/21 07:23 Nicotine 21 Mg Patch.Td24 TRANSDERMA 21 mg DAILY STEWART Administration Ondansetron HCl 4 mg 02/14/21 19:20 Ondansetron Hcl 4 Mg/2 Ml Vial IVPUSH Q8H PRN Nausea and Vomiting Oxycodone HCl 5 mg 02/15/21 10:59 02/18/21 07:22 Oxycodone Hcl Immed Release 5 Mg Tablet PO 5 mg Q4H PRN Administration Pain, Severe (Pain Scale 7-10) Pharmacy Consult 1 each 02/14/21 13:57 Consult Rx Perform Med Rec MISCELLANE ONCE PRN Consult order Pharmacy Consult 1 each 02/14/21 19:20 Consult Rx Vancomycin Dosing MISCELLANE DAILY PRN Consult order Senna/Docusate Sodium 1 tab 02/15/21 09:55 Sennosides/Docusate Sodium Tablet PO DAILY PRN Constipation Sodium Chloride 3 ml 02/15/21 00:00 02/18/21 07:15 0.9 % Sodium Chloride Flush 3 Ml Syringe IVFLUSH 3 ml QSHIFT STEWART Administration Labs CBC & Chem 7: 02/17/21 06:20 02/17/21 06:20 Labs: Laboratory Results - last 24 hr 02/17/21 17:18 Vancomycin Trough 11.1 Microbiology Microbiology Results: Microbiology 02/14/21 16:25 Blood - Venous Blood Culture - Preliminary No growth after 48 hours. 02/14/21 14:26 Blood - Venous Blood Culture - Preliminary No growth after 48 hours. Quality Stroke Does the patient have a stroke diagnosis?: No VTE Prior VTE?: No VTE Risk Level:: Medical - moderate - high VTE Device Contraindication: Treatment Not Indicated VTE Drug Contraindication: N/A - Med Ordered
[2021-02-18 15:19] VITALS: BP 130/73; PULSE 81; RESP 18; TEMP 37; O2SAT 100
--- NOTE | 2021-02-18 15:41 | MHC.CM.PN ---
[facility] CALL[facility] AND WILL MOST LIKELY HAVE TO ADMIT PT TOMORROW 02/19/21, CM CONTACTED [facility] AND PER [facility] PT IS ACCEPTED BY DR GALLARDO AND WILL BE GOING [facility] THE [facility] REPORTED THEY WILL NOT BE ABLE TO CONFIRM WHICH UNIT UNTIL THEY HAVE A BED FOR HIM.
[2021-02-18 19:44] VITALS: BP 194/98; PULSE 90; RESP 18; TEMP 36.7; O2SAT 99
[2021-02-18] MEDS: Acetaminophen 325 MG TABLET 650 MG PO (21:17)
[2021-02-18 23:24] VITALS: BP 167/93; PULSE 87; RESP 18; TEMP 36.5; O2SAT 100
[2021-02-19] MEDS: Morphine Sulfate 2 MG/ML CARTRIDGE IVPUSH ×3 (03:12→20:06)
[2021-02-19] MEDS: Piperacillin Sodium/Tazobactam 3.375 GM in 0.9 % Sodium Chloride 50 ML IV ×4 (03:13→20:49)
[2021-02-19 03:18] VITALS: BP 160/65; PULSE 77; RESP 14; TEMP 36.4; O2SAT 98
[2021-02-19] MEDS: vancomycin HCL 750 MG in 0.9 % Sodium Chloride 250 ML 265 MG IV ×2 (06:28→17:08)
[2021-02-19 07:54] VITALS: BP 154/75; PULSE 72; RESP 16; TEMP 36; O2SAT 99
[2021-02-19] MEDS: Gabapentin 300 MG CAPSULE PO ×3 (08:30→20:49)
[2021-02-19] MEDS: Apixaban 2.5 MG TABLET PO ×2 (08:30→20:49)
[2021-02-19] MEDS: Cyanocobalamin (Vitamin B-12) 500 MCG TABLET PO (08:30)
[2021-02-19] MEDS: oxyCODONE HCl Immed Release 5 MG TABLET PO ×2 (08:30→17:07)
[2021-02-19] MEDS: Aspirin Enteric Coated 81 MG TABLET.DR PO (08:30)
[2021-02-19] MEDS: Atorvastatin Calcium 40 MG TABLET PO (08:30)
[2021-02-19] MEDS: Docusate Sodium 100 MG CAPSULE PO (08:30)
--- NOTE | 2021-02-19 08:30 | MHC.CM.PN ---
CM MET W/NSG WHO REPORTED [facility] CALLED THIS MORNING AND THEY ARE UNABLE TO GIVE PT A BED DUE TO TOO MANY ED BOARDERS, PER [facility] PT WILL NOT HAVE A BED FOR 24HRS, ANTICIPATE D/C Wednesday02/20/21. CM WILLL CONT TO FOLLOW.
[2021-02-19] MEDS: Nicotine 21 MG PATCH.TD24 TRANSDERMA (08:33)
[2021-02-19] MEDS: 0.9 % Sodium Chloride Flush 3 ML SYRINGE IVFLUSH ×2 (08:35→20:49)
--- NOTE | 2021-02-19 10:21 | HO.VASCPN ---
Subjective Subjective Date of Service: 02/19/21 Patient reports: no new complaints, feels better and still having pain Interval history: Patient seen examined this morning. No significant events overnight. This morning he was up in a chair asleep. His right leg was hanging off the side of the chair. When awoken he stated that he did have some pain but in general was doing better since admission. He is awaiting transfer to [facility] Physical Exam Vital Signs: Vital Signs: Last Vital Signs Temp 96.8 F 02/19/21 07:54 Pulse 72 02/19/21 07:54 Resp 16 02/19/21 07:54 BP 154/75 H 02/19/21 07:54 Pulse Ox 99 02/19/21 07:54 Body Mass Index 20.5 Const: General: cooperative, healthy appearing and no acute distress Orientation/consciousness: oriented to person, oriented to place and oriented to time HENMT: Head: Yes normal to inspection Neck: Carotids: no bruits Chest: Chest palpation & inspection: normal inspection of the chest Resp: Effort & Inspection: normal respiratory effort and able to speak in complete sentences Auscultation: clear to auscultation bilaterally Cardio: Rate: regular rate Heart sounds: S1 normal heart sound present and S2 normal heart sound present Peripheral pulses: dorsalis pedis present (Bilateral DP signals) GI: Inspection: Yes normal to inspection Skin: Other: Right heel ulceration penetrating to bone General skin exam: no rashes or lesions noted Wounds: no wounds Neuro: General: oriented to person, oriented to place, oriented to time and CN's II-XI intact bilaterally Extrem: General: Yes normal to inspection, Yes full ROM and Yes no clubbing, cyanosis or edema Psych: Appearance: grossly normal and well kempt Speech and movement: Normal speech and movement present Affect: normal affect Progress Note: A&P Assessment and plan (1) PAD (peripheral artery disease): Status: Acute Assessment and Plan: In short patient has severe peripheral vascular disease. We are waiting transferred to [facility]. Continue antibiotics and pain control for now. I did have a discussion with [facility] and the transfer board and do anticipate transfer today. CT angiogram disc will be sent with the patient for review there. This was all discussed with the patient and he is in agreement. Thank you for allowing us to assist in his care. If there are any questions or concerns please do not hesitate to contact us. Fall Risk Details Current Medications: Current Medications Generic Name Dose Route Start Last Admin Trade Name Oliver PRN Reason Stop Dose Admin Acetaminophen 650 mg 02/14/21 19:20 02/18/21 21:17 Acetaminophen 325 Mg Tablet PO 650 mg Q6H PRN Administration Pain, Mild (Pain Scale 1-3) Albuterol/Ipratropium 3 ml 02/14/21 19:28 Albuterol/Iprat 2.5/0.5mg 3 Ml Ampul.Neb INHALE QID PRN Shortness Of Breath Apixaban 2.5 mg 02/14/21 21:00 02/19/21 08:30 Apixaban 2.5 Mg Tablet PO 2.5 mg BID STEWART Administration Aspirin 81 mg 02/15/21 09:00 02/19/21 08:30 Aspirin Enteric Coated 81 Mg Tablet. PO 81 mg DAILY STEWART Administration Atorvastatin Calcium 40 mg 02/15/21 09:00 02/19/21 08:30 Atorvastatin Calcium 40 Mg Tablet PO 40 mg DAILY STEWART Administration Cyanocobalamin 500 mcg 02/15/21 09:00 02/19/21 08:30 Cyanocobalamin (Vitamin B-12) 500 Mcg Tablet PO 500 mcg DAILY STEWART Administration Docusate Sodium 100 mg 02/16/21 09:00 02/19/21 08:30 Docusate Sodium 100 Mg Capsule PO 100 mg DAILY STEWART Administration Gabapentin 300 mg 02/14/21 21:00 02/19/21 08:30 Gabapentin 300 Mg Capsule PO 300 mg TID STEWART Administration Piperacillin Sod/Tazobactam 50 mls @ 100 mls/hr 02/14/21 21:00 02/19/21 09:33 Sod 3.375 gm/ Sodium Chloride IV Infused Q6H STEWART Infusion Vancomycin HCl 750 mg/ Sodium 265 mls @ 265 mls/hr 02/15/21 06:00 02/19/21 08:22 Chloride IV Infused Q12H STEWART Infusion Melatonin 3 mg 02/14/21 19:20 02/16/21 22:15 Melatonin 3 Mg Tablet PO 3 mg BEDTIME PRN Administration Insomnia Metoprolol Succinate 50 mg 02/15/21 09:00 02/15/21 09:00 Metoprolol Succinate Er 50 Mg Tab.Er.24h PO 50 mg DAILY STEWART Administration Protocol Morphine Sulfate 2 mg 02/15/21 14:22 02/19/21 03:12 Morphine Sulfate 2 Mg/Ml Cartridge IVPUSH 2 mg Q4H PRN Administration Pain, Severe (Pain Scale 7-10) Protocol Nicotine 21 mg 02/14/21 19:20 02/19/21 08:33 Nicotine 21 Mg Patch.Td24 TRANSDERMA 21 mg DAILY STEWART Administration Ondansetron HCl 4 mg 02/14/21 19:20 Ondansetron Hcl 4 Mg/2 Ml Vial IVPUSH Q8H PRN Nausea and Vomiting Oxycodone HCl 5 mg 02/15/21 10:59 02/19/21 08:30 Oxycodone Hcl Immed Release 5 Mg Tablet PO 5 mg Q4H PRN Administration Pain, Severe (Pain Scale 7-10) Pharmacy Consult 1 each 02/14/21 13:57 Consult Rx Perform Med Rec MISCELLANE ONCE PRN Consult order Pharmacy Consult 1 each 02/14/21 19:20 Consult Rx Vancomycin Dosing MISCELLANE DAILY PRN Consult order Senna/Docusate Sodium 1 tab 02/15/21 09:55 Sennosides/Docusate Sodium Tablet PO DAILY PRN Constipation Sodium Chloride 3 ml 02/15/21 00:00 02/19/21 08:35 0.9 % Sodium Chloride Flush 3 Ml Syringe IVFLUSH 3 ml QSHIFT STEWART Administration Time Spent With Patient Time: Total time spent is greater than 50% in coordination of care (as documented) at patient's floor/unit and/or counseling patient: Time with patient: 25 - 35 minutes Procedures Date of Service Date of Service: 02/19/21 Quality Stroke Does the patient have a stroke diagnosis?: No VTE Prior VTE?: No VTE Risk Level:: Medical - moderate - high VTE Device Contraindication: Treatment Not Indicated VTE Drug Contraindication: N/A - Med Ordered
[2021-02-19 11:16] VITALS: BP 134/68; PULSE 86; RESP 18; TEMP 36.1; O2SAT 100
--- NOTE | 2021-02-19 12:29 | PM.IMPN ---
Progress Note: A&P (1) Osteomyelitis: Status: Acute <Libia Aguirre NP - Last Filed: 02/19/21 12:34> Assessment and Plan: This is a 71-year-old male with a history of hypertension, PVD with complicated surgical history here with worsening chronic right heel wound likely osteo Right heel ulcer/osteomyelitis In the setting of severe peripheral vascular disease with complicated past surgical history No sepsis, lactic acid negative Continue broad-spectrum antibiotics, vanomycin and zosyn -Will likely need surgical intervention however, may need to be at tertiary facility considering multiple recent vascular procedures, will discuss with vascular Awaiting on transfer to [facility] in next 1-2 days HTN BP soft hold metoprolol Daily alcohol use Patient reports cutting down on his alcohol intake to 1 32 oz beer daily No evidence of alcohol withdrawal at this time Monitor on CIWA prn ativan if necessary Hyponatremia, mild improving Tobacco dependence Nicotine replacement therapy Smoking cessation advised Peripheral vascular disease Continue aspirin, Eliquis on hold in light of possible procedure HLD continue statin DVT prophylaxis-Eliquis on hold Code status-full code <Libia Aguirre NP - Last Filed: 02/19/21 12:34> Subjective Subjective Date of Service: 02/19/21 <Libia Aguirre NP - Last Filed: 02/19/21 12:34> 02/19/21 <Peter Wright MD - Last Filed: 02/19/21 14:22> Review of Systems Follow up osteomyelitis Awaiting transfer to [facility] Pain to right lower extremity <Libia Aguirre NP - Last Filed: 02/19/21 12:34> Physical Exam Vital Signs: Vital Signs: Last Vital Signs Temp 97.0 F 02/19/21 11:16 Pulse 86 02/19/21 11:16 Resp 18 02/19/21 11:16 BP 134/68 02/19/21 11:16 Pulse Ox 100 02/19/21 11:16 Body Mass Index 20.5 <Libia Aguirre NP - Last Filed: 02/19/21 12:34> Appearing in no acute distress lung sounds are clear to auscultation heart regular rate rhythm, clear S1, S2 positive bowel sounds, abdomen is soft, nontender neuro patient is alert x3, no focal deficits <Libia Aguirre NP - Last Filed: 02/19/21 12:34> Objective Data Current Medications Generic Name Dose Route Start Last Admin Trade Name Oliver PRN Reason Stop Dose Admin Acetaminophen 650 mg 02/14/21 19:20 02/18/21 21:17 Acetaminophen 325 Mg Tablet PO 650 mg Q6H PRN Administration Pain, Mild (Pain Scale 1-3) Albuterol/Ipratropium 3 ml 02/14/21 19:28 Albuterol/Iprat 2.5/0.5mg 3 Ml Ampul.Neb INHALE QID PRN Shortness Of Breath Apixaban 2.5 mg 02/14/21 21:00 02/19/21 08:30 Apixaban 2.5 Mg Tablet PO 2.5 mg BID STEWART Administration Aspirin 81 mg 02/15/21 09:00 02/19/21 08:30 Aspirin Enteric Coated 81 Mg Tablet.Dr PO 81 mg DAILY STEWART Administration Atorvastatin Calcium 40 mg 02/15/21 09:00 02/19/21 08:30 Atorvastatin Calcium 40 Mg Tablet PO 40 mg DAILY STEWART Administration Cyanocobalamin 500 mcg 02/15/21 09:00 02/19/21 08:30 Cyanocobalamin (Vitamin B-12) 500 Mcg Tablet PO 500 mcg DAILY STEWART Administration Docusate Sodium 100 mg 02/16/21 09:00 02/19/21 08:30 Docusate Sodium 100 Mg Capsule PO 100 mg DAILY STEWART Administration Gabapentin 300 mg 02/14/21 21:00 02/19/21 08:30 Gabapentin 300 Mg Capsule PO 300 mg TID STEWART Administration Piperacillin Sod/Tazobactam 50 mls @ 100 mls/hr 02/14/21 21:00 02/19/21 09:33 Sod 3.375 gm/ Sodium Chloride IV Infused Q6H STEWART Infusion Vancomycin HCl 750 mg/ Sodium 265 mls @ 265 mls/hr 02/15/21 06:00 02/19/21 08:22 Chloride IV Infused Q12H STEWART Infusion Melatonin 3 mg 02/14/21 19:20 02/16/21 22:15 Melatonin 3 Mg Tablet PO 3 mg BEDTIME PRN Administration Insomnia Metoprolol Succinate 50 mg 02/15/21 09:00 02/15/21 09:00 Metoprolol Succinate Er 50 Mg Tab.Er.24h PO 50 mg DAILY STEWART Administration Protocol Morphine Sulfate 2 mg 02/15/21 14:22 02/19/21 11:46 Morphine Sulfate 2 Mg/Ml Cartridge IVPUSH 2 mg Q4H PRN Administration Pain, Severe (Pain Scale 7-10) Protocol Nicotine 21 mg 02/14/21 19:20 02/19/21 08:33 Nicotine 21 Mg Patch.Td24 TRANSDERMA 21 mg DAILY STEWART Administration Ondansetron HCl 4 mg 02/14/21 19:20 Ondansetron Hcl 4 Mg/2 Ml Vial IVPUSH Q8H PRN Nausea and Vomiting Oxycodone HCl 5 mg 02/15/21 10:59 02/19/21 08:30 Oxycodone Hcl Immed Release 5 Mg Tablet PO 5 mg Q4H PRN Administration Pain, Severe (Pain Scale 7-10) Pharmacy Consult 1 each 02/14/21 13:57 Consult Rx Perform Med Rec MISCELLANE ONCE PRN Consult order Pharmacy Consult 1 each 02/14/21 19:20 Consult Rx Vancomycin Dosing MISCELLANE DAILY PRN Consult order Senna/Docusate Sodium 1 tab 02/15/21 09:55 Sennosides/Docusate Sodium Tablet PO DAILY PRN Constipation Sodium Chloride 3 ml 02/15/21 00:00 02/19/21 08:35 0.9 % Sodium Chloride Flush 3 Ml Syringe IVFLUSH 3 ml QSHIFT STEWART Administration <Libia Aguirre NP - Last Filed: 02/19/21 12:34> Labs CBC & Chem 7: : 02/17/21 06:20 02/17/21 06:20 <Libia Aguirre NP - Last Filed: 02/19/21 12:34> Labs: Laboratory Results - last 24 hr 02/19/21 04:39 Vancomycin Trough 14.0 <Libia Aguirre NP - Last Filed: 02/19/21 12:34> Microbiology Microbiology Results: Microbiology 02/14/21 16:25 Blood - Venous Blood Culture - Preliminary No growth after 48 hours. 02/14/21 14:26 Blood - Venous Blood Culture - Preliminary No growth after 48 hours. <Libia Aguirre NP - Last Filed: 02/19/21 12:34> Quality Stroke Does the patient have a stroke diagnosis?: No <Libia Aguirre NP - Last Filed: 02/19/21 12:34> VTE Prior VTE?: No <Libia Aguirre NP - Last Filed: 02/19/21 12:34> VTE Risk Level:: Medical - moderate - high <Libia Aguirre NP - Last Filed: 02/19/21 12:34> VTE Device Contraindication: Treatment Not Indicated <Libia Aguirre NP - Last Filed: 02/19/21 12:34> VTE Drug Contraindication: N/A - Med Ordered <Libia Aguirre NP - Last Filed: 02/19/21 12:34>
[2021-02-19 16:00] VITALS: BP 152/70; PULSE 84; RESP 18; TEMP 36.6; O2SAT 99
[2021-02-19 19:50] VITALS: BP 184/77; PULSE 83; RESP 18; TEMP 36.2; O2SAT 99
[2021-02-19 23:09] VITALS: BP 115/64; PULSE 84; RESP 16; TEMP 36.6; O2SAT 100
[2021-02-20] MEDS: Piperacillin Sodium/Tazobactam 3.375 GM in 0.9 % Sodium Chloride 50 ML IV (03:19)
[2021-02-20 03:43] VITALS: BP 113/54; PULSE 82; RESP 16; TEMP 36.4; O2SAT 99
--- NOTE | 2021-02-20 03:51 | PC.NURSE ---
[facility] called around 0200 to let me know that Mr. Hou's bed was ready. I spoke to Dr. Jackson and he did not feel comfortable discharging the patient at this time. He would like the day team to discharge him. I spoke to Ximena at [facility] and let her know that he would not be discharged until after 0700 and asked if they could save his bed. She said she would get back to me if they weren't able to save his bed and if she doesn't call back that means that the bed is being saved. She has not called back. Mary Gonzalez, nursing respiratory supervisor is aware.
[2021-02-20] MEDS: vancomycin HCL 750 MG in 0.9 % Sodium Chloride 250 ML 265 MG IV (05:58)
[2021-02-20 07:22] VITALS: BP 121/72; PULSE 81; RESP 18; TEMP 36.9; O2SAT 100
[2021-02-20] MEDS: oxyCODONE HCl Immed Release 5 MG TABLET PO (08:02)
[2021-02-20] MEDS: Aspirin Enteric Coated 81 MG TABLET.DR PO (08:02)
[2021-02-20] MEDS: Gabapentin 300 MG CAPSULE PO (08:02)
[2021-02-20] MEDS: Atorvastatin Calcium 40 MG TABLET PO (08:02)
[2021-02-20] MEDS: Docusate Sodium 100 MG CAPSULE PO (08:03)
[2021-02-20] MEDS: Apixaban 2.5 MG TABLET PO (08:03)
[2021-02-20] MEDS: Cyanocobalamin (Vitamin B-12) 500 MCG TABLET PO (08:03)
[2021-02-20] MEDS: Nicotine 21 MG PATCH.TD24 TRANSDERMA (08:03)
--- NOTE | 2021-02-20 08:38 | MHC.CM.PN ---
PT TRANSFERRING TO [facility] TO UN[address], [facility] NOTIFIED & ESTIMATE WILL PICK PT UP IN ABOUT 30MIN FROM TIME OF THIS NOTE, NSG/HOSPITALIST/UNIT AWARE, PT'S VNA UPDATED VIA [employer].
== END 2021-02-20 10:01 | disposition short-term general hospital (02) | DRG 300 ==
LOC: HO.ED 14:37 → HO.EDOVER 17:24 → HO.S3 17:47
PROVIDERS: Internal Medicine; Admitting Provider Physician Assistant Medical; Emergency Provider Emergency Medicine; PCP Pediatrics; Visit Provider Family Medicine
DX: I70.234 Atherosclerosis of native arteries of right leg with ulceration of heel and midfoot (principal); E87.1 Hypo-osmolality and hyponatremia; M86.9 Osteomyelitis, unspecified; Z20.822 Contact with and (suspected) exposure to COVID-19; L97.416 Non-pressure chronic ulcer of right heel and midfoot with bone involvement without evidence of necrosis; F10.10 Alcohol abuse, uncomplicated; F17.210 Nicotine dependence, cigarettes, uncomplicated; Z71.6 Tobacco abuse counseling; E78.5 Hyperlipidemia, unspecified; I10 Essential (primary) hypertension; Z79.899 Other long term (current) drug therapy
CPT/HCPCS: 11043; 36415; 75635; 80048; 80053; 80202; 82248; 82550; 82565; 83605; 83735; 84520; 85025; 85027; 87040; 87635; 93971; 96365; 96367; 99285; J2270; J2543; J3370; Q9967

== ENCOUNTER → 2021-05-08 13:26 | Outpatient (BNVA) | payer MEDICARE, OTHER, SELFPAY | PROVIDERS: PCP Pediatrics; Referring Provider Pediatrics; Visit Provider Internal Medicine Cardiovascular Disease | DX: I73.9 Peripheral vascular disease, unspecified (principal); R79.89 Other specified abnormal findings of blood chemistry | CPT/HCPCS: 99212 ==